=== PATIENT | female | born 1935 | race Hispanic/Latino ===

== ENCOUNTER 2016-07-12 10:38 | Inpatient (IN) | payer MEDICARE ==
[2016-07-12 10:43] VITALS: BMI 32.2
[2016-07-12] MEDS ORDERED: Albuterol-Ipratrop 3 mg / 0.5 (3 ml) UD IH STA (11:04)
[2016-07-12 11:15] LABS: ADD MANUAL DIFF? NO
--- NOTE | 2016-07-12 11:23 | ED PDOC ---
Arrival/HPI - General Chief Complaint: Chest Pain Time Seen by Provider: 07/12/16 11:03 Historian: Patient - History of Present Illness Narrative History of Present Illness (Text): 07/12/16 11:27 80 year old female presents to the emergency department with 1 week duration productive cough with yellow phlegm. She states she was put on Augmentin with no relief. Currently patient is complaining of chest discomfort upon cough. No other complaints at this time. PMD: Dr. Ming Hicks Time/Duration: 1 week Symptom Onset: Gradual Symptom Course: Unchanged Modifying Factors (Text): Augmentin with no relief Associated Symptoms (Text): None Past Medical History - Provider Review Nursing Documentation Reviewed: Yes - Infectious Disease Hx of Infectious Diseases: None - Tetanus Immunization Tetanus Immunization: Unknown - Cardiac Hx Cardiac Disorders: Yes Hx Hypertension: Yes - Pulmonary Hx Respiratory Disorders: Yes Hx Chronic Obstructive Pulmonary Disease (COPD): Yes - Neurological Hx Neurological Disorder: No - HEENT Hx Cataracts: Yes - Renal Hx Renal Disorder: No - Endocrine/Metabolic Hx Endocrine Disorders: No - Hematological/Oncological Hx Blood Disorders: No Hx Lymphoma: Yes (R chest port) Hx Shingles: Yes Other/Comment: last chemo was ONE YEAR AGO - Integumentary Hx Dermatological Disorder: No - Musculoskeletal/Rheumatological Hx Falls: Yes - Gastrointestinal Hx Gastrointestinal Disorders: No - Genitourinary/Gynecological Hx Genitourinary Disorders: No - Psychiatric Hx Psychophysiologic Disorder: No Hx Substance Use: No - Surgical History Hx Appendectomy: Yes Hx Cardiac Catheterization: Yes Hx Cholecystectomy: Yes Hx Coronary Stent: Yes Hx Hysterectomy: Yes Other/Comment: cardiac stent x3 - Anesthesia Hx Anesthesia: Yes Hx Anesthesia Reactions: No Hx Malignant Hyperthermia: No - Suicidal Assessment Feels Threatened In Home Enviroment: No Family/Social History - Physician Review Nursing Documentation Reviewed: Yes Family/Social History: Unknown Family HX Smoking Status: Never Smoked Hx Alcohol Use: No Hx Substance Use: No Substance used: demerol PO Q4H Hx Substance Use Treatment: No Allergies/Home Meds Allergies/Adverse Reactions: Allergies Sulfa (Sulfonamide Antibiotics) Allergy (Intermediate, Verified 07/12/16 10:42) RASH Home Medications: Home Meds Medication Instructions Recorded Confirmed Clopidogrel [Plavix] 75 mg PO QAM 11/27/11 07/12/16 Verapamil [Calan Tab] 120 mg PO QAM 11/27/11 07/12/16 Meperidine HCl [Demerol] 50 mg PO PRN PRN 09/16/14 07/12/16 Celecoxib [celeBREX] 200 mg PO QAM 05/23/15 07/12/16 Furosemide 20 mg PO QAM 05/23/15 07/12/16 Lidocaine 5% [Lidoderm] 1 patch TP DAILY 05/23/15 07/12/16 Omeprazole [Prilosec] 40 mg PO QAM 05/23/15 07/12/16 Pantoprazole [Protonix EC Tab] 40 mg PO QAM 05/23/15 07/12/16 Potassium Chloride [K-Dur 20 mEq 20 meq PO DAILY 05/23/15 07/12/16 ER Tab] predniSONE [predniSONE Tab] 40 mg PO DAILY 05/23/15 07/12/16 Amoxicillin/Clavulanate [Augmentin 1 tab PO DAILY 07/12/16 07/12/16 500 MG-125 MG Tab] Review of Systems - Physician Review All systems were reviewed & negative as marked: Yes Physical Exam - Physical Exam Narrative Physical Exam (Text): - Review of Systems Constitutional: Normal. absent: Fatigue, Weight Change, Fevers Eyes: Normal ENT: Normal Respiratory: Cough, Sputum absent: SOB Cardiovascular: Normal absent: Chest pain, Palpitations, Syncope Gastrointestinal: Normal absent: Abdominal pain, Diarrhea, Nausea, Vomiting Genitourinary: Normal. absent: Dysuria, Frequency, Hematuria Musculoskeletal: Normal. absent: Arthralgias, Back Pain, Neck Pain Skin: Normal Neurological: Normal absent: Focal Weakness Endocrine: Normal Hemo/Lymphatic: Normal Psychiatric: Normal - Physical exam Patient appears age appropriate, speaking full sentences without difficulty - Systems Exam Head: Present: Atraumatic, Normocephalic Pupils: Present: PERRL Extraocular Muscles: Present: EOMI Conjunctiva: Present: Normal Mouth: Present: Moist Mucous Membranes Neck: Present: Normal Range of Motion. No: MIDLINE TENDERNESS, Paraspinal Tenderness Respiratory/Chest: Present: Clear to Auscultation, Good Air Exchange. No: Respiratory Distress, Accessory Muscle Use, Tachypneic Cardiovascular: Present: Regular Rate and Rhythm, Normal S1, S2, Peripheral Pulses Present. No: Murmurs Abdomen: Present: Normal Bowel Sounds, No: Tenderness, Peritoneal Signs, Rebound, Guarding, Distention Back: Present: Normal Inspection. No: Midline Tenderness, Paraspinal Tenderness Upper Extremity: Present: Normal Inspection. No: Cyanosis, Edema Lower Extremity: Present: Normal Inspection. No: Edema Neurological: Present: GCS=15, Speech Normal, cranial nerves II through XII fully intact with no cerebellar abnormality, neuro-sensory fully intact. No focal neurological deficits. Skin: Present: Warm, Dry, Normal Color. No: Rashes Lymphatic: Present: OX3, NI, NC Psychiatric: Present: Alert, Oriented x 3, Normal Insight, Normal Concentration Vital Signs Reviewed: Yes Vital Signs Temp Pulse Resp BP Pulse Ox 07/12/16 10:45 98.3 F 61 20 135/67 96 Temperature: Afebrile Blood Pressure: Normal Pulse: Regular Respiratory Rate: Normal Appearance: Positive for: Well-Appearing, Non-Toxic, Comfortable Pain Distress: None Mental Status: Positive for: Alert and Oriented X 3 Medical Decision Making ED Course and Treatment: Impression: 80 year old female presents to the emergency department with 1 week duration productive cough with yellow phlegm. On physical exam, patient has no acute findings. Differential Diagnosis include but are not limited to: PNA vs bronchitis Plan: -- EKG, Chest X-ray -- Aspirin, Duoneb -- Labs -- Reassess and disposition Prior Visits: Notes and results from previous visits were reviewed. Patient last seen in the ED on Progress Notes: EKG shows sinus bradycardia at [address]-segment elevations, normal intervals. with no prior for comparison. Interpreted by me. Chest x-ray read by me shows no cardiomegaly, right lobar infiltrates, no effusions Case discussed with Dr. Ming Hicks. Agrees with med/surg admission to his service pt in no resp distress, aware of and agrees with plan - Lab Interpretations Lab Results: 07/12/16 11:13 07/12/16 11:13 Lab Results 07/12/16 11:13: WBC 7.4 D, RBC 3.56, Hgb 11.6 L, Hct 34.6 L, MCV 97.2, MCH 32.6 , MCHC 33.5, RDW 13.8, Plt Count 128, MPV 10.5, Gran % 56.1, Lymph % (Auto) 29.4 , Curry % (Auto) 9.0 H, Eos % (Auto) 5.1 H, Baso % (Auto) 0.4, Gran # 4.15, Lymph # 2.2, Curry # 0.7 H, Eos # 0.4, Baso # 0.03, PT 11.7, INR 1.08, APTT 96.9 H*, Sodium 140, Potassium 4.7, Chloride 103, Carbon Dioxide 27, Anion Gap 15, BUN 25 H, Creatinine 1.0, Est GFR ( Amer) > 60, Est GFR (Non-Af Amer) 53 , Random Glucose 111 H, Calcium 9.4, Total Bilirubin 0.6, AST 19, ALT 13, Alkaline Phosphatase 60, Lactate Dehydrogenase 494, Total Creatine Kinase < 20 L , Troponin I < 0.01 D, Total Protein 6.3, Albumin 4.0, Globulin 2.3, Albumin/ Globulin Ratio 1.7 - RAD Interpretation Radiology Orders: 07/12/16 11:03 CHEST PORTABLE [RAD] Stat - Medication Orders Current Medication Orders: Azithromycin (Zithromax 500mg In Ns) 250 mls @ 167 mls/hr IVPB STAT STA PRN Reason: Protocol Stop: 07/12/16 13:04 Discontinued Medications Albuterol/Ipratropium (Duoneb 3 Mg/0.5 Mg (3 Ml) Ud) 3 ml IH STAT STA Stop: 07/12/16 11:05 Last Admin: 07/12/16 11:11 Dose: 3 ML Aspirin (Aspirin Chewable) 324 mg PO STAT STA Stop: 07/12/16 11:05 Last Admin: 07/12/16 11:11 Dose: 324 MG Ceftriaxone Sodium (Rocephin 1 Gram Ivpb) 100 mls @ 200 mls/hr IV STAT STA PRN Reason: Protocol Stop: 07/12/16 12:04 Last Admin: 07/12/16 11:41 Dose: 200 MLS/HR eMAR Start Stop Document 07/12/16 11:41 SE (Rec: 07/12/16 11:42 SE [id number]) Intravenous Solution Start Date 07/12/16 Start Time 11:42 Ketorolac Tromethamine (Toradol) 15 mg IVP STAT STA Stop: 07/12/16 11:41 Last Admin: 07/12/16 11:46 Dose: 15 MG IVP Administration Document 07/12/16 11:46 SE (Rec: 07/12/16 11:46 SE [id number]) Charges for Administration # of IVP Administrations 1 - Scribe Statement The provider has reviewed the documentation as recorded by the Emerson Hernandez Provider Alexibe Attestation: All medical record entries made by the Alexibcheng were at my direction and personally dictated by me. I have reviewed the chart and agree that the record accurately reflects my personal performance of the history, physical exam, medical decision making, and the department course for this patient. I have also personally directed, reviewed, and agree with the discharge instructions and disposition. Disposition/Present on Arrival - Present on Arrival Any Indicators Present on Arrival: No History of DVT/PE: No History of Uncontrolled Diabetes: No Urinary Catheter: No History of Decub. Ulcer: No History Surgical Site Infection Following: None - Disposition Have Diagnosis and Disposition been Completed?: Yes Diagnosis: Pneumonia Disposition: HOSPITALIZED Disposition Time: 12:00 Patient Plan: Admission Patient Problems: Current Active Problems Problem Status Diagnosed Chest pain Acute Intractable back pain Acute Condition: FAIR
[2016-07-12 11:26] LABS: BASO # 0.03 K/mm3 (0.0-2.0); BASO % 0.4 % (0.0-3.0); EOS # 0.4 (0.0-0.7); EOS % 5.1 % (1.5-5.0); GRAN # 4.15 (1.4-6.5); GRAN % 56.1 % (50.0-68.0); HEMATOCRIT 34.6 % (36.0-48.0); LYMPH # 2.2 (1.2-3.4); LYMPH % 29.4 % (22.0-35.0); MEAN CELL VOLUME 97.2 fL (80.0-105.0); MEAN CORPUSCULAR HEMOGLOBIN 32.6 pg (25.0-35.0); MEAN CORPUSCULAR HGB CONC 33.5 g/dl (31.0-37.0); MEAN PLATELET VOLUME 10.5 fl (7.0-11.0); MONO # 0.7 (0.1-0.6); PLATELET COUNT 128 10^3/uL (120.0-450.0); RED CELL DISTRIBUTION WIDTH 13.8 % (11.5-14.5); WHITE BLOOD COUNT 7.4 10^3/ul (4.5-11.0)
[2016-07-12 11:33] LABS: ALB/GLOB RATIO 1.7 (1.1-1.8); ALKALINE PHOSPHATASE 60 U/L (38-133); ALT/SGPT 13 U/L (7-56); AST/SGOT 19 U/L (15-39); BILIRUBIN,TOTAL 0.6 mg/dL (0.2-1.3); BLOOD UREA NITROGEN 25 mg/dL (7-21); CALCIUM 9.4 mg/dL (8.4-10.5); CARBON DIOXIDE 27 mmol/L (21-33); CHLORIDE 103 mmol/L (98-107); GFR AFRICAN-AMERICAN > 60; GLUCOSE,RANDOM 111 mg/dL (70-110); POTASSIUM 4.7 mmol/L (3.6-5.0); SODIUM 140 mmol/L (132-148); TOTAL PROTEIN 6.3 g/dL (5.8-8.3)
[2016-07-12] MEDS ORDERED: Azithromycin 500MG/NS 250ml 250 ML IVPB STA (11:35)
[2016-07-12] MEDS ORDERED: cefTRIAXone 1 gm 100 ML IV STA (11:35)
[2016-07-12 11:45] LABS: TROPONIN I < 0.01 ng/mL
[2016-07-12 11:48] LABS: INR 1.08 (0.93-1.08)
[2016-07-12 12:09] LABS: PARTIAL THROMBOPLASTIN TIME 96.9 Seconds (23.7-30.8)
[2016-07-12] MEDS ORDERED: Albuterol-Ipratrop 3 mg / 0.5 (3 ml) UD IH PRN (12:13)
--- NOTE | 2016-07-12 12:22 | RAD ---
HISTORY: cough COMPARISON: 10/09/2015 FINDINGS: LUNGS: New opacity at lateral right lung base suspicious for pneumonia. Followup advised. No other abnormal opacity elsewhere. PLEURA: No significant pleural effusion identified, no pneumothorax apparent. CARDIOVASCULAR: Evaluation limited due to oblique positioning. Right central venous infusion port. No cardiomegaly. OSSEOUS STRUCTURES: Right glenohumeral osteoarthritis chronic rotator cuff insufficiency with superior subluxation of humeral head. VISUALIZED UPPER ABDOMEN: Normal. OTHER FINDINGS: None. IMPRESSION: New opacity lateral right lung base suspicious for developing pneumonia. Followup advised.
[2016-07-12] MEDS: Morphine 2 mg/ml ISec IVP PRN ×2 (16:24→21:17)
[2016-07-12] MEDS ORDERED: Pneumococcal 23-Valent Vaccine IM ONE (16:25)
[2016-07-12] MEDS ORDERED: Influenza Vaccine 45 MCG/0.5 ml IM ONE (16:25)
[2016-07-12] MEDS ORDERED: Potassium Chloride 20 mEq ER Tab PO ONE (16:49)
--- NOTE | 2016-07-12 17:02 | HP ---
HISTORY OF PRESENT ILLNESS: The patient is an 80-[facility] of productive cough with yellow phlegm for the past 1 week. She denies any fev er or chills. She was started as an outpatient on oral Augmentin 875 mg twice daily without any impr ovement. PAST MEDICAL HISTORY: Includes coronary artery disease. The patient had a cardiac catheterization p erformed 05/2015, which showed a 90% LAD lesion and the [facility] The patient also has a history of hypertension, hypertensive cardiovascular disease and CHF; a history of lymphoproliferative disorder, CLL and history of hemolytic anemia in t he past treated by Dr. Yamil Brown. She also has a history of degenerative joint disease with chronic pain and opiate dependence. PAST SURGICAL HISTORY: Includes status post appendectomy and cholecystectomy in the remote past. ALLERGIES: SULFA. CURRENT MEDICATIONS: Include metoprolol 25 mg twice daily, Calan SR 120 mg daily, Protonix 40 mg snidhu ly, Plavix 75 mg daily, Ecotrin 81 mg daily, Celebrex 200 mg daily, Lasix 20 mg daily, prednisone 40 mg daily and K-Dur 20 mEq daily. SOCIAL HISTORY: The patient has no history of alcohol or tobacco abuse. She is independent with ADL s and IADLs and lives alone. REVIEW OF SYSTEMS: Essentially as above. There is no chest pain, no shortness of breath, no fever, no chills, no nausea, no vomiting, no diarrhea, no melena, no bright red blood per rectum. PHYSICAL EXAMINATION: GENERAL: The patient is a well-developed female in no acute distress. VITAL SIGNS: Blood pressure 137/48, temperature 98.7, pulse 73, respiratory rate 20. HEENT: Head is normocephalic, atraumatic. Pupils equal, reactive to light. Extraocular movements i ntact. NECK: Supple, with no carotid bruit, no adenopathy. LUNGS: Clear. There is a Port-A-Cath present in the right chest wall, which is intact. HEART: Regular rate and rhythm with a grade II/ systolic murmur. ABDOMEN: Soft, nontender, bowel sounds are normoactive. EXTREMITIES: Without cyanosis, clubbing, or edema. NEUROLOGIC: The patient is awake and oriented x 3 without focal sensory or motor deficits. SKIN: Warm and dry. LABORATORY DATA: WBC 7.4, hemoglobin 11.6, hematocrit 34.6. Sodium 140, potassium 4.7, chloride 103 , CO2 of 27, BUN 25, creatinine 1.0. Glucose 111. Troponin is less than 0.01. Chest x-ray shows an opacity of the right lung base suspicious for pneumonia. IMPRESSION: 1. Right lower lobe infiltrate, possible pneumonia. 2. Hypertension, hypertensive cardiovascular disease, history of congestive heart failure. 3. Coronary artery disease. 4. Lymphoproliferative disorder/chronic lymphocytic leukemia/history of hemolytic anemia. 5. Degenerative joint disease with chronic pain and opiate dependence. PLAN: The patient is admitted to the medical surgical floor. We will start empiric IV antibiotics w ith Rocephin 1 gram q.24 hours and Zithromax 500 mg IV q.24 hours. Continue present medications. We will obtain hematology consult with Dr. Brown. Ming Hicks JD, MD cc: [id number] TT: 07/12/2016 17:01:27 sn
--- NOTE | 2016-07-12 18:26 | CARD ---
APPROVED REPORT EKG Measurement Heart [id number] <Conclusion> Sinus bradycardia Cannot rule out Anterior infarct, age undetermined Abnormal ECG
[2016-07-13] MEDS: Morphine 2 mg/ml ISec IVP PRN ×5 (02:45→19:22)
[2016-07-13] MEDS: Pantoprazole 40 mg EC Tab PO SCH (05:33)
[2016-07-13] MEDS: Azithromycin 500MG/NS 250ml 250 ML IVPB SCH (09:10)
[2016-07-13] MEDS: cefTRIAXone 1 gm 100 ML IVPB SCH (09:11)
[2016-07-13] MEDS: Potassium Chloride 20 mEq ER Tab PO SCH (09:17)
[2016-07-13] MEDS: Verapamil 120 mg ER Tab PO SCH (09:25)
--- NOTE | 2016-07-13 10:04 | CON ---
DATE: 07/13/2016 This is an 80-year-old woman, well known to me for chronic lymphocytic leukemia. She has had this si tuation for several years. She received Rituxan chemotherapy, 2 rounds, one about 3 years ago, anoth er almost a year ago and she has done quite well. She was seen in the office about a month ago and w as feeling well for her status and essentially is off all treatments at this point. She is now admit carlos alberto to the hospital for pneumonia and cough of several days with a fever and chills and productive ph legm. At present, the white count is 7.4, hemoglobin 11.6 and the differential shows 56% granulocyte s and 30% lymphocytes. This is consistent with what she is having in the office. She is basically i n a remission at this point. Chest x-ray shows a patchy infiltrate. She is elderly and she does not move well and it is hard for her to breathe well. So at this point, no hematological aspects. She is coming in for pneumonia. We will treat it with the antibiotics and breathing aids. Hopefully, sh e will continue to improve. Yamil Brown MD cc: [phone] TT: 07/13/2016 10:03:37 Confirmation # [id number] Dictation # [id number] en
--- NOTE | 2016-07-13 14:20 | PN ---
DATE: 07/13/2016 SUBJECTIVE: The patient is sitting out of bed, in no acute distress. She denies any chest pain, akiko rtness of breath. She has a slight nonproductive cough. OBJECTIVE: VITAL SIGNS: Blood pressure 163/78, temperature 95.1, pulse 56, respiratory rate 20. LUNGS: Show a few coarse crepitations at the right base. HEART: Regular rate and rhythm. ABDOMEN: Soft, nontender, bowel sounds are normoactive. EXTREMITIES: Without cyanosis, clubbing, or edema. NEUROLOGIC: The patient is awake and oriented x 3 without focal, sensory or motor deficits. SKIN: Warm and dry. IMPRESSION: 1. Right lower lobe pneumonia. 2. Hypertension, hypertensive cardiovascular disease, history of congestive heart failure. 3. Coronary artery disease 4. Chronic lymphocytic leukemia. 5. Degenerative joint disease with chronic pain and opiate dependence. PLAN: Continue empiric IV antibiotics with Rocephin and Zithromax. Oncology consult by Dr. Brown is appreciated. Continue DuoNeb and prednisone p.o. Social work for discharge planning. Ming Hicks JD, MD cc: [phone] TT: 07/13/2016 14:19:11 Confirmation # [id number] Dictation # [id number] en
[2016-07-13] MEDS: Lidocaine 5% Patch TD SCH (14:34)
[2016-07-14] MEDS: Morphine 2 mg/ml ISec IVP PRN ×4 (03:26→20:35)
[2016-07-14] MEDS: Pantoprazole 40 mg EC Tab PO SCH (06:27)
[2016-07-14] MEDS: Potassium Chloride 20 mEq ER Tab PO SCH (08:15)
[2016-07-14] MEDS: Azithromycin 500MG/NS 250ml 250 ML IVPB SCH (11:29)
[2016-07-14] MEDS: cefTRIAXone 1 gm 100 ML IVPB SCH (11:30)
[2016-07-14] MEDS: Lidocaine 5% Patch TD SCH (11:30)
[2016-07-14] MEDS ORDERED: Promethazine/Cod 6.25mg-10mg/5ml Syr UD PO PRN (11:42)
--- NOTE | 2016-07-14 12:44 | PN ---
DATE: 07/14/2016 SUBJECTIVE: The patient is lying in bed in no acute distress. She complains of some mild nausea and nonproductive cough. There is no chest pain. OBJECTIVE: VITAL SIGNS: Blood pressure 150/98, temperature 98.7, pulse 85, respiratory rate 18. LUNGS: Show a few coarse crepitations at the right base. HEART: Regular rate and rhythm. ABDOMEN: Soft, nontender. Bowel sounds are normoactive. EXTREMITIES: Without cyanosis, clubbing, or edema. NEUROLOGIC: The patient is awake and oriented x 3 without focal sensory or motor deficits. SKIN: Warm and dry. IMPRESSION: 1. Right lower lobe pneumonia. 2. Hypertension, hypertensive cardiovascular disease and history of congestive heart failure. 3. Coronary artery disease. 4. Chronic lymphocytic leukemia. 5. Degenerative joint disease with chronic pain and opiate dependence. PLAN: Continue empiric IV antibiotics with Rocephin and Zithromax, nebulizer treatments, low flow ox ygen and prednisone p.o. We will give ondansetron 4 mg q. 8 hours p.r.n. nausea as well as Phenergan with codeine 5 mL q. 4 hours p.r.n. cough. Social work for discharge planning. Ming Hicks JD, MD cc: 353 TT: 07/14/2016 12:44:13 Confirmation # [id number] Dictation # [id number] tn
[2016-07-14] MEDS: Verapamil 120 mg ER Tab PO SCH (12:53)
[2016-07-15] MEDS: Morphine 2 mg/ml ISec IVP PRN ×3 (00:12→10:35)
[2016-07-15] MEDS: Pantoprazole 40 mg EC Tab PO SCH (06:23)
[2016-07-15] MEDS: Azithromycin 500MG/NS 250ml 250 ML IVPB SCH (09:51)
[2016-07-15] MEDS: Lidocaine 5% Patch TD SCH (09:51)
[2016-07-15] MEDS: cefTRIAXone 1 gm 100 ML IVPB SCH (09:51)
[2016-07-15] MEDS: Potassium Chloride 20 mEq ER Tab PO SCH (09:52)
[2016-07-15] MEDS: Verapamil 120 mg ER Tab PO SCH (09:53)
[2016-07-15] MEDS: Morphine 4 mg/ml ISec IVP PRN ×2 (14:28→20:36)
--- NOTE | 2016-07-15 14:43 | PN ---
DATE: 07/15/2016 SUBJECTIVE: The patient is lying in bed in no acute distress. She complains of some back pain, whic h is increased from previous. There is a slight cough, no nausea, no vomiting, no chest pain. OBJECTIVE: VITAL SIGNS: Blood pressure 180/90, pulse 78, temperature 98.4, respiratory rate 18. LUNGS: Show a few coarse crepitations at the right base. HEART: Regular rate and rhythm. ABDOMEN: Soft, nontender, bowel sounds are normoactive. EXTREMITIES: Without cyanosis, clubbing, or edema. NEUROLOGIC: The patient is awake and oriented x 3 without focal sensory or motor deficits. SKIN: Warm and dry. IMPRESSION: 1. Right lower lobe pneumonia. 2. Hypertension, hypertensive cardiovascular disease and history of congestive heart failure. 3. Coronary artery disease. 4. Chronic lymphocytic leukemia. 5. Degenerative joint disease with chronic pain and opiate dependence. PLAN: Continue empiric IV antibiotics with Rocephin and Zithromax, nebulizer treatments, low flow ox ygen and prednisone p.o. We will increase morphine sulfate to 4 mg IV q. 4 hours p.r.n., check labs in a.m. Social work for discharge planning. Ming Hicks JD, MD cc: 353 TT: 07/15/2016 14:42:56 Confirmation # [id number] Dictation # [id number] an
[2016-07-16] MEDS: Morphine 4 mg/ml ISec IVP PRN ×4 (03:35→20:55)
[2016-07-16] MEDS: Pantoprazole 40 mg EC Tab PO SCH (05:52)
[2016-07-16 07:20] LABS: ADD MANUAL DIFF? NO
[2016-07-16 07:23] LABS: BASO # 0.01 K/mm3 (0.0-2.0); BASO % 0.2 % (0.0-3.0); EOS % 0.5 % (1.5-5.0); GRAN # 3.29 (1.4-6.5); GRAN % 53.1 % (50.0-68.0); HEMATOCRIT 33.2 % (36.0-48.0); LYMPH # 2.4 (1.2-3.4); LYMPH % 38.5 % (22.0-35.0); MEAN CELL VOLUME 95.1 fL (80.0-105.0); MEAN CORPUSCULAR HEMOGLOBIN 32.1 pg (25.0-35.0); MEAN CORPUSCULAR HGB CONC 33.7 g/dl (31.0-37.0); MEAN PLATELET VOLUME 10.5 fl (7.0-11.0); MONO # 0.5 (0.1-0.6); MONO % 7.7 % (1.0-6.0); PLATELET COUNT 145 10^3/uL (120.0-450.0); RED CELL DISTRIBUTION WIDTH 13.5 % (11.5-14.5); WHITE BLOOD COUNT 6.2 10^3/ul (4.5-11.0)
[2016-07-16 08:08] LABS: ALB/GLOB RATIO 1.5 (1.1-1.8); ALKALINE PHOSPHATASE 51 U/L (38-133); ALT/SGPT 12 U/L (7-56); AST/SGOT 14 U/L (15-39); BILIRUBIN,TOTAL 0.5 mg/dL (0.2-1.3); BLOOD UREA NITROGEN 35 mg/dL (7-21); CALCIUM 8.8 mg/dL (8.4-10.5); CARBON DIOXIDE 26 mmol/L (21-33); CHLORIDE 107 mmol/L (98-107); GFR AFRICAN-AMERICAN > 60; GLUCOSE,RANDOM 92 mg/dL (70-110); POTASSIUM 4.2 mmol/L (3.6-5.0); SODIUM 143 mmol/L (132-148); TOTAL PROTEIN 5.7 g/dL (5.8-8.3)
--- NOTE | 2016-07-16 08:15 | CON ---
DATE: 07/16/2016 This is a patient with chronic lymphocytic leukemia, status post her chemotherapy about 2 years ago. She has been doing well. She came in for her pneumonia. The blood counts now are doing pretty well . Her white count is around 6. No increased lymphocytes. PHYSICAL EXAMINATION: HEENT: Anicteric. NODES: None palpable in the axillary, cervical, supraclavicular or inguinal regions. LUNGS: Clear at present. No vertebral tenderness. The patient is able to lie flat and says she is feeling somewhat better. HEART: S1, S2. ABDOMEN: Shows no liver, no spleen, no tenderness. EXTREMITIES: No edema. CENTRAL NERVOUS SYSTEM: No focal finding. She seems to be getting better. She has an appointment with me in the office in about a month to flu sh the port and to see her, and I will be seeing her at that time, but for now, hematologically, she is doing well. Yamil Brown MD cc: [phone] TT: 07/16/2016 08:14:27 Confirmation # [id number] Dictation # [id number] en
[2016-07-16] MEDS: Potassium Chloride 20 mEq ER Tab PO SCH (10:07)
[2016-07-16] MEDS: cefTRIAXone 1 gm 100 ML IVPB SCH (10:09)
[2016-07-16] MEDS: Lidocaine 5% Patch TD SCH (10:09)
[2016-07-16] MEDS: Verapamil 120 mg ER Tab PO SCH (10:11)
--- NOTE | 2016-07-16 11:00 | PN ---
DATE: 07/16/2016 SUBJECTIVE: The patient is lying in bed in no acute distress. She complains of some back pain. The re is slight cough. No nausea, no vomiting, no chest pain. OBJECTIVE: VITAL SIGNS: Blood pressure 180/83, temperature 98.1, pulse 74, respiratory rate 20. LUNGS: Show scattered crepitations bilaterally, greatest at the right base. HEART: Regular rate and rhythm. ABDOMEN: Soft, nontender. Bowel sounds are normoactive. EXTREMITIES: Without cyanosis, clubbing, or edema. NEUROLOGIC: The patient is awake and oriented x 3 without focal sensory or motor deficits. SKIN: Warm and dry. LABORATORY DATA: WBC is 6.2, hemoglobin 11.2, hematocrit 33.2. Sodium 143, potassium 4.2, chloride 107, CO2 of 26. BUN 35, creatinine 1.0. Glucose 92. BNP is elevated at 539. IMPRESSION: 1. Right lower lobe pneumonia. 2. Hypertension, hypertensive cardiovascular disease, and congestive heart failure. 3. Coronary artery disease. 4. Chronic lymphocytic leukemia. 5. Degenerative joint disease with chronic pain and opiate dependence. PLAN: Continue empiric IV antibiotics with Rocephin and Zithromax, nebulizer treatments, and oral pr ednisone. We will give a dose of IV Lasix 40 mg. We will obtain cardiology consult from Dr. Berto mondragon pulmonary consult from Dr. Camejo. We will check chest x-ray. Continue physical therapy and socia l work for discharge planning. Ming Hicks JD, MD cc: [phone] TT: 07/16/2016 11:00:30 Confirmation # [id number] Dictation # [id number] karol
[2016-07-16] MEDS: Azithromycin 500MG/NS 250ml 250 ML IVPB SCH (12:19)
--- NOTE | 2016-07-16 13:13 | CON ---
DATE: 07/16/2016 HISTORY OF PRESENT ILLNESS: The patient is an 80-year-old woman who presents with pneumonia. The patient does complain of intermittent chest discomfort. PAST MEDICAL HISTORY: Notable for multivessel PTCA in the past. Her last procedure approximately a year ago revealed a critically 90% stenosis in the LAD, which because of her marked circumferential c alcification, could not be opened with a balloon despite multiple attempts. The patient was recommended Rotablator, which according to the [facility] rules, we would need to transfer her to a different facility to do. The patient refused. Since then, she has continued t o refuse any further procedures. Her past medical history is also notable for hypertension and hypercholesterolemia. 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 She does not smoke. REVIEW OF SYSTEMS: A 14-point was reviewed in detail. No cardiac symptomatology noted. PHYSICAL EXAMINATION: VITAL SIGNS: Blood pressure is 195/70, the heart rate is in the 70s. NECK: Negative JVD. LUNGS: Bilateral rhonchi. HEART: Reveals S1, S2. EXTREMITIES: Without edema. EKG shows no acute changes. LABORATORIES: Hemoglobin is 11.2, white count is 6.2. Chemistries: First troponin is 0.01. BUN an d creatinine are unremarkable. ProBNP is 539. IMPRESSION: 1. Pneumonia. 2. History of recurrent angina. 3. 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 4. Hypertension. 5. Hypercholesterolemia. 6. Anemia. Given these findings, I have discussed with the patient about the possibility of considering Rotablat or of the left anterior descending. The patient will think about it after her lung issues are resolv ed. We will add Imdur to her medical regimen and losartan was added today. Rambo Thomson MD cc: [id number] TT: 07/16/2016 13:12:26 Confirmation # [id number] Dictation # [id number] en
--- NOTE | 2016-07-16 20:35 | CON ---
DATE: 07/16/2016 REFERRING PHYSICIAN: Dr. Hicks. REASON FOR CONSULT: Cough, shortness of breath and exacerbation of lung disease. HISTORY OF PRESENT ILLNESS: This is an 80-year-old female with multiple medical problems including c hronic obstructive lung disease, cardiomyopathy with significant coronary artery disease the patient refused bypass surgery, hypertension, history of cerebrovascular accident, history of chronic lymphoc ytic leukemia, came in to Emergency Room with cough and shortness of breath and wheezing, bronchodila tor was started. Outpatient she failed Augmentin treatment. There is no hemoptysis, no hematemesis, no hematuria, no diarrhea reported. PAST MEDICAL HISTORY: Chronic lung disease, cardiomyopathy, coronary artery disease, CHF, CVA, hyper tension, chronic lymphocytic leukemia. ALLERGIES: SULFA. SOCIAL HISTORY: Denies any active smoking or alcohol use. FAMILY HISTORY: No significant cardiopulmonary disease reported. MEDICATIONS: She is on Calan SR 120 mg daily, Cozaar 50 mg daily, Ecotrin 81 mg daily, Imdur 60 mg d aily, potassium 20 mEq daily, Lasix 20 mg daily, lidocaine patch daily, metoprolol tartrate 25 mg twi ce a day, morphine 4 mg q. 4 hours p.r.n., nystatin affected area, promethazine with codeine q. 4 annamaria rs, Plavix 75 mg daily, prednisone 40 mg daily, Protonix 40 mg daily, Rocephin 1 gram daily, Tylenol p.r.n., Zithromax 500 mg daily, Zofran on a p.r.n. basis. REVIEW OF SYSTEMS: No headache, no rhinitis. Has a cough, shortness of breath, sputum production. No nausea, no vomiting, no diarrhea. No dysuria, no significant leg swelling. PHYSICAL EXAMINATION: GENERAL: Sitting side of the bed with cough and shortness of breath. VITAL SIGNS: Temp is 98, heart rate 60, respiratory rate is 20, blood pressure 163/75, pulse ox 93% on room air. HEENT: Moist mucous membranes. Crowded airway. Mallampati score is 4. NECK: Supple. No JVD. LUNGS: Has bilateral scattered rhonchi and few wheezing. HEART: S1 and S2. ABDOMEN: Soft, nontender. No organomegaly. EXTREMITIES: There is not much edema. NEUROLOGIC: Awake, alert, follows simple commands. LABORATORY DATA: Shows hemoglobin 11.2, hematocrit 33.2, WBC 6.2, platelet count is 145. PTT is 97. Sodium 143, potassium 4.2, chloride 107, bicarbonate 26, BUN 35, creatinine 1.0, glucose is 92, inna cium 8.8, total bilirubin 0.5, AST 14, ALT 12, alkaline phosphatase is 51, proBNP 539, total protein 5.7, albumin is 3.4. MICROBIOLOGY: Blood culture has been negative. Chest x-ray which was done on admission shows a righ t lung base infiltrate. Chest x-ray which is done today also shows some haziness on both sides, may have effusion. IMPRESSION AND PLAN: Chronic lymphocytic leukemia, chronic lung disease, pleural effusion, right low er lobe pneumonia, hypertension, history of stroke, coronary artery disease, also has degenerative gill int disease. Agree with Dr. Hicks with the present management. We will discontinue prednisone and p lace her on Solu-Medrol 40 mg q. 12 hours. Continue inhaled bronchodilator. Gastric prophylaxis. D eep venous thrombosis prophylaxis. We will get a CAT scan of the chest to evaluate lung parenchyma. We will also do dysphagia evaluation. Cardiac consult has been called. We will get a proBNP and pr ocalcitonin for the morning. Thank you and we will follow with you. Saul Camejo MD cc: [id number] TT: 07/16/2016 20:34:24 Confirmation # [id number] Dictation # [id number] jn
[2016-07-16] MEDS: Nystatin 100,000 Units/gm Topical Pow(15 gm) TOP SCH (22:06)
[2016-07-16] MEDS: MethylPREDNISolone 40 mg Vial IVP SCH (22:45)
[2016-07-17] MEDS: Morphine 4 mg/ml ISec IVP PRN ×4 (05:54→20:34)
[2016-07-17] MEDS: Pantoprazole 40 mg EC Tab PO SCH (05:55)
--- NOTE | 2016-07-17 09:04 | RAD ---
HISTORY: RLL Pneumonia COMPARISON: 07/12/2016 TECHNIQUE: Chest PA and lateral FINDINGS: LUNGS: The lungs are clear. There is resolution of the previously seen right lower lobe infiltrate PLEURA: No significant pleural effusion identified. No pneumothorax apparent. CARDIOVASCULAR: Normal. OSSEOUS STRUCTURES: No significant abnormalities. VISUALIZED UPPER ABDOMEN: Normal. OTHER FINDINGS: None. IMPRESSION: Resolved right lower lobe infiltrate
[2016-07-17] MEDS: cefTRIAXone 1 gm 100 ML IVPB SCH (10:13)
[2016-07-17] MEDS: MethylPREDNISolone 40 mg Vial IVP SCH ×2 (10:13→21:36)
[2016-07-17] MEDS: Lidocaine 5% Patch TD SCH (10:14)
[2016-07-17] MEDS: Nystatin 100,000 Units/gm Topical Pow(15 gm) TOP SCH ×2 (10:14→21:37)
[2016-07-17] MEDS: Verapamil 120 mg ER Tab PO SCH (10:14)
[2016-07-17] MEDS: Potassium Chloride 20 mEq ER Tab PO SCH (10:15)
--- NOTE | 2016-07-17 13:13 | CT ---
PROCEDURE: CT Chest without contrast HISTORY: infiltrate COMPARISON: 04/29/2015 TECHNIQUE: Contiguous axial images were obtained through the chest without intravenous contrast enhancement. Sagittal and coronal reconstructions were performed. Radiation dose (DLP): 464 mGy-cm. This CT exam was performed using one or more of the following dose reduction techniques: Automated exposure control, adjustment of the mA and/or kV according to patient size, and/or use of iterative reconstruction technique. FINDINGS: LUNGS: The infiltrate seen previously have resolved. There is minimal linear scarring and pleural thickening at the right lung base. There is also some pleural parenchymal scarring in the left upper lobe anteriorly. MEDIASTINUM: Unremarkable thoracic aorta. No aneurysm. Normal sized heart. Main pulmonary artery unremarkable. No vascular congestion. Large axillary lymph nodes are seen bilaterally. Mildly enlarged mediastinal lymph nodes are seen. PLEURA: No pleural fluid. No pneumothorax. BONES: No fracture. No destructive lesion. UPPER ABDOMEN: Grossly unremarkable. OTHER FINDINGS: None. IMPRESSION: Resolution of previously seen pulmonary infiltrates. Bilateral axillary adenopathy and mild mediastinal adenopathy
[2016-07-17] MEDS: Azithromycin 500MG/NS 250ml 250 ML IVPB SCH (13:26)
--- NOTE | 2016-07-17 14:00 | PN ---
DATE: 07/17/2016 SUBJECTIVE: The patient's breathing is much improved. PHYSICAL EXAMINATION: VITAL SIGNS: Blood pressure is 140/80. The heart rate is in the 80s. NECK: Negative JVD. LUNGS: Without rales. HEART: Reveals S1, S2. EXTREMITIES: Without edema. LABORATORY DATA: The hemoglobin is 11.2. Chemistries: BUN and creatinine are unremarkable. CT scan reveals resolution of infiltrates. IMPRESSION: 1. Pneumonia. 2. Stable angina. 3. Calcified and critical lesion of the left anterior descending. 4. Hypertension. 5. Hypercholesterolemia. 6. Anemia. PLAN: Given these findings, the patient refuses transfer to [facility] for possible rotablader of the LAD. The patient instead opts for medical therapy. We will continue her Imdur 60 daily. Rambo Thomson MD cc: [id number] TT: 07/17/2016 13:59:36 Confirmation # [id number] Dictation # [id number]
--- NOTE | 2016-07-17 14:39 | PN ---
DATE: 07/17/2016 SUBJECTIVE: The patient is out of bed in a chair, in no acute distress. She denies any chest pain o r shortness of breath. OBJECTIVE: VITAL SIGNS: Blood pressure 140/80, temperature 97.7, pulse 89, respiratory rate 18. LUNGS: Show a few scattered crepitations bilaterally. HEART: Regular rate and rhythm. ABDOMEN: Soft, nontender, bowel sounds are normoactive. EXTREMITIES: Without cyanosis, clubbing, or edema. NEUROLOGIC: The patient is awake and oriented without focal sensory or motor deficits. SKIN: Warm and dry. LABORATORY DATA: CT scan of the chest shows resolution of the right lower lobe infiltrate with mild axillary and mediastinal adenopathy. IMPRESSION: 1. Right lower lobe pneumonia, improved. 2. Hypertension, hypertensive cardiovascular disease and congestive heart failure. 3. Coronary artery disease. 4. Chronic lymphocytic leukemia. 5. Degenerative joint disease with chronic pain and opiate dependence. PLAN: Continue empiric IV antibiotics with Rocephin and Zithromax. The patient has been seen in [facility] by pulmonary (Dr. Camejo) and started on IV Solu-Medrol. Continue cardiology followup with Dr. Thomson. Physical therapy and social work for discharge planning. Ming Hicks JD, MD cc: [id number] TT: 07/17/2016 14:37:45 Confirmation # [id number] Dictation # [id number]
--- NOTE | 2016-07-17 21:31 | PN ---
DATE: 07/17/2016 REFERRING PHYSICIAN: Dr. Hicks. SUBJECTIVELY: The patient is sitting at the side of the bed. Feels much better. Decreased cough, d ecreased shortness of breath. No nausea, no vomiting, no diarrhea, leg pain, or leg swelling. OBJECTIVELY: No acute distress. Temp is 98, heart rate 69, respiratory rate is 20, blood pressure 120/80, pulse ox 95% on 2L nasal ca nnula. HENT: Moist mucous membranes. Crowded airway. Mallampati score is 4. NECK: Supple. No JVD. LUNGS: Has a few scattered rhonchi, but improved airflow. HEART: S1, S2. ABDOMEN: Soft, nontender. No organomegaly. EXTREMITIES: No edema. NEUROLOGICALLY: Awake, alert. Follows simple commands. MEDICATIONS: She is on Calan SR 100 mg daily, Cozaar 50 mg daily, Ecotrin 81 mg daily, Imdur 60 mg d aily, potassium at 20 mEq daily, Lasix 20 mg daily, lidocaine patch affected areas daily, metoprolol tartrate 25 mg twice a day, morphine 4 mg q. 4 hours p.r.n., nystatin powder affected area twice a da y, Phenergan with codeine 5 mL q. 4 hours p.r.n., Plavix 75 mg daily, Protonix 40 mg daily, Rocephin 1 g daily, Solu-Medrol 40 mg q. 12 hours, Tylenol p.r.n. basis, Zithromax 500 mg daily, Zofran p.r.n. basis. LABORATORY DATA: Reviewed. Noted proBNP 61. Procalcitonin 0.05. Microbiology: Blood cultures hav e been negative. Had CAT scan of the chest done today which shows resolution of previously seen pulmonary infiltrate, bilateral axillary lymphadenopathy, and mild mediastinal adenopathy noted. IMPRESSION AND PLAN: Chronic lymphocytic leukemia, chronic lung disease, pleural effusion which reso lved, right lower lobe pneumonia, hypertension, history of stroke, coronary artery disease, degenerat melinda joint disease. Pulmonary point of view, she is better. Will continue another day of IV and inhaled bronchodilator. Keep head elevated 45 degrees. Gastric prophylaxis, DVT prophylaxis, fall precaution. Thank you and will follow with you. Saul Camejo MD cc: [id number] TT: 07/17/2016 21:31:18 Confirmation # [id number] Dictation # [id number] jn
[2016-07-18] MEDS: Morphine 4 mg/ml ISec IVP PRN ×2 (05:50→10:26)
[2016-07-18] MEDS: Pantoprazole 40 mg EC Tab PO SCH (05:50)
[2016-07-18 08:14] VITALS: RESP 20; TEMP 98.3; O2SAT 94
--- NOTE | 2016-07-18 08:37 | PN ---
DATE: 07/18/2016 The patient is resting comfortably, no shortness of breath. PHYSICAL EXAMINATION: VITAL SIGNS: The blood pressure this morning was 180. Her normal blood pressure yesterday was 140. The day before was 114 systolic. NECK: Negative JVD. LUNGS: Rhonchi. HEART: Revealed S1, S2. EXTREMITIES: Without edema. LABORATORIES: Not done today. IMPRESSION: 1. Stable angina, on Isordil. 2. Critically calcified left anterior descending, in which the patient has refused transfer for [facility] blator therapy. 3. Pneumonia. 4. Hypertension. 5. Hypercholesterolemia. Given these findings, the patient is being evaluated for the TCU to continue IV antibiotics. We will continue her Imdur now. We will follow her blood pressure during the course of the day. Rambo Thomson MD cc: [id number] TT: 07/18/2016 08:37:05 Confirmation # [id number] Dictation # [id number] en
[2016-07-18] MEDS: MethylPREDNISolone 40 mg Vial IVP SCH (09:37)
[2016-07-18] MEDS: Potassium Chloride 20 mEq ER Tab PO SCH (09:38)
[2016-07-18] MEDS: Verapamil 120 mg ER Tab PO SCH (09:38)
[2016-07-18] MEDS: Lidocaine 5% Patch TD SCH (09:43)
[2016-07-18] MEDS: cefTRIAXone 1 gm 100 ML IVPB SCH (09:43)
[2016-07-18 09:44] VITALS: BP 164/80; PULSE 72
[2016-07-18] MEDS: Nystatin 100,000 Units/gm Topical Pow(15 gm) TOP SCH (09:48)
[2016-07-18] MEDS: Azithromycin 500MG/NS 250ml 250 ML IVPB SCH (11:15)
[2016-07-18] MEDS ORDERED: MethylPREDNISolone 40 mg Vial IVP SCH (13:40)
--- NOTE | 2016-07-18 13:59 | PN ---
DATE: 07/18/2016 REFERRING PHYSICIAN: Dr. Hicks SUBJECTIVE: She is lying in the bed, head at 45 degrees, feels much better, decreased cough, decreas ed shortness of breath. No chest pain, no nausea, no vomiting, no diarrhea, no leg pain or leg swell ing. OBJECTIVE: GENERAL: No acute distress. VITAL SIGNS: Temperature is 98, heart rate is 75, respiratory rate is 20, blood pressure 165/80, pul se ox 94% on room air. HEENT: Moist mucous membrane. Crowded airway. NECK: Supple, no JVD. LUNGS: Have a few scattered rhonchi. Overall, fair airflow. HEART: S1, S2. ABDOMEN: Soft, nontender. No organomegaly. EXTREMITIES: No edema. NEUROLOGIC: Awake, alert, follows simple command. MEDICATIONS: She is on Calan SR 120 mg daily, Cozaar 50 mg daily, Ecotrin 81 mg daily, Imdur 60 mg d aily, potassium 20 mEq daily, Lasix 20 mg daily, lidocaine patch at affected area daily, metoprolol t artrate 25 mg twice a day, morphine 4 mg q. 4 hours p.r.n. and nystatin affected area twice a day, pr omethazine, Phenergan DM 5 mL q. 4 hours p.r.n., Plavix 75 mg daily, Protonix 40 mg daily, Rocephin 1 g daily, Solu-Medrol 40 mg q. 12 hours, Tylenol p.r.n. basis, 500 mg daily, Zofran p.r.n. basi s. LABORATORY DATA: Shows no new lab is available since yesterday. MICROBIOLOGY: Blood culture has been negative. IMPRESSION AND PLAN: Chronic lymphocytic leukemia, chronic lung disease, resolved pleural effusion a nd pneumonia, hypertension, history of stroke, coronary artery disease, degenerative joint disease, a ctivities of daily living dysfunction. Pulmonary point of view, she is doing okay. We will decrease Solu-Medrol. Continue inhaled bronchodilator. Gastric prophylaxis, deep venous thrombosis prophyla xis. Fall precaution. Thank you and we will follow with you. Saul Camejo MD cc: [id number] TT: 07/18/2016 13:58:23 Confirmation # [id number] Dictation # [id number] en
--- NOTE | 2016-07-18 14:07 | DS ---
HOSPITAL COURSE: The patient is an 80-year-old female admitted through the Emergency Department with right lower lobe pneumonia. She was admitted to the medical surgical floor and started on IV Roceph in and Zithromax with improvement of her symptoms. She was seen in pulmonary consultation by Dr. Odette avalos, as well as oncology consultation by Dr. Brown and is now medically stable for discharge to home. OBJECTIVE: VITAL SIGNS: Blood pressure 164/80, pulse 72, temperature 98.3, respiratory rate 20. LUNGS: Clear. HEART: Regular rate and rhythm. ABDOMEN: Soft, nontender, bowel sounds are normoactive. EXTREMITIES: Without cyanosis, clubbing, or edema. NEUROLOGIC: The patient is awake and oriented x 3 without focal sensory or motor deficits. SKIN: Warm and dry. IMPRESSION: 1. Right lower lobe pneumonia. 2. Hypertension, hypertensive cardiovascular disease, mild congestive heart failure. 3. Coronary artery disease. 4. Chronic lymphocytic leukemia. 5. Degenerative joint disease with chronic pain and opiate dependence. PLAN: The patient will be discharged to home today on the following medications: Metoprolol 25 mg t wice daily, Calan SR 120 mg daily, Protonix 40 mg daily, Plavix 75 mg daily, Ecotrin 81 mg daily, Lianne ebrex 200 mg daily, Lasix 20 mg daily, prednisone 40 mg daily and K-Dur 20 mEq daily. The patient wi ll be maintained on a heart healthy diet. Activities ad tk. She will be seen as an outpatient with in the next 1-2 weeks for followup. Ming Hicks JD, MD cc: [id number] TT: 07/18/2016 14:06:22 [email or web address]
== END 2016-07-18 15:00 | disposition home health service (06) | DRG 194 ==
LOC: ED 10:38 → ERH 12:17 → 5RNO 13:30
PROVIDERS: ADMIT Internal Medicine; ATTEND Internal Medicine
DX: J18.9 Pneumonia, unspecified organism (principal); C91.10 Chronic lymphocytic leukemia of B-cell type not having achieved remission; F11.20 Opioid dependence, uncomplicated; I11.0 Hypertensive heart disease with heart failure; I50.9 Heart failure, unspecified; I25.118 Atherosclerotic heart disease of native coronary artery with other forms of angina pectoris; M19.90 Unspecified osteoarthritis, unspecified site; G89.29 Other chronic pain; E78.00 Pure hypercholesterolemia, unspecified; D64.9 Anemia, unspecified; Z95.5 Presence of coronary angioplasty implant and graft; Z88.2 Allergy status to sulfonamides; Z86.73 Personal history of transient ischemic attack (TIA), and cerebral infarction without residual deficits

== ENCOUNTER 2016-07-20 11:17 | Inpatient (IN) | payer MEDICARE ==
[2016-07-20 11:37] VITALS: BMI 31.0
--- NOTE | 2016-07-20 12:01 | ED PDOC ---
Arrival/HPI - General Chief Complaint: GI Problem Time Seen by Provider: 07/20/16 11:46 Historian: Patient - History of Present Illness Narrative History of Present Illness (Text): 07/20/16 11:50 A 80 year old female, whose past medical history includes Pneumonia (recently discharged from the hospital), hypertension, chf, myocardial infarction , and Lymphoma, presents to the the complaining of worsening cough/sob for the past 2 days. Patient reports she was discharged from the hospital 2 day ago with pna and her symptoms have progressively worsened since. She notes an episode of non bloody watery diarrhea today but denies any fever, chest pain, or other complaints at this time. PMD: Dr. Hicks 07/20/16 15:19 Time/Duration: Other (2 days) Symptom Onset: Gradual Symptom Course: Worsening Quality: Other Activities at Onset: Rest Context: Home Past Medical History - Provider Review Nursing Documentation Reviewed: Yes - Infectious Disease Hx of Infectious Diseases: None - Tetanus Immunization Tetanus Immunization: Unknown - Reproductive Menopause: Yes - Cardiac Hx Cardiac Disorders: Yes (mi, angioplasty) Hx Congestive Heart Failure: Yes Hx Hypertension: Yes - Pulmonary Hx Chronic Obstructive Pulmonary Disease (COPD): Yes - Neurological Hx Neurological Disorder: No - HEENT Hx Cataracts: Yes - Renal Hx Renal Disorder: No - Endocrine/Metabolic Hx Endocrine Disorders: No - Hematological/Oncological Hx Blood Disorders: No Hx Anemia: Yes (blood transfusion) Hx Cancer: Yes (lymphoma, 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) Hx Chemotherapy: Yes Hx Hepatitis A: Yes (many yrs ago) Hx Shingles: Yes Other/Comment: last chemo was ONE YEAR AGO - Integumentary Hx Dermatological Disorder: No - Musculoskeletal/Rheumatological Hx Arthritis: Yes (entire back) - Gastrointestinal Hx Diverticulitis: Yes - Genitourinary/Gynecological Hx Genitourinary Disorders: No - Psychiatric Hx Psychophysiologic Disorder: No Hx Substance Use: No - Surgical History Hx Appendectomy: Yes Hx Cardiac Catheterization: Yes Hx Cholecystectomy: Yes Hx Coronary Stent: Yes Hx Hysterectomy: Yes Other/Comment: cardiac stent x3, spinal fusion lumbar, colon resection for diverticulitis, hernia sx - Anesthesia Hx Anesthesia: Yes Hx Anesthesia Reactions: No Hx Malignant Hyperthermia: No - Suicidal Assessment Feels Threatened In Home Enviroment: No Family/Social History - Physician Review Nursing Documentation Reviewed: Yes Family/Social History: Unknown Family HX Smoking Status: Never Smoked Hx Alcohol Use: No Hx Substance Use: No Substance used: demerol PO Q4H Hx Substance Use Treatment: No Allergies/Home Meds Allergies/Adverse Reactions: Allergies Sulfa (Sulfonamide Antibiotics) Allergy (Intermediate, Verified 07/12/16 10:42) RASH Home Medications: Home Meds Medication Instructions Recorded Confirmed Clopidogrel [Plavix] 75 mg PO QAM 11/27/11 07/12/16 Verapamil [Calan Tab] 120 mg PO QAM 11/27/11 07/12/16 Meperidine HCl [Demerol] 50 mg PO PRN PRN 09/16/14 07/12/16 Celecoxib [celeBREX] 200 mg PO QAM 05/23/15 07/12/16 Furosemide 20 mg PO QAM 05/23/15 07/12/16 Lidocaine 5% [Lidoderm] 1 patch TP DAILY 05/23/15 07/12/16 Omeprazole [Prilosec] 40 mg PO QAM 05/23/15 07/12/16 Pantoprazole [Protonix EC Tab] 40 mg PO QAM 05/23/15 07/12/16 Potassium Chloride [K-Dur 20 mEq 20 meq PO DAILY 05/23/15 07/12/16 ER Tab] predniSONE [predniSONE Tab] 40 mg PO DAILY 05/23/15 07/12/16 Amoxicillin/Clavulanate [Augmentin 1 tab PO DAILY 07/12/16 07/12/16 500 MG-125 MG Tab] Review of Systems - Physician Review All systems were reviewed & negative as marked: Yes - Review of Systems Constitutional: absent: Fevers Respiratory: SOB, Cough Cardiovascular: absent: Chest Pain Physical Exam Vital Signs Reviewed: Yes Vital Signs Temp Pulse Resp BP Pulse Ox 07/20/16 15:16 87 18 120/72 95 07/20/16 14:17 106 H 18 136/58 L 95 07/20/16 13:05 96 H 18 164/85 H 96 07/20/16 11:33 98.4 F 103 H 18 177/104 H 95 Temperature: Afebrile Blood Pressure: Hypertensive Pulse: Tachycardic Respiratory Rate: Normal Appearance: Positive for: Well-Appearing, Non-Toxic, Comfortable Pain Distress: None Mental Status: Positive for: Alert and Oriented X 3 - Systems Exam Head: Present: Atraumatic, Normocephalic Pupils: Present: PERRL Extroacular Muscles: Present: EOMI Conjunctiva: Present: Normal Mouth: Present: Moist Mucous Membranes Neck: Present: Normal Range of Motion Respiratory/Chest: Present: Rales ((+)bl bases). No: Respiratory Distress, Accessory Muscle Use, Wheezes, Rhonchi Cardiovascular: Present: Normal S1, S2, Tachycardic. No: Murmurs Abdomen: Present: Normal Bowel Sounds. No: Tenderness, Distention, Peritoneal Signs Back: Present: Normal Inspection Upper Extremity: Present: Normal Inspection. No: Cyanosis, Edema Lower Extremity: Present: Normal Inspection. No: Edema Neurological: Present: GCS=15, CN II-XII Intact, Speech Normal Skin: Present: Warm, Dry, Normal Color. No: Rashes Psychiatric: Present: Alert, Oriented x 3, Normal Insight, Normal Concentration Medical Decision Making ED Course and Treatment: 07/20/16 11:50 Impression: A 80 year old female with cough and shortness of breath. Differential Diagnosis include but are not limited to: bronchitis vs. pneumonia vs. copd exacerbation vs. influenza Plan: -- EKG -- Chest X-ray -- Labs -- Urinalysis -- Influenza A/B -- Zofran -- Reassess and disposition Prior Visits: Notes and results from previous visits were reviewed. The patient last presented to the emergency department on 07/12/2016 for evaluation of a productive cough. Progress Notes: EKG: Ordered, reviewed, and independently interpreted the EKG. Rate : 103 BPM Rhythm : Sinus tachycardia Interpretation : No ST/T changes. 07/20/16 12:20 Chest X-ray: Creator : Willian Gonzalez MD COMPARISON: 07/16/2016 FINDINGS: LUNGS: No active pulmonary disease. PLEURA: No significant pleural effusion identified, no pneumothorax apparent. CARDIOVASCULAR: Normal. OSSEOUS STRUCTURES: No significant abnormalities. VISUALIZED UPPER ABDOMEN: Normal. OTHER FINDINGS: None. IMPRESSION: No active disease. 07/20/16 15:09 noted bnp, lasix ordered. mildly leukocytosis. urine treated. abd soft no ttp. pt in bed, taking po, in nad. watching tv ct neg for pe. dr hicks accepts. pt with failure of antibiotics outpt needs inpt management. - Lab Interpretations Lab Results: 07/20/16 12:30 07/20/16 12:30 Lab Results 07/20/16 14:12: Urine Color Yellow, Urine Appearance Sl cloudy, Urine pH 5.5, Ur Specific [place] >= 1.030, Urine Protein 100 H, Urine Glucose (UA) Negative, Urine Ketones Negative, Urine Blood Trace-intact H, Urine Nitrate Negative, Urine Bilirubin Negative, Urine Urobilinogen 0.2, Ur Leukocyte Esterase Moderate H, Urine RBC 0 - 2, Urine WBC 15 - 20, Ur Epithelial Cells 4 - 5, Urine Bacteria Trace 07/20/16 12:45: Influenza Typ A,B (EIA) Negative for flu a/b 07/20/16 12:30: WBC 11.9 H D, RBC 4.22, Hgb 13.9, Hct 39.6, MCV 93.8, MCH 32.9, MCHC 35.1, RDW 13.5, Plt Count 176, MPV 10.7, Gran % 70.6 H, Lymph % (Auto) 23.4 , Scott % (Auto) 4.9, Eos % (Auto) 0.9 L, Baso % (Auto) 0.2, Gran # 8.42 H, Lymph # 2.8, Scott # 0.6, Eos # 0.1, Baso # 0.02, APTT 17.5 L, pO2 58 H, VBG pH 7.35, VBG pCO2 50.0, VBG HCO3 27.6, VBG Total CO2 29.1 H, VBG O2 Sat (Calc) 92.4 H, VBG Base Excess 1.2, VBG Potassium 4.2, Glucose 128 H, Lactate 1.3, FiO2 21.0, Sodium 142.0, Potassium 4.3, Chloride 109.0 H, Carbon Dioxide 27, Anion Gap 17, BUN 42 H, Creatinine 1.0, Est GFR ( Amer) > 60, Est GFR ( Non-Af Amer) 53, Random Glucose 125 H, Calcium 9.5, Magnesium 2.0, Total Bilirubin 0.7, AST 25, ALT 40, Alkaline Phosphatase 68, Lactate Dehydrogenase 406, Total Creatine Kinase < 20 L, Troponin I 0.03 D, NT-Pro-B Natriuret Pep 834 H, Total Protein 6.6, Albumin 4.1, Globulin 2.5, Albumin/Globulin Ratio 1.6 , Venous Blood Potassium 4.2 I have reviewed the lab results: Yes - RAD Interpretation Radiology Orders: 07/20/16 11:54 CHEST PORTABLE [RAD] Stat 07/20/16 13:07 ANGIO CHEST PE PROTOCOL [CT] Stat - Medication Orders Current Medication Orders: Ceftriaxone Sodium (Rocephin 1 Gram Ivpb) 100 mls @ 200 mls/hr IVPB STAT STA PRN Reason: Protocol Stop: 07/20/16 15:36 Discontinued Medications Furosemide (Lasix) 40 mg IVP STAT STA Stop: 07/20/16 15:09 Iodixanol (Visipaque 320 Mg/Ml 100 Ml) Confirm Administered Dose 100 ml IV .STK- MED ONE Stop: 07/20/16 13:57 Ketorolac Tromethamine (Toradol) 30 mg IVP STAT STA Stop: 07/20/16 14:49 Last Admin: 07/20/16 15:01 Dose: 30 MG IVP Administration Document 07/20/16 15:01 SF (Rec: 07/20/16 15:01 [email or web address] Charges for Administration # of IVP Administrations 1 Ondansetron HCl (Zofran Inj) 4 mg IVP STAT STA Stop: 07/20/16 11:56 Last Admin: 07/20/16 12:43 Dose: 4 MG IVP Administration Document 07/20/16 12:43 SF (Rec: 07/20/16 12:43 [id number] Charges for Administration # of IVP Administrations 1 - Scribe Statement The provider has reviewed the documentation as recorded by the Alexibcheng Morris Provider Scribe Attestation: All medical record entries made by the Scribe were at my direction and personally dictated by me. I have reviewed the chart and agree that the record accurately reflects my personal performance of the history, physical exam, medical decision making, and the department course for this patient. I have also personally directed, reviewed, and agree with the discharge instructions and disposition. Disposition/Present on Arrival - Present on Arrival Any Indicators Present on Arrival: No History of DVT/PE: No History of Uncontrolled Diabetes: No Urinary Catheter: No History of Decub. Ulcer: No History Surgical Site Infection Following: None - Disposition Have Diagnosis and Disposition been Completed?: Yes Diagnosis: CHF (congestive heart failure), UTI (urinary tract infection) Disposition: HOSPITALIZED Disposition Time: 15:13 Patient Problems: Current Active Problems Problem Status Diagnosed CHF (congestive heart failure) Acute Chest pain Acute Intractable back pain Acute UTI (urinary tract infection) Acute Condition: STABLE Discharge Instructions (ExitCare): Heart Failure (ED) Referrals: Ming Hicks JD, MD [Primary Care Provider] - Follow up with primary
--- NOTE | 2016-07-20 12:20 | RAD ---
HISTORY: sob COMPARISON: 07/16/2016 FINDINGS: LUNGS: No active pulmonary disease. PLEURA: No significant pleural effusion identified, no pneumothorax apparent. CARDIOVASCULAR: Normal. OSSEOUS STRUCTURES: No significant abnormalities. VISUALIZED UPPER ABDOMEN: Normal. OTHER FINDINGS: None. IMPRESSION: No active disease.
[2016-07-20 12:49] LABS: ADD MANUAL DIFF? NO
[2016-07-20 12:55] LABS: BASO # 0.02 K/mm3 (0.0-2.0); BASO % 0.2 % (0.0-3.0); EOS # 0.1 (0.0-0.7); EOS % 0.9 % (1.5-5.0); GRAN # 8.42 (1.4-6.5); GRAN % 70.6 % (50.0-68.0); HEMATOCRIT 39.6 % (36.0-48.0); LYMPH # 2.8 (1.2-3.4); LYMPH % 23.4 % (22.0-35.0); MEAN CELL VOLUME 93.8 fL (80.0-105.0); MEAN CORPUSCULAR HEMOGLOBIN 32.9 pg (25.0-35.0); MEAN CORPUSCULAR HGB CONC 35.1 g/dl (31.0-37.0); MEAN PLATELET VOLUME 10.7 fl (7.0-11.0); MONO # 0.6 (0.1-0.6); MONO % 4.9 % (1.0-6.0); PLATELET COUNT 176 10^3/uL (120.0-450.0); RED CELL DISTRIBUTION WIDTH 13.5 % (11.5-14.5); VENOUS BLOOD GAS BASE EXCESS 1.2 mmol/L (0.0-2.0); VENOUS BLOOD PH 7.35 (7.32-7.43); WHITE BLOOD COUNT 11.9 10^3/ul (4.5-11.0)
[2016-07-20 13:02] LABS: BLOOD UREA NITROGEN 42 mg/dL (7-21); CARBON DIOXIDE 27 mmol/L (21-33); CHLORIDE 103 mmol/L (98-107); GFR AFRICAN-AMERICAN > 60; GLUCOSE,RANDOM 125 mg/dL (70-110); POTASSIUM 4.3 mmol/L (3.6-5.0); SODIUM 143 mmol/L (132-148)
[2016-07-20 13:03] LABS: ALB/GLOB RATIO 1.6 (1.1-1.8); ALKALINE PHOSPHATASE 68 U/L (38-133); ALT/SGPT 40 U/L (7-56); AST/SGOT 25 U/L (15-39); BILIRUBIN,TOTAL 0.7 mg/dL (0.2-1.3); CALCIUM 9.5 mg/dL (8.4-10.5); TOTAL PROTEIN 6.6 g/dL (5.8-8.3)
[2016-07-20 13:14] LABS: TROPONIN I 0.03 ng/mL
[2016-07-20] MEDS ORDERED: Iodixanol 320 MG/ML 100 ML BOTTLE IV ONE (13:56)
[2016-07-20 14:23] LABS: PH,URINE 5.5 (4.7-8.0); URINE APPEARANCE SL CLOUDY (CLEAR); URINE BILIRUBIN NEGATIVE (NEGATIVE); URINE BLOOD TRACE-INTACT (NEGATIVE); URINE COLOR YELLOW (YELLOW); URINE GLUCOSE (UA) NEGATIVE (NEGATIVE); URINE KETONE NEGATIVE (NEGATIVE); URINE LEUKOCYTE ESTERASE MODERATE Leu/uL (NEGATIVE); URINE PROTEIN 100 mg/dL (<30 mg/dL); URINE UROBILINOGEN 0.2 E.U./dL (<1 E.U./dL)
[2016-07-20 14:25] LABS: URINE BACTERIA TRACE (NEG); URINE RBC 0 - 2 /hpf (0-2); URINE WBC 15 - 20 /hpf (0-6)
--- NOTE | 2016-07-20 14:58 | CT ---
PROCEDURE: CT Chest with contrast (Pulmonary Angiogram) HISTORY: sob r/o pe COMPARISON: None available. TECHNIQUE: Axial computed tomography images were obtained of the chest in the pulmonary arterial phase of enhancement. Coronal and sagittal reformatted images were created and reviewed. Intravenous contrast dose: 100 cc of Visipaque Radiation dose: Total exam DLP = 710 mGy-cm. This CT exam was performed using one or more of the following dose reduction techniques: Automated exposure control, adjustment of the mA and/or kV according to patient size, and/or use of iterative reconstruction technique. FINDINGS: PULMONARY ARTERIES: Unremarkable. No pulmonary embolism. AORTA: No acute findings. No thoracic aortic aneurysm. LUNGS: Unremarkable. No nodule, mass or pulmonary consolidation. PLEURAL SPACES: Unremarkable. No effusion or pneuomothorax. HEART: Unremarkable. No cardiomegaly. No significant pericardial effusion. There is dense coronary artery calcification LYMPH NODES: No lymphadenopathy. BONES, CHEST WALL: Unremarkable. No fracture or destructive lesion OTHER FINDINGS: Unremarkable. IMPRESSION: No evidence of pulmonary embolus
[2016-07-20] MEDS ORDERED: cefTRIAXone 1 gm 100 ML IVPB STA (15:07)
--- NOTE | 2016-07-20 16:42 | CARD ---
APPROVED REPORT EKG Measurement Heart [id number] <Conclusion> Sinus tachycardia Otherwise normal ECG
--- NOTE | 2016-07-20 19:04 | US ---
HISTORY: abd pain/CLL r/o splenomegally COMPARISON: None. TECHNIQUE: Sonographic evaluation of the abdomen. FINDINGS: LIVER: Measures 15.9 cm. Normal echogenicity of the liver parenchyma. No mass. No intrahepatic bile duct dilatation. GALLBLADDER: Status post cholecystectomy COMMON BILE DUCT: Measures 8. This is mildly dilated and is likely due to the prior cholecystectomy and age related ectasia. Mm. No stones. No dilatation. PANCREAS: Suboptimal visualization. RIGHT KIDNEY: Measures 10.1cm. Normal echogenicity. No calculus or hydronephrosis. Mid renal cortical cyst, 1.0 x 1.2 x 1.2 cm. Lower pole cortical cyst, 2.8 x 3.0 x 3.5 cm. No solid mass. LEFT KIDNEY: Unable to evaluate. SPLEEN: Unable to evaluate. AORTA: Obscured by bowel gas. IVC: Unremarkable. OTHER FINDINGS: None. IMPRESSION: Limited examination. Examination could not be completed as patient requested that examination be terminated. Left kidney and spleen were not evaluated. Status post cholecystectomy. Mild dilatation of the common bile duct likely due to prior cholecystectomy and age related ectasia. Several simple right renal cortical cysts are noted. No additional abnormality.
[2016-07-20] MEDS: Morphine 4 mg/ml ISec IVP PRN ×2 (20:16→23:58)
--- NOTE | 2016-07-20 21:38 | HP ---
HISTORY OF PRESENT ILLNESS: The patient is an 80-year-old female [facility] with abdominal pain over the past 1-2 days. She denies nausea, no vomiting. She denies any dysuria. Urinalysis shows 15-20 WBCs with trace blood and bacteria and moderate leukocyte esterase. The patient was empirically given 1 gram of Rocephin IV in the Emergency Department. The patient was recently admitted for a lower respiratory tract infection and received antibiotics, was seen in consultation by pulmonary, Dr. Camejo, and discharged to home 1-2 days ago. PAST MEDICAL HISTORY: Includes coronary artery disease. The patient had a cardiac catheterization p erformed in 05/2015, which showed 90% LAD lesion and the patient had refused recommendation for bypass surgery. The patient also has a history of hypertension, hypertensive cardiovascular disease and co ngestive heart failure. She has a history of lymphoproliferative disorder, CLL and hemolytic anemia in the past treated by Dr. Brown. She also has a history of degenerative joint disease with chronic pain and opiate dependence. PAST SURGICAL HISTORY: Includes status post appendectomy and cholecystectomy. ALLERGIES: THE PATIENT REPORTS AN ALLERGY TO SULFA. CURRENT MEDICATIONS: Include metoprolol 25 mg twice daily, Calan SR 120 mg daily, Protonix 40 mg sindhu ly, Plavix 75 mg daily, Ecotrin 81 mg daily, Celebrex 200 mg daily, Lasix 20 mg daily, prednisone 40 mg daily and K-Dur 20 mEq daily. SOCIAL HISTORY: The patient has no history of alcohol or tobacco use. She is independent with ADLs and IADLs and lives alone. REVIEW OF SYSTEMS: The patient denies any chest pain, shortness of breath. There is no cough, no fe [place], no chills, no nausea, no vomiting, no hemoptysis, no diarrhea, no jaundice, no melena, no bright red blood per rectum. PHYSICAL EXAMINATION: GENERAL: The patient is a well-developed female in no acute distress. VITAL SIGNS: Blood pressure 157/93, pulse 88, respiratory rate 18, temperature 98.4. HEENT: Head is normocephalic, atraumatic. Pupils equal, round, reactive to light. Extraocular move ments intact. NECK: Supple, with no thyromegaly, no carotid bruit. LUNGS: Clear. There is a Port-A-Cath in the right chest wall. HEART: Regular rate and rhythm with a grade II/ systolic murmur. ABDOMEN: Soft. There is some left upper quadrant tenderness to palpation with possible splenomegaly . EXTREMITIES: Without cyanosis, clubbing, or edema. NEUROLOGIC: The patient is awake and oriented x 3 without focal sensory or motor deficits. SKIN: Warm and dry. LABORATORY DATA: WBC is 11.9, hemoglobin 13.9, hematocrit 39.6. Sodium 143, potassium 4.3, chloride 103, CO2 of 27, BUN 42, creatinine 1.0. Glucose 125. BNP is elevated at 834. Troponin is 0.03. C T scan of the chest was negative for any infiltrates or pulmonary embolism. IMPRESSION: 1. Abdominal pain, rule out splenomegaly secondary to chronic lymphocytic leukemia versus urinary tr act infection. 2. Chronic obstructive pulmonary disease, status post pneumonia of the right lower lobe, which has a pparently resolved on CT chest. 3. Hypertension, hypertensive cardiovascular disease and congestive heart failure. 4. Coronary artery disease. 5. 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 6. Degenerative joint disease with chronic pain and opiate dependence. PLAN: The patient will be admitted to medical surgical floor. We will obtain an abdominal ultrasoun d to check for splenomegaly. Will start patient empirically on Rocephin 1 gram IV q. 24 hours. We w ill obtain a cardiology consultation from Dr. Thomson as well as a hematology consultation from Dr. Madhavi de la cruz. Continue present medications. Ming Hicks JD, MD cc: [id number] TT: 07/20/2016 21:38:22 karol
[2016-07-20] MEDS ORDERED: Pneumococcal 23-Valent Vaccine IM ONE (21:53)
[2016-07-21] MEDS: Morphine 4 mg/ml ISec IVP PRN ×5 (05:30→23:26)
[2016-07-21] MEDS: Pantoprazole 40 mg EC Tab PO SCH (05:31)
[2016-07-21] MEDS: Verapamil 120 mg ER Tab PO SCH (10:08)
[2016-07-21] MEDS: Potassium Chloride 20 mEq ER Tab PO SCH (10:08)
[2016-07-21] MEDS: cefTRIAXone 1 gm 100 ML IVPB SCH (10:13)
--- NOTE | 2016-07-21 14:00 | PN ---
DATE: 07/21/2016 SUBJECTIVE: The patient is lying in bed in no acute distress. The abdominal pain has diminished terry ewhat. There is no nausea, no vomiting, no diarrhea, no chest pain, no shortness of breath. OBJECTIVE: VITAL SIGNS: Blood pressure 131/60, temperature 98.3, pulse 76, respiratory rate 20. LUNGS: Clear. HEART: Regular rate and rhythm. ABDOMEN: Soft; mild tenderness, left upper quadrant. No guarding, no rebound. Bowel sounds are nor moactive. EXTREMITIES: Without cyanosis, clubbing, or edema. NEUROLOGIC: The patient is awake and oriented x 3 without focal sensory or motor deficits. SKIN: Warm and dry. PLAN: Continue empiric IV Rocephin for possible UTI. Abdominal ultrasound was unable to be complete d secondary to pain and abdominal tenderness during the ultrasound examination Continue cardiology fo llowup with Dr. Thomson and hematology followup with Dr. Brown. IMPRESSION: 1. Abdominal pain, rule out splenomegaly secondary to chronic lymphocytic leukemia versus urinary tr act infection. 2. Chronic obstructive pulmonary disease, status post right lower lobe pneumonia. 3. Hypertension, hypertensive cardiovascular disease and congestive heart failure. 4. Coronary artery disease. 5. Degenerative joint disease with chronic pain and opiate dependence. Ming Hicks JD, MD cc: [id number] TT: 07/21/2016 14:00:16 Confirmation # [id number] Dictation # [id number]
[2016-07-22] MEDS: Pantoprazole 40 mg EC Tab PO SCH (06:20)
[2016-07-22] MEDS: Morphine 4 mg/ml ISec IVP PRN ×4 (06:24→22:06)
[2016-07-22] MEDS: Potassium Chloride 20 mEq ER Tab PO SCH (08:27)
[2016-07-22] MEDS: Verapamil 120 mg ER Tab PO SCH (10:27)
[2016-07-22] MEDS: cefTRIAXone 1 gm 100 ML IVPB SCH (10:28)
[2016-07-22] MEDS: Lidocaine 5% Patch TD SCH (14:14)
--- NOTE | 2016-07-22 15:11 | PN ---
DATE: 07/22/2016 SUBJECTIVE: The patient is out of bed in chair, in no acute distress. She denies abdominal pain. T here is no nausea, no vomiting, no diarrhea, no chest pain or shortness of breath. OBJECTIVE: VITAL SIGNS: Blood pressure 158/83, temperature 97.5, pulse 75, respiratory rate 19. LUNGS: Clear. HEART: Regular rate and rhythm. ABDOMEN: Soft, nontender, bowel sounds are normoactive. EXTREMITIES: Without cyanosis, clubbing, or edema. NEUROLOGIC: The patient is awake and oriented x 3 without focal sensory or motor deficits. SKIN: Warm and dry. IMPRESSION: 1. Urinary tract infection. 2. Chronic obstructive pulmonary disease, status post right lower lobe pneumonia. 3. Hypertension, hypertensive cardiovascular disease and congestive heart failure. 4. Coronary artery disease. 5. Degenerative joint disease with chronic pain and opiate dependence. PLAN: Continue IV Rocephin. Continue hematology followup with Dr. Brown. Physical therapy and soci al work for discharge planning. Ming Hicks JD, MD cc: [phone] TT: 07/22/2016 15:00:56 Confirmation # [id number] Dictation # [id number] mn
[2016-07-23] MEDS: Morphine 4 mg/ml ISec IVP PRN ×5 (02:19→21:16)
[2016-07-23] MEDS: Pantoprazole 40 mg EC Tab PO SCH (07:29)
[2016-07-23] MEDS: Potassium Chloride 20 mEq ER Tab PO SCH (07:29)
--- NOTE | 2016-07-23 09:15 | CON ---
DATE: 07/23/2016 This is an 80-year-old woman with a history of chronic lymphocytic leukemia and now is admitted for 2 kinds of pain, an abdominal pain and a back pain. I know the patient for many years. She has chron ic lymphocytic leukemia with a hemolytic anemia component. She was treated with Rituxan. Her last t reatment was about 2 years ago. She has been in remission since then. As of now, her white count was about 11,000 with a normal differential, lymphocytes are about 30%. She had scans done just recentl y when she was in the hospital which does not show any lymphadenopathy or spleen. She was admitted t o the hospital about 2 weeks ago for a pulmonary infection and was discharged, and now is readmitted. She tells me she has 2 different kinds of pain. One was the abdominal pain. She says she has a he rnia and she says that periodically she will get this abdominal pain, but she also has periodic back pains. She is lying in bed now. She says most of her pain is coming from the back and this is what is making her uncomfortable. PHYSICAL EXAMINATION: SKIN: No petechiae, no bruises. HEENT: Anicteric. NODES: None palpable in the axillary, cervical, supraclavicular, or inguinal regions. LUNGS: Clear at present. No vertebral tenderness. HEART: S1, S2. ABDOMEN: Shows no liver, no spleen, no tenderness, no rebound, no ascites. EXTREMITIES: No edema. CENTRAL NERVOUS SYSTEM: No focal finding. At this point, I think it is a mixture of some mild kind of abdominal pain and her known arthritis an d periodic back pain that causes her some pain. This is not due to the hemolytic anemia or to the ch ronic lymphocytic leukemia, and so we will observe at this point and not do any further testing for t hat disease. Yamil Brown MD cc: [phone] TT: 07/23/2016 09:14:47 Confirmation # [id number] Dictation # [id number] mn
--- NOTE | 2016-07-23 09:44 | CON ---
DATE: 07/23/2016 HISTORY OF PRESENT ILLNESS: The patient is an 80-year-old woman with a history of chronic lymphocyti c leukemia who presents with abdominal pain and back pain. In addition, the patient complains of cou gh only at night when she is lying down. She does sleep on 2 pillows. PAST MEDICAL HISTORY: Notable for a heavily calcified LAD lesion which required rotablator therapy, but the patient has refused to transfer to any hospital to do rotablator. In addition, she suffers from hypertension. She denies chest pain, denies shortness of breath. SOCIAL HISTORY: Does not smoke. REVIEW OF SYSTEMS: A 14-point was reviewed in detail. No angina, no dyspnea, negative edema in the lower extremities. PHYSICAL EXAMINATION: VITAL SIGNS: Blood pressure is 118/70, the heart rate is in the 60s. NECK: Negative JVD. LUNGS: Without rales. HEART: Revealed S1, S2. EXTREMITIES: Without edema. The proBNP was 834. Hemoglobin is 13.9. IMPRESSION: 1. Stable angina. 2. History of critical lesion in the left anterior descending, which is heavily calcified. 3. Nighttime cough. 4. History of chronic lymphocytic leukemia. 5. Hypertension. Given these findings, there is no evidence for acute coronary syndrome. We will continue her Imdur. I have added low dose Lasix to see whether this will help her evening cough, which may represent mil d congestive heart failure at night. Rambo Thomson MD cc: [id number] TT: 07/23/2016 09:43:17 Confirmation # [id number] Dictation # [id number]
[2016-07-23] MEDS: Verapamil 120 mg ER Tab PO SCH (09:45)
[2016-07-23] MEDS: Lidocaine 5% Patch TD SCH (09:48)
[2016-07-23] MEDS: cefTRIAXone 1 gm 100 ML IVPB SCH (09:49)
[2016-07-23 12:18] LABS: ADD MANUAL DIFF? NO
[2016-07-23 12:22] LABS: BASO # 0.02 K/mm3 (0.0-2.0); BASO % 0.2 % (0.0-3.0); EOS # 0.1 (0.0-0.7); GRAN # 8.92 (1.4-6.5); GRAN % 72.8 % (50.0-68.0); HEMATOCRIT 37.7 % (36.0-48.0); LYMPH # 2.5 (1.2-3.4); LYMPH % 20.5 % (22.0-35.0); MEAN CELL VOLUME 92.9 fL (80.0-105.0); MEAN CORPUSCULAR HGB CONC 34.5 g/dl (31.0-37.0); MEAN PLATELET VOLUME 10.5 fl (7.0-11.0); MONO # 0.7 (0.1-0.6); MONO % 5.5 % (1.0-6.0); PLATELET COUNT 175 10^3/uL (120.0-450.0); RED CELL DISTRIBUTION WIDTH 13.4 % (11.5-14.5); WHITE BLOOD COUNT 12.2 10^3/ul (4.5-11.0)
[2016-07-23 12:30] LABS: ALB/GLOB RATIO 1.7 (1.1-1.8); ALKALINE PHOSPHATASE 53 U/L (38-133); ALT/SGPT 31 U/L (7-56); AST/SGOT 23 U/L (15-39); BILIRUBIN,TOTAL 0.5 mg/dL (0.2-1.3); BLOOD UREA NITROGEN 31 mg/dL (7-21); CALCIUM 9.3 mg/dL (8.4-10.5); CARBON DIOXIDE 25 mmol/L (21-33); CHLORIDE 105 mmol/L (98-107); GFR AFRICAN-AMERICAN > 60; GLUCOSE,RANDOM 126 mg/dL (70-110); POTASSIUM 4.8 mmol/L (3.6-5.0); SODIUM 138 mmol/L (132-148); TOTAL PROTEIN 6.2 g/dL (5.8-8.3)
--- NOTE | 2016-07-23 15:17 | PN ---
DATE: 07/23/2016 SUBJECTIVE: The patient is lying in bed. She complains of some shortness of breath, cough which is nonproductive. No hemoptysis, no fever, no chills. OBJECTIVE: VITAL SIGNS: Blood pressure 150/70, temperature 98.2, pulse 65, respiratory rate 20. LUNGS: Show scattered crepitations bilaterally with occasional end expiratory wheeze. HEART: Regular rate and rhythm. ABDOMEN: Soft, nontender, bowel sounds are normoactive. EXTREMITIES: Without cyanosis, clubbing, or edema. NEUROLOGIC: The patient is awake and oriented x 3 without focal sensory or motor deficits. SKIN: Warm and dry. LABORATORY DATA: WBC is 12.2, hemoglobin 13.0, hematocrit 37.7. Sodium 138, potassium 4.8, chloride 105, CO2 25, BUN 31, creatinine 0.9, glucose 126. IMPRESSION: 1. Urinary tract infection on Rocephin. 2. Chronic obstructive pulmonary disease, possible exacerbation with bronchitis, status post right l ower lobe pneumonia. 3. Hypertension, hypertensive cardiovascular disease with mild congestive heart failure. 4. Coronary artery disease. 5. Degenerative joint disease with chronic pain and opiate dependence. PLAN: We will continue IV Rocephin and add IV Zithromax empirically for her upper respiratory infect ion. We will obtain pulmonary consultation with Dr. Camejo and start DuoNeb via nebulizer q. 6 hours . Cardiology consultation by Dr. Thomson is appreciated as well as oncology consultation by Dr. Brown. Physical therapy and social work for discharge planning. Ming Hicks JD, MD cc: 353 TT: 07/23/2016 15:16:31 Confirmation # [id number] Dictation # [id number] [email or web address]
[2016-07-23] MEDS: Azithromycin 500MG/NS 250ml 250 ML IVPB SCH (16:08)
[2016-07-23] MEDS: Albuterol-Ipratrop 3 mg / 0.5 (3 ml) UD IH SCH (20:07)
[2016-07-24] MEDS: Albuterol-Ipratrop 3 mg / 0.5 (3 ml) UD IH SCH ×3 (02:09→13:18)
[2016-07-24] MEDS: Morphine 4 mg/ml ISec IVP PRN ×4 (02:51→17:18)
[2016-07-24] MEDS: Pantoprazole 40 mg EC Tab PO SCH (06:25)
[2016-07-24 06:36] VITALS: O2SAT 95
[2016-07-24] MEDS: Potassium Chloride 20 mEq ER Tab PO SCH (08:02)
--- NOTE | 2016-07-24 09:05 | PN ---
DATE: 07/24/2016 The patient's nighttime cough is slightly better with p.o. Lasix. PHYSICAL EXAMINATION: VITAL SIGNS: Blood pressure 161/77, heart rate is in the 70s. NECK: Negative JVD. LUNGS: Bilateral rhonchi. HEART: Revealed S1, S2. EXTREMITIES: Without edema. LABORATORIES: The potassium yesterday was 4.8. IMPRESSION: 1. Pneumonia. 2. Congestive heart failure. 3. Diabetes mellitus. 4. Coronary artery disease. 5. Stable angina. PLAN: Given these findings, will give the patient a trial of IV Lasix x 1 today. Will obtain BMP as well as a potassium level tomorrow morning. Rambo Thomson MD cc: [id number] TT: 07/24/2016 09:04:14 Confirmation # [id number] Dictation # [id number] nc
[2016-07-24] MEDS: Verapamil 120 mg ER Tab PO SCH (09:34)
[2016-07-24] MEDS: Azithromycin 500MG/NS 250ml 250 ML IVPB SCH (09:34)
[2016-07-24] MEDS: cefTRIAXone 1 gm 100 ML IVPB SCH (09:35)
[2016-07-24] MEDS: Lidocaine 5% Patch TD SCH (09:36)
--- NOTE | 2016-07-24 16:36 | DS ---
HOSPITAL COURSE: The patient is an 80-year-old female admitted through the Emergency Department on 0 07/20/2016 with abdominal pain. The patient was started on IV Rocephin for a urinary tract infection. CT scan of the abdomen was negative. The patient's hospital course was complicated by an exacerbat ion of COPD and mild CHF. She was seen in consultation by Dr. Thomson for cardiology and Dr. Camejo for pulmonary, and was started on Zithromax 500 mg IV q. 24 hours, in addition to the Rocephin, which wa s given for the urinary tract infection. The patient is now medically stable for transfer to the transitional care unit for further treatment and physical therapy. PHYSICAL EXAMINATION: VITAL SIGNS: Blood pressure 149/77, temperature 98, pulse 66, respiratory rate 19. LUNGS: Clear. HEART: Regular rate and rhythm. ABDOMEN: Soft, nontender, bowel sounds are normoactive. EXTREMITIES: Without cyanosis, clubbing, or edema. NEUROLOGIC: The patient is awake and oriented x 3 without focal sensory or motor deficits. SKIN: Warm and dry. IMPRESSION: 1. Urinary tract infection. 2. Chronic obstructive pulmonary disease exacerbation with bronchitis. 3. Hypertension, hypertensive cardiovascular disease, and mild congestive heart failure. 4. Coronary artery disease. 5. Degenerative joint disease with chronic pain and opiate dependence. PLAN: The patient will be discharged to the transitional care unit on the following medications: Ca ariela SR 120 mg daily, DuoNebs, Ecotrin 81 mg daily, Imdur 60 mg daily, potassium chloride 20 mEq daily , Lasix 20 mg daily, Lidoderm patch, metoprolol tartrate 25 mg twice daily, morphine sulfate 4 mg IV q. 4 hours p.r.n. pain, Plavix 75 mg daily, Protonix 40 mg daily, prednisone 30 mg daily, and Zithro max 500 mg IV q. 24, as well as Rocephin 500 mg q. 24 hours. The patient will be maintained on a hea rt healthy diet. Activity is as per the rehab unit. Ming Hicks JD, MD cc: [id number] TT: 07/24/2016 16:35:54 dn
[2016-07-24 17:19] VITALS: BP 162/84
[2016-07-24 17:41] VITALS: RESP 20; TEMP 98.8
--- NOTE | 2016-07-24 19:29 | CON ---
DATE: 07/24/2016 REFERRING PHYSICIAN: Dr. Hicks. REASON FOR CONSULT: Cough and shortness of breath. HISTORY OF PRESENT ILLNESS: This is an 80-year-old female with known history of coronary artery dise ase, refused surgical treatment, has hypertension, heart failure, has a lymphoproliferative disorder and also chronic lymphocytic leukemia, chronic lung disease, came in with abdominal pain from the las t 1-2 days, does have some cough and shortness of breath. No dysuria. No leg pain or leg swelling. ALLERGIES: SULFA. SOCIAL HISTORY: Denied any smoking or alcohol use. FAMILY HISTORY: No significant cardiopulmonary disease reported. MEDICATIONS: She is on Calan SR 120 mg daily, DuoNeb q. 6 hours, Ecotrin 81 mg daily, Imdur 60 mg da anel, potassium 20 mEq daily, Lasix 20 mg daily, lidocaine patch daily, metoprolol tartrate 25 mg twic e a day, morphine 4 mg q. 4 hours p.r.n., Plavix 75 mg daily, prednisone 30 mg daily, Protonix 40 mg daily, Rocephin 1 g IV daily, Zithromax 500 mg daily. REVIEW OF SYSTEMS: No headache, no rhinitis, mild cough and shortness of breath. Mild abdominal dusty n, but no vomiting at present time. No dysuria. No leg pain or leg swelling. PHYSICAL EXAMINATION: GENERAL: Lying in the bed in no acute distress. VITAL SIGNS: Temp is 98, heart rate is 83, respiratory rate is 20, blood pressure 162/84, pulse ox 9 5% on nasal cannula. HEENT: Moist mucous membrane. Crowded airway. NECK: Supple. No JVD. LUNGS: Has a few crackles. HEART: S1, S2. ABDOMEN: Soft, nontender. No organomegaly. EXTREMITIES: There is no edema. NEUROLOGIC: Awake, alert, follows simple commands. LABORATORY DATA: Shows hemoglobin 13.0; hematocrit 37.7; WBC 12,000; platelet is 175. Sodium 138, p otassium 4.8, chloride 105, bicarbonate 25, BUN 31, creatinine 0.9, glucose is 126, calcium 9.3, magn esium 2.0. AST is 23, ALT 31, alkaline phosphatase is 56. ProBNP is 511. CT scan of the abdomen do ne on admission, which was 07/20, shows it was a poor examination, could not complete because the pat ient complained, mild dilatation of the common bile duct, likely due to prior cholecystectomy. Also had a CT of the chest done, which shows no evidence of pulmonary embolism, otherwise unremarkable. IMPRESSION AND PLAN: Chronic lymphocytic leukemia, chronic lung disease, status post pneumonia, hype rtension, history of stroke, coronary artery disease and degenerative joint disease. Pulmonary point of view, she is doing well. May continue supplemental oxygen, bronchodilator. Suggested the patien t to go to subacute to continue care. She lives alone. She is adamant that she does not want to go to subacute rehabilitation. Otherwise, continue gastric and deep venous thrombosis prophylaxis. Akin p head elevated at 45 degrees. Treat heart failure. Thank you and will follow with you. Saul Camejo MD cc: [id number] TT: 07/24/2016 19:29:27 Confirmation # [id number] Dictation # [id number] mn
[2016-07-24 20:03] VITALS: PULSE 98
== END 2016-07-24 19:04 | DRG 690 ==
LOC: ED 11:17 → ERH 15:14 → 2RSO 19:11
PROVIDERS: ADMIT Internal Medicine; ATTEND Internal Medicine
PROC: 3E0F7GC Introduction of Other Therapeutic Substance into Respiratory Tract, Via Natural or Artificial Opening (ICD-10-PCS; principal; 2016-07-23)
DX: N39.0 Urinary tract infection, site not specified (principal); C91.10 Chronic lymphocytic leukemia of B-cell type not having achieved remission; D58.9 Hereditary hemolytic anemia, unspecified; I11.0 Hypertensive heart disease with heart failure; I50.9 Heart failure, unspecified; F11.20 Opioid dependence, uncomplicated; J44.1 Chronic obstructive pulmonary disease with (acute) exacerbation; I25.119 Atherosclerotic heart disease of native coronary artery with unspecified angina pectoris; M19.90 Unspecified osteoarthritis, unspecified site; G89.29 Other chronic pain; M54.9 Dorsalgia, unspecified; E11.9 Type 2 diabetes mellitus without complications; I25.2 Old myocardial infarction; Z86.73 Personal history of transient ischemic attack (TIA), and cerebral infarction without residual deficits; Z87.01 Personal history of pneumonia (recurrent); Z90.49 Acquired absence of other specified parts of digestive tract; Z88.2 Allergy status to sulfonamides

== ENCOUNTER 2016-07-24 19:26 | Inpatient (IN) | payer OTHER, MEDICARE ==
[2016-07-24 20:13] VITALS: BMI 30.4
[2016-07-24] MEDS: Morphine 4 mg/ml ISec IVP PRN (21:19)
[2016-07-25] MEDS: Morphine 4 mg/ml ISec IVP PRN ×4 (02:33→17:44)
[2016-07-25] MEDS: Albuterol-Ipratrop 3 mg / 0.5 (3 ml) UD IH SCH ×4 (02:35→19:53)
[2016-07-25] MEDS: cefTRIAXone 1 gm 100 ML IVPB SCH (05:43)
[2016-07-25] MEDS: Azithromycin 500MG/NS 250ml 250 ML IVPB SCH (05:43)
[2016-07-25] MEDS: Pantoprazole 40 mg EC Tab PO SCH (06:22)
[2016-07-25] MEDS: Potassium Chloride 20 mEq ER Tab PO SCH (07:51)
[2016-07-25] MEDS: Verapamil 120 mg ER Tab PO SCH (09:36)
[2016-07-25] MEDS: Lidocaine 5% Patch TD SCH (09:37)
--- NOTE | 2016-07-25 13:37 | CON ---
DATE: 07/25/2016 REFERRING PHYSICIAN: Dr. Hicks. REASON FOR CONSULT: Cough, shortness of breath. HISTORY OF PRESENT ILLNESS: This is an 80-year-old female with known history of coronary artery dise ase, refused treatment, has heart failure, history of lymphoproliferative disease and chronic lymphoc ytic leukemia, chronic lung disease, has shortness of breath on minimal exertion, who lives alone, or iginally admitted with abdominal pain and heart failure, presently admitted to [facility] for continued car e and therapy. She does have some cough and shortness of breath. No hemoptysis, no hematemesis, no hematuria, no diarrhea reported. PAST MEDICAL HISTORY: Coronary artery disease, cardiomyopathy, hypertension, heart failure, chronic lymphocytic leukemia, chronic lung disease. ALLERGIES: SULFA. SOCIAL HISTORY: Denied any smoking or alcohol use. 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 FAMILY HISTORY: No significant cardiopulmonary disease reported. MEDICATIONS: She is on Calan SR 120 mg daily, DuoNeb q. 6 hours, Ecotrin 81 mg daily, Imdur 60 mg da anel, potassium 20 mEq daily, Lasix 20 mg daily, Lidoderm patch at affected area, metoprolol tartrate 25 mg twice a day, morphine 4 mg q. 4 hours p.r.n., Plavix 75 mg daily, prednisone 30 mg daily, [place] nix 40 mg daily, Rocephin 1 g daily, Zithromax 500 mg daily. LABORATORY DATA: Reviewed. No new lab is available since yesterday. Microbiology: Urine culture i s contaminated with multiple organisms. IMPRESSION AND PLAN: Chronic lymphocytic leukemia, chronic lung disease, status post pneumonia, hype rtension, history of stroke, coronary artery disease, congestive heart failure, activities of daily l iving dysfunction. She lives alone and unsteady on the feet, admitted to [facility] for continued care. I agree with the present management. Continue p.o. and inhaled bronchodilator, diuretics, gastric pro phylaxis, sequential compression device to lower extremity. Fall precaution. Continue therapy. Igor nk you and we will follow with you. Saul Camejo MD cc: [id number] TT: 07/25/2016 13:37:12 Confirmation # [id number] Dictation # [id number] tn
--- NOTE | 2016-07-25 15:51 | HP ---
HISTORY OF PRESENT ILLNESS: The patient is an 80-year-old female admitted to the transitional care u nit on 07/24/2016 from [facility] where she was treated as an inpatient for a urinary trac t infection on IV Rocephin. Her hospital course was complicated by an exacerbation of COPD and mild CHF. She was seen in consultation by Dr. Thomson for cardiology and Dr. Camejo for pulmonary and starte d on Zithromax 500 IV q. 24 hours in addition to Rocephin 1 gram IV q. 24 hours. At the present time , the patient denies any chest pain, shortness of breath. PAST MEDICAL HISTORY: Includes coronary artery disease. The patient had a cardiac catheterization p erformed in 05/2015 which showed a 90% LAD lesion and the patient had refused the recommendation for b ypass surgery. The patient has a history of hypertension, hypertensive cardiovascular disease and CH F. She has lymphoproliferative disorder, CLL and a history of hemolytic anemia in the past treated b y Dr. Brown. She also has a history of degenerative joint disease with chronic pain and opiate depen dence. PAST SURGICAL HISTORY: Includes appendectomy and cholecystectomy. ALLERGIES: THE PATIENT REPORTS AN ALLERGY TO SULFA. CURRENT MEDICATIONS: Include verapamil SR 120 mg p.o. daily, DuoNebs inhaled q. 6 hours, Ecotrin 81 mg daily, Imdur 60 mg daily, potassium chloride 20 mEq daily, Lasix 20 mg q. a.m., Lidoderm patch 1 d aily, metoprolol 25 mg b.i.d., morphine 4 mg IV q. 4 hours p.r.n., Plavix 75 mg daily, Protonix 40 mg daily, Rocephin 1 gram IV q. 24 hours and Zithromax 500 mg IV q. 24 hours as well as prednisone 30 m g daily. SOCIAL HISTORY: The patient has no history of tobacco or alcohol abuse. She is independent with ADL s and needs assistance with IADLs. She lives alone. REVIEW OF SYSTEMS: As above. There is no hemoptysis, no diarrhea, no jaundice, no melena, no bright red blood per rectum. No fever or chills. PHYSICAL EXAMINATION: GENERAL: The patient is a well-developed female in no acute distress. VITAL SIGNS: Blood pressure 140/73, temperature 98.3, pulse is 78, respiratory rate 20. HEENT: Head is normocephalic, atraumatic. Pupils equal, round, reactive to light. Extraocular move ments intact. NECK: Supple with no thyromegaly, no carotid bruit. There is a Port-A-Cath in the right chest wall. LUNGS: Clear. HEART: Regular rate and rhythm with a grade II/ systolic murmur. ABDOMEN: Soft, nontender. Bowel sounds are normoactive. EXTREMITIES: Without cyanosis, clubbing, or edema. NEUROLOGIC: The patient is awake and oriented x 3 without focal sensory or motor deficits. SKIN: Warm and dry. IMPRESSION: 1. Urinary tract infection. 2. Chronic obstructive pulmonary disease with bronchitis. 3. Hypertension, hypertensive cardiovascular disease and congestive heart failure 4. Coronary artery disease. 5. Degenerative joint disease with chronic pain and opiate dependence. PLAN: Continue IV antibiotics for an additional 2-3 days. Physical therapy and social work for disc harge planning. Continue cardiology followup with Dr. Thomson and pulmonary followup with Dr. Camejo. Ming Hicks JD, MD cc: 353 TT: 07/25/2016 15:50:26 ar
[2016-07-26] MEDS: Morphine 4 mg/ml ISec IVP PRN ×5 (00:25→22:04)
[2016-07-26] MEDS: Albuterol-Ipratrop 3 mg / 0.5 (3 ml) UD IH SCH ×4 (02:44→20:12)
[2016-07-26] MEDS: cefTRIAXone 1 gm 100 ML IVPB SCH (05:20)
[2016-07-26] MEDS: Azithromycin 500MG/NS 250ml 250 ML IVPB SCH (06:01)
[2016-07-26] MEDS: Pantoprazole 40 mg EC Tab PO SCH (06:02)
[2016-07-26] MEDS: Potassium Chloride 20 mEq ER Tab PO SCH (07:56)
[2016-07-26] MEDS: Verapamil 120 mg ER Tab PO SCH (09:31)
[2016-07-26] MEDS: Lidocaine 5% Patch TD SCH (09:32)
--- NOTE | 2016-07-26 12:52 | PN ---
DATE: 07/26/2016 SUBJECTIVE: The patient is in the TCU without shortness of breath, without chest pain. PHYSICAL EXAMINATION: VITAL SIGNS: Blood pressure is 122/69, heart rate is in the 70s. NECK: Negative JVD. LUNGS: Without rales. HEART: Reveals S1, S2. EXTREMITIES: Without change. LABORATORIES: Hemoglobin of 13. Chemistries, troponins are negative. Glucose 126. IMPRESSION: 1. Sepsis. 2. Stable angina. 3. History of calcified critical lesion in the left anterior descending. 4. Diabetes mellitus. PLAN: Given these findings, the patient's breathing is improved. She is to continue on IV antibiotics, participating with physical therapy. Rambo Thomson MD cc: [id number] TT: 07/26/2016 12:51:48 Confirmation # [id number] Dictation # [id number] lisa
--- NOTE | 2016-07-26 13:55 | PN ---
DATE: 07/26/2016 SUBJECTIVE: in bed, in no acute distress. OBJECTIVE: VITAL SIGNS: Blood pressure 122/69, pulse 69, temperature 97.6, respiratory rate 18. LUNGS: Clear. HEART: Regular rate and rhythm. ABDOMEN: Soft, nontender, bowel sounds are normoactive. EXTREMITIES: Without cyanosis, clubbing, or edema. NEUROLOGIC: The patient is awake and oriented x 3 without focal, sensory or motor deficits. SKIN: Warm and dry. IMPRESSION: 1. Urinary tract infection. 2. Chronic obstructive pulmonary disease with bronchitis. 3. Hypertension, hypertensive cardiovascular disease and congestive heart failure. 4. Coronary artery disease. 5. Degenerative joint disease with chronic pain and opiate dependence. PLAN: Continue IV antibiotics for an additional 1-2 days. Continue cardiology followup with Dr. Zachery mccabe and pulmonary followup with Dr. Camejo. Physical therapy and social work for discharge planning. Ming Hicks JD, MD cc: 353 TT: 07/26/2016 13:54:55 Confirmation # [id number] Dictation # [id number] en
--- NOTE | 2016-07-26 22:26 | PN ---
DATE: 07/26/2016 REFERRING PHYSICIAN: Dr. Hicks. SUBJECTIVELY: She is ambulating with the help of a therapist. Night was unremarkable. Has a mild c ough and shortness of breath. No nausea, no vomiting, diarrhea, leg pain, or leg swelling. OBJECTIVELY: No acute distress. Temp is 98, heart is 82, respiratory rate is 20, blood pressure 117/60, pulse ox 96% on room air. HENT: Moist mucous membrane. No ulcer or thrush noted. NECK: Supple. No JVD. LUNGS: Have a few scattered rhonchi and crackles. HEART: S1, S2. ABDOMEN: Soft, nontender. No organomegaly. EXTREMITIES: There is not much edema. NEUROLOGICALLY: Awake, alert. Follows simple command. MEDICATIONS: She is on Calan SR 120 mg daily, DuoNeb q. 6 hours, Ecotrin 81 mg daily, Imdur 60 mg da anel, potassium 20 mEq daily, Lasix 20 mg daily, Lidoderm patch affected areas daily, metoprolol tartr ate 25 mg twice a day, morphine 4 mg IV q. 4 hours p.r.n., Plavix 75 mg daily, prednisone 30 mg daily , Protonix 40 mg daily, Rocephin 1 g daily. LABORATORY DATA: Reviewed, and no new lab is available. IMPRESSION AND PLAN: Chronic lymphocytic leukemia, chronic lung disease, status post pneumonia, hype rtension, history of stroke, coronary artery disease, congestive heart failure, activities of daily l iving dysfunction. Pulmonary point of view, doing well. Continue bronchodilator. Keep head 45 degrees. Diuretics. St arted on prednisone. Gastric prophylaxis. SCD to lower extremity. Fall precaution. Continue thera py. Thank you and will follow with you. Saul Camejo MD cc: 336 TT: 07/26/2016 22:24:55 Confirmation # [id number] Dictation # [id number] karol
[2016-07-27] MEDS: Albuterol-Ipratrop 3 mg / 0.5 (3 ml) UD IH SCH ×5 (01:09→19:20)
[2016-07-27] MEDS: cefTRIAXone 1 gm 100 ML IVPB SCH (05:14)
[2016-07-27] MEDS: Morphine 4 mg/ml ISec IVP PRN ×5 (05:21→22:35)
[2016-07-27] MEDS: Pantoprazole 40 mg EC Tab PO SCH (06:27)
[2016-07-27] MEDS: Azithromycin 500MG/NS 250ml 250 ML IVPB SCH (06:27)
[2016-07-27] MEDS: Potassium Chloride 20 mEq ER Tab PO SCH (07:53)
[2016-07-27] MEDS: Verapamil 120 mg ER Tab PO SCH (09:30)
[2016-07-27] MEDS: Lidocaine 5% Patch TD SCH (09:31)
--- NOTE | 2016-07-27 14:16 | PN ---
DATE: 07/27/2016 SUBJECTIVE: The patient is lying in bed in no acute distress. OBJECTIVE: VITAL SIGNS: Blood pressure 136/79, temperature 97.8, pulse 72, respiratory rate 18. LUNGS: Clear. HEART: Regular rate and rhythm. ABDOMEN: Soft, nontender, bowel sounds are normoactive. EXTREMITIES: Without cyanosis, clubbing, or edema. NEUROLOGIC: The patient is awake and oriented x 3 without focal sensory or motor deficits. SKIN: Warm and dry. IMPRESSION: 1. Urinary tract infection. 2. Chronic obstructive pulmonary disease with bronchitis. 3. Hypertension, hypertensive cardiovascular disease and congestive heart failure. 4. Coronary artery disease. 5. Chronic lymphocytic leukemia. 6. Degenerative joint disease with chronic pain and opiate dependence. PLAN: We will discontinue IV antibiotics and start Zithromax 500 mg p.o. daily. Continue cardiology followup with Dr. Thomson and pulmonary followup with Dr. Camejo. Physical therapy and social work for discharge planning. Ming Hicks JD, MD cc: 353 TT: 07/27/2016 14:16:02 Confirmation # [id number] Dictation # [id number] karol
--- NOTE | 2016-07-27 14:57 | PN ---
DATE: 07/27/2016 REFERRING PHYSICIAN: Dr. Dooley. SUBJECTIVE: She is lying in the bed, head at 45 degree, doing well in therapy. Feels better, decrea sed cough, decreased shortness of breath. No nausea, vomiting, diarrhea. No leg pain or leg swellin g. OBJECTIVE: GENERAL: No acute distress. VITAL SIGNS: Temp is 98, heart rate is 72, respiratory rate is 20, blood pressure 136/79, pulse ox 9 4% on room air. HEENT: Moist mucous membrane. Small oral cavity. NECK: Supple. No JVD. LUNGS: Have a few crackles at the bases, scattered rhonchi. HEART: S1 and S2. ABDOMEN: Soft, nontender. No organomegaly. EXTREMITIES: There is no edema. NEUROLOGIC: Awake, alert, follows simple commands. MEDICATIONS: She is on Calan SR 120 mg daily, DuoNeb q. 6 hours, Ecotrin 81 mg daily, Imdur 60 mg da anel, potassium 20 mEq daily, Lasix 20 mg daily, Lidoderm patch affected area, metoprolol tartrate 25 mg twice a day, morphine 4 mg q. 4 hours p.r.n., Plavix 75 mg daily, prednisone 20 mg daily, Protonix 40 mg daily, Zithromax 250 mg daily. LABORATORY DATA: Reviewed. No new lab is available since yesterday. IMPRESSION AND PLAN: Chronic lymphocytic leukemia, chronic lung disease, status post pneumonia, hype rtension, history of stroke, coronary artery disease, congestive heart failure, activities of daily l iving dysfunction. I spoke to the patient in detail. ____ and shortness of breath. We will continu e bronchodilator, keep head at 45 degree, on p.o. steroids. Gastric prophylaxis. Sequential edgardo jesus device to lower extremity. Fall precaution. Continue therapy. Thank you and we will follow wi th you. Saul Camejo MD cc: 336 TT: 07/27/2016 14:56:29 Confirmation # [id number] Dictation # [id number] tn
[2016-07-28] MEDS: Albuterol-Ipratrop 3 mg / 0.5 (3 ml) UD IH SCH ×4 (01:47→21:40)
[2016-07-28] MEDS: Pantoprazole 40 mg EC Tab PO SCH (05:52)
[2016-07-28] MEDS: Morphine 4 mg/ml ISec IVP PRN ×3 (05:58→18:50)
[2016-07-28] MEDS: Potassium Chloride 20 mEq ER Tab PO SCH (08:26)
[2016-07-28] MEDS: Verapamil 120 mg ER Tab PO SCH (11:28)
[2016-07-28] MEDS: Lidocaine 5% Patch TD SCH (11:29)
--- NOTE | 2016-07-28 13:11 | PN ---
DATE: 07/28/2016 SUBJECTIVE: The patient is complaining of cough productive of scant amounts of sputum. There is no hemoptysis. She complains of mild shortness of breath and dyspnea on exertion. OBJECTIVE: VITAL SIGNS: Blood pressure 160/92, temperature 98, pulse 72, respiratory rate 20. LUNGS: Show a few scattered crepitations and bibasilar crackles. HEART: Regular rate and rhythm. ABDOMEN: Soft, nontender. Bowel sounds are normoactive. EXTREMITIES: Without cyanosis, clubbing, or edema. NEUROLOGIC: The patient is awake and oriented x 3 without focal sensory or motor deficits. SKIN: Warm and dry. IMPRESSION: 1. Urinary tract infection, clinically improved. 2. Chronic obstructive pulmonary disease with bronchitis. 3. Hypertension, hypertensive cardiovascular disease and congestive heart failure. 4. Coronary artery disease. 5. Chronic lymphocytic leukemia. 6. Degenerative joint disease with chronic pain and opiate dependence. PLAN: We will obtain chest x-ray and check labs and BNP. Start losartan 25 mg daily for elevated bl ood pressure. Continue pulmonary followup with Dr. Camejo, cardiology followup with Dr. Thomson. Physi inna therapy and social work for discharge planning. Ming Hicks JD, MD cc: 353 TT: 07/28/2016 13:11:03 Confirmation # [id number] Dictation # [id number] tn
[2016-07-28 13:16] LABS: ADD MANUAL DIFF? NO
[2016-07-28 13:27] LABS: BASO # 0.01 K/mm3 (0.0-2.0); BASO % 0.1 % (0.0-3.0); EOS % 0.3 % (1.5-5.0); GRAN # 9.89 (1.4-6.5); GRAN % 84.5 % (50.0-68.0); HEMATOCRIT 36.9 % (36.0-48.0); LYMPH # 1.4 (1.2-3.4); LYMPH % 12.3 % (22.0-35.0); MEAN CELL VOLUME 94.6 fL (80.0-105.0); MEAN CORPUSCULAR HEMOGLOBIN 32.3 pg (25.0-35.0); MEAN CORPUSCULAR HGB CONC 34.1 g/dl (31.0-37.0); MEAN PLATELET VOLUME 10.6 fl (7.0-11.0); MONO # 0.3 (0.1-0.6); MONO % 2.8 % (1.0-6.0); PLATELET COUNT 145 10^3/uL (120.0-450.0); RED CELL DISTRIBUTION WIDTH 13.6 % (11.5-14.5); WHITE BLOOD COUNT 11.7 10^3/ul (4.5-11.0)
[2016-07-28 13:29] LABS: ALB/GLOB RATIO 1.6 (1.1-1.8); ALKALINE PHOSPHATASE 50 U/L (38-133); ALT/SGPT 31 U/L (7-56); AST/SGOT 21 U/L (15-39); BILIRUBIN,TOTAL 0.5 mg/dL (0.2-1.3); BLOOD UREA NITROGEN 30 mg/dL (7-21); CALCIUM 9.2 mg/dL (8.4-10.5); CARBON DIOXIDE 27 mmol/L (21-33); CHLORIDE 104 mmol/L (98-107); GFR AFRICAN-AMERICAN > 60; GLUCOSE,RANDOM 158 mg/dL (70-110); POTASSIUM 4.9 mmol/L (3.6-5.0); SODIUM 139 mmol/L (132-148); TOTAL PROTEIN 5.9 g/dL (5.8-8.3)
[2016-07-28 13:41] LABS: TROPONIN I 0.01 ng/mL
--- NOTE | 2016-07-28 15:24 | RAD ---
HISTORY: cough COMPARISON: Comparison made with prior chest radiographs and CTA chest both dated in the dated 07/20/2016 TECHNIQUE: Chest PA and lateral FINDINGS: LUNGS: No change right IJ central venous line with tip in the SVC. No focal consolidation seen. Small nodular density right medial lung base could represent overlying costal cartilage artifact. PLEURA: No significant pleural effusion identified. No pneumothorax apparent. CARDIOVASCULAR: Normal. OSSEOUS STRUCTURES: Moderate degenerative changes both shoulder girdles right greater than left. . Mild multilevel degenerative spondylosis of the thoracic spine. VISUALIZED UPPER ABDOMEN: Normal. OTHER FINDINGS: None. IMPRESSION: No acute infiltrates.
--- NOTE | 2016-07-28 18:22 | PN ---
DATE: 07/28/2016 REFERRING PHYSICIAN: Dr. Hicks. SUBJECTIVE: She is sitting up in a bed, having lunch. She has increased cough, was sent down for est x-ray, no nausea, no vomiting, no diarrhea, no significant leg swelling. OBJECTIVE: GENERAL: No acute distress. VITAL SIGNS: Temperature is 98, heart rate is 75, respiratory rate is 20, blood pressure 123/71, pul se ox 98% on nasal cannula. HEENT: Moist mucous membrane. Crowded airway. NECK: Supple. No JVD. LUNGS: Has scattered rhonchi. HEART: S1, S2. ABDOMEN: Soft, nontender. No organomegaly. EXTREMITIES: No edema. NEUROLOGIC: Awake, alert, follows simple commands. MEDICATIONS: She is on Calan SR 120 mg daily, Cozaar 25 mg daily, DuoNeb q. 6 hours, Ecotrin 81 mg d aily, Imdur 60 mg daily, potassium 20 mEq daily, Lasix 20 mg daily, Lidoderm patch to affected area, metoprolol tartrate 25 mg twice a day, morphine 4 mg q. 4 hours p.r.n., promethazine with codeine q. 4 hours p.r.n., Plavix 75 mg daily, prednisone 20 mg daily, Protonix 40 mg daily, Zithromax 250 mg da anel. LABORATORY DATA: Shows hemoglobin 12.6, hematocrit 36.9, WBC 11.7, platelets 145. Sodium 139, potas sium 4.9, chloride 104, bicarbonate 27, BUN 30, creatinine 0.9, glucose 158, and calcium 9.2. Total bilirubin 0.5, AST 21, ALT 31, alkaline phosphatase is 50, albumin is 3.7, proBNP 725. Chest x-ray d one today shows no focal consolidation, multinodular density in the right medial lung base, otherwise unremarkable. IMPRESSION AND PLAN: Chronic lymphocytic leukemia, chronic lung disease, status post pneumonia, hype rtension, history of stroke, coronary artery disease, congestive heart failure, dysfunction. C ough may be a combination of some oropharyngeal dysphagia with aspiration and also with combination o f heart failure and COPD. I agree with Dr. Hicks. Continue antibiotics. Continue p.o. and inhaled bronchodilator, aspiration precautions, gastric prophylaxis, SCD to lower extremity. Thank you and w ill follow with you. Saul Camejo MD cc: 336 TT: 07/28/2016 18:22:18 Confirmation # [id number] Dictation # [id number] mn
[2016-07-29] MEDS: Albuterol-Ipratrop 3 mg / 0.5 (3 ml) UD IH SCH ×4 (01:58→20:29)
[2016-07-29] MEDS: Morphine 4 mg/ml ISec IVP PRN ×5 (04:33→21:58)
[2016-07-29] MEDS: Pantoprazole 40 mg EC Tab PO SCH (05:34)
[2016-07-29] MEDS: Potassium Chloride 20 mEq ER Tab PO SCH (07:48)
[2016-07-29] MEDS: Promethazine/Cod 6.25mg-10mg/5ml Syr UD PO PRN ×2 (07:55→18:10)
[2016-07-29] MEDS: Verapamil 120 mg ER Tab PO SCH (10:41)
[2016-07-29] MEDS: Lidocaine 5% Patch TD SCH (10:42)
--- NOTE | 2016-07-29 15:40 | PN ---
DATE: 07/29/2016 SUBJECTIVE: The patient is lying in bed in no acute distress. She denies any shortness of breath. Cough is decreased. OBJECTIVE: VITAL SIGNS: Blood pressure 142/80, pulse 82, temperature 98.3, respiratory rate 20. LUNGS: Clear. HEART: Regular rate and rhythm. ABDOMEN: Soft, nontender, bowel sounds are normoactive. EXTREMITIES: Without cyanosis, clubbing, or edema. NEUROLOGIC: The patient is awake and oriented x 3 without focal sensory or motor deficits. SKIN: Warm and dry. IMPRESSION: 1. Urinary tract infection, clinically improved. 2. Chronic obstructive pulmonary disease with bronchitis. 3. Hypertension, hypertensive cardiovascular disease and mild congestive heart failure. 4. Coronary artery disease. 5. Chronic lymphocytic leukemia. 6. Degenerative joint disease with chronic pain and opiate dependence. PLAN: Continue pulmonary followup with Dr. Camejo. Cardiology followup with Dr. Thomson. We will incr ease Lasix to 40 mg daily secondary to elevated BNP. Chest x-ray showed no active disease. Physical therapy and social work for discharge planning. Ming Hicks JD, MD cc: [id number] TT: 07/29/2016 15:39:44 Confirmation # [id number] Dictation # [id number] [email or web address]
--- NOTE | 2016-07-29 16:50 | PN ---
DATE: 07/29/2016 REFERRING PHYSICIAN: Dr. Hicks SUBJECTIVE: She is lying in the bed, head at 45 degrees, feels better than yesterday, decreased coug h, decreased shortness of breath. No nausea, vomiting, diarrhea. No leg pain or leg swelling. OBJECTIVE: GENERAL: No acute distress. VITAL SIGNS: Temperature is 98, heart rate is 71, respiratory rate is 20, blood pressure 118/62, pul se ox 92% on room air. HEENT: Small oral cavity. Crowded airway. NECK: Supple, no JVD. LUNGS: Have a few scattered rhonchi. HEART: S1, S2. ABDOMEN: Soft, nontender. No organomegaly. EXTREMITIES: There is no edema. NEUROLOGIC: Awake, alert, follows simple command. MEDICATIONS: She is on Calan SR 120 mg daily, Cozaar 25 mg daily, DuoNeb q. 6 hours, Ecotrin 81 mg d aily, Imdur 60 mg daily, potassium 20 mEq daily, Lasix 40 mg daily, Lidoderm patch daily, metoprolol tartrate twice a day, morphine 4 mg q. 4 hours p.r.n., promethazine with codeine 5 mL q. 4 annamaria rs p.r.n., Plavix 75 mg daily, prednisone 20 mg daily, Protonix 40 mg daily, Zithromax 250 mg daily . LABORATORY DATA: Reviewed. No new lab is available since yesterday. IMPRESSION AND PLAN: Chronic lymphocytic leukemia, chronic lung disease, history of pneumonia, histo ry of stroke, coronary artery disease, congestive heart failure, activities of daily living dysfuncti on. She feels better compared to yesterday. We will continue p.o. and inhaled bronchodilator. Aspi ration precaution. Gastric prophylaxis. Sequential compression device to lower extremity. Continue therapy. Thank you and will follow with you. Saul Camejo MD cc: [id number] TT: 07/29/2016 16:50:04 Confirmation # [id number] Dictation # [id number] ln
[2016-07-30] MEDS: Albuterol-Ipratrop 3 mg / 0.5 (3 ml) UD IH SCH ×3 (03:00→13:37)
[2016-07-30] MEDS: Morphine 4 mg/ml ISec IVP PRN ×3 (03:33→11:42)
[2016-07-30] MEDS: Pantoprazole 40 mg EC Tab PO SCH (05:54)
[2016-07-30 06:07] VITALS: RESP 20
[2016-07-30] MEDS: Potassium Chloride 20 mEq ER Tab PO SCH (07:31)
[2016-07-30 10:05] VITALS: BP 143/96; PULSE 79; TEMP 97.9; O2SAT 91
[2016-07-30] MEDS: Verapamil 120 mg ER Tab PO SCH (10:17)
[2016-07-30] MEDS: Lidocaine 5% Patch TD SCH (10:18)
--- NOTE | 2016-07-30 11:10 | PN ---
DATE: 07/30/2016 The patient is sitting in a chair without shortness of breath, without chest pain. PHYSICAL EXAMINATION: VITAL SIGNS: Blood pressure 143/96, the heart rate is in the 70s. NECK: Negative JVD. LUNGS: Decreased breath sounds without rales. HEART: Reveals S1, S2. EXTREMITIES: Without edema. LABORATORIES: Not done today. IMPRESSION: 1. Stable angina. 2. Coronary artery disease. 3. Pneumonia. 4. Resolution of congestive heart failure. 5. Diabetes mellitus. PLAN: Given these findings, the patient has done well in the TCU. The patient will be discharged to day. Rambo Thomson MD cc: [id number] TT: 07/30/2016 11:09:07 Confirmation # [id number] Dictation # [id number] an
--- NOTE | 2016-07-30 16:46 | DS ---
HOSPITAL COURSE: The patient is an 80-year-old female admitted to the transitional care unit on 07/14 status post hospitalization for exacerbation of COPD, CHF and for urinary tract infection. Th e patient received approximately 1 week of IV Rocephin and Zithromax. She was seen in consultation b rodo Camejo for pulmonary and Dr. Thomson for cardiology and is now medically stable for discharge. PHYSICAL EXAMINATION: VITAL SIGNS: Blood pressure 143/96, pulse 79, temperature 97.9, respiratory rate 20. LUNGS: Clear. HEART: Regular rate and rhythm. ABDOMEN: Soft, nontender, bowel sounds are normoactive. EXTREMITIES: Without cyanosis, clubbing, or edema. NEUROLOGIC: The patient is awake and oriented x 3 without focal sensory or motor deficits. SKIN: Warm and dry. IMPRESSION: 1. Urinary tract infection. 2. Chronic obstructive pulmonary disease with bronchitis. 3. Hypertension, hypertensive cardiovascular disease and congestive heart failure. 4. Coronary artery disease. 5. Degenerative joint disease with chronic pain and opiate dependence. PLAN: The patient will be discharged to home today on the following medications: Calan SR 120 mg sindhu ly, DuoNeb inhaled q. 6 hours, Ecotrin 81 mg daily, Imdur 60 mg daily, Lasix 40 mg daily, potassium chloride 20 mEq daily, Lidoderm patch daily and metoprolol 25 mg twice daily, Demerol 50 mg q. 4 hour s, Plavix 75 mg daily, Protonix 40 mg daily, prednisone 30 mg daily. The patient will be maintained on a heart healthy diet. Activities ad libitum. She will be followed up in my office in the next 1- 2 weeks. Ming Hicks JD, MD cc: [id number] TT: 07/30/2016 16:45:31 ln
--- NOTE | 2016-07-30 19:05 | PN ---
DATE: 07/30/2016 REFERRING PHYSICIAN: Dr. Hicks. SUBJECTIVE: She is out of bed to chair, feels better, decreased cough, decreased shortness of breath . No nausea, no vomiting, no diarrhea. No leg pain or leg swelling. OBJECTIVE: GENERAL: In no acute distress. VITAL SIGNS: Temperature is 98, heart rate is 79, respiratory rate is 20, blood pressure 143/96, pul se ox 91% on room air. HEENT: Moist mucous membrane. No ulcer or thrush noted. NECK: Supple. No JVD. LUNGS: Has a few scattered rhonchi. HEART: S1 and S2. ABDOMEN: Soft and nontender. No organomegaly. EXTREMITIES: There is no edema. NEUROLOGIC: Awake, alert, follows simple commands. MEDICATIONS: Reviewed. No new changes in medication reported since yesterday. LABORATORY DATA: Reviewed. No new lab is available since yesterday. IMPRESSION AND PLAN: Chronic lymphocytic leukemia, chronic lung disease, history of pneumonia, strok e, coronary artery disease, congestive heart failure, activities of daily living dysfunction. Pulmon bandar point of view, she is doing well, being discharged home. Advised her about her oropharyngeal dys phagia and aspiration. Guided her to sit up for eating. Continue bronchodilator. Gastric prophylax is. Sleep apnea precaution. Keep head elevated at 45 degrees. Avoid nocturnal sedative. Suggested to get a PFT as an outpatient and an attended sleep study as an outpatient. Saul Camejo MD cc: [id number] TT: 07/30/2016 19:04:57 Confirmation # [id number] Dictation # [id number] [email or web address]
== END 2016-07-30 14:55 | disposition home health service (06) | DRG 871 ==
LOC: TRCU 19:26
PROVIDERS: ADMIT Internal Medicine; ATTEND Internal Medicine
PROC: F07Z9FZ Gait Training/Functional Ambulation Treatment using Assistive, Adaptive, Supportive or Protective Equipment (ICD-10-PCS; principal; 2016-07-25)
PROC: F07M6ZZ Therapeutic Exercise Treatment of Musculoskeletal System - Whole Body (ICD-10-PCS; 2016-07-25)
PROC: F08Z1ZZ Dressing Techniques Treatment (ICD-10-PCS; 2016-07-25)
PROC: F08Z2ZZ Grooming/Personal Hygiene Treatment (ICD-10-PCS; 2016-07-25)
PROC: F08Z0ZZ Bathing/Showering Techniques Treatment (ICD-10-PCS; 2016-07-25)
DX: A41.9 Sepsis, unspecified organism (principal); J18.9 Pneumonia, unspecified organism; I11.0 Hypertensive heart disease with heart failure; J44.0 Chronic obstructive pulmonary disease with (acute) lower respiratory infection; I42.9 Cardiomyopathy, unspecified; C91.10 Chronic lymphocytic leukemia of B-cell type not having achieved remission; I50.9 Heart failure, unspecified; R13.12 Dysphagia, oropharyngeal phase; F11.20 Opioid dependence, uncomplicated; J44.1 Chronic obstructive pulmonary disease with (acute) exacerbation; N39.0 Urinary tract infection, site not specified; E11.9 Type 2 diabetes mellitus without complications; I25.118 Atherosclerotic heart disease of native coronary artery with other forms of angina pectoris; G89.29 Other chronic pain; M19.90 Unspecified osteoarthritis, unspecified site; Z86.73 Personal history of transient ischemic attack (TIA), and cerebral infarction without residual deficits; Z87.01 Personal history of pneumonia (recurrent); Z90.49 Acquired absence of other specified parts of digestive tract; Z88.2 Allergy status to sulfonamides

== ENCOUNTER 2016-09-05 10:30 | Observation (INO) | payer MEDICARE ==
--- NOTE | 2016-09-05 12:06 | ED PDOC ---
Arrival/HPI - General Chief Complaint: Trauma Time Seen by Provider: 09/05/16 11:08 Historian: Patient - History of Present Illness Narrative History of Present Illness (Text): 09/05/16 12:02 80 year old female whose past medical history includes arthritis, COPD, stents, lymphoma in remission, presents to the emergency department with left lower back pain and left leg pain after falling prior to arrival. Patient states she fell backwards and hit her head. She states she could not get up after the fall on her own but EMS arrived about 30 minutes later and was able to sit her up. No LOC. Denies chest pain, shortness of breath, dizziness, or other symptoms before the fall. PMD: Dr. Ming Hicks Time/Duration: 1/2 hour Symptom Onset: Sudden Symptom Course: Unchanged Modifying Factors (Text): None Context: Home Past Medical History - Provider Review Nursing Documentation Reviewed: Yes - Infectious Disease Hx of Infectious Diseases: None - Tetanus Immunization Tetanus Immunization: Unknown - Cardiac Hx Cardiac Disorders: Yes Hx Congestive Heart Failure: Yes Other/Comment: port a cath to R chest - Pulmonary Hx Chronic Obstructive Pulmonary Disease (COPD): Yes - Neurological Hx Neurological Disorder: Yes Other/Comment: SHINGLES H/O - HEENT Hx HEENT Disorder: Yes Hx Cataracts: Yes - Renal Hx Renal Disorder: No - Endocrine/Metabolic Hx Endocrine Disorders: No - Hematological/Oncological Hx Blood Disorders: Yes Hx Anemia: Yes (blood transfusion) Hx Cancer: Yes (lymphoma, 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) Hx Chemotherapy: Yes Hx Hepatitis A: Yes (many yrs ago) Hx Shingles: Yes Other/Comment: last chemo was ONE YEAR AGO - Integumentary Hx Dermatological Disorder: Yes (MASD UNDER THE BREAST FOLDS,THIGH SKIN FOLDS, IASD IN BETWEEN GROIN AREA) - Musculoskeletal/Rheumatological Hx Arthritis: Yes (OA) - Gastrointestinal Hx Gastrointestinal Disorders: Yes Hx Diverticulitis: Yes - Genitourinary/Gynecological Hx Genitourinary Disorders: Yes Hx Incontinence: Yes Hx Urinary Tract Infection: Yes - Psychiatric Hx Psychophysiologic Disorder: No Hx Substance Use: No - Surgical History Hx Appendectomy: Yes Hx Cholecystectomy: Yes Hx Hysterectomy: Yes Other/Comment: cardiac stent x3, spinal fusion lumbar, colon resection for diverticulitis, hernia sx - Anesthesia Hx Anesthesia: Yes Hx Anesthesia Reactions: No Hx Malignant Hyperthermia: No - Suicidal Assessment Feels Threatened In Home Enviroment: No Family/Social History - Physician Review Nursing Documentation Reviewed: Yes Family/Social History: Unknown Family HX Smoking Status: Never Smoked Hx Alcohol Use: No Hx Substance Use: No Substance used: demerol PO Q4H Hx Substance Use Treatment: No Allergies/Home Meds Allergies/Adverse Reactions: Allergies Sulfa (Sulfonamide Antibiotics) Allergy (Intermediate, Verified 09/05/16 10:37) RASH Home Medications: Home Meds Medication Instructions Recorded Confirmed Clopidogrel [Plavix] 75 mg PO QAM 11/27/11 07/24/16 Verapamil [Calan Tab] 120 mg PO QAM 11/27/11 07/24/16 Meperidine HCl [Demerol] 50 mg PO PRN PRN 09/16/14 07/24/16 Celecoxib [celeBREX] 200 mg PO QAM 05/23/15 07/24/16 Furosemide 20 mg PO QAM 05/23/15 07/24/16 Lidocaine 5% [Lidoderm] 1 patch TP DAILY 05/23/15 07/24/16 Omeprazole [Prilosec] 40 mg PO QAM 05/23/15 07/24/16 Pantoprazole [Protonix EC Tab] 40 mg PO QAM 05/23/15 07/24/16 Potassium Chloride [K-Dur 20 mEq 20 meq PO DAILY 05/23/15 07/24/16 ER Tab] predniSONE [predniSONE Tab] 40 mg PO DAILY 05/23/15 07/24/16 Review of Systems - Physician Review All systems were reviewed & negative as marked: Yes - Review of Systems Respiratory: absent: SOB Cardiovascular: absent: Chest Pain Gastrointestinal: absent: Abdominal Pain, Vomiting Musculoskeletal: Back Pain, Other (Left leg pain) Neurological: absent: Headache, Dizziness Physical Exam Vital Signs Reviewed: Yes Vital Signs Temp Pulse Resp BP Pulse Ox 09/05/16 14:24 67 18 128/65 98 09/05/16 13:27 65 18 130/68 98 09/05/16 13:10 71 18 160/80 H 97 09/05/16 12:33 67 18 132/65 98 09/05/16 11:23 68 18 134/69 98 09/05/16 10:41 97.7 F 65 18 136/71 98 Temperature: Afebrile Blood Pressure: Normal Pulse: Regular Respiratory Rate: Normal Appearance: Positive for: Well-Appearing, Non-Toxic, Comfortable Pain Distress: None Mental Status: Positive for: Alert and Oriented X 3 - Systems Exam Head: Present: Atraumatic, Normocephalic Pupils: Present: PERRL Extroacular Muscles: Present: EOMI Conjunctiva: Present: Normal Mouth: Present: Moist Mucous Membranes Neck: Present: Normal Range of Motion Respiratory/Chest: Present: Clear to Auscultation, Good Air Exchange. No: Respiratory Distress, Accessory Muscle Use Cardiovascular: Present: Regular Rate and Rhythm, Normal S1, S2. No: Murmurs Abdomen: Present: Normal Bowel Sounds. No: Tenderness, Distention, Peritoneal Signs Upper Extremity: Present: Normal Inspection. No: Cyanosis, Edema Lower Extremity: No: Edema Neurological: Present: GCS=15, CN II-XII Intact, Speech Normal Skin: Present: Warm, Dry, Normal Color. No: Rashes Psychiatric: Present: Alert, Oriented x 3, Normal Insight, Normal Concentration Medical Decision Making ED Course and Treatment: Impression: 80 year old female whose past medical history includes arthritis, COPD, stents, lymphoma in remission, presents to the emergency department with left lower back pain and left leg pain after falling prior to arrival. Differential Diagnosis include but are not limited to: Fracture vs sprain Plan: -- XR hip, l-spine -- Flexeril, Motrin -- Reassess and disposition Prior Visits: Notes and results from previous visits were reviewed. Patient last seen in ED on 07/20/16 for shortness of breath and admitted for CHF, UTI. Progress Notes: X-ray L-spine Nurse Plastics: Willian Gonzalez MD IMPRESSION: Disc degeneration at L1-2 and L2-3. Pedicle screws and rods from L3 through S1. Laminectomy at these levels. X-ray Hip/Pelvis Nurse Plastics: Willian Gonzalez MD IMPRESSION: There is a nondisplaced transverse fracture line through the left femoral neck. 09/05/16 12:[address] Ming Hicks who is aware of case, accepts patient to his service. - Lab Interpretations Lab Results: 09/05/16 12:32 09/05/16 12:32 Lab Results 09/05/16 12:32: Sodium 137, Potassium 4.4, Chloride 104, Carbon Dioxide 27, Anion Gap 10, BUN 21, Creatinine 0.8, Est GFR ( Amer) > 60, Est GFR (Non- Af Amer) > 60, Random Glucose 82, Calcium 9.1, Total Bilirubin 0.6, AST 17, ALT 27, Alkaline Phosphatase 65, Total Protein 5.7 L, Albumin 3.7, Globulin 2.0, Albumin/Globulin Ratio 1.9 H 09/05/16 12:32: PT 11.4, INR 1.06, APTT 21.0 L 09/05/16 12:32: WBC 5.6 D, RBC 3.46 L, Hgb 11.0 L, Hct 32.5 L, MCV 93.9, MCH 31.8, MCHC 33.8, RDW 13.8, Plt Count 114 L, MPV 10.0, Gran % 56.3, Lymph % (Auto ) 30.3, [place] % (Auto) 7.9 H, Eos % (Auto) 5.0, Baso % (Auto) 0.5, Gran # 3.14, Lymph # 1.7, [place]ima # 0.4, Eos # 0.3, Baso # 0.03 - RAD Interpretation Radiology Orders: 09/05/16 11:08 HIP MIN 3V W/ PELVIS CAMERON [RAD] Stat LS SPINE WITH OBL > 18 YRS OLD [RAD] Stat 09/05/16 12:56 CHEST PORTABLE [RAD] Stat Net Making Supervisor: Radiologist - EKG Interpretation EKG Interpretation (Text): EKG shows sinus bradycardia at 54 bpm, otherwise normal, interpreted by me. Interpreted by ED Physician: Yes Type: 12 lead EKG - Medication Orders Current Medication Orders: Discontinued Medications Cyclobenzaprine HCl (Flexeril) 10 mg PO STAT STA Stop: 09/05/16 11:10 Last Admin: 09/05/16 12:01 Dose: 10 mg Ibuprofen (Motrin Tab) 600 mg PO STAT STA Stop: 09/05/16 11:10 Last Admin: 09/05/16 12:01 Dose: 600 mg Morphine Sulfate (Morphine) 2 mg IVP STAT STA Stop: 09/05/16 12:57 Last Admin: 09/05/16 13:14 Dose: 2 mg Comments: no 2mg in pyxis, pulled a 4mg and wasted with NAHDE Magallon RN Morphine Sulfate (Morphine) Confirm Administered Dose 4 mg .ROUTE .STK-MED ONE Stop: 09/05/16 13:14 Last Admin: 09/05/16 13:30 Dose: Ondansetron HCl (Zofran Inj) 4 mg IVP STAT STA Stop: 09/05/16 12:58 Last Admin: 09/05/16 13:14 Dose: 4 mg - Alexibe Statement The provider has reviewed the documentation as recorded by the Emerson Hernandez Provider Scribe Attestation: All medical record entries made by the Emerson were at my direction and personally dictated by me. I have reviewed the chart and agree that the record accurately reflects my personal performance of the history, physical exam, medical decision making, and the department course for this patient. I have also personally directed, reviewed, and agree with the discharge instructions and disposition. Disposition/Present on Arrival - Present on Arrival Any Indicators Present on Arrival: No History of DVT/PE: No History of Uncontrolled Diabetes: No Urinary Catheter: No History of Decub. Ulcer: No History Surgical Site Infection Following: None - Disposition Have Diagnosis and Disposition been Completed?: Yes Diagnosis: Hip fracture, left Disposition: HOSPITALIZED Disposition Time: 12:50 Condition: STABLE
--- NOTE | 2016-09-05 12:37 | RAD ---
PROCEDURE: Radiographs of the Lumbar Spine. HISTORY: r/o fx COMPARISON: No prior. FINDINGS: BONES: Normal alignment. No listhesis. No fracture. DISC SPACES: Disc degeneration at L1-2 and L2-3. Pedicle screws and rods from L3 through S1. Laminectomy at these levels. OTHER FINDINGS: None. IMPRESSION: Disc degeneration at L1-2 and L2-3. Pedicle screws and rods from L3 through S1. Laminectomy at these levels.
--- NOTE | 2016-09-05 12:42 | RAD ---
PROCEDURE: Radiographs of the pelvis and bilateral hips HISTORY: r/o fx COMPARISON: None. FINDINGS: BONES: Pelvis: Unremarkable. Right hip:Unremarkable. Left hip:There is a nondisplaced transverse fracture line through the femoral neck JOINTS: Right hip: Unremarkable. Left hip: Unremarkable. Sacroiliac Joints: Unremarkable. Pubic symphysis: Unremarkable. SOFT TISSUES: Normal. OTHER FINDINGS: None. IMPRESSION: There is a nondisplaced transverse fracture line through the left femoral neck
[2016-09-05] MEDS ORDERED: Morphine 2 mg/ml ISec IVP STA (12:56)
[2016-09-05] MEDS ORDERED: Morphine 4 mg/ml ISec ONE (13:13)
[2016-09-05 13:15] LABS: ADD MANUAL DIFF? NO
[2016-09-05 13:31] LABS: ALB/GLOB RATIO 1.9 (1.1-1.8); ALKALINE PHOSPHATASE 65 U/L (38-133); ALT/SGPT 27 U/L (7-56); AST/SGOT 17 U/L (15-39); BASO # 0.03 K/mm3 (0.0-2.0); BASO % 0.5 % (0.0-3.0); BILIRUBIN,TOTAL 0.6 mg/dL (0.2-1.3); BLOOD UREA NITROGEN 21 mg/dL (7-21); CALCIUM 9.1 mg/dL (8.4-10.5); CARBON DIOXIDE 27 mmol/L (21-33); CHLORIDE 104 mmol/L (98-107); EOS # 0.3 (0.0-0.7); GFR AFRICAN-AMERICAN > 60; GLUCOSE,RANDOM 82 mg/dL (70-110); GRAN # 3.14 (1.4-6.5); GRAN % 56.3 % (50.0-68.0); HEMATOCRIT 32.5 % (36.0-48.0); LYMPH # 1.7 (1.2-3.4); LYMPH % 30.3 % (22.0-35.0); MEAN CELL VOLUME 93.9 fL (80.0-105.0); MEAN CORPUSCULAR HEMOGLOBIN 31.8 pg (25.0-35.0); MEAN CORPUSCULAR HGB CONC 33.8 g/dl (31.0-37.0); MONO # 0.4 (0.1-0.6); MONO % 7.9 % (1.0-6.0); PLATELET COUNT 114 10^3/uL (120.0-450.0); POTASSIUM 4.4 mmol/L (3.6-5.0); RED CELL DISTRIBUTION WIDTH 13.8 % (11.5-14.5); SODIUM 137 mmol/L (132-148); TOTAL PROTEIN 5.7 g/dL (5.8-8.3); WHITE BLOOD COUNT 5.6 10^3/ul (4.5-11.0)
[2016-09-05 13:37] LABS: INR 1.06 (0.93-1.08)
--- NOTE | 2016-09-05 14:57 | CT ---
PROCEDURE: CT of the left hip without contrast HISTORY: hip fx COMPARISON: Earlier plain film same day TECHNIQUE: CT of the left hip was performed in the axial plane with sagittal and coronal reconstructions. FINDINGS: The suspected fracture on plain film is not verified on CT. There is no evidence of fracture. There are some osteophytes around the femoral neck which could of produce the appearance of a linear fracture. In particular there is a posterior osteophyte arising from the acetabulum which shows some separation. This is seen on image 25 series 2 IMPRESSION: No evidence of hip fracture
--- NOTE | 2016-09-05 14:59 | RAD ---
HISTORY: Low back pain COMPARISON: 07/28/2016 FINDINGS: LUNGS: No active pulmonary disease. PLEURA: No significant pleural effusion identified, no pneumothorax apparent. CARDIOVASCULAR: Normal. OSSEOUS STRUCTURES: No significant abnormalities. VISUALIZED UPPER ABDOMEN: Normal. OTHER FINDINGS: Right-sided Port-A-Cath IMPRESSION: No active disease.
[2016-09-05 15:58] VITALS: RESP 20
[2016-09-05] MEDS: Morphine 2 mg/ml ISec IVP PRN ×2 (17:46→22:26)
--- NOTE | 2016-09-05 18:34 | CARD ---
APPROVED REPORT EKG Measurement Heart [id number] <Conclusion> Sinus bradycardia Cannot rule out Anterior infarct, age undetermined Abnormal ECG
[2016-09-05] MEDS: Potassium Chloride 20 mEq ER Tab PO SCH (18:35)
--- NOTE | 2016-09-05 20:30 | HP ---
HISTORY OF PRESENT ILLNESS: The patient is an 80-year-old female [facility] for pain of the lower back and left hip, status post fall. The patient had an x-ray which was initially read as a left femoral neck fracture. Subsequent CT scan of the left hip showed no fractu re. The patient is admitted for further evaluation and management and pain control. PAST MEDICAL HISTORY: Includes coronary artery disease, hypertension, hypertensive cardiovascular di sease, CHF. She has history of chronic lymphocytic leukemia and anemia treated by Dr. Brown. She al so has a history of degenerative joint disease with chronic pain and opiate dependence. PAST SURGICAL HISTORY: Includes appendectomy and cholecystectomy. ALLERGIES: THE PATIENT REPORTS AN ALLERGY TO SULFA. CURRENT MEDICATIONS: Include verapamil SR 120 mg daily, Ecotrin 81 mg daily, Imdur 60 mg daily, pota ssium chloride 20 mEq daily, Lasix 20 mg q.a.m., Lidoderm patch 1 daily, metoprolol 25 mg twice daily , Plavix 75 mg daily, Protonix 40 mg daily, and prednisone 20 mg daily. SOCIAL HISTORY: The patient has no history of tobacco or alcohol use. She is independent with ADLs and IADLs. She lives alone. REVIEW OF SYSTEMS: Essentially as above. There is no chest pain, no shortness of breath, no swellin g of the legs. There was no apparent seizure or loss of consciousness prior to the patient's fall. PHYSICAL EXAMINATION: GENERAL: The patient is a well-developed female in no acute distress. VITAL SIGNS: Blood pressure 146/72, temperature 97.8, pulse 75, respiratory rate 24. HEENT: Head is normocephalic, atraumatic. Pupils equal, round and reactive to light. Extraocular m ovements intact. NECK: Supple, with no thyromegaly, no carotid bruit. There is a Port-A-Cath present in the right ch est wall. LUNGS: Clear. HEART: Regular rate and rhythm with a grade II/ systolic murmur. ABDOMEN: Soft, nontender, bowel sounds are normoactive. EXTREMITIES: Without cyanosis, clubbing, or edema. NEUROLOGIC: The patient is able to weight bear on the left hip and she is able to ambulate short dis tances with minimal assistance. Gait is slightly antalgic. NEUROLOGIC: The patient is awake and oriented x 3 without focal sensory or motor deficits. SKIN: Warm and dry. LABORATORY DATA: WBC is 5.6, hemoglobin 11.0, hematocrit 32.5. Sodium 137, potassium 4.4, chloride 104, CO2 of 27, BUN 21, creatinine 0.8, glucose 82. Chest x-ray shows no active disease. IMPRESSION: 1. Contusion, left hip, status post fall. 2. Coronary artery disease. 3. Chronic obstructive pulmonary disease. 4. Hypertension, hypertensive cardiovascular disease and congestive heart failure. 5. Degenerative joint disease with chronic pain and opiate dependence. PLAN: The patient is admitted to the medical surgical floor. We will give morphine sulfate 2 mg IV q.4 hours p.r.n. pain. Social work for discharge planning. Ming Hicks JD, MD cc: [id number] TT: 09/05/2016 20:29:21
[2016-09-05 22:08] VITALS: BMI 31.2
[2016-09-05] MEDS ORDERED: Pneumococcal 23-Valent Vaccine IM ONE (22:08)
[2016-09-06] MEDS: Morphine 2 mg/ml ISec IVP PRN ×3 (03:31→11:50)
[2016-09-06] MEDS ORDERED: Pantoprazole 40 mg EC Tab PO SCH (06:30)
[2016-09-06 07:24] VITALS: BP 162/60; PULSE 84; TEMP 99.4; O2SAT 94
[2016-09-06] MEDS ORDERED: Lidocaine 5% Patch TD SCH (10:00)
[2016-09-06] MEDS ORDERED: Verapamil 120 mg ER Tab PO SCH (10:00)
[2016-09-06] MEDS: Potassium Chloride 20 mEq ER Tab PO SCH (11:07)
--- NOTE | 2016-09-06 12:43 | DS ---
HOSPITAL COURSE: The patient is an 80-year-old female admitted through the Emergency Department on one day status post fall with complaint of pain of the left hip. CT scan showed no fracture . The patient is able to ambulate independently and weightbear on the left hip without difficulty an d she is medically stable for discharge. OBJECTIVE: VITAL SIGNS: Blood pressure 162/60, temperature 99.4, respiratory rate 20, pulse 58. LUNGS: Clear. HEART: Regular rate and rhythm. ABDOMEN: Soft, nontender. Bowel sounds are normoactive. EXTREMITIES: Without cyanosis, clubbing, or edema. NEUROLOGIC: The patient is awake and oriented x 3 without focal sensory or motor deficits. Gait is slightly antalgic. SKIN: Warm and dry. IMPRESSION: 1. Contusion, left hip, status post fall. 2. Coronary artery disease. 3. Chronic obstructive pulmonary disease. 4. Hypertension, hypertensive cardiovascular disease and congestive heart failure. 5. Degenerative joint disease with chronic pain and opiate dependence. PLAN: The patient will be discharged to home today in stable condition on the following medications: Calan SR 120 daily, Ecotrin 81 mg daily, Imdur 60 mg daily, potassium chloride 20 mEq daily, Lasix 20 mg q. a.m., Lidoderm patch daily, metoprolol 25 mg twice daily, Plavix 75 mg daily, Protonix 40 mg daily, and prednisone 30 mg daily. The patient will be maintained on a heart-healthy diet, activiti es ad libitum. She will be followed in the office within the next 1-2 weeks. Ming Hicks JD, MD cc: 353 TT: 09/06/2016 12:42:44 wa
== END 2016-09-06 15:00 | disposition home or self-care (01) ==
LOC: ED 10:30 → INTOOBSV 14:13 → ERH 14:13 → 5RNO 15:32
PROVIDERS: ADMIT Internal Medicine; ATTEND Internal Medicine
DX: S70.02XA Contusion of left hip, initial encounter (principal); I11.0 Hypertensive heart disease with heart failure; I50.9 Heart failure, unspecified; I25.10 Atherosclerotic heart disease of native coronary artery without angina pectoris; G89.29 Other chronic pain; F11.20 Opioid dependence, uncomplicated; M51.36 Other intervertebral disc degeneration, lumbar region; M19.90 Unspecified osteoarthritis, unspecified site; J44.9 Chronic obstructive pulmonary disease, unspecified; D64.9 Anemia, unspecified; Z85.6 Personal history of leukemia; Z85.72 Personal history of non-Hodgkin lymphomas; Z88.2 Allergy status to sulfonamides; W19.XXXA Unspecified fall, initial encounter; Y93.89 Activity, other specified; Y92.9 Unspecified place or not applicable; Y99.9 Unspecified external cause status; Z90.49 Acquired absence of other specified parts of digestive tract
CPT/HCPCS: 71010; 72110; 73522; 73700; 80053; 85025; 85610; 85730; 93005; 96374; 96375; 99285; G0378; J2270; J2405

== ENCOUNTER 2016-10-24 10:49 | Emergency (ER) | payer MEDICARE ==
[2016-10-24 10:52] VITALS: BMI 30.8
[2016-10-24 11:07] VITALS: PULSE 85
--- NOTE | 2016-10-24 11:35 | ED PDOC ---
Arrival/HPI - General Historian: Patient <EDE HOYT - Last Filed: 10/24/16 15:04> <Satish Chaudhari DO - Last Filed: 10/24/16 18:35> - General Chief Complaint: Hip Pain Time Seen by Provider: 10/24/16 11:03 - History of Present Illness Narrative History of Present Illness (Text): 10/24/16 11:35 Mrs. Merida is an 81 yo female with pmh significant for COPD, CHF, PNA, lymphoma, fracture of left hip, degenerative joint disease with chronic pain and opiate dependence who presents with left sided rib, hip, and bilateral leg pain. She reports having chronic pain issues but over the past 24 hours has had progressive increase in her pain levels primarily associated with her left side. She reports pain as constant, sharp, 10/10 pain located on her left upper chest with radiation down into her hip and into both legs. Hospital records indicate the patient was recently discharged on 09/06/2016 for fall on left side. (EDE HOYT) Past Medical History - Provider Review Nursing Documentation Reviewed: Yes - Infectious Disease Hx of Infectious Diseases: None - Tetanus Immunization Tetanus Immunization: Unknown - Cardiac Hx Cardiac Disorders: Yes (mi) Hx Angina: Yes Hx Congestive Heart Failure: Yes Hx Hypertension: Yes Other/Comment: angioplasty, variscosities ble - Pulmonary Hx Respiratory Disorders: Yes Hx Chronic Obstructive Pulmonary Disease (COPD): Yes Hx Pneumonia: Yes - Neurological Hx Neurological Disorder: Yes Other/Comment: SHINGLES H/O - HEENT Hx HEENT Disorder: Yes Hx Cataracts: Yes - Renal Hx Renal Disorder: No - Endocrine/Metabolic Hx Endocrine Disorders: No - Hematological/Oncological Hx Blood Disorders: Yes Hx Anemia: Yes (blood transfusion) Hx Cancer: Yes (lymphoma, 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) Hx Chemotherapy: Yes Hx Hepatitis A: Yes (many yrs ago) Hx Shingles: Yes Other/Comment: last chemo was ONE YEAR AGO - Integumentary Hx Dermatological Disorder: Yes Other/Comment: red rash under abd fold, b/l groin and under both breasts, bruise to left upper thigh - Musculoskeletal/Rheumatological Hx Musculoskeletal Disorders: Yes Hx Arthritis: Yes Hx Back Pain: Yes Hx Falls: Yes (2 weeks ago) - Gastrointestinal Hx Gastrointestinal Disorders: Yes Hx Diverticulitis: Yes - Genitourinary/Gynecological Hx Genitourinary Disorders: Yes Hx Incontinence: Yes Hx Urinary Tract Infection: Yes - Psychiatric Hx Psychophysiologic Disorder: No Hx Substance Use: No - Surgical History Hx Appendectomy: Yes Hx Cardiac Catheterization: Yes Hx Cholecystectomy: Yes Hx Coronary Stent: Yes (x3) Hx Hysterectomy: Yes Other/Comment: cardiac stent x3, spinal fusion lumbar, colon resection for diverticulitis, hernia sx, spinal fusion scrrews/rods L3 S1, and cervical spine sx, rcwq pac - Anesthesia Hx Anesthesia: Yes Hx Anesthesia Reactions: No Hx Malignant Hyperthermia: No - Suicidal Assessment Feels Threatened In Home Enviroment: No <EDE HOYT - Last Filed: 10/24/16 15:04> Family/Social History Family/Social History: Unknown Family HX Smoking Status: Never Smoked Hx Alcohol Use: No Hx Substance Use: No Substance used: demerol PO Q4H Hx Substance Use Treatment: No <EDE HOYT - Last Filed: 10/24/16 15:04> Allergies/Home Meds <EDE HOYT - Last Filed: 10/24/16 15:04> <Satish Chaudhari DO - Last Filed: 10/24/16 18:35> Allergies/Adverse Reactions: Allergies Sulfa (Sulfonamide Antibiotics) Allergy (Intermediate, Verified 10/24/16 10:53) RASH Home Medications: Home Meds Medication Instructions Recorded Confirmed Clopidogrel [Plavix] 75 mg PO QAM 11/27/11 10/24/16 Verapamil [Calan Tab] 120 mg PO QAM 11/27/11 10/24/16 Meperidine HCl [Demerol] 50 mg PO PRN PRN 09/16/14 10/24/16 Celecoxib [celeBREX] 200 mg PO QAM 05/23/15 10/24/16 Furosemide 20 mg PO QAM 05/23/15 10/24/16 Lidocaine 5% [Lidoderm] 1 patch TP DAILY 05/23/15 10/24/16 Omeprazole [Prilosec] 40 mg PO QAM 05/23/15 10/24/16 Pantoprazole [Protonix EC Tab] 40 mg PO QAM 05/23/15 10/24/16 Potassium Chloride [K-Dur 20 mEq 20 meq PO DAILY 05/23/15 10/24/16 ER Tab] Metoprolol Succinate [Toprol XL] 50 mg PO DAILY 10/24/16 10/24/16 Review of Systems - Review of Systems Constitutional: absent: Fatigue, Weight Change Respiratory: SOB. absent: Cough Cardiovascular: Chest Pain. absent: Palpitations, HUANG, Syncope Gastrointestinal: absent: Abdominal Pain, Constipation, Diarrhea Genitourinary Female: absent: Dysuria, Frequency Musculoskeletal: Arthralgias, Back Pain Skin: absent: Rash, Pruritis Neurological: absent: Headache, Focal Weakness Endocrine: absent: Diaphoresis Psychiatric: absent: Anxiety <EDE HOYT - Last Filed: 10/24/16 15:04> Physical Exam Vital Signs Reviewed: Yes Temperature: Afebrile Blood Pressure: Hypertensive Pulse: Regular Respiratory Rate: Normal Appearance: Positive for: Well-Appearing Pain Distress: Moderate Mental Status: Positive for: Alert and Oriented X 3 - Systems Exam Head: Present: Atraumatic, Other (bulge/lipoma on right scalp) Pupils: Present: PERRL Extroacular Muscles: Present: EOMI Conjunctiva: Present: Normal Mouth: Present: Moist Mucous Membranes Neck: Present: Normal Range of Motion. No: MIDLINE TENDERNESS Respiratory/Chest: Present: Wheezes (expiratory wheeze), Decreased Breath Sounds. No: Respiratory Distress, Accessory Muscle Use Cardiovascular: Present: Regular Rate and Rhythm, Murmurs (grade 2/6 systolic murmur) Abdomen: Present: Normal Bowel Sounds. No: Tenderness, Distention, Peritoneal Signs Back: Present: Paraspinal Tenderness (left sided thoracic and lumbar). No: Pain with Leg Raise Upper Extremity: Present: Normal Inspection, NORMAL PULSES. No: Cyanosis, Edema Lower Extremity: Present: NORMAL PULSES, Capillary Refill < 2 s Neurological: Present: GCS=15, CN II-XII Intact, Speech Normal, Motor Func Grossly Intact, Normal Sensory Function Skin: Present: Warm, Dry Psychiatric: Present: Alert, Oriented x 3 <EDE HOYT - Last Filed: 10/24/16 15:04> Medical Decision Making <EDE HOYT - Last Filed: 10/24/16 15:04> <Satish Chaudhari DO - Last Filed: 10/24/16 18:35> ED Course and Treatment: 10/24/16 12:11 Impression: Mrs. Merida is a 81 year old female complaining of left sided rib, thoracic , lumbar and pelvic pain that has progressed from baseline over the past 24 hours. Differential Diagnosis included but are not limited to: - Left rib fracture - Chronic pain associated with degenerative joint disease Plan: - Xray of thoracic and lumbar spine - Xray of left rib cage - Xray of left hip and pelvis -- Reassess and disposition Progress Notes: - Radiology evidence shows no evidence of acute fracture. -- Conversation with the patient in regards to chronic pain and current management occurred. She is encouraged to follow up with her prescribing physician for pain control at this time. 10/24/16 15:01 (EDE HOYT) Patient Seen With Resident: In agreement with resident note. Patient was seen and evaluated with resident, came up with plan and treatment An 81 year old female with left sided rib, hip, bilateral leg and back pain. Additional HPI as noted by resident. On physical exam, patient has a bulge/ lipoma on right scalp, expiratory wheezing, decreased breath sounds, grade 2/6 systolic murmur, and left sided thoracic and lumbar tenderness. Ordered Radiology of thoracic spine, lumbar spine, left rib and left hip with pelvis. (Satish Chaudhari DO) - RAD Interpretation Radiology Orders: 10/24/16 11:32 HIP MIN 2V W/ PELVIS RT [RAD] Stat LS SPINE WITH OBL > 18 YRS OLD [RAD] Stat RIBS LEFT [RAD] Stat 10/24/16 11:59 DORSAL (THORACIC) SPINE [RAD] Stat - Medication Orders Current Medication Orders: Discontinued Medications Ibuprofen (Motrin Tab) 600 mg PO STAT STA Stop: 10/24/16 12:55 Last Admin: 10/24/16 13:08 Dose: 600 mg Oxycodone HCl (Oxycodone Immediate Release Tab) 5 mg PO STAT STA Stop: 10/24/16 12:55 Last Admin: 10/24/16 13:08 Dose: 5 mg - PA / CIRCULATION REPRESENTATIVE / Resident Statement NOLAN has reviewed & agrees with the documentation as recorded. NOLAN has examined the patient and agrees with the treatment plan. <EDE HOYT - Last Filed: 10/24/16 15:04> - Scribe Statement The provider has reviewed the documentation as recorded by the Scribe <Satish Chaudhari DO - Last Filed: 10/24/16 18:35> - Scribe Statement Ace Zaragozadi Provider Scribe Attestation: All medical record entries made by the Scribe were at my direction and personally dictated by me. I have reviewed the chart and agree that the record accurately reflects my personal performance of the history, physical exam, medical decision making, and the department course for this patient. I have also personally directed, reviewed, and agree with the discharge instructions and disposition. (Satish Chaudhari DO) Disposition/Present on Arrival - Present on Arrival Any Indicators Present on Arrival: No History of DVT/PE: No History of Uncontrolled Diabetes: No Urinary Catheter: No History of Decub. Ulcer: No History Surgical Site Infection Following: None - Disposition Have Diagnosis and Disposition been Completed?: No Disposition Time: 14:30 <EDE HOYT - Last Filed: 10/24/16 15:04> <Satish Chaudhari DO - Last Filed: 10/24/16 18:35> - Disposition Diagnosis: Chronic pain, Degenerative joint disease Disposition: HOME/ ROUTINE Condition: GOOD Additional Instructions: Mrs. Merida, thank you for letting us take care of you today. Your provider was Dr. Hoyt. You were treated for [Diagnosis Here]. The emergency medical care you received today was directed at your acute symptoms. If you were prescribed any medication, please fill it and take as directed. It may take several days for your symptoms to resolve. Return to the Emergency Department if your symptoms worsen, do not improve, or if you have any other problems. Please contact your doctor or call one of the physicians/clinics you have been referred to that are listed on the Patient Visit Information form that is included in your discharge packet. Bring any paperwork you were given at discharge with you along with any medications you are taking to your follow up visit. Our treatment cannot replace ongoing medical care by a primary care provider (PCP) outside of the emergency department. Thank you for allowing the [facility] team to be part of your care today. Follow up with your primary care physician. Referrals: Ming Hicks JD, MD [Primary Care Provider] - Follow up with primary
[2016-10-24] MEDS ORDERED: oxyCODONE 5 mg Immediate Release Tab PO STA (12:54)
[2016-10-24 14:05] VITALS: BP 177/94; TEMP 98.3
--- NOTE | 2016-10-24 14:28 | RAD ---
PROCEDURE: Left ribs HISTORY: left sided pain - recent h/o PNA COMPARISON: TECHNIQUE: Three views FINDINGS: There is no evidence of displaced fracture or pneumothorax IMPRESSION: Negative study
--- NOTE | 2016-10-24 14:30 | RAD ---
PROCEDURE: HISTORY: left sided pain COMPARISON: 09/05/2016 bilateral hips and pelvis and the CT hip exam 09/05/2016 TECHNIQUE: AP view of the pelvis and applicable frog leg views obtained. FINDINGS: The previous suggestion of a nondisplaced transverse fracture through the proximal left femoral neck is re- suggested on this exam. A prior CT hip exam on 09/05/2016 did not reveal any fracture however this appearance is unchanged. The inferior lumbar pedicle screws rods appear similar. No gross hardware failure apparent laminectomy defects at L4 and L5 re- suggested. Extensive metallic densities consistent prior surgical changes in the left lower abdomen and upper pelvis Osseous hypertrophic changes border the right para symphyseal pubis -unchanged. The right sacroiliac mild sclerotic changes are similar. Bilateral hip joint osteoarthrosis. Bilateral vascular calcifications -each groin IMPRESSION: The prominent density projecting over the proximal left femoral neck which was previously concerning for nondisplaced fracture here was not confirmed as a fracture on a subsequent CT. This radiographic appearance similar. No interval pathology suggested
--- NOTE | 2016-10-24 14:34 | RAD ---
HISTORY: PAIN COMPARISON: No prior. FINDINGS: BONES: Alignment maintained. No fracture. Inferior lumbar spondylosis prominent anterior osteophytes at least on the frontal view closely approximating atherosclerotic descending abdominal aortic calcification. Above the pedicle screws the inferior thoraco lumbar degenerative wedging with intervertebral vacuum disc phenomena is noted. More superiorly anterior longitudinal ligamentous ossification -- DISH is suggested DISC SPACES: Diffuse degenerative disc space narrowing especially at the thoraco lumbar levels SOFT TISSUES: Normal. OTHER FINDINGS: Lumbar post-laminectomy changes, pedicle screws and intrapedicular fixation rods IMPRESSION: . No interval compression fracture at the thoracic spine level suspect. Thoraco lumbar spondylosis and degenerative wedging. Degenerative disc space changes. Post surgical laminectomy, lumbar hardware.DISH
--- NOTE | 2016-10-24 14:38 | RAD ---
PROCEDURE: Radiographs of the Lumbar Spine. HISTORY: left sided pain COMPARISON: 09/05/2016 FINDINGS: BONES: Normal alignment. No listhesis. No interval fracture. Degenerative wedging and blending anterior spur prominent spondylosis in close proximity with descending abdominal aortic atherosclerotic vascular calcification. Right parasymphyseal osseous hypertrophy DISC SPACES: Diffuse thoraco lumbar degenerative disc space narrowing. L2-3 and L1-2 most notable OTHER FINDINGS: Lumbar hardware -grossly intact the left proximal femoral lucency concerning for a prior nondisplaced left femoral fracture was not borne out on subsequent CT hip examination. . Bilateral hip osteoarthrosis IMPRESSION: Thoraco lumbar spondylosis. Degenerative disc disease. L4-L5 laminectomy with lumbar hardware -grossly intact. Bilateral hip osteoarthrosis. Left femoral neck lucency -as detailed above
[2016-10-24 16:33] VITALS: RESP 16; O2SAT 99
== END 2016-10-24 16:32 | disposition home or self-care (01) ==
LOC: ED 10:49
DX: G89.29 Other chronic pain (principal); M19.90 Unspecified osteoarthritis, unspecified site; J44.9 Chronic obstructive pulmonary disease, unspecified; I50.9 Heart failure, unspecified; Z85.72 Personal history of non-Hodgkin lymphomas; F11.20 Opioid dependence, uncomplicated

== ENCOUNTER 2017-01-23 15:14 | Inpatient (IN) | payer MEDICARE ==
[2017-01-23 15:35] VITALS: BMI 30.2
--- NOTE | 2017-01-23 16:02 | ED PDOC ---
Arrival/HPI - General Chief Complaint: Back Pain Time Seen by Provider: 01/23/17 15:42 Historian: Patient - History of Present Illness Narrative History of Present Illness (Text): 01/23/17 15:54 A 81 year old female, whose past medical history includes CAD with 3 cardiac stents, hypertension, CHF and CLL, presents to the emergency department complaining of back and bilateral leg pain after mechanical fall 6 days ago. Patient reports she tripped while pushing a shopping cart and fell backwards injuring her head. Patient was seen at [facility] [place] immediately after fall and had a head CT done which showed normal results. Patient presents complaining of back pain and bilateral leg pain, right worse than left. Patient denies any other injuries, loss of consciousness, headache, dizziness, neck pain, fever, chills, nausea, vomiting, abdominal pain, chest pain, shortness of breath, cough or any other complaints. Patient reports she is on Demerol 50 g every 4 hours. PMD: Dr. Ming Hicks Time/Duration: Other (6 days ago) Symptom Course: Unchanged Quality: Other Context: Other Past Medical History - Provider Review Nursing Documentation Reviewed: Yes - Infectious Disease Hx of Infectious Diseases: None - Tetanus Immunization Tetanus Immunization: Unknown - Cardiac Hx Cardiac Disorders: Yes (mi) Hx Angina: Yes Hx Congestive Heart Failure: Yes Hx Hypertension: Yes Other/Comment: angioplasty, variscosities ble - Pulmonary Hx Respiratory Disorders: Yes Hx Chronic Obstructive Pulmonary Disease (COPD): Yes Hx Pneumonia: Yes - Neurological Hx Neurological Disorder: Yes Other/Comment: SHINGLES H/O - HEENT Hx HEENT Disorder: Yes Hx Cataracts: Yes - Renal Hx Renal Disorder: No - Endocrine/Metabolic Hx Endocrine Disorders: No - Hematological/Oncological Hx Blood Disorders: Yes Hx Anemia: Yes (blood transfusion) Hx Cancer: Yes (lymphoma, 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) Hx Chemotherapy: Yes Hx Hepatitis A: Yes (many yrs ago) Hx Shingles: Yes Other/Comment: last chemo was ONE YEAR AGO - Integumentary Hx Dermatological Disorder: Yes Other/Comment: red rash under abd fold, b/l groin and under both breasts, bruise to left upper thigh - Musculoskeletal/Rheumatological Hx Musculoskeletal Disorders: Yes Hx Arthritis: Yes Hx Back Pain: Yes Hx Falls: Yes - Gastrointestinal Hx Gastrointestinal Disorders: Yes Hx Diverticulitis: Yes - Genitourinary/Gynecological Hx Genitourinary Disorders: Yes Hx Incontinence: Yes Hx Urinary Tract Infection: Yes - Psychiatric Hx Psychophysiologic Disorder: No Hx Substance Use: No - Surgical History Hx Appendectomy: Yes Hx Cardiac Catheterization: Yes Hx Cholecystectomy: Yes Hx Coronary Stent: Yes (x3) Hx Hysterectomy: Yes Other/Comment: cardiac stent x3, spinal fusion lumbar, colon resection for diverticulitis, hernia sx, spinal fusion scrrews/rods L3 S1, and cervical spine sx, rcwq pac - Anesthesia Hx Anesthesia: Yes Hx Anesthesia Reactions: No Hx Malignant Hyperthermia: No - Suicidal Assessment Feels Threatened In Home Enviroment: No Family/Social History - Physician Review Nursing Documentation Reviewed: Yes Family/Social History: No Known Family HX Smoking Status: Never Smoked Hx Alcohol Use: No Hx Substance Use: No Substance used: demerol PO Q4H Hx Substance Use Treatment: No Allergies/Home Meds Allergies/Adverse Reactions: Allergies Sulfa (Sulfonamide Antibiotics) Allergy (Intermediate, Verified 10/24/16 10:53) RASH Home Medications: Home Meds Medication Instructions Recorded Confirmed Clopidogrel [Plavix] 75 mg PO QAM 11/27/11 01/23/17 Verapamil [Calan Tab] 120 mg PO QAM 11/27/11 01/23/17 Meperidine HCl [Demerol] 50 mg PO PRN PRN 09/16/14 01/23/17 Celecoxib [celeBREX] 200 mg PO QAM 05/23/15 01/23/17 Furosemide 20 mg PO QAM 05/23/15 01/23/17 Lidocaine 5% [Lidoderm] 1 patch TP DAILY 05/23/15 01/23/17 Omeprazole [Prilosec] 40 mg PO QAM 05/23/15 01/23/17 Pantoprazole [Protonix EC Tab] 40 mg PO QAM 05/23/15 01/23/17 Potassium Chloride [K-Dur 20 mEq 20 meq PO DAILY 05/23/15 01/23/17 ER Tab] Metoprolol Succinate [Toprol XL] 50 mg PO DAILY 10/24/16 01/23/17 Review of Systems - Physician Review All systems were reviewed & negative as marked: Yes - Review of Systems Constitutional: absent: Fevers, Night Sweats Respiratory: absent: SOB Cardiovascular: absent: Chest Pain Gastrointestinal: absent: Abdominal Pain, Nausea, Vomiting Musculoskeletal: Back Pain, Other (bilateral lower extremity pain, right more than left). absent: Neck Pain Neurological: absent: Headache, Dizziness Physical Exam Vital Signs Reviewed: Yes Vital Signs Temp Pulse Resp BP Pulse Ox 01/23/17 18:53 81 18 159/72 H 100 01/23/17 15:34 98.6 F 77 19 150/71 98 Temperature: Afebrile Blood Pressure: Normal Pulse: Regular Respiratory Rate: Normal Appearance: Positive for: Well-Appearing, Non-Toxic, Comfortable Pain Distress: None Mental Status: Positive for: Alert and Oriented X 3 - Systems Exam Head: Present: Atraumatic, Other (sebaceous cyst). No: Tenderness, Contusion, Swelling, Ecchymosis, Abrasion, Laceration Pupils: Present: PERRL Extroacular Muscles: Present: EOMI Conjunctiva: Present: Normal Mouth: Present: Moist Mucous Membranes Pharnyx: No: ERYTHEMA, EXUDATE, TONSILS ENLARGED Neck: Present: Normal Range of Motion Respiratory/Chest: Present: Clear to Auscultation, Good Air Exchange. No: Respiratory Distress, Accessory Muscle Use Cardiovascular: Present: Regular Rate and Rhythm, Normal S1, S2. No: Murmurs Abdomen: Present: Normal Bowel Sounds. No: Tenderness, Distention, Peritoneal Signs Back: Present: Normal Inspection Upper Extremity: Present: Normal Inspection, Normal ROM, NORMAL PULSES. No: Cyanosis, Edema Lower Extremity: Present: Normal Inspection, NORMAL PULSES, Normal ROM, Other ( Ecchymosis to right tarango and left ankle). No: Edema, CALF TENDERNESS Neurological: Present: GCS=15, CN II-XII Intact, Speech Normal Skin: Present: Warm, Dry, Normal Color. No: Rashes Psychiatric: Present: Alert, Oriented x 3, Normal Insight, Normal Concentration Medical Decision Making ED Course and Treatment: 01/23/17 15:54 Impression: A 81 year old female with back pain and bilateral leg pain after fall 6 days ago. Plan: -- Lumbar spine CT -- Pelvis xray -- Right tibia fibula xray -- Left ankle xray -- EKG -- Labs -- Urinalysis -- Morphine -- Reassess and disposition Progress Notes: EKG shows NSR at 80 BPM with normal intervals, normal axis, no ST/T changes. Interpreted by me. Report Date : 01/23/2017 18:14:13 PROCEDURE: CT Lumbar Spine without contrast Dictator : Satish Bay MD IMPRESSION: Prior bilateral L4 and L5 laminectomies with potential bilateral L3 partial laminectomies. Prior posterior spinal fusion L3-S1 again identified bilaterally. No interval change in lumbar alignment is identified with mild grade 1 spondylolisthesis identified at L2-3 and L5-S1. No severe spinal stenosis is encountered however mild L1-2 stenosis is now identified in the interval and a moderate L2-3 central canal stenosis is increased compared to mild previously. Multilevel degenerative neural foraminal stenoses are minimally increased. No gross disc herniation identified throughout the exam. Artifacts from fixation hardware limit the interpretation. Still right renal cyst identified as well as likely splenomegaly. 01/23/17 19:52 Patient with noted history - saying she is having trouble ambulating at this time due to pain. She is already on demerol at home; given morphine here in the ED with minimal relief and still reports being unable to ambulate. Imaging with no acute findings. Labs with drop in Hgb to 9 - given unable to ambulate, patient will need further observation on med/surg - discussed with Dr. Hicks. - Lab Interpretations Lab Results: 01/23/17 16:54 01/23/17 16:54 Lab Results 01/23/17 16:54: PT 12.5 H, INR 1.16 H, APTT 108.4 H* 01/23/17 16:54: Sodium 138, Potassium 4.3, Chloride 104, Carbon Dioxide 24, Anion Gap 14, BUN 25 H, Creatinine 1.0, Est GFR ( Amer) > 60, Est GFR ( Non-Af Amer) 53, Random Glucose 81, Calcium 8.8, Magnesium 1.7, Total Bilirubin 0.9, AST 23, ALT 22, Alkaline Phosphatase 81, Lactate Dehydrogenase 726 H, Total Creatine Kinase 137, Troponin I 0.01, Total Protein 5.4 L, Albumin 3.6, Globulin 1.8, Albumin/Globulin Ratio 2.0 H 01/23/17 16:54: WBC 5.1, RBC 2.81 L, Hgb 9.0 L, Hct 27.0 L, MCV 96.1, MCH 32.0, MCHC 33.3, RDW 14.0, Plt Count 95 L, MPV 10.7, Gran % 62.2, Lymph % (Auto) 28.5 , [place] % (Auto) 8.3 H, Eos % (Auto) 0.6 L, Baso % (Auto) 0.4, Gran # 3.17, Lymph # 1.5, [place] # 0.4, Eos # 0.0, Baso # 0.02 I have reviewed the lab results: Yes - RAD Interpretation Radiology Orders: 01/23/17 15:55 LUMBAR SPINE W/O CONTRAST [CT] Stat PELVIS ONE VIEW [RAD] Stat 01/23/17 16:01 TIBIA FIBULA RT FALL PROTOCOL [RAD] Stat 01/23/17 16:02 ANKLE LEFT 3 VIEWS ROUTINE [RAD] Stat 01/23/17 19:50 DUPLEX LOWER EXTRM VEIN BILAT [US] Stat - Medication Orders Current Medication Orders: Discontinued Medications Morphine Sulfate (Morphine) 4 mg IVP STAT STA Stop: 01/23/17 16:04 Last Admin: 01/23/17 16:58 Dose: 4 mg MAR Pain Assessment Document 01/23/17 16:58 OCS (Rec: 01/23/17 16:59 OCS [facility]) Pain Reassessment Is this a pain reassessment? Yes Sleep Is patient sleeping during reassessment? No Presence of Pain Presence of Pain Yes Pain Scale Used Pain Scale Used Numeric Location Pain Location Body Site Back Description Description Constant Intensity of Pain at present 7 IVP Administration Document 01/23/17 16:58 OCS (Rec: 01/23/17 16:59 OCS [facility]) Charges for Administration # of IVP Administrations 1 - Scribe Statement The provider has reviewed the documentation as recorded by the Alexibcheng Larkin Provider Scribe Attestation: All medical record entries made by the Scribe were at my direction and personally dictated by me. I have reviewed the chart and agree that the record accurately reflects my personal performance of the history, physical exam, medical decision making, and the department course for this patient. I have also personally directed, reviewed, and agree with the discharge instructions and disposition. Disposition/Present on Arrival - Present on Arrival Any Indicators Present on Arrival: No History of DVT/PE: No History of Uncontrolled Diabetes: No Urinary Catheter: No History of Decub. Ulcer: No History Surgical Site Infection Following: None - Disposition Have Diagnosis and Disposition been Completed?: Yes Diagnosis: Anemia, Intractable pain Disposition: HOSPITALIZED Disposition Time: 19:20 Patient Plan: Observation Condition: FAIR Referrals: Ming Hicks JD, MD [Primary Care Provider] - Follow up with primary Forms: [employer] ([place])
[2017-01-23] MEDS ORDERED: Morphine 4 mg/ml ISec IVP STA ×2 (16:03→20:27)
[2017-01-23 17:11] LABS: BASO # 0.02 K/mm3 (0.0-2.0); BASO % 0.4 % (0.0-3.0); EOS % 0.6 % (1.5-5.0); GRAN # 3.17 (1.4-6.5); GRAN % 62.2 % (50.0-68.0); LYMPH # 1.5 (1.2-3.4); LYMPH % 28.5 % (22.0-35.0); MEAN CELL VOLUME 96.1 fl (80.0-105.0); MEAN CORPUSCULAR HGB CONC 33.3 g/dl (31.0-37.0); MEAN PLATELET VOLUME 10.7 fl (7.0-11.0); MONO # 0.4 (0.1-0.6); MONO % 8.3 % (1.0-6.0); WHITE BLOOD COUNT 5.1 10^3/ul (4.5-11.0)
[2017-01-23 17:14] LABS: ALKALINE PHOSPHATASE 81 U/L (38-126); ALT/SGPT 22 U/L (7-56); AST/SGOT 23 U/L (14-36); BILIRUBIN,TOTAL 0.9 mg/dL (0.2-1.3); BLOOD UREA NITROGEN 25 mg/dL (7-21); CALCIUM 8.8 mg/dL (8.4-10.5); CARBON DIOXIDE 24 mmol/L (21-33); CHLORIDE 104 mmol/L (98-107); GFR AFRICAN-AMERICAN > 60; GLUCOSE,RANDOM 81 mg/dL (70-110); MAGNESIUM 1.7 mg/dL (1.7-2.2); POTASSIUM 4.3 mmol/L (3.6-5.0); SODIUM 138 mmol/L (132-148); TOTAL PROTEIN 5.4 g/dL (5.8-8.3)
[2017-01-23 17:26] LABS: TROPONIN I 0.01 ng/mL
[2017-01-23 18:02] LABS: INR 1.16 (0.93-1.08)
[2017-01-23 18:07] LABS: PARTIAL THROMBOPLASTIN TIME 108.4 Seconds (23.7-30.8)
--- NOTE | 2017-01-23 18:15 | CT ---
PROCEDURE: CT Lumbar Spine without contrast HISTORY: fall; severe back pain COMPARISON: Lumbar spine CT without contrast 03/09/2014 and lumbar spine radiograph 10/24/2016. TECHNIQUE: Axial computed tomography images were obtained of the lumbar spine without the use of intravenous contrast. Coronal and sagittal reformatted images were created and reviewed. Radiation dose: Total exam DLP = 657.95 mGy-cm. This CT exam was performed using one or more of the following dose reduction techniques: Automated exposure control, adjustment of the mA and/or kV according to patient size, and/or use of iterative reconstruction technique. FINDINGS: VERTEBRAE: Patient is again seen to be status post multilevel laminectomies at least L4 and L5 and potentially the with partial laminectomies at the L3 vertebral body. Post spinal fusion from L3-S1 is appreciated via Vergara rods and interconnected transpedicular screws. A limited grade 1 spondylolisthesis is stable at T3 with L2 slightly posterior to L3. A mid grade 1 spondylolisthesis at L5-S1 is also stable with L5 slightly anterior to S1. No suspicious lytic or blastic change. Gross degenerative disease appreciate diffusely including at the inferior thoracic spine manifest by height loss and in some cases vacuum disc changes. Vacuum disc changes are quite prominent at L1-2 and at the visualized inferior thoracic spine. No suspicious destructive bony lesion throughout. Prevertebral paraspinal soft tissues reflect stable aortic atherosclerosis in the abdomen and right renal cystic changes. Splenomegaly is suspected as well. DISCS/SPINAL CANAL/NEURAL FORAMINA: L1-2: A mild disc osteophyte complex is appreciated posteriorly combined with facet arthropathy to cause mild central canal stenosis in the interval. Mild left greater than right neural foraminal stenosis is again appreciated. No definite disc herniation grossly evident. L2-3: A moderate central canal stenosis is now identified caused by disc osteophyte complex and facet arthropathy. Severe left and moderate right neural foraminal stenosis identified on a degenerative basis. No gross disc herniation. L3-4: Mild osteophyte ridging appears stable with bilateral laminectomies decompressing this level once again. No significant central stenosis although facet joints appear grossly hypertrophy once again. Mild bilateral neural foraminal stenosis is again identified. L4-5: Bilateral L5 laminectomies are appreciated. No significant central canal or neural foraminal stenosis bilaterally. L5-S1: No significant central canal or neural foraminal stenosis appreciated. No definite disc herniation identified. Artifacts from metallic fixation however limit the interpretation. PARASPINAL SOFT TISSUES: As above in vertebrae section. OTHER FINDINGS: None. IMPRESSION: Prior bilateral L4 and L5 laminectomies with potential bilateral L3 partial laminectomies. Prior posterior spinal fusion L3-S1 again identified bilaterally. No interval change in lumbar alignment is identified with mild grade 1 spondylolisthesis identified at L2-3 and L5-S1. No severe spinal stenosis is encountered however mild L1-2 stenosis is now identified in the interval and a moderate L2-3 central canal stenosis is increased compared to mild previously. Multilevel degenerative neural foraminal stenoses are minimally increased. No gross disc herniation identified throughout the exam. Artifacts from fixation hardware limit the interpretation. Still right renal cyst identified as well as likely splenomegaly.
--- NOTE | 2017-01-23 19:05 | CARD ---
APPROVED REPORT EKG Measurement Heart [id number] <Conclusion> Normal sinus rhythm Normal ECG
[2017-01-24] MEDS: Morphine 4 mg/ml ISec IVP PRN ×4 (02:17→18:05)
--- NOTE | 2017-01-24 07:49 | RAD ---
PROCEDURE: Left Ankle Radiographs. HISTORY: L ankle pain, ecchymosis, fall COMPARISON: None FINDINGS: BONES: Normal. No fracture. JOINTS: Normal. No osteoarthritis. Ankle mortise maintained. Talar dome intact SOFT TISSUES: Normal. OTHER FINDINGS: None. IMPRESSION: Normal left ankle radiographs.
--- NOTE | 2017-01-24 07:49 | RAD ---
PROCEDURE: Radiographs of the pelvis. HISTORY: fall; b/L leg pain COMPARISON: None. FINDINGS: BONES: Pelvic Bones: No acute fracture. Status post lower lumbar fixation. Hips and sacroiliac joints are preserved. Hips: Grossly unremarkable. JOINTS: Sacroiliac Joints: Unremarkable. Pubic Symphysis: Unremarkable. OTHER FINDINGS: None. IMPRESSION: No acute fracture.
--- NOTE | 2017-01-24 07:50 | RAD ---
PROCEDURE: Radiographs of the right tibia and fibula. HISTORY: R tib fib pain and ecchymosis COMPARISON: None available. TECHNIQUE: Frontal and lateral views obtained. FINDINGS: BONES: No fracture or destructive lesion. JOINT SPACES: Unremarkable. OTHER FINDINGS: None. IMPRESSION: Unremarkable radiographs of the right tibia and fibula.
[2017-01-24] MEDS: Nystatin 100,000 Units/gm Topical Pow(15 gm) TOP SCH ×2 (09:51→20:12)
[2017-01-24] MEDS: Potassium Chloride 10 mEq ER Tab PO SCH (10:00)
[2017-01-24] MEDS: Verapamil 120 mg ER Tab PO SCH (10:00)
[2017-01-24] MEDS: Metoprolol Succinate 50 mg XL Tab PO SCH (10:01)
[2017-01-24] MEDS: Calcitonin 200 Int Units/Inh Nasal Spray (3.7 ml) NS SCH (10:25)
--- NOTE | 2017-01-24 15:24 | CT ---
PROCEDURE: CT Thoracic Spine without contrast HISTORY: Back pain r/o compression fx COMPARISON: None. TECHNIQUE: Axial computed tomography images were obtained of the thoracic spine without intravenous contrast. Coronal and sagittal reformatted images were created and reviewed. Radiation dose: Total exam DLP = 653 mGy-cm. This CT exam was performed using one or more of the following dose reduction techniques: Automated exposure control, adjustment of the mA and/or kV according to patient size, and/or use of iterative reconstruction technique. FINDINGS: VERTEBRAE: There are no vertebral compression fractures.. DISCS/SPINAL CANAL/NEURAL FORAMINA: There is disc degeneration in the mid thoracic spine. There is a calcified disc protrusion on the right at T9-10. This is seen on axial image 84 series 4. There is severe disc degeneration with a vacuum disc at L1-2.. PARASPINAL SOFT TISSUES: There is ossification of the anterior longitudinal ligament. OTHER FINDINGS: Unremarkable. IMPRESSION: No vertebral compression fracture. Disc degeneration in the mid thoracic spine
--- NOTE | 2017-01-24 23:05 | HP ---
DATE: 01/24/2017 HISTORY OF PRESENT ILLNESS: The patient is an 81-year-old female admitted through the emergency department on 01/23/2017 with intractable lower back pain and inability to walk. The patient has a history of degenerative joint disease and chronic low back pain with history of surgery of lower back in the past. She is chronically opiate-dependent secondary to the pain. CT scan of the lumbar spine showed prior bilateral L4-L5 laminectomies, prior posterior spinal fusion at L3-S1 with no interval change in lumbar alignment. There is no severe spinal stenosis with mild L1-L2 stenosis now identified and moderate L2-L3. X-rays of the ankle, tibia and fibula, and pelvis were negative for acute fractures. The patient is admitted because she is unable to ambulate. PAST MEDICAL HISTORY: Includes coronary artery disease, hypertension, hypertensive cardiovascular disease with CHF. She has a history of chronic lymphocytic leukemia and anemia treated by Dr. Brown. PAST SURGICAL HISTORY: Includes appendectomy and cholecystectomy. ALLERGIES: THE PATIENT REPORTS AN ALLERGY TO SULFA. CURRENT MEDICATIONS: Include verapamil SR 120 mg daily, Ecotrin 81 mg daily, Imdur 30 mg daily, potassium chloride 10 mEq daily, Lasix 20 mg daily, metoprolol 50 mg daily, Plavix 75 mg daily, Protonix 40 mg daily and Celebrex 200 mg daily. SOCIAL HISTORY: The patient has no history of tobacco or alcohol use. She was previously independent with ADLs and IADLs, and lives alone. PHYSICAL EXAMINATION: GENERAL: The patient is a well-developed female, in no acute distress. VITAL SIGNS: Blood pressure 120/70, temperature 98.5, pulse 85, respiratory rate 20. HEENT: Head is normocephalic and atraumatic. Pupils are equal, round and reactive to light. Extraocular movements are intact. NECK: Supple with no thyromegaly, no carotid bruit. There is a Port-A-Cath present in the right chest wall. LUNGS: Clear. HEART: Regular rate and rhythm with a grade 2/6 systolic murmur. ABDOMEN: Soft. Bowel sounds are normoactive. EXTREMITIES: Without cyanosis, clubbing or edema. NEUROLOGIC: The patient is awake and oriented without focal sensory or motor deficits. She is unable to stand secondary to pain and she is unable to ambulate. There is decreased range of motion of lumbosacral spine. SKIN: Warm and dry. LABORATORY DATA: WBC is 5.1, hemoglobin 9.0, hematocrit 27.0. Sodium 138, potassium 4.3, chloride 104, CO2 24, BUN 25, creatinine 1.0. LDH is slightly elevated at 726. IMPRESSION: 1. Degenerative joint disease and intractable low back pain with inability to ambulate. 2. Coronary artery disease. 3. Hypertension and hypertensive cardiovascular disease/congestive heart failure. 4. Chronic lymphocytic leukemia. PLAN: Patient is admitted to the medical surgical floor. She is receiving IV morphine sulfate 4 mg q. 4 hours p.r.n. We will obtain a CT scan of the thoracic spine to rule out acute compression fractures, we will start Miacalcin nasal spray 1 spray daily. Orthopedic consultation, Physical Therapy, and Social Work for discharge planning. ABRIL Kenney MD
[2017-01-25] MEDS: Pantoprazole 40 mg EC Tab PO SCH (05:31)
[2017-01-25] MEDS: Morphine 4 mg/ml ISec IVP PRN ×3 (05:31→22:29)
[2017-01-25] MEDS: Potassium Chloride 10 mEq ER Tab PO SCH ×2 (08:20→09:53)
[2017-01-25] MEDS: Metoprolol Succinate 50 mg XL Tab PO SCH ×2 (08:21→09:53)
[2017-01-25] MEDS: Calcitonin 200 Int Units/Inh Nasal Spray (3.7 ml) NS SCH (09:50)
[2017-01-25] MEDS: Verapamil 120 mg ER Tab PO SCH (09:51)
[2017-01-25] MEDS: Nystatin 100,000 Units/gm Topical Pow(15 gm) TOP SCH (09:52)
--- NOTE | 2017-01-25 11:07 | CP.PCM.PN ---
Subjective - Date & Time of Evaluation Date of Evaluation: 01/25/17 Time of Evaluation: 10:20 - Subjective Subjective: c/o back pain, unable to transfer/ambulate, no chest pain, no SOB Objective - Vital Signs/Intake and Output Vital Signs (last 24 hours): Temp Pulse Resp BP Pulse Ox 99 F 82 18 149/72 96 01/25/17 07:00 01/25/17 09:53 01/25/17 07:00 01/25/17 09:53 01/25/17 07:00 Intake and Output: 01/25/17 01/25/17 06:59 18:59 Intake Total 1200 Balance 1200 - Medications Medications: Current Medications Betamethasone/Clotrimazole (Lotrisone) 0 gm TOP BID [facility] Calcitonin [place] (Miacalcin) 200 iu NS DAILY [facility] Last Admin: 01/25/17 09:50 Dose: 1 spr Docusate Sodium (Colace) 100 mg PO BID [facility] Last Admin: 01/25/17 09:50 Dose: 100 mg Furosemide (Lasix) 20 mg PO DAILY [facility] Last Admin: 01/25/17 09:51 Dose: 20 mg Isosorbide Mononitrate (Imdur Er) 30 mg PO DAILY [facility] Last Admin: 01/25/17 09:50 Dose: 30 mg Metoprolol Succinate (Toprol Xl) 50 mg PO BRK [facility] Last Admin: 01/25/17 09:53 Dose: 50 mg Morphine Sulfate (Morphine) 4 mg IVP Q3 [facility] Pantoprazole Sodium (Protonix Ec Tab) 40 mg PO 0600 [facility] Last Admin: 01/25/17 05:31 Dose: 40 mg Polyethylene Glycol (Miralax) 17 gm PO DAILY [facility] Potassium Chloride (Klor-Con 10) 10 meq PO BRK [facility] Last Admin: 01/25/17 09:53 Dose: 10 meq Verapamil HCl (Calan Sr Tab) 120 mg PO DAILY [facility] Last Admin: 01/25/17 09:51 Dose: 120 mg - Labs Labs: PT 12.5 Seconds (9.9-11.8) H 01/23/17 16:54 INR 1.16 (0.93-1.08) H 01/23/17 16:54 APTT 108.4 Seconds (23.7-30.8) H* 01/23/17 16:54 - Respiratory Exam Respiratory Exam: Clear to Ausculation Bilateral, NORMAL BREATHING PATTERN - Cardiovascular Exam Cardiovascular Exam: REGULAR RHYTHM - GI/Abdominal Exam GI & Abdominal Exam: Soft, Normal Bowel Sounds - Back Exam Back Exam: paraspinal tenderness - Neurological Exam Neurological Exam: Alert, Awake - Skin Skin Exam: Dry, Warm Assessment and Plan (1) Intractable pain Status: Acute (2) COPD exacerbation Status: Chronic (3) Degenerative joint disease (DJD) of lumbar spine Status: Acute - Assessment and Plan (Free Text) Plan: increase morphine to 4mg IV q3h, pain management consult, physical therapy, SW for discharge planning
[2017-01-25] MEDS: POLYETHYLENE GLYCOL 3350 17 GM/Dose PACKET PO SCH (12:28)
[2017-01-25] MEDS: Morphine 4 mg/ml ISec IVP SCH ×2 (12:29→17:06)
[2017-01-25] MEDS: Clotrimazole/Betamethasone Cream(15 gm) TOP SCH ×2 (14:17→17:06)
[2017-01-26] MEDS: Metoprolol Succinate 50 mg XL Tab PO SCH (08:19)
[2017-01-26] MEDS: Potassium Chloride 10 mEq ER Tab PO SCH (08:20)
[2017-01-26] MEDS: Morphine 4 mg/ml ISec IVP PRN ×4 (08:21→20:05)
--- NOTE | 2017-01-26 09:48 | CP.PCM.PN ---
Subjective - Date & Time of Evaluation Date of Evaluation: 01/26/17 Time of Evaluation: 08:50 - Subjective Subjective: back pain slightly improved this am, denies chest pain, no SOB Objective - Vital Signs/Intake and Output Vital Signs (last 24 hours): Temp Pulse Resp BP Pulse Ox 98.7 F 76 18 130/71 98 01/26/17 08:00 01/26/17 08:19 01/26/17 08:00 01/26/17 08:19 01/26/17 08:00 Intake and Output: 01/26/17 01/26/17 06:59 18:59 Intake Total 720 Balance 720 - Medications Medications: Current Medications Betamethasone/Clotrimazole (Lotrisone) 0 gm TOP BID [facility] Last Admin: 01/25/17 17:06 Dose: 1 appl Calcitonin [place] (Miacalcin) 200 iu NS DAILY [facility] Last Admin: 01/25/17 09:50 Dose: 1 spr Docusate Sodium (Colace) 100 mg PO BID [facility] Last Admin: 01/25/17 17:06 Dose: 100 mg Furosemide (Lasix) 20 mg PO DAILY [facility] Last Admin: 01/25/17 09:51 Dose: 20 mg Isosorbide Mononitrate (Imdur Er) 30 mg PO DAILY [facility] Last Admin: 01/25/17 09:50 Dose: 30 mg Metoprolol Succinate (Toprol Xl) 50 mg PO BRK [facility] Last Admin: 01/26/17 08:19 Dose: 50 mg Morphine Sulfate (Morphine) 4 mg IVP Q3 PRN PRN Reason: Pain, severe (8-10) Last Admin: 01/26/17 08:21 Dose: 4 mg Mupirocin (Bactroban Ointment) 1 gm TOP BID [facility] Last Admin: 01/25/17 17:34 Dose: 1 appl Pantoprazole Sodium (Protonix Ec Tab) 40 mg PO 0600 [facility] Last Admin: 01/25/17 05:31 Dose: 40 mg Polyethylene Glycol (Miralax) 17 gm PO DAILY [facility] Last Admin: 01/25/17 12:28 Dose: 17 gm Potassium Chloride (Klor-Con 10) 10 meq PO BRK [facility] Last Admin: 01/26/17 08:20 Dose: 10 meq Verapamil HCl (Calan Sr Tab) 120 mg PO DAILY [facility] Last Admin: 01/25/17 09:51 Dose: 120 mg - Labs Labs: PT 12.5 Seconds (9.9-11.8) H 01/23/17 16:54 INR 1.16 (0.93-1.08) H 01/23/17 16:54 APTT 108.4 Seconds (23.7-30.8) H* 01/23/17 16:54 - Respiratory Exam Respiratory Exam: Clear to Ausculation Bilateral, NORMAL BREATHING PATTERN - Cardiovascular Exam Cardiovascular Exam: REGULAR RHYTHM - GI/Abdominal Exam GI & Abdominal Exam: Soft, Normal Bowel Sounds - Neurological Exam Neurological Exam: Abnormal Gait, Alert, Awake - Skin Skin Exam: Warm Assessment and Plan (1) Intractable pain Status: Acute (2) COPD exacerbation Status: Chronic (3) Degenerative joint disease (DJD) of lumbar spine Status: Acute - Assessment and Plan (Free Text) Plan: continue parenteral analgesics, physical therapy, consider TRCU eval, social work for discharge planning
[2017-01-26] MEDS: POLYETHYLENE GLYCOL 3350 17 GM/Dose PACKET PO SCH (10:57)
[2017-01-26] MEDS: Calcitonin 200 Int Units/Inh Nasal Spray (3.7 ml) NS SCH (10:57)
[2017-01-26] MEDS: Verapamil 120 mg ER Tab PO SCH (10:58)
[2017-01-26] MEDS: Clotrimazole/Betamethasone Cream(15 gm) TOP SCH ×2 (11:03→17:30)
[2017-01-27] MEDS: Morphine 4 mg/ml ISec IVP PRN ×2 (04:51→08:15)
[2017-01-27] MEDS: Pantoprazole 40 mg EC Tab PO SCH (06:09)
[2017-01-27] MEDS: Potassium Chloride 10 mEq ER Tab PO SCH (08:16)
[2017-01-27] MEDS: Metoprolol Succinate 50 mg XL Tab PO SCH (08:16)
[2017-01-27 09:57] VITALS: RESP 19; TEMP 97.9; O2SAT 97
[2017-01-27] MEDS: POLYETHYLENE GLYCOL 3350 17 GM/Dose PACKET PO SCH ×2 (10:55→11:04)
[2017-01-27] MEDS: Calcitonin 200 Int Units/Inh Nasal Spray (3.7 ml) NS SCH (10:55)
[2017-01-27] MEDS: Verapamil 120 mg ER Tab PO SCH (10:58)
[2017-01-27 11:03] VITALS: BP 123/62; PULSE 60
[2017-01-27] MEDS: Clotrimazole/Betamethasone Cream(15 gm) TOP SCH (11:03)
--- NOTE | 2017-01-29 05:51 | DS ---
HOSPITAL COURSE: The patient is an 81-year-old female who admitted through the emergency department on 01/24/2017 with intractable back pain and inability to walk. The patient has a history of degenerative joint disease and chronic low back pain with history of surgery of lower back in the past. The patient is chronically opiate-dependent secondary to the pain. CT scan of the lumbar and thoracic spine showed no acute compression fractures. The patient was admitted for pain management, which included IV morphine 4 mg q.3 hours. The patient was started on physical therapy and transferred to the transitional care unit on 01/28/2016 in stable condition for further subacute rehabilitation. PHYSICAL EXAMINATION: VITAL SIGNS . IMPRESSION: 1. Degenerative joint disease and intractable low back pain with inability to ambulate. 2. Coronary artery disease. 3. Hypertension. 4. Chronic lymphocytic leukemia. PLAN: The patient was discharged to transitional care unit on the following medications; Calan SR 120 mg daily, Ecotrin 81 mg daily, Imdur 30 mg daily, potassium chloride 10 mEq daily, Lasix 20 mg daily, metoprolol 50 mg daily, Plavix 75 mg daily, Protonix 40 mg daily and morphine sulfate 4 mg q.3 hours IV. The patient will be maintained on a heart healthy diet. Activity as per physical therapy in transitional care unit. ABRIL Kenney MD
== END 2017-01-27 11:45 | DRG 552 ==
LOC: ED 15:14 → ERH 19:33 → 5RSO 01-24 00:21 → OBSVTOIN 01-24 17:37
PROVIDERS: ADMIT Internal Medicine; ATTEND Internal Medicine
DX: M43.17 Spondylolisthesis, lumbosacral region (principal); J44.1 Chronic obstructive pulmonary disease with (acute) exacerbation; I11.0 Hypertensive heart disease with heart failure; I50.9 Heart failure, unspecified; N28.1 Cyst of kidney, acquired; F11.20 Opioid dependence, uncomplicated; R16.1 Splenomegaly, not elsewhere classified; M48.061 Spinal stenosis, lumbar region without neurogenic claudication; M51.36 Other intervertebral disc degeneration, lumbar region; M19.90 Unspecified osteoarthritis, unspecified site; I25.10 Atherosclerotic heart disease of native coronary artery without angina pectoris; D64.9 Anemia, unspecified; Z91.81 History of falling; Z95.5 Presence of coronary angioplasty implant and graft; Z98.1 Arthrodesis status; Z90.710 Acquired absence of both cervix and uterus; Z90.49 Acquired absence of other specified parts of digestive tract; Z87.440 Personal history of urinary (tract) infections; Z87.01 Personal history of pneumonia (recurrent); Z85.72 Personal history of non-Hodgkin lymphomas; Z79.02 Long term (current) use of antithrombotics/antiplatelets; Z79.899 Other long term (current) drug therapy; H26.9 Unspecified cataract; Z87.19 Personal history of other diseases of the digestive system; Z86.19 Personal history of other infectious and parasitic diseases; Z92.21 Personal history of antineoplastic chemotherapy; Z88.2 Allergy status to sulfonamides; R40.2412 Glasgow coma scale score 13-15, at arrival to emergency department; G89.29 Other chronic pain; M54.5 Low back pain

== ENCOUNTER 2017-01-27 12:01 | Inpatient (IN) | payer OTHER, MEDICARE ==
[2017-01-27] MEDS: Morphine 4 mg/ml ISec IVP PRN ×3 (14:03→20:57)
[2017-01-27] MEDS: Clotrimazole/Betamethasone Cream(15 gm) TOP SCH (17:47)
[2017-01-28] MEDS: Morphine 4 mg/ml ISec IVP PRN ×6 (02:01→23:10)
[2017-01-28] MEDS: Pantoprazole 40 mg EC Tab PO SCH (05:42)
[2017-01-28] MEDS: Potassium Chloride 10 mEq ER Tab PO SCH (08:51)
[2017-01-28] MEDS: Metoprolol Succinate 50 mg XL Tab PO SCH (08:51)
[2017-01-28] MEDS: Calcitonin 200 Int Units/Inh Nasal Spray (3.7 ml) NS SCH (10:46)
[2017-01-28] MEDS: POLYETHYLENE GLYCOL 3350 17 GM/Dose PACKET PO SCH (10:47)
[2017-01-28] MEDS: Verapamil 120 mg ER Tab PO SCH (10:48)
[2017-01-28] MEDS: Clotrimazole/Betamethasone Cream(15 gm) TOP SCH (17:48)
--- NOTE | 2017-01-28 19:41 | HP ---
HISTORY OF PRESENT ILLNESS: The patient is an 81-year-old female admitted to the transitional care unit on 01/27/2017 for subacute rehab status post hospitalization for intractable low back pain with inability to walk. The patient had CT scans of the thoracic and lumbosacral spine which showed no acute compression fracture. The patient is being maintained on morphine sulfate 4 mg IV q. 3 hours p.r.n. and has been started on physical therapy. PAST MEDICAL HISTORY: Includes coronary artery disease, hypertension and hypertensive cardiovascular disease with CHF. She has a history of chronic lymphocytic leukemia and anemia treated by Dr. Brown. PAST SURGICAL HISTORY: Includes appendectomy and cholecystectomy. ALLERGIES: THE PATIENT REPORTS AN ALLERGY TO SULFA. CURRENT MEDICATIONS: Include Calan SR 120 mg daily, Ecotrin 81 mg daily, Imdur 30 mg daily, potassium chloride 10 mEq daily, Lasix 20 mg daily, metoprolol 50 mg daily, Plavix 75 mg daily and Protonix 40 mg daily. SOCIAL HISTORY: The patient has no history of tobacco or alcohol use. She was previously independent with ADLs and IDLs and lives alone. PHYSICAL EXAMINATION: GENERAL: The patient is a well-developed female in mild distress secondary to back pain. VITAL SIGNS: Blood pressure 115/73, temperature 97.5, pulse 78 and respiratory rate 18. HEENT: Head is normocephalic and atraumatic. Pupils equal, round and reactive to light. Extraocular movements are intact. NECK: Supple. No thyromegaly. No carotid bruits. There is a Port-A-Cath present in the right chest wall. LUNGS: Clear. HEART: Regular rate and rhythm with a grade II/ systolic murmur. EXTREMITIES: Without cyanosis, clubbing or edema. NEUROLOGIC: The patient is awake and oriented without focal sensory or motor deficits. She is unable to stand or transfer secondary to back pain. There is decreased range of motion of the lumbosacral spine, but no focal sensory or motor deficits. SKIN: Warm and dry. IMPRESSION: 1. Degenerative joint disease and intractable low back pain with inability to ambulate. 2. Coronary artery disease. 3. Hypertension, hypertensive cardiovascular disease and congestive heart failure. 4. Chronic lymphocytic leukemia. PLAN: The patient is transferred to the transitional care unit for further rehabilitation. We will continue IV morphine sulfate 4 mg q. 3 to 4 hours p.r.n. We will obtain an orthopedic consultation with Dr. Willian De La Cruz as well as the pain management consultation with Dr. Pringle, physical therapy and social work for discharge planning. ABRIL Kenney MD
[2017-01-29] MEDS: Pantoprazole 40 mg EC Tab PO SCH (06:06)
[2017-01-29] MEDS: Morphine 4 mg/ml ISec IVP PRN ×3 (06:07→17:33)
[2017-01-29] MEDS: Potassium Chloride 10 mEq ER Tab PO SCH (08:26)
[2017-01-29] MEDS: Metoprolol Succinate 50 mg XL Tab PO SCH (08:27)
--- NOTE | 2017-01-29 09:43 | CON ---
HISTORY OF PRESENT ILLNESS: The patient is a 81-year-old female with significant back pain. She had a spinal stenosis surgery for decompression with instrumentation over 10 years ago and she complains of pain. She has ability to do straight leg raising exercises, does not appear to be involving lower extremities, just pain in the back and weakness and inability to walk well. She has to walk with a walker. X-ray shows a decompression of the lumbar spine with instrumentation. Probably, should be reevaluated by a spine surgeon. I am going to order CBC, sedimentation rate and C-reactive protein to evaluate for a possibility of an infection and we will continue physical therapy to improve her strength and hopefully, decrease her pain and help her mobility by ambulating with a walker. She said the surgery was done [facility]. We will continue with aggressive physical therapy as she does not want to consider any more surgery of her back. 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 To evaluate for infection with CBC, sedimentation rate and C-reactive protein. Willian De La Cruz DO
[2017-01-29] MEDS: Calcitonin 200 Int Units/Inh Nasal Spray (3.7 ml) NS SCH (10:06)
[2017-01-29] MEDS: POLYETHYLENE GLYCOL 3350 17 GM/Dose PACKET PO SCH (10:07)
[2017-01-29] MEDS: Verapamil 120 mg ER Tab PO SCH (10:08)
--- NOTE | 2017-01-29 13:13 | CP.PCM.PN ---
Subjective - Date & Time of Evaluation Date of Evaluation: 01/29/17 Time of Evaluation: 10:00 - Subjective Subjective: c/o back pain, unable to ambulate, no chest pain, no SOB Objective - Vital Signs/Intake and Output Vital Signs (last 24 hours): Temp Pulse Resp BP Pulse Ox 98.1 F 82 16 118/76 98 01/28/17 16:00 01/28/17 16:00 01/28/17 16:00 01/29/17 10:07 01/28/17 16:00 - Medications Medications: Current Medications Betamethasone/Clotrimazole (Lotrisone) 1 gm TOP BID [facility] PRN Reason: Protocol Last Admin: 01/28/17 17:48 Dose: Not Given Calcitonin [place] (Miacalcin) 200 iu NS DAILY [facility] Last Admin: 01/29/17 10:06 Dose: 1 applic Docusate Sodium (Colace) 100 mg PO BID [facility] PRN Reason: Protocol Last Admin: 01/29/17 10:06 Dose: 100 mg Furosemide (Lasix) 20 mg PO DAILY [facility] PRN Reason: Protocol Last Admin: 01/29/17 10:07 Dose: 20 mg Isosorbide Mononitrate (Imdur Er) 30 mg PO 0600 [facility] PRN Reason: Protocol Last Admin: 01/29/17 06:07 Dose: 30 mg Metoprolol Succinate (Toprol Xl) 50 mg PO BRK [facility] PRN Reason: Protocol Last Admin: 01/29/17 08:27 Dose: 50 mg Morphine Sulfate (Morphine) 4 mg IVP Q3H PRN; Protocol PRN Reason: Pain, severe (8-10) Last Admin: 01/29/17 12:06 Dose: 4 mg Mupirocin (Bactroban Ointment) 1 gm TOP BID [facility] PRN Reason: Protocol Last Admin: 01/29/17 10:05 Dose: 1 appl Pantoprazole Sodium (Protonix Ec Tab) 40 mg PO 0600 [facility] PRN Reason: Protocol Last Admin: 01/29/17 06:06 Dose: 40 mg Polyethylene Glycol (Miralax) 17 gm PO DAILY [facility] PRN Reason: Protocol Last Admin: 01/29/17 10:07 Dose: 17 gm Potassium Chloride (Klor-Con 10) 10 meq PO 0800 [facility] PRN Reason: Protocol Last Admin: 10/17/17 08:26 Dose: 10 meq Verapamil HCl (Calan Sr Tab) 120 mg PO DAILY [facility] PRN Reason: Protocol Last Admin: 01/29/17 10:08 Dose: 120 mg - Respiratory Exam Respiratory Exam: Clear to Ausculation Bilateral, NORMAL BREATHING PATTERN - Cardiovascular Exam Cardiovascular Exam: REGULAR RHYTHM - GI/Abdominal Exam GI & Abdominal Exam: Soft, Normal Bowel Sounds - Neurological Exam Neurological Exam: Abnormal Gait, Alert, Awake - Skin Skin Exam: Dry, Warm Assessment and Plan (1) Intractable back pain Status: Acute (2) Degenerative joint disease (DJD) of lumbar spine Status: Acute - Assessment and Plan (Free Text) Plan: continue analgesics, orthopedic consultation Dr. De La Cruz appreciated, continue physical therapy, social work for discharge planning
[2017-01-30] MEDS: Morphine 4 mg/ml ISec IVP PRN ×7 (01:14→21:55)
[2017-01-30] MEDS: Pantoprazole 40 mg EC Tab PO SCH (05:36)
[2017-01-30] MEDS: POLYETHYLENE GLYCOL 3350 17 GM/Dose PACKET PO SCH (09:10)
[2017-01-30] MEDS: Metoprolol Succinate 50 mg XL Tab PO SCH (09:10)
[2017-01-30] MEDS: Calcitonin 200 Int Units/Inh Nasal Spray (3.7 ml) NS SCH (09:11)
[2017-01-30] MEDS: Potassium Chloride 10 mEq ER Tab PO SCH (09:11)
[2017-01-30] MEDS: Verapamil 120 mg ER Tab PO SCH (09:12)
--- NOTE | 2017-01-30 09:42 | CP.PCM.PN ---
Subjective - Date & Time of Evaluation Date of Evaluation: 01/30/17 Time of Evaluation: 09:30 - Subjective Subjective: c/o back pain, difficulty transferring and remains unable to ambulate, no chest pain , no SOB Objective - Vital Signs/Intake and Output Vital Signs (last 24 hours): Temp Pulse Resp BP Pulse Ox 98.1 F 80 20 154/78 H 99 01/30/17 06:00 01/30/17 09:12 01/30/17 06:00 01/30/17 09:12 01/30/17 06:00 - Medications Medications: Current Medications Betamethasone/Clotrimazole (Lotrisone) 1 gm TOP BID [facility] PRN Reason: Protocol Last Admin: 01/28/17 17:48 Dose: Not Given Calcitonin [place] (Miacalcin) 200 iu NS DAILY [facility] Last Admin: 01/30/17 09:11 Dose: 1 applic Docusate Sodium (Colace) 100 mg PO BID [facility] PRN Reason: Protocol Last Admin: 01/30/17 09:11 Dose: 100 mg Furosemide (Lasix) 20 mg PO DAILY [facility] PRN Reason: Protocol Last Admin: 01/29/17 10:07 Dose: 20 mg Isosorbide Mononitrate (Imdur Er) 30 mg PO 0600 [facility] PRN Reason: Protocol Last Admin: 01/30/17 05:36 Dose: 30 mg Metoprolol Succinate (Toprol Xl) 50 mg PO BRK [facility] PRN Reason: Protocol Last Admin: 01/30/17 09:10 Dose: 50 mg Morphine Sulfate (Morphine) 4 mg IVP Q3H PRN; Protocol PRN Reason: Pain, severe (8-10) Last Admin: 01/30/17 09:09 Dose: 4 mg Mupirocin (Bactroban Ointment) 1 gm TOP BID [facility] PRN Reason: Protocol Last Admin: 01/30/17 09:12 Dose: 1 appl Pantoprazole Sodium (Protonix Ec Tab) 40 mg PO 0600 [facility] PRN Reason: Protocol Last Admin: 01/30/17 05:36 Dose: 40 mg Polyethylene Glycol (Miralax) 17 gm PO DAILY [facility] PRN Reason: Protocol Last Admin: 01/30/17 09:10 Dose: 17 gm Potassium Chloride (Klor-Con 10) 10 meq PO 0800 [facility] PRN Reason: Protocol Last Admin: 01/30/17 09:11 Dose: 10 meq Verapamil HCl (Calan Sr Tab) 120 mg PO DAILY [facility] PRN Reason: Protocol Last Admin: 01/30/17 09:12 Dose: 120 mg - Respiratory Exam Respiratory Exam: Clear to Ausculation Bilateral, NORMAL BREATHING PATTERN - Cardiovascular Exam Cardiovascular Exam: REGULAR RHYTHM - GI/Abdominal Exam GI & Abdominal Exam: Soft, Normal Bowel Sounds - Extremities Exam Extremities Exam: Normal Inspection - Neurological Exam Neurological Exam: Abnormal Gait, Alert, Awake - Skin Skin Exam: Dry, Warm Assessment and Plan (1) Intractable back pain Status: Acute (2) Degenerative joint disease (DJD) of lumbar spine Status: Acute - Assessment and Plan (Free Text) Plan: continue physical therapy, social work for discharge planning, may need referral to [facility]
[2017-01-30] MEDS: Nystatin 100,000 Units/gm Topical Pow(15 gm) TOP SCH ×3 (12:14→17:37)
[2017-01-31] MEDS: Morphine 4 mg/ml ISec IVP PRN ×2 (06:38→08:51)
[2017-01-31] MEDS: Pantoprazole 40 mg EC Tab PO SCH (06:38)
[2017-01-31] MEDS: Potassium Chloride 10 mEq ER Tab PO SCH (08:53)
[2017-01-31] MEDS: Metoprolol Succinate 50 mg XL Tab PO SCH (08:54)
[2017-01-31] MEDS: Verapamil 120 mg ER Tab PO SCH (09:01)
[2017-01-31] MEDS: Calcitonin 200 Int Units/Inh Nasal Spray (3.7 ml) NS SCH (09:35)
[2017-01-31] MEDS: POLYETHYLENE GLYCOL 3350 17 GM/Dose PACKET PO SCH (09:35)
[2017-01-31] MEDS: Lidocaine 5% Patch TD SCH (09:35)
[2017-01-31] MEDS: Nystatin 100,000 Units/gm Topical Pow(15 gm) TOP SCH ×3 (09:35→17:49)
--- NOTE | 2017-01-31 10:08 | CP.PCM.PN ---
Subjective - Date & Time of Evaluation Date of Evaluation: 01/31/17 Time of Evaluation: 09:45 - Subjective Subjective: back pain somewhat improved today, NAD Objective - Vital Signs/Intake and Output Vital Signs (last 24 hours): Temp Pulse Resp BP Pulse Ox 97.4 F L 66 15 130/70 98 01/30/17 17:48 01/31/17 09:01 01/30/17 17:48 01/31/17 09:02 01/30/17 17:48 - Medications Medications: Current Medications Calcitonin [place] (Miacalcin) 200 iu NS DAILY [facility] Last Admin: 01/30/17 09:11 Dose: 1 applic Docusate Sodium (Colace) 100 mg PO BID [facility] PRN Reason: Protocol Last Admin: 01/31/17 09:01 Dose: 100 mg Furosemide (Lasix) 20 mg PO DAILY [facility] PRN Reason: Protocol Last Admin: 01/31/17 09:02 Dose: 20 mg Isosorbide Mononitrate (Imdur Er) 30 mg PO 0600 [facility] PRN Reason: Protocol Last Admin: 01/31/17 06:38 Dose: 30 mg Lidocaine (Lidoderm) 1 ea TD DAILY [facility] Metoprolol Succinate (Toprol Xl) 50 mg PO BRK [facility] PRN Reason: Protocol Last Admin: 01/31/17 08:54 Dose: 50 mg Morphine Sulfate (Morphine) 4 mg IVP Q3H PRN; Protocol PRN Reason: Pain, severe (8-10) Last Admin: 01/31/17 08:51 Dose: 4 mg Mupirocin (Bactroban Ointment) 1 gm TOP BID [facility] PRN Reason: Protocol Last Admin: 01/31/17 09:04 Dose: 1 appl Nystatin (Nystop Topical Powder) 1 gm TOP TID [facility] PRN Reason: Protocol Last Admin: 01/30/17 17:37 Dose: 1 applic Pantoprazole Sodium (Protonix Ec Tab) 40 mg PO 0600 [facility] PRN Reason: Protocol Last Admin: 01/31/17 06:38 Dose: 40 mg Polyethylene Glycol (Miralax) 17 gm PO DAILY [facility] PRN Reason: Protocol Last Admin: 01/30/17 09:10 Dose: 17 gm Potassium Chloride (Klor-Con 10) 10 meq PO 0800 [facility] PRN Reason: Protocol Last Admin: 01/31/17 08:53 Dose: 10 meq Verapamil HCl (Calan Sr Tab) 120 mg PO DAILY [facility] PRN Reason: Protocol Last Admin: 01/31/17 09:01 Dose: 120 mg - Respiratory Exam Respiratory Exam: Clear to Ausculation Bilateral, NORMAL BREATHING PATTERN - Cardiovascular Exam Cardiovascular Exam: REGULAR RHYTHM - GI/Abdominal Exam GI & Abdominal Exam: Soft, Normal Bowel Sounds - Neurological Exam Neurological Exam: Abnormal Gait, Alert, Awake - Skin Skin Exam: Dry, Warm Assessment and Plan (1) Intractable back pain Status: Acute (2) Degenerative joint disease (DJD) of lumbar spine Status: Acute - Assessment and Plan (Free Text) Plan: add Lidoderm patch to lower back, continue physical therapy, social work for discharge planning
[2017-02-01] MEDS ORDERED: Morphine 2 mg/ml ISec IVP STA ×2 (00:49→05:08)
[2017-02-01] MEDS: Pantoprazole 40 mg EC Tab PO SCH (05:25)
[2017-02-01] MEDS: Morphine 4 mg/ml ISec IVP PRN ×4 (08:36→20:28)
[2017-02-01] MEDS: Potassium Chloride 10 mEq ER Tab PO SCH (08:38)
[2017-02-01] MEDS: Metoprolol Succinate 50 mg XL Tab PO SCH (08:38)
[2017-02-01] MEDS: Verapamil 120 mg ER Tab PO SCH (09:27)
[2017-02-01] MEDS: POLYETHYLENE GLYCOL 3350 17 GM/Dose PACKET PO SCH (09:28)
[2017-02-01] MEDS: Calcitonin 200 Int Units/Inh Nasal Spray (3.7 ml) NS SCH (09:28)
[2017-02-01] MEDS: Lidocaine 5% Patch TD SCH (09:28)
[2017-02-01] MEDS: Nystatin 100,000 Units/gm Topical Pow(15 gm) TOP SCH ×3 (09:29→17:41)
--- NOTE | 2017-02-01 13:10 | CP.PCM.PN ---
Subjective - Date & Time of Evaluation Date of Evaluation: 02/01/17 Time of Evaluation: 06:45 - Subjective Subjective: resting comfortably, NAD Objective - Vital Signs/Intake and Output Vital Signs (last 24 hours): Temp Pulse Resp BP Pulse Ox 97.5 F L 74 18 145/83 97 01/31/17 16:23 01/31/17 16:23 01/31/17 16:23 02/01/17 09:28 01/31/17 16:23 - Medications Medications: Current Medications Calcitonin [place] (Miacalcin) 200 iu NS DAILY [facility] Last Admin: 02/01/17 09:28 Dose: 1 applic Docusate Sodium (Colace) 100 mg PO BID [facility] PRN Reason: Protocol Last Admin: 02/01/17 09:27 Dose: 100 mg Furosemide (Lasix) 20 mg PO DAILY [facility] PRN Reason: Protocol Last Admin: 02/01/17 09:28 Dose: 20 mg Isosorbide Mononitrate (Imdur Er) 30 mg PO 0600 [facility] PRN Reason: Protocol Last Admin: 02/01/17 05:25 Dose: 30 mg Lidocaine (Lidoderm) 1 ea TD DAILY [facility] Last Admin: 02/01/17 09:28 Dose: 1 ea Metoprolol Succinate (Toprol Xl) 50 mg PO BRK [facility] PRN Reason: Protocol Last Admin: 02/01/17 08:38 Dose: 50 mg Morphine Sulfate (Morphine) 4 mg IVP Q3H PRN; Protocol PRN Reason: Pain, severe (8-10) Last Admin: 02/01/17 12:09 Dose: 4 mg Mupirocin (Bactroban Ointment) 1 gm TOP BID [facility] PRN Reason: Protocol Last Admin: 02/01/17 09:30 Dose: 1 appl Nystatin (Nystop Topical Powder) 1 gm TOP TID [facility] PRN Reason: Protocol Last Admin: 02/01/17 09:29 Dose: 1 applic Pantoprazole Sodium (Protonix Ec Tab) 40 mg PO 0600 [facility] PRN Reason: Protocol Last Admin: 02/01/17 05:25 Dose: 40 mg Polyethylene Glycol (Miralax) 17 gm PO DAILY [facility] PRN Reason: Protocol Last Admin: 02/01/17 09:28 Dose: 17 gm Potassium Chloride (Klor-Con 10) 10 meq PO 0800 [facility] PRN Reason: Protocol Last Admin: 02/01/17 08:38 Dose: 10 meq Verapamil HCl (Calan Sr Tab) 120 mg PO DAILY [facility] PRN Reason: Protocol Last Admin: 02/01/17 09:27 Dose: 120 mg - Respiratory Exam Respiratory Exam: Clear to Ausculation Bilateral - Cardiovascular Exam Cardiovascular Exam: REGULAR RHYTHM - GI/Abdominal Exam GI & Abdominal Exam: Soft, Normal Bowel Sounds - Extremities Exam Extremities Exam: Normal Inspection - Neurological Exam Neurological Exam: Alert, Awake - Skin Skin Exam: Dry, Warm Assessment and Plan (1) Intractable back pain Status: Acute (2) Degenerative joint disease (DJD) of lumbar spine Status: Acute - Assessment and Plan (Free Text) Plan: continue physical therapy, IV morphine PRN, social work for discharge planning
[2017-02-02] MEDS: Morphine 4 mg/ml ISec IVP PRN ×5 (05:44→20:24)
[2017-02-02] MEDS: Pantoprazole 40 mg EC Tab PO SCH (05:45)
[2017-02-02] MEDS: Metoprolol Succinate 50 mg XL Tab PO SCH (08:38)
[2017-02-02] MEDS: Verapamil 120 mg ER Tab PO SCH (09:05)
[2017-02-02] MEDS: Potassium Chloride 10 mEq ER Tab PO SCH (09:06)
[2017-02-02] MEDS: Calcitonin 200 Int Units/Inh Nasal Spray (3.7 ml) NS SCH (09:07)
[2017-02-02] MEDS: Lidocaine 5% Patch TD SCH (09:07)
[2017-02-02] MEDS: POLYETHYLENE GLYCOL 3350 17 GM/Dose PACKET PO SCH (09:07)
[2017-02-02] MEDS: Nystatin 100,000 Units/gm Topical Pow(15 gm) TOP SCH ×3 (09:07→17:20)
--- NOTE | 2017-02-02 10:15 | CP.PCM.PN ---
Subjective - Date & Time of Evaluation Date of Evaluation: 02/02/17 Time of Evaluation: 09:30 - Subjective Subjective: back pain improving, becoming more ambulatory, denies chest pain , no SOB Objective - Vital Signs/Intake and Output Vital Signs (last 24 hours): Temp Pulse Resp BP Pulse Ox 97.5 F L 70 18 120/70 97 01/31/17 16:23 02/02/17 09:05 01/31/17 16:23 02/02/17 09:06 01/31/17 16:23 - Medications Medications: Current Medications Calcitonin [place] (Miacalcin) 200 iu NS DAILY [facility] Last Admin: 02/02/17 09:07 Dose: 1 applic Docusate Sodium (Colace) 100 mg PO BID [facility] PRN Reason: Protocol Last Admin: 02/02/17 09:06 Dose: 100 mg Furosemide (Lasix) 20 mg PO DAILY [facility] PRN Reason: Protocol Last Admin: 02/02/17 09:06 Dose: 20 mg Isosorbide Mononitrate (Imdur Er) 30 mg PO 0600 [facility] PRN Reason: Protocol Last Admin: 02/02/17 05:46 Dose: 30 mg Lidocaine (Lidoderm) 1 ea TD DAILY [facility] Last Admin: 02/02/17 09:07 Dose: 1 ea Metoprolol Succinate (Toprol Xl) 50 mg PO BRK [facility] PRN Reason: Protocol Last Admin: 02/02/17 08:38 Dose: 50 mg Morphine Sulfate (Morphine) 4 mg IVP Q3H PRN; Protocol PRN Reason: Pain, severe (8-10) Last Admin: 02/02/17 08:29 Dose: 4 mg Mupirocin (Bactroban Ointment) 1 gm TOP BID [facility] PRN Reason: Protocol Last Admin: 02/02/17 09:05 Dose: 1 appl Nystatin (Nystop Topical Powder) 1 gm TOP TID [facility] PRN Reason: Protocol Last Admin: 02/02/17 09:07 Dose: 1 applic Pantoprazole Sodium (Protonix Ec Tab) 40 mg PO 0600 [facility] PRN Reason: Protocol Last Admin: 02/02/17 05:45 Dose: 40 mg Polyethylene Glycol (Miralax) 17 gm PO DAILY [facility] PRN Reason: Protocol Last Admin: 02/02/17 09:07 Dose: Not Given Potassium Chloride (Klor-Con 10) 10 meq PO 0800 [facility] PRN Reason: Protocol Last Admin: 02/02/17 09:06 Dose: 10 meq Verapamil HCl (Calan Sr Tab) 120 mg PO DAILY [facility] PRN Reason: Protocol Last Admin: 02/02/17 09:05 Dose: 120 mg - Respiratory Exam Respiratory Exam: Clear to Ausculation Bilateral, NORMAL BREATHING PATTERN - Cardiovascular Exam Cardiovascular Exam: REGULAR RHYTHM - GI/Abdominal Exam GI & Abdominal Exam: Soft, Normal Bowel Sounds - Extremities Exam Extremities Exam: Normal Inspection - Neurological Exam Neurological Exam: Alert, Awake - Skin Skin Exam: Dry, Warm Assessment and Plan (1) Intractable back pain Status: Acute (2) Degenerative joint disease (DJD) of lumbar spine Status: Acute - Assessment and Plan (Free Text) Plan: continue physical therapy, analgesics, social work for discharge planning
[2017-02-03] MEDS: Pantoprazole 40 mg EC Tab PO SCH (05:36)
[2017-02-03] MEDS: Morphine 4 mg/ml ISec IVP PRN ×5 (05:39→21:09)
--- NOTE | 2017-02-03 08:51 | CP.PCM.PN ---
Subjective - Date & Time of Evaluation Date of Evaluation: 02/03/17 Time of Evaluation: 08:35 - Subjective Subjective: c/o nausea, vomiting this am, no chest pain, denies SOB, no diaphoresis, denies abdominal pain Objective - Vital Signs/Intake and Output Vital Signs (last 24 hours): Temp Pulse Resp BP Pulse Ox 97.7 F 59 L 15 100/55 L 98 02/02/17 16:00 02/02/17 16:00 02/02/17 16:00 02/02/17 16:00 02/02/17 16:00 - Medications Medications: Current Medications Calcitonin [place] (Miacalcin) 200 iu NS DAILY [facility] BEDS AT [facility] Last Admin: 02/02/17 09:07 Dose: 1 applic Docusate Sodium (Colace) 100 mg PO BID [facility] PRN Reason: Protocol Last Admin: 02/02/17 17:19 Dose: 100 mg Furosemide (Lasix) 20 mg PO DAILY [facility] PRN Reason: Protocol Last Admin: 02/02/17 09:06 Dose: 20 mg Isosorbide Mononitrate (Imdur Er) 30 mg PO 0600 [facility] PRN Reason: Protocol Last Admin: 02/03/17 05:36 Dose: 30 mg Lidocaine (Lidoderm) 1 ea TD DAILY [facility] 234 BEDS [facility] Last Admin: 02/02/17 09:07 Dose: 1 ea Metoprolol Succinate (Toprol Xl) 50 mg PO BRK [facility] PRN Reason: Protocol Last Admin: 02/02/17 08:38 Dose: 50 mg Morphine Sulfate (Morphine) 4 mg IVP Q3H PRN; Protocol PRN Reason: Pain, severe (8-10) Last Admin: 02/03/17 05:39 Dose: 4 mg Mupirocin (Bactroban Ointment) 1 gm TOP BID [facility] PRN Reason: Protocol Last Admin: 02/02/17 17:19 Dose: 1 appl Nystatin (Nystop Topical Powder) 1 gm TOP TID [facility] PRN Reason: Protocol Last Admin: 02/02/17 17:20 Dose: 1 applic Ondansetron HCl (Zofran Inj) 4 mg IVP Q6H PRN PRN Reason: Nausea/Vomiting Pantoprazole Sodium (Protonix Ec Tab) 40 mg PO 0600 [facility] PRN Reason: Protocol Last Admin: 02/03/17 05:36 Dose: 40 mg Polyethylene Glycol (Miralax) 17 gm PO DAILY [facility] 234 [facility]S [facility] PRN Reason: Protocol Last Admin: 02/02/17 09:07 Dose: Not Given Potassium Chloride (Klor-Con 10) 10 meq PO 0800 [facility] PRN Reason: Protocol Last Admin: 02/02/17 09:06 Dose: 10 meq Verapamil HCl (Calan Sr Tab) 120 mg PO DAILY [facility] PRN Reason: Protocol Last Admin: 02/02/17 09:05 Dose: 120 mg - Respiratory Exam Respiratory Exam: Clear to Ausculation Bilateral, NORMAL BREATHING PATTERN - Cardiovascular Exam Cardiovascular Exam: REGULAR RHYTHM - GI/Abdominal Exam GI & Abdominal Exam: Soft, Normal Bowel Sounds - Extremities Exam Extremities Exam: Normal Inspection - Neurological Exam Neurological Exam: Alert, Awake - Skin Skin Exam: Dry, Warm Assessment and Plan (1) Intractable back pain Status: Acute (2) Degenerative joint disease (DJD) of lumbar spine Status: Acute (3) Nausea & vomiting Status: Acute - Assessment and Plan (Free Text) Plan: check labs/UA, ondansetron ordered PRN, observe, continue physical therapy, social work for discharge planning
[2017-02-03] MEDS: Metoprolol Succinate 50 mg XL Tab PO SCH (08:52)
[2017-02-03] MEDS: Potassium Chloride 10 mEq ER Tab PO SCH (08:55)
[2017-02-03 09:43] LABS: BASO # 0.02 K/mm3 (0.0-2.0); BASO % 0.3 % (0.0-3.0); EOS # 0.2 (0.0-0.7); GRAN # 4.32 (1.4-6.5); GRAN % 57.2 % (50.0-68.0); HEMATOCRIT 30.8 % (36.0-48.0); LYMPH # 2.5 (1.2-3.4); LYMPH % 32.7 % (22.0-35.0); MEAN CELL VOLUME 93.3 fl (80.0-105.0); MEAN CORPUSCULAR HEMOGLOBIN 31.5 pg (25.0-35.0); MEAN CORPUSCULAR HGB CONC 33.8 g/dl (31.0-37.0); MEAN PLATELET VOLUME 10.4 fl (7.0-11.0); MONO # 0.5 (0.1-0.6); MONO % 6.8 % (1.0-6.0); WHITE BLOOD COUNT 7.6 10^3/ul (4.5-11.0)
[2017-02-03 09:52] LABS: BILIRUBIN,TOTAL 0.7 mg/dL (0.2-1.3); CALCIUM 8.9 mg/dL (8.4-10.5); POTASSIUM 4.8 mmol/L (3.6-5.0); TOTAL PROTEIN 5.2 g/dL (5.8-8.3)
[2017-02-03] MEDS: Verapamil 120 mg ER Tab PO SCH (10:19)
[2017-02-03] MEDS: Lidocaine 5% Patch TD SCH (10:19)
[2017-02-03] MEDS: Calcitonin 200 Int Units/Inh Nasal Spray (3.7 ml) NS SCH (10:19)
[2017-02-03] MEDS: Nystatin 100,000 Units/gm Topical Pow(15 gm) TOP SCH ×3 (10:49→17:50)
[2017-02-03] MEDS: POLYETHYLENE GLYCOL 3350 17 GM/Dose PACKET PO SCH (13:24)
[2017-02-04] MEDS: Morphine 4 mg/ml ISec IVP PRN ×4 (01:39→12:40)
[2017-02-04] MEDS: Pantoprazole 40 mg EC Tab PO SCH (05:02)
--- NOTE | 2017-02-04 05:09 | CP.PCM.PN ---
Subjective - Date & Time of Evaluation Date of Evaluation: 02/04/17 Time of Evaluation: 05:09 - Subjective Subjective: nausea Objective - Vital Signs/Intake and Output Vital Signs (last 24 hours): Temp Pulse Resp BP Pulse Ox 97.8 F 72 18 90/69 L 98 02/03/17 16:23 02/03/17 16:23 02/03/17 16:23 02/03/17 16:23 02/03/17 16:23 Intake and Output: 02/03/17 02/04/17 18:59 06:59 Intake Total 420 Balance 420 - Medications Medications: Current Medications Calcitonin [place] (Miacalcin) 200 iu NS DAILY [facility] Last Admin: 02/03/17 10:19 Dose: 1 applic Docusate Sodium (Colace) 100 mg PO BID JANIYA PRN Reason: Protocol Last Admin: 02/03/17 17:48 Dose: 100 mg Furosemide (Lasix) 20 mg PO DAILY JANIYA PRN Reason: Protocol Last Admin: 02/03/17 13:22 Dose: 20 mg Isosorbide Mononitrate (Imdur Er) 30 mg PO 0600 JANIYA PRN Reason: Protocol Last Admin: 02/04/17 05:02 Dose: 30 mg Lidocaine (Lidoderm) 1 ea TD DAILY JANIYA Last Admin: 02/03/17 10:19 Dose: 1 ea Metoprolol Succinate (Toprol Xl) 50 mg PO BRK JANIYA PRN Reason: Protocol Last Admin: 02/03/17 08:52 Dose: 50 mg Morphine Sulfate (Morphine) 4 mg IVP Q3H PRN; Protocol PRN Reason: Pain, severe (8-10) Last Admin: 02/04/17 04:40 Dose: 4 mg Mupirocin (Bactroban Ointment) 1 gm TOP BID JANIYA PRN Reason: Protocol Last Admin: 02/03/17 17:47 Dose: 1 appl Nystatin (Nystop Topical Powder) 1 gm TOP TID JANIYA PRN Reason: Protocol Last Admin: 02/03/17 17:50 Dose: 1 applic Ondansetron HCl (Zofran Inj) 4 mg IVP Q6H PRN PRN Reason: Nausea/Vomiting Last Admin: 02/04/17 01:38 Dose: 4 mg Pantoprazole Sodium (Protonix Ec Tab) 40 mg PO 0600 JANIYA PRN Reason: Protocol Last Admin: 02/04/17 05:02 Dose: 40 mg Polyethylene Glycol (Miralax) 17 gm PO DAILY JANIYA PRN Reason: Protocol Last Admin: 02/03/17 13:24 Dose: Not Given Potassium Chloride (Klor-Con 10) 10 meq PO 0800 JANIYA PRN Reason: Protocol Last Admin: 02/03/17 08:55 Dose: 10 meq Verapamil HCl (Calan Sr Tab) 120 mg PO DAILY JANIYA PRN Reason: Protocol Last Admin: 02/03/17 10:19 Dose: 120 mg - Labs Labs: 02/03/17 09:40 02/03/17 09:40
--- NOTE | 2017-02-04 05:36 | CP.PCM.PN ---
Subjective - Date & Time of Evaluation Date of Evaluation: 02/04/17 Time of Evaluation: 05:16 - Subjective Subjective: S:Needs an order for Zofran. Patient has been nauseous. Received morphine for chest pain, back pain, legs pain. There has been order for Zofran which is not due for next 1 1/2 hours. No other complaints. O:Not in acute distress. Last Vital Signs 3 Temp 97.8 F 02/03/17 16:23 Pulse 72 02/03/17 16:23 Resp 18 02/03/17 16:23 BP 90/69 L 02/03/17 16:23 Pulse Ox 98 02/03/17 16:23 LUNGS:Normal breathing pattern. A:Nausea. P:Zofran 4 mg IV stat Objective - Vital Signs/Intake and Output Vital Signs (last 24 hours): Temp Pulse Resp BP Pulse Ox 97.8 F 72 18 90/69 L 98 02/03/17 16:23 02/03/17 16:23 02/03/17 16:23 02/03/17 16:23 02/03/17 16:23 Intake and Output: 02/03/17 02/04/17 18:59 06:59 Intake Total 420 Balance 420 - Medications Medications: Current Medications Calcitonin [place] (Miacalcin) 200 iu NS DAILY [facility] Last Admin: 02/03/17 10:19 Dose: 1 applic Docusate Sodium (Colace) 100 mg PO BID JANIYA PRN Reason: Protocol Last Admin: 02/03/17 17:48 Dose: 100 mg Furosemide (Lasix) 20 mg PO DAILY JANIYA PRN Reason: Protocol Last Admin: 02/03/17 13:22 Dose: 20 mg Isosorbide Mononitrate (Imdur Er) 30 mg PO 0600 JANIYA PRN Reason: Protocol Last Admin: 02/04/17 05:02 Dose: 30 mg Lidocaine (Lidoderm) 1 ea TD DAILY JANIYA Last Admin: 02/03/17 10:19 Dose: 1 ea Metoprolol Succinate (Toprol Xl) 50 mg PO BRK JANIYA PRN Reason: Protocol Last Admin: 02/03/17 08:52 Dose: 50 mg Morphine Sulfate (Morphine) 4 mg IVP Q3H PRN; Protocol PRN Reason: Pain, severe (8-10) Last Admin: 02/04/17 04:40 Dose: 4 mg Mupirocin (Bactroban Ointment) 1 gm TOP BID JANIYA PRN Reason: Protocol Last Admin: 02/03/17 17:47 Dose: 1 appl Nystatin (Nystop Topical Powder) 1 gm TOP TID JANIYA PRN Reason: Protocol Last Admin: 02/03/17 17:50 Dose: 1 applic Ondansetron HCl (Zofran Inj) 4 mg IVP Q6H PRN PRN Reason: Nausea/Vomiting Last Admin: 02/04/17 01:38 Dose: 4 mg Ondansetron HCl (Zofran Inj) 4 mg IVP STAT STA Stop: 02/04/17 05:10 Pantoprazole Sodium (Protonix Ec Tab) 40 mg PO 0600 JANIYA PRN Reason: Protocol Last Admin: 02/04/17 05:02 Dose: 40 mg Polyethylene Glycol (Miralax) 17 gm PO DAILY JANIYA PRN Reason: Protocol Last Admin: 02/03/17 13:24 Dose: Not Given Potassium Chloride (Klor-Con 10) 10 meq PO 0800 JANIYA PRN Reason: Protocol Last Admin: 02/03/17 08:55 Dose: 10 meq Verapamil HCl (Calan Sr Tab) 120 mg PO DAILY JANIYA PRN Reason: Protocol Last Admin: 02/03/17 10:19 Dose: 120 mg - Labs Labs: 02/03/17 09:40 02/03/17 09:40
[2017-02-04] MEDS: Metoprolol Succinate 50 mg XL Tab PO SCH (08:09)
[2017-02-04] MEDS: Potassium Chloride 10 mEq ER Tab PO SCH (08:10)
[2017-02-04] MEDS: Verapamil 120 mg ER Tab PO SCH (10:14)
[2017-02-04] MEDS: POLYETHYLENE GLYCOL 3350 17 GM/Dose PACKET PO SCH (10:15)
[2017-02-04] MEDS: Nystatin 100,000 Units/gm Topical Pow(15 gm) TOP SCH ×3 (10:15→17:53)
[2017-02-04] MEDS: Lidocaine 5% Patch TD SCH (10:15)
[2017-02-04] MEDS: Calcitonin 200 Int Units/Inh Nasal Spray (3.7 ml) NS SCH (10:15)
[2017-02-04] MEDS ORDERED: Morphine 15 mg Immediate Release Tab PO PRN (16:25)
--- NOTE | 2017-02-04 16:28 | CP.PCM.PN ---
Subjective - Date & Time of Evaluation Date of Evaluation: 02/04/17 Time of Evaluation: 14:15 - Subjective Subjective: c/o back pain, remains unable to ambulate without assist, nausea slightly improved Objective - Vital Signs/Intake and Output Vital Signs (last 24 hours): Temp Pulse Resp BP Pulse Ox 97.8 F 72 18 117/71 98 02/03/17 16:23 02/03/17 16:23 02/03/17 16:23 02/04/17 10:14 02/03/17 16:23 Intake and Output: 02/04/17 02/04/17 06:59 18:59 Intake Total 420 Balance 420 - Medications Medications: Current Medications Calcitonin [place] (Miacalcin) 200 iu NS DAILY [facility] Last Admin: 02/04/17 10:15 Dose: 1 applic Docusate Sodium (Colace) 100 mg PO BID JANIYA PRN Reason: Protocol Last Admin: 02/04/17 10:14 Dose: 100 mg Isosorbide Mononitrate (Imdur Er) 30 mg PO 0600 JANIYA PRN Reason: Protocol Last Admin: 02/04/17 05:02 Dose: 30 mg Lidocaine (Lidoderm) 1 ea TD DAILY [facility] Last Admin: 02/04/17 10:15 Dose: 1 ea Metoprolol Succinate (Toprol Xl) 50 mg PO BRK JANIYA PRN Reason: Protocol Last Admin: 02/04/17 08:09 Dose: 50 mg Morphine Sulfate (Morphine) 4 mg IVP Q3H PRN; Protocol PRN Reason: Pain, severe (8-10) Last Admin: 02/04/17 12:40 Dose: 4 mg Mupirocin (Bactroban Ointment) 1 gm TOP BID JANIYA PRN Reason: Protocol Last Admin: 02/04/17 10:13 Dose: 1 appl Nystatin (Nystop Topical Powder) 1 gm TOP TID JANIYA PRN Reason: Protocol Last Admin: 02/04/17 13:40 Dose: Not Given Ondansetron HCl (Zofran Inj) 4 mg IVP Q6H PRN PRN Reason: Nausea/Vomiting Last Admin: 02/04/17 01:38 Dose: 4 mg Pantoprazole Sodium (Protonix Ec Tab) 40 mg PO 0600 JANIYA PRN Reason: Protocol Last Admin: 02/04/17 05:02 Dose: 40 mg Polyethylene Glycol (Miralax) 17 gm PO DAILY [facility] PRN Reason: Protocol Last Admin: 02/04/17 10:15 Dose: Not Given Potassium Chloride (Klor-Con 10) 10 meq PO 0800 JANIYA PRN Reason: Protocol Last Admin: 02/04/17 08:10 Dose: 10 meq Verapamil HCl (Calan Sr Tab) 120 mg PO DAILY JANIYA PRN Reason: Protocol Last Admin: 02/04/17 10:14 Dose: 120 mg - Labs Labs: 02/03/17 09:40 02/03/17 09:40 - Respiratory Exam Respiratory Exam: Clear to Ausculation Bilateral, NORMAL BREATHING PATTERN - Cardiovascular Exam Cardiovascular Exam: REGULAR RHYTHM - GI/Abdominal Exam GI & Abdominal Exam: Soft, Normal Bowel Sounds - Neurological Exam Neurological Exam: Abnormal Gait, Alert, Awake - Skin Skin Exam: Dry, Warm Assessment and Plan (1) Intractable back pain Status: Acute (2) Degenerative joint disease (DJD) of lumbar spine Status: Acute (3) Nausea & vomiting Status: Acute - Assessment and Plan (Free Text) Plan: change to PO analgesics, continue physical therapy, eval for subacute rehab/pt unable to function independently at home
[2017-02-04 17:47] VITALS: BP 92/59; PULSE 60; RESP 14; TEMP 98; O2SAT 96
== END 2017-02-04 18:14 | DRG 556 ==
LOC: TRCU 12:01
PROVIDERS: ADMIT Internal Medicine; ATTEND Internal Medicine
PROC: F07Z9FZ Gait Training/Functional Ambulation Treatment using Assistive, Adaptive, Supportive or Protective Equipment (ICD-10-PCS; principal; 2017-01-28)
PROC: F07Z5ZZ Bed Mobility Treatment (ICD-10-PCS; 2017-01-30)
PROC: F07Z8ZZ Transfer Training Treatment (ICD-10-PCS; 2017-01-30)
DX: R26.2 Difficulty in walking, not elsewhere classified (principal); M51.36 Other intervertebral disc degeneration, lumbar region; M46.96 Unspecified inflammatory spondylopathy, lumbar region; C91.10 Chronic lymphocytic leukemia of B-cell type not having achieved remission; M96.1 Postlaminectomy syndrome, not elsewhere classified; I11.0 Hypertensive heart disease with heart failure; I50.9 Heart failure, unspecified; R11.2 Nausea with vomiting, unspecified; I25.10 Atherosclerotic heart disease of native coronary artery without angina pectoris; Z88.2 Allergy status to sulfonamides

== ENCOUNTER 2017-04-01 16:44 | Observation (INO) | payer MEDICARE ==
--- NOTE | 2017-04-01 17:04 | ED PDOC ---
Arrival/HPI - General Chief Complaint: Abnormal Labs Time Seen by Provider: 04/01/17 16:45 Historian: Patient, Prison - History of Present Illness Time/Duration: Prior to Arrival Associated Symptoms (Text): 04/01/17 17:01 Sent to the emergency Department from [facility] after having routine blood work drawn and was found to be anemic. She complains of generalized weakness and fatigue. History of anemia. She complains of generalized pain. No abdominal pain nausea vomiting diarrhea constipation or GI bleed. No chest pain palpitations or dyspnea. Past Medical History - Infectious Disease Hx of Infectious Diseases: None - Tetanus Immunization Tetanus Immunization: Unknown - Reproductive Menopause: Yes - Cardiac Hx Cardiac Disorders: Yes Hx Congestive Heart Failure: Yes Hx Hypertension: Yes - Pulmonary Hx Respiratory Disorders: Yes Hx Chronic Obstructive Pulmonary Disease (COPD): Yes Hx Pneumonia: Yes - Neurological Hx Neurological Disorder: Yes Other/Comment: SHINGLES H/O - HEENT Hx HEENT Disorder: Yes Hx Cataracts: Yes - Renal Hx Renal Disorder: No - Endocrine/Metabolic Hx Endocrine Disorders: No - Hematological/Oncological Hx Blood Disorders: Yes Hx Anemia: Yes (blood transfusion) - Integumentary Hx Dermatological Disorder: Yes Other/Comment: red rash under abd fold, b/l groin and under both breasts, bruise to left upper thigh - Musculoskeletal/Rheumatological Hx Musculoskeletal Disorders: Yes Hx Arthritis: Yes - Gastrointestinal Hx Gastrointestinal Disorders: Yes Hx Diverticulitis: Yes Hx Gall Bladder Disease: Yes (CHOLECYSTECTOMY) - Genitourinary/Gynecological Hx Genitourinary Disorders: Yes Hx Incontinence: Yes Hx Urinary Tract Infection: Yes - Psychiatric Hx Psychophysiologic Disorder: No Hx Substance Use: No - Surgical History Hx Appendectomy: Yes Hx Cholecystectomy: Yes Hx Coronary Stent: Yes (x3) - Anesthesia Hx Anesthesia: Yes Hx Anesthesia Reactions: No Hx Malignant Hyperthermia: No - Suicidal Assessment Feels Threatened In Home Enviroment: No Family/Social History - Physician Review Nursing Documentation Reviewed: Yes Family/Social History: Unknown Family HX Smoking Status: Never Smoked Hx Alcohol Use: No Hx Substance Use: No Substance used: demerol PO Q4H Hx Substance Use Treatment: No Allergies/Home Meds Allergies/Adverse Reactions: Allergies Sulfa (Sulfonamide Antibiotics) Allergy (Intermediate, Verified 02/19/17 19:49) RASH Home Medications: Home Meds Medication Instructions Recorded Confirmed Furosemide 20 mg PO QAM 05/23/15 02/19/17 Lidocaine 5% [Lidoderm] 1 patch TP DAILY 05/23/15 02/19/17 Review of Systems - Physician Review All systems were reviewed & negative as marked: Yes - Review of Systems Constitutional: Fatigue. absent: Fevers Respiratory: absent: SOB, Cough Cardiovascular: absent: Chest Pain, Palpitations, Syncope Gastrointestinal: absent: Abdominal Pain, Nausea, Vomiting, Hematochezia, Hematemesis Neurological: absent: Headache, Dizziness, Focal Weakness Physical Exam Vital Signs Temp Pulse Resp BP Pulse Ox 04/01/17 16:54 98.5 F 63 18 127/58 L 96 Temperature: Afebrile Blood Pressure: Normal Pulse: Regular Respiratory Rate: Normal Appearance: Positive for: Well-Appearing, Non-Toxic, Comfortable, Other (Pale) Pain Distress: None Mental Status: Positive for: Alert and Oriented X 3 - Systems Exam Head: Present: Atraumatic, Normocephalic Pupils: Present: PERRL Extroacular Muscles: Present: EOMI Conjunctiva: Present: Normal Mouth: Present: Moist Mucous Membranes Pharnyx: No: ERYTHEMA, EXUDATE, TONSILS ENLARGED Neck: Present: Normal Range of Motion Respiratory/Chest: Present: Clear to Auscultation, Good Air Exchange, Decreased Breath Sounds. No: Respiratory Distress, Accessory Muscle Use Cardiovascular: Present: Regular Rate and Rhythm, Normal S1, S2. No: Murmurs Abdomen: Present: Normal Bowel Sounds. No: Tenderness, Distention, Peritoneal Signs, Rebound, Guarding Rectal: Present: Normal Rectal Tone, Other (Guaiac negative brown stool). No: Occult Blood, Rectal Tenderness, Gross Blood, Melena, Hemorrhoids, Fissures, Nodule/Mass/Lesions Upper Extremity: Present: Normal Inspection. No: Cyanosis, Edema Lower Extremity: Present: Normal Inspection. No: Edema Neurological: Present: GCS=15, CN II-XII Intact, Speech Normal, Motor Func Grossly Intact Skin: Present: Warm, Dry, Normal Color, Pale. No: Rashes Psychiatric: Present: Alert, Oriented x 3, Normal Insight, Normal Concentration Medical Decision Making ED Course and Treatment: 04/01/17 17:06 EKG shows sinus bradycardia with a sinus arrhythmia and no acute ST or T-wave changes 04/01/17 18:10 Seen and examined in the emergency department by Dr. Pablo who will admit. - Lab Interpretations Lab Results: 04/01/17 17:30 04/01/17 17:30 Lab Results 04/01/17 17:30: Sodium 137, Potassium 3.5 L, Chloride 105, Carbon Dioxide 27, Anion Gap 9 L, BUN 12, Creatinine 0.8, Est GFR ( Amer) > 60, Est GFR (Non -Af Amer) > 60, Random Glucose 91, Calcium 8.3 L, Total Bilirubin 1.2, AST 28, ALT 26, Alkaline Phosphatase 57, Lactate Dehydrogenase 978 H, Total Creatine Kinase < 20 L, Troponin I 0.02 D, Total Protein 4.7 L, Albumin 2.9 L, Globulin 1.8, Albumin/Globulin Ratio 1.6 04/01/17 17:30: PT 13.2 H, INR 1.21 H, APTT 26.7 04/01/17 17:30: WBC 3.4 L D, RBC 2.43 L, Hgb 7.5 L D, Hct 22.7 L, MCV 93.4, MCH 30.9, MCHC 33.0, RDW 15.5 H, Plt Count 83 L, MPV 10.7, Gran % 40.2 L, Lymph % ( Auto) 51.6 H, [place] % (Auto) 3.8, Eos % (Auto) 3.8, Baso % (Auto) 0.6, Gran # 1.38 L, Lymph # 1.8, [place] # 0.1, Eos # 0.1, Baso # 0.02 - RAD Interpretation Radiology Orders: 04/01/17 16:55 CHEST PORTABLE [RAD] Stat Chest one view shows a right-sided line with no infiltrate effusion or cardiomegaly. Borderline widened mediastinum [employer] Test Engineer: ED Physician - Medication Orders Current Medication Orders: Apixaban (Eliquis) 5 mg PO BID JANIYA PRN Reason: Protocol Donepezil HCl (Aricept) 5 mg PO HS JANIYA Furosemide (Lasix) 20 mg PO QAM JANIYA Piperacillin Sod/Tazobactam Sod (Zosyn 2.25 Gm In 0.9% 100 Ml) 2.25 gm in 100 mls @ 100 mls/hr IVPB Q8H JANIYA Stop: 04/02/17 02:59 Sodium Chloride (Sodium Chloride 0.45%) 1,000 mls @ 40 mls/hr IV .Q24H JANIYA Isosorbide Mononitrate (Imdur Er) 30 mg PO DAILY JANIYA Metoprolol Succinate (Toprol Xl) 50 mg PO DAILY JANIYA Potassium Chloride (Klor-Con 10) 10 meq PO DAILY JANIYA Verapamil HCl (Calan Sr Tab) 120 mg PO QAM JANIYA Disposition/Present on Arrival - Present on Arrival Any Indicators Present on Arrival: No History of DVT/PE: No History of Uncontrolled Diabetes: No Urinary Catheter: No History of Decub. Ulcer: No History Surgical Site Infection Following: None - Disposition Have Diagnosis and Disposition been Completed?: Yes Diagnosis: Anemia, Pancytopenia Disposition: HOSPITALIZED Disposition Time: 18:11 Patient Plan: Observation Condition: FAIR Forms: [employer] (Romanian)
[2017-04-01 17:21] VITALS: BMI 25.0
--- NOTE | 2017-04-01 17:28 | RAD ---
HISTORY: weakness COMPARISON: Portable chest 09/05/2016. FINDINGS: MediPort catheter unchanged in position. LUNGS: No active pulmonary disease. PLEURA: No significant pleural effusion identified, no pneumothorax apparent. CARDIOVASCULAR: Normal. OSSEOUS STRUCTURES: No significant abnormalities. VISUALIZED UPPER ABDOMEN: Normal. OTHER FINDINGS: None. IMPRESSION: Stable chest radiograph with no acute cardiopulmonary disease appreciable at this time.
[2017-04-01 17:43] LABS: BASO # 0.02 K/mm3 (0.0-2.0); BASO % 0.6 % (0.0-3.0); EOS # 0.1 (0.0-0.7); EOS % 3.8 % (1.5-5.0); GRAN # 1.38 (1.4-6.5); GRAN % 40.2 % (50.0-68.0); LYMPH # 1.8 (1.2-3.4); LYMPH % 51.6 % (22.0-35.0); MEAN CELL VOLUME 93.4 fl (80.0-105.0); MEAN CORPUSCULAR HEMOGLOBIN 30.9 pg (25.0-35.0); MEAN PLATELET VOLUME 10.7 fl (7.0-11.0); MONO # 0.1 (0.1-0.6); MONO % 3.8 % (1.0-6.0); RED CELL DISTRIBUTION WIDTH 15.5 % (11.5-14.5); WHITE BLOOD COUNT 3.4 10^3/ul (4.5-11.0)
[2017-04-01 17:54] LABS: INR 1.21 (0.93-1.08); PARTIAL THROMBOPLASTIN TIME 26.7 Seconds (25.1-36.5)
[2017-04-01 18:00] LABS: HEMATOCRIT 22.7 % (36.0-48.0)
[2017-04-01] MEDS ORDERED: PIPERACILL IV SCH (18:00)
[2017-04-01] MEDS ORDERED: [UNRECOGNIZED DRUG - OTHER] IV SCH (18:00)
[2017-04-01] MEDS ORDERED: DEX IV SCH (18:00)
[2017-04-01] MEDS ORDERED: TAZO IV SCH (18:00)
[2017-04-01 18:06] LABS: TROPONIN I 0.02 ng/mL
[2017-04-01 18:09] LABS: ALB/GLOB RATIO 1.6 (1.1-1.8); ALKALINE PHOSPHATASE 57 U/L (38-126); ALT/SGPT 26 U/L (7-56); AST/SGOT 28 U/L (14-36); BILIRUBIN,TOTAL 1.2 mg/dL (0.2-1.3); BLOOD UREA NITROGEN 12 mg/dL (7-21); CALCIUM 8.3 mg/dL (8.4-10.5); CARBON DIOXIDE 27 mmol/L (21-33); CHLORIDE 105 mmol/L (98-107); GFR AFRICAN-AMERICAN > 60; GLUCOSE,RANDOM 91 mg/dL (70-110); POTASSIUM 3.5 mmol/L (3.6-5.0); SODIUM 137 mmol/L (132-148); TOTAL PROTEIN 4.7 g/dL (5.8-8.3)
[2017-04-01] MEDS ORDERED: Sodium Chloride 0.45% 1,000 ML IV SCH (18:15)
[2017-04-01] MEDS: Piperacillin/Tazobact 2.25gm 2.25 GM/100 ML BAG IVPB SCH (19:02)
[2017-04-01] MEDS: Clotrimazole/Betamethasone Cream(15 gm) TOP SCH (19:03)
[2017-04-01 23:00] VITALS: O2SAT 95
[2017-04-02] MEDS: Piperacillin/Tazobact 2.25gm 2.25 GM/100 ML BAG IVPB SCH (01:14)
--- NOTE | 2017-04-02 05:54 | HP ---
HISTORY OF PRESENT ILLNESS: I know Ruma Merida from seeing her at [facility] [place]. She was there for a right heel ulcer, which she was getting IV Zosyn for. On routine blood test, we found to have a 6.4 hemoglobin. She does have a history of anemia, but not that low which she is having today in the emergency room. She will need to get transfused. PAST MEDICAL HISTORY: She has a big medical history of anemia, coronary artery disease, CHF, COPD, osteoarthritis, dementia, hypertension, pneumonias, shingle history, cataracts. She has been multiple times blood transfused in the past. Red rash under folds, she needs to get some Lotrisone cream under the breast, history of arthritis, diverticulitis, cholecystectomy with incontinence of urinary tract. PAST SURGICAL HISTORY: She had appendectomy, cholecystectomy, coronary stents x3. FAMILY HISTORY: Unknown. SOCIAL HISTORY: No substance abuse. Never smoked alcohol. No drugs. ALLERGIES: ALLERGIC TO SULFA. MEDICATIONS: She takes Lasix, Lidoderm, and multiple other medications. I will renew them for her. REVIEW OF SYSTEMS: She is weak, in pain, comfortable. She has chronic pain. She is little fatigued. No acute vision or hearing loss. No sore throat. No neck pain. No chest pain or shortness of breath. No palpitations. No coughing, no congestion. No abdominal pain, nausea, vomiting, constipation, diarrhea. No headache, no dizziness, no focal weakness. As far as she is concerned, she has a healed ulcer on the right foot, otherwise her skin is okay. PHYSICAL EXAMINATION: VITAL SIGNS: She has a 98.5 temp, 63 pulse, 18 respiratory rate, 127/58 blood pressure, 96% O2 sat on room air. GENERAL: She is alert and oriented x3. Well appearing and comfortable. HEENT: Head is atraumatic, normocephalic. Extraocular muscles are intact. Pupils are equal and reactive to light. Throat is moist. NECK: Supple. HEART: Regular rate. Normal S1 and S2. LUNGS: Decreased breath sounds, but clear to auscultation. ABDOMEN: Soft. Nontender. Positive bowel sounds. No guarding. No rebound. No CVA tenderness. RECTAL: Normal tone. Guaiac is negative. EXTREMITIES: No edema. She can move all four extremities. NEUROLOGIC: GCS is 15. Cranial nerves II through XII grossly intact. Normal speech. SKIN: Warm and dry. No ulcers. No apparent rashes except for under the breast, we gave her some Lotrisone cream. PSYCHIATRIC: Alert and oriented x3 at this time. She has been confused in the past. DIAGNOSTIC DATA: EKG shows sinus bradycardia. Chest x-ray shows no infiltrates, borderline widened mediastinum. LABORATORY DATA: Are pending. Preliminary lab is back with an INR of 1.21. ASSESSMENT AND PLAN: She has a consult with GI and Podiatry. She will be on her medications. We will check her labs tomorrow. She will probably need to be transfused 2 units of packed red blood cells. I gave her some pain medications and stopped all the medications that are NSAIDs, that are p.o. I gave her some IV fluids and await the results of the hemoglobin and transfused 2 units of packed red blood cells tonight. She is anemic. GI consult and a foot doctor evaluation of the ulcer. Randell Pablo DO MTDD
[2017-04-02 08:24] LABS: HEMATOCRIT 29.8 % (36.0-48.0); MEAN CELL VOLUME 90.9 fl (80.0-105.0); MEAN CORPUSCULAR HEMOGLOBIN 31.1 pg (25.0-35.0); MEAN CORPUSCULAR HGB CONC 34.2 g/dl (31.0-37.0); MEAN PLATELET VOLUME 10.5 fl (7.0-11.0); PLATELET COUNT 73 10^3/uL (120.0-450.0); RED CELL DISTRIBUTION WIDTH 15.8 % (11.5-14.5); RETIC% 1.23 % (0.5-1.5); WHITE BLOOD COUNT 3.3 10^3/ul (4.5-11.0)
[2017-04-02 08:43] LABS: ALB/GLOB RATIO 1.6 (1.1-1.8); ALKALINE PHOSPHATASE 60 U/L (38-126); ALT/SGPT 30 U/L (7-56); AST/SGOT 27 U/L (14-36); BILIRUBIN,TOTAL 2.7 mg/dL (0.2-1.3); BLOOD UREA NITROGEN 15 mg/dL (7-21); CALCIUM 8.6 mg/dL (8.4-10.5); CARBON DIOXIDE 27 mmol/L (21-33); CHLORIDE 106 mmol/L (98-107); GFR AFRICAN-AMERICAN > 60; GLUCOSE,RANDOM 97 mg/dL (70-110); POTASSIUM 3.5 mmol/L (3.6-5.0); SODIUM 140 mmol/L (132-148); TOTAL PROTEIN 4.9 g/dL (5.8-8.3)
[2017-04-02 09:07] LABS: BASO # 0.02 K/mm3 (0.0-2.0); BASO % 0.6 % (0.0-3.0); EOS # 0.1 (0.0-0.7); EOS % 3.8 % (1.5-5.0); GRAN # 1.69 (1.4-6.5); GRAN % 52.9 % (50.0-68.0); LYMPH # 1.1 (1.2-3.4); LYMPH % 33.9 % (22.0-35.0); MONO # 0.3 (0.1-0.6); MONO % 8.8 % (1.0-6.0)
[2017-04-02] MEDS: Morphine 2 mg/ml ISec IVP PRN ×3 (09:20→17:27)
[2017-04-02] MEDS ORDERED: Piperacillin/Tazobact 2.25gm 2.25 GM/100 ML BAG IVPB SCH (09:45)
[2017-04-02] MEDS ORDERED: Verapamil 120 mg ER Tab PO SCH (10:00)
[2017-04-02] MEDS ORDERED: Metoprolol Succinate 50 mg XL Tab PO SCH (10:00)
[2017-04-02] MEDS ORDERED: Potassium Chloride 10 mEq ER Tab PO SCH (10:00)
--- NOTE | 2017-04-02 11:42 | CARD ---
APPROVED REPORT EKG Measurement Heart [id number] [id number] <Conclusion> Sinus bradycardia with sinus arrhythmia PRWP, probably lead placement NSSTW changes
[2017-04-02] MEDS: Clotrimazole/Betamethasone Cream(15 gm) TOP SCH ×2 (11:50→17:19)
--- NOTE | 2017-04-02 12:51 | CP.PCM.PN ---
Subjective - Date & Time of Evaluation Date of Evaluation: 04/02/17 Time of Evaluation: 07:45 - Subjective Subjective: PGY 4 Initial GI Consult Ruma Merida is a 81F is a w/ hx of lymphoma s/p chemo, COPD, CHD, HTN, CAD s /p 3 stents who presented to ER for loow hgb on blood work as an outpt. As per pt and hem/onc, pt was recently hospitalized at [facility] 2weeks ago for anemia. During that time, apparently she was given blood then discharged to [facility]. During routine blood work at [facility], pt was found to have a low hgb agaon. She denies any recent BRBPR, melena, hematachezia, or coffee-ground emesis. She denies any abd pain, nausea or vomiting. She was tolerating her diet without nausea or vomiting. Spoke with Dr. Brown, he believes that she is having a active hemolytic process. He recommend 2 units PRBC and eventual Rituxan as an outpt. She notes that she had a colonoscopy > 7 years ago, which revealed no significant findings. She also notes having an episode of diverticulitis 5 years ago. PMHx: lymphoma s/p chemo, COPD, CHD, HTN, CAD, diverticulitis, anemia PSHx: Social Hx: denies smoking, etoh use, and illicit drug use Family Hx: father: neck cancer?, denies any hx of colon cancer or eisenberg related cancers Endo hx: startes that her last colonoscopy was > 5 years ago and no sig findings Objective - Vital Signs/Intake and Output Vital Signs (last 24 hours): Temp Pulse Resp BP Pulse Ox 98.2 F 93 H 22 127/65 95 04/02/17 08:37 04/02/17 08:37 04/02/17 08:37 04/02/17 09:20 04/02/17 08:37 Intake and Output: 04/02/17 04/02/17 06:59 18:59 Intake Total 1625 Balance 1625 - Medications Medications: Current Medications Acetaminophen (Tylenol 325mg Tab) 650 mg PO Q4H PRN PRN Reason: Pain, moderate (4-7) Apixaban (Eliquis) 5 mg PO BID JANIYA PRN Reason: Protocol Last Admin: 04/02/17 09:19 Dose: 5 mg Betamethasone/Clotrimazole (Lotrisone) 0 gm TOP BID [facility] Last Admin: 04/02/17 11:50 Dose: 1 gm Donepezil HCl (Aricept) 5 mg PO HS [facility] Last Admin: 04/01/17 22:25 Dose: 5 mg Furosemide (Lasix) 20 mg PO QAM [facility] Last Admin: 04/02/17 09:20 Dose: 20 mg Sodium Chloride (Sodium Chloride 0.45%) 1,000 mls @ 40 mls/hr IV .Q24H [facility] Last Admin: 04/01/17 18:50 Dose: 40 mls/hr Piperacillin Sod/Tazobactam Sod (Zosyn 2.25 Gm In 0.9% 100 Ml) 2.25 gm in 100 mls @ 100 mls/hr IVPB Q8H [facility] PRN Reason: Protocol Stop: 04/02/17 18:44 Last Admin: 04/02/17 10:44 Dose: 100 mls/hr Isosorbide Mononitrate (Imdur Er) 30 mg PO DAILY [facility] Last Admin: 04/02/17 09:20 Dose: 30 mg Ketorolac Tromethamine (Toradol) 30 mg IVP Q6H PRN PRN Reason: Pain, moderate (4-7) Last Admin: 04/02/17 05:58 Dose: 30 mg Metoprolol Succinate (Toprol Xl) 50 mg PO DAILY [facility] Last Admin: 04/02/17 09:19 Dose: 50 mg Morphine Sulfate (Morphine) 1 mg IVP Q3H PRN PRN Reason: Pain, moderate (4-7) Last Admin: 04/02/17 09:20 Dose: 1 mg Potassium Chloride (Klor-Con 10) 10 meq PO DAILY [facility] Last Admin: 04/02/17 09:19 Dose: 10 meq Verapamil HCl (Calan Sr Tab) 120 mg PO QAM [facility] Last Admin: 04/02/17 09:20 Dose: 120 mg - Labs Labs: 04/02/17 08:15 04/02/17 08:15 PT 13.2 SECONDS (9.4-12.5) H 04/01/17 17:30 INR 1.21 (0.93-1.08) H 04/01/17 17:30 APTT 26.7 Seconds (25.1-36.5) 04/01/17 17:30
--- NOTE | 2017-04-02 12:56 | CP.PCM.CON ---
<Tevin Morris - Last Filed: 04/02/17 12:52> History of Present Illness - History of Present Illness History of Present Illness: PGY 4 Initial GI Consult Ruma Merida is a 81F is a w/ hx of lymphoma s/p chemo, COPD, CHD, HTN, CAD s /p 3 stents who presented to ER for loow hgb on blood work as an outpt. As per pt and hem/onc, pt was [place] [facility] for [place]. During that time, apparently she was given blood then discharged to [facility]. During routine blood work at [facility], pt was found to have a low hgb agaon. She denies any recent BRBPR, melena, hematachezia, or coffee-ground emesis. She denies any abd pain, nausea or vomiting. She was tolerating her diet without nausea or vomiting. Spoke with Dr. Brown, he believes that she is having a active hemolytic process. He recommend 2 units PRBC and eventual Rituxan as an outpt. She notes that she had a colonoscopy > 7 years ago, which revealed no significant findings. She also notes having an episode of diverticulitis 5 years ago. PMHx: CLL? s/p chemo, COPD, CHD, HTN, CAD, diverticulitis, anemia PSHx: Lumbar fusion, lap yandel Social Hx: denies smoking, etoh use, and illicit drug use Family Hx: father: neck cancer?, denies any hx of colon cancer or eisenberg related cancers Endo hx: startes that her last colonoscopy was > 5 years ago and no sig findings ROS: 12 point ROS was conducted, neg other than above Past Patient History - Infectious Disease Hx of Infectious Diseases: None - Tetanus Immunizations Tetanus Immunization: Unknown - Past Medical History & Family History Past Medical History?: Yes - Past Social History Smoking Status: Never Smoked - CARDIAC Hx Cardiac Disorders: Yes Hx Congestive Heart Failure: Yes Hx Hypertension: Yes - PULMONARY Hx Respiratory Disorders: Yes Hx Chronic Obstructive Pulmonary Disease (COPD): Yes Hx Pneumonia: Yes - NEUROLOGICAL Hx Neurological Disorder: Yes Other/Comment: SHINGLES H/O - HEENT Hx HEENT Problems: Yes Hx Cataracts: Yes - RENAL Hx Chronic Kidney Disease: No - ENDOCRINE/METABOLIC Hx Endocrine Disorders: No - HEMATOLOGICAL/ONCOLOGICAL Hx Blood Disorders: Yes Hx Anemia: Yes (blood transfusion) - INTEGUMENTARY Hx Dermatological Problems: Yes Other/Comment: red rash under abd fold, b/l groin and under both breasts, bruise to left upper thigh - MUSCULOSKELETAL/RHEUMATOLOGICAL Hx Falls: No - GASTROINTESTINAL Hx Gastrointestinal Disorders: Yes Hx Diverticulitis: Yes Hx Gall Bladder Disease: Yes (CHOLECYSTECTOMY) - GENITOURINARY/GYNECOLOGICAL Hx Genitourinary Disorders: Yes Hx Incontinence: Yes Hx Urinary Tract Infection: Yes - PSYCHIATRIC Hx Psychophysiologic Disorder: No - SURGICAL HISTORY Hx Appendectomy: Yes Hx Cholecystectomy: Yes Hx Coronary Stent: Yes (x3) - ANESTHESIA Hx Anesthesia: Yes Hx Anesthesia Reactions: No Hx Malignant Hyperthermia: No Meds Allergies/Adverse Reactions: Allergies Allergy/AdvReac Type Severity Reaction Status Date / Time Sulfa (Sulfonamide Allergy Intermediate RASH Verified 04/01/17 20:19 Antibiotics) - Medications Medications: Current Medications Acetaminophen (Tylenol 325mg Tab) 650 mg PO Q4H PRN PRN Reason: Pain, moderate (4-7) Apixaban (Eliquis) 5 mg PO BID [facility] PRN Reason: Protocol Last Admin: 04/02/17 09:19 Dose: 5 mg Betamethasone/Clotrimazole (Lotrisone) 0 gm TOP BID [facility] Last Admin: 04/02/17 11:50 Dose: 1 gm Donepezil HCl (Aricept) 5 mg PO HS [facility] Last Admin: 04/01/17 22:25 Dose: 5 mg Furosemide (Lasix) 20 mg PO QAM [facility] Last Admin: 04/02/17 09:20 Dose: 20 mg Sodium Chloride (Sodium Chloride 0.45%) 1,000 mls @ 40 mls/hr IV .Q24H [facility] Last Admin: 04/01/17 18:50 Dose: 40 mls/hr Piperacillin Sod/Tazobactam Sod (Zosyn 2.25 Gm In 0.9% 100 Ml) 2.25 gm in 100 mls @ 100 mls/hr IVPB Q8H [facility] PRN Reason: Protocol Stop: 04/02/17 18:44 Last Admin: 04/02/17 10:44 Dose: 100 mls/hr Isosorbide Mononitrate (Imdur Er) 30 mg PO DAILY [facility] Last Admin: 04/02/17 09:20 Dose: 30 mg Ketorolac Tromethamine (Toradol) 30 mg IVP Q6H PRN PRN Reason: Pain, moderate (4-7) Last Admin: 04/02/17 05:58 Dose: 30 mg Metoprolol Succinate (Toprol Xl) 50 mg PO DAILY [facility] Last Admin: 04/02/17 09:19 Dose: 50 mg Morphine Sulfate (Morphine) 1 mg IVP Q3H PRN PRN Reason: Pain, moderate (4-7) Last Admin: 04/02/17 09:20 Dose: 1 mg Potassium Chloride (Klor-Con 10) 10 meq PO DAILY [facility] Last Admin: 04/02/17 09:19 Dose: 10 meq Verapamil HCl (Calan Sr Tab) 120 mg PO QAM [facility] Last Admin: 04/02/17 09:20 Dose: 120 mg Physical Exam - Constitutional Appears: No Acute Distress - Head Exam Head Exam: ATRAUMATIC, NORMOCEPHALIC - Eye Exam Eye Exam: Normal appearance - ENT Exam ENT Exam: Mucous Membranes Moist - Neck Exam Neck exam: Positive for: Normal Inspection - Respiratory Exam Respiratory Exam: Clear to Auscultation Bilateral, NORMAL BREATHING PATTERN. absent: Rales, Rhonchi, Wheezes, Respiratory Distress - Cardiovascular Exam Cardiovascular Exam: REGULAR RHYTHM, +S1, +S2 - GI/Abdominal Exam GI & Abdominal Exam: Normal Bowel Sounds, Soft. absent: Firm, Guarding, Hernia , Hypoactive Bowel Sounds, Organomegaly - Rectal Exam Rectal Exam: NORMAL INSPECTION. absent: Black Stool, Bloody Stool, Fecal Impaction - Extremities Exam Extremities exam: Negative for: joint swelling, pedal edema - Neurological Exam Neurological exam: Alert, Oriented x3 - Psychiatric Exam Psychiatric exam: Normal Affect, Normal Mood - Skin Skin Exam: Dry, Intact, Normal Color, Warm Results - Vital Signs Recent Vital Signs: Last Vital Signs Temp 98.2 F 04/02/17 08:37 Pulse 93 H 04/02/17 08:37 Resp 22 04/02/17 08:37 BP 127/65 04/02/17 09:20 Pulse Ox 95 04/02/17 08:37 - Labs Result Diagrams: 04/02/17 08:15 04/02/17 08:15 Labs: Laboratory Results - last 24 hr 04/02/17 04/02/17 08:15 08:15 WBC 3.3 L RBC 3.28 L Hgb 10.2 L D Hct 29.8 L MCV 90.9 MCH 31.1 MCHC 34.2 RDW 15.8 H Plt Count 73 L MPV 10.5 Gran % 52.9 Lymph % (Auto) 33.9 [place] % (Auto) 8.8 H Eos % (Auto) 3.8 Baso % (Auto) 0.6 Gran # 1.69 Lymph # 1.1 L [place] # 0.3 Eos # 0.1 Baso # 0.02 Retic Count 1.23 Sodium 140 Potassium 3.5 L Chloride 106 Carbon Dioxide 27 Anion Gap 11 BUN 15 Creatinine 0.9 Est GFR ( Amer) > 60 Est GFR (Non-Af Amer) > 60 Random Glucose 97 Calcium 8.6 Total Bilirubin 2.7 H AST 27 ALT 30 Alkaline Phosphatase 60 Total Protein 4.9 L Albumin 3.0 Globulin 1.8 Albumin/Globulin Ratio 1.6 Assessment & Plan - Assessment and Plan (Free Text) Assessment: Ruma Merida is a 81F w/ hx of CLL, autoimmune anemia, HTN, HL, COPD who presented to the ED for low hgb. 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 No clinical sign of GI bleed Hemolytic anemia Hx of diverticulitis Diverticulosis Plan: Plan: -will defer any endoscopy for now, since no report of GI bleed -etiology likely hemolytic with sig documented drop from hgb of ~10 in February to nor 7.5 with elevated LDH -will fractionate bilirubin -defer treatment to hem/onc -if pt has any report of GI bleed, will proceed to EGD and colonoscopy -continue current diet -Pepcid PRN D/W Dr. Velazquez <Crow Velazquez - Last Filed: 04/02/17 13:08> Meds - Medications Medications: Current Medications Acetaminophen (Tylenol 325mg Tab) 650 mg PO Q4H PRN PRN Reason: Pain, moderate (4-7) Apixaban (Eliquis) 5 mg PO BID [facility] PRN Reason: Protocol Last Admin: 04/02/17 09:19 Dose: 5 mg Betamethasone/Clotrimazole (Lotrisone) 0 gm TOP BID [facility] Last Admin: 04/02/17 11:50 Dose: 1 gm Donepezil HCl (Aricept) 5 mg PO HS [facility] Last Admin: 04/01/17 22:25 Dose: 5 mg Furosemide (Lasix) 20 mg PO QAM [facility] Last Admin: 04/02/17 09:20 Dose: 20 mg Sodium Chloride (Sodium Chloride 0.45%) 1,000 mls @ 40 mls/hr IV .Q24H [facility] Last Admin: 04/01/17 18:50 Dose: 40 mls/hr Piperacillin Sod/Tazobactam Sod (Zosyn 2.25 Gm In 0.9% 100 Ml) 2.25 gm in 100 mls @ 100 mls/hr IVPB Q8H [facility] PRN Reason: Protocol Stop: 04/02/17 18:44 Last Admin: 04/02/17 10:44 Dose: 100 mls/hr Isosorbide Mononitrate (Imdur Er) 30 mg PO DAILY [facility] Last Admin: 04/02/17 09:20 Dose: 30 mg Ketorolac Tromethamine (Toradol) 30 mg IVP Q6H PRN PRN Reason: Pain, moderate (4-7) Last Admin: 04/02/17 05:58 Dose: 30 mg Metoprolol Succinate (Toprol Xl) 50 mg PO DAILY [facility] Last Admin: 04/02/17 09:19 Dose: 50 mg Morphine Sulfate (Morphine) 1 mg IVP Q3H PRN PRN Reason: Pain, moderate (4-7) Last Admin: 04/02/17 09:20 Dose: 1 mg Potassium Chloride (Klor-Con 10) 10 meq PO DAILY [facility] Last Admin: 04/02/17 09:19 Dose: 10 meq Verapamil HCl (Calan Sr Tab) 120 mg PO QAM [facility] Last Admin: 04/02/17 09:20 Dose: 120 mg Results - Vital Signs Recent Vital Signs: Last Vital Signs Temp 98.2 F 04/02/17 08:37 Pulse 93 H 04/02/17 08:37 Resp 22 04/02/17 08:37 BP 127/65 04/02/17 09:20 Pulse Ox 95 04/02/17 08:37 - Labs Result Diagrams: 04/02/17 08:15 04/02/17 08:15 Labs: Laboratory Results - last 24 hr 04/02/17 04/02/17 08:15 08:15 WBC 3.3 L RBC 3.28 L Hgb 10.2 L D Hct 29.8 L MCV 90.9 MCH 31.1 MCHC 34.2 RDW 15.8 H Plt Count 73 L MPV 10.5 Gran % 52.9 Lymph % (Auto) 33.9 [place] % (Auto) 8.8 H Eos % (Auto) 3.8 Baso % (Auto) 0.6 Gran # 1.69 Lymph # 1.1 L [place] # 0.3 Eos # 0.1 Baso # 0.02 Retic Count 1.23 Sodium 140 Potassium 3.5 L Chloride 106 Carbon Dioxide 27 Anion Gap 11 BUN 15 Creatinine 0.9 Est GFR ( Amer) > 60 Est GFR (Non-Af Amer) > 60 Random Glucose 97 Calcium 8.6 Total Bilirubin 2.7 H AST 27 ALT 30 Alkaline Phosphatase 60 Total Protein 4.9 L Albumin 3.0 Globulin 1.8 Albumin/Globulin Ratio 1.6 Attending/Attestation - Attestation I have personally seen and examined this patient.: Yes I have fully participated in the care of the patient.: Yes I have reviewed all pertinent clinical information: Yes Notes (Text): 04/02/17 13:06 81 year old female with h/o CLL, h/o hemolytic anemia, COPD, HTN, HL a/w anemia. 1. Hemolytic anemia Plan: -no signs of GI bleeding, no indication for endoscopy -defer management of hemolysis to Heme -per patient, plans for rituxan -supportive care -anemia improved with transfusion -will sign off
--- NOTE | 2017-04-02 14:17 | PN ---
DATE: SUBJECTIVE: I saw Ruma resting comfortably in her bed. She tells me she gets some different pain medication. I am going to put her on some morphine sulfate. She also states she was seen by Dr. Brown who is going to start her on some chemo. PHYSICAL EXAMINATION: VITAL SIGNS: Temperature 98.2, 93 pulse, 127/65 blood pressure, 22 respiratory rate, and 95% O2 sat on room air. HEENT: Head is atraumatic and normocephalic. GENERAL: Alert, eating hungry. HEART: Regular rate. LUNGS: Clear to auscultation. ABDOMEN: Soft. EXTREMITIES: No edema. MEDICATIONS: She is on Aricept, Calan, Eliquis, Imdur, potassium, Lasix, morphine now, IV fluids, Toprol, Toradol, and Tylenol. LABORATORY DATA: She has 140 sodium, potassium 3.5, given some potassium, BUN 15, creatinine 0.9, GFR is greater than 60, sugar 97, calcium is 8.6, total bilirubin is 2.7, AST is 27, ALT is 30, and alkaline phosphatase is 60. Troponin I was 0.02. Total protein is 4.9. INR is 1.21. White count is 3.3, hemoglobin is 10.2 2 units of packed red blood cells, it was 7.5, hematocrit is 29.8, and platelets are low at 73. There are consults for GI, Podiatry that is for the right foot heel ulcer, Hematology, and Oncology. I am going to continue the Zosyn, it apparently fell off. She came from [facility] for subacute rehab, I am hoping to get her back there. On the sudden changes I only see, no dictations from anybody, I am not sure what the other consults are doing. I will give them a call. She has got anemia, which improved with transfusions, CHF, COPD, and right foot heel ulcer. Randell Pablo DO MTDD
[2017-04-02 16:28] VITALS: BP 164/79; PULSE 97; RESP 20; TEMP 98.4
--- NOTE | 2017-04-03 08:10 | CON ---
DATE: 04/02/2017 HISTORY OF PRESENT ILLNESS: This is an 81-year-old female seen for right heel ulceration. The patient is seen at bedside. She is on neutropenic precautions. PAST MEDICAL HISTORY: The patient has history of lymphoma with chemotherapy. She has history of COPD, hypertension, cardiac disease, she has had 3 stents and she also has a history of diverticulitis and anemia. PAST SURGICAL HISTORY: Positive for lumbar fusion and laparoscopic cholecystectomy. SOCIAL HISTORY: Negative for smoking. Negative for EtOH. She is presently residing at [facility] where is receiving IV antibiotics. REVIEW OF SYSTEMS: Negative other than what is noted above. She was noted to have low hemoglobin while at [facility] and she denies any fever or chills, nausea or vomiting. PHYSICAL EXAMINATION: VITAL SIGNS: Reviewed. Her temperature is 98.4, her pulse is 97, blood pressure is 164/79, respirations about 20 and oxygen saturation was 95. MEDICATIONS: Noted on the JUN. She is presently on Zosyn, which she was receiving at the alf. ALLERGIES: THE PATIENT HAS AN ALLERGY TO SULFA MEDICATIONS. LABORATORY DATA: Reviewed. Her white blood cell count is 3.3, H and H is 10.2 and 29.8, the patient did come in with 7.5 hemoglobin and 22.7 hematocrit and the patient's platelets are 73. The patient's chemistry shows a sodium of 140, potassium is 3.5, BUN and creatinine 15 and 0.9 and random glucose is 97. The patient's microbiology none have been done. The patient's chart was reviewed, it appears that the patient has previously been in the hospital and her lower extremity was worked up in 02/2017, at that time, she had a duplex scan of her arteries and no blockages were noted at that time and venous Doppler was noted and there was compressible thrombus noted. The patient also had a bone scan at that time and a foot x-ray both were negative for osteomyelitis. I do not see any arterial Doppler studies, which will be ordered at this visit. The patient has nonpalpable pedal pulses. She has 3-second x10 capillary refill time to her lower extremity. She has dried eschars on the tips of both toes, very thin, apparently they look like erupted blisters that have gone on to heal. She has thin shiny skin bilaterally. Neurological sensation is intact, movement of her legs and lifting of her legs causes her pain and I am not sure exactly if the pain is coming from her foot, I suspect it is probably coming from the lumbar fusions. She has a necrotic ulceration on the lateral right heel measuring approximately 4.5 x 1 cm, it is a nonstageable ulcer at this time. There is no cellulitis and no purulent. There was minimal drainage and the tissue is soft necrotic tissue; however, it is not malodorous or boggy. ASSESSMENT: Non-stageable right heel ulcer, peripheral vascular disease. PLAN OF TREATMENT: We ordered CRP, ESR to see inflammatory markers. We also going to order arterial Doppler studies and if we can get a culture, a culture will be ordered from that foot. The patient is in foam heel boots, we did order a better offloading boot for her and she will be seen and followed. Pema Cordero DPM
== END 2017-04-02 18:25 ==
LOC: ED 16:44 → ERH 18:11 → UNDOADMOB 19:33 → ERH 19:47 → 3RNO 21:27 → UNDODISOB 04-02 18:25
PROVIDERS: ADMIT Family Medicine; ATTEND Family Medicine
DX: D61.818 Other pancytopenia (principal); D59.1 Other autoimmune hemolytic anemias; L97.419 Non-pressure chronic ulcer of right heel and midfoot with unspecified severity; J44.9 Chronic obstructive pulmonary disease, unspecified; I50.9 Heart failure, unspecified; I11.0 Hypertensive heart disease with heart failure; I25.10 Atherosclerotic heart disease of native coronary artery without angina pectoris; F03.90 Unspecified dementia, unspecified severity, without behavioral disturbance, psychotic disturbance, mood disturbance, and anxiety; I73.9 Peripheral vascular disease, unspecified; M19.90 Unspecified osteoarthritis, unspecified site; K57.90 Diverticulosis of intestine, part unspecified, without perforation or abscess without bleeding; H26.9 Unspecified cataract; Z88.2 Allergy status to sulfonamides; Z92.21 Personal history of antineoplastic chemotherapy; Z85.72 Personal history of non-Hodgkin lymphomas; Z95.5 Presence of coronary angioplasty implant and graft
CPT/HCPCS: 36415; 36430; 71010; 80053; 82550; 83615; 84484; 85025; 85044; 85610; 85730; 86850; 86900; 86920; 86921; 86922; 93005; 96365; 96375; 99283; G0378; J1885; J1940; J2270; J2543; J3480; J7030; P9016

== ENCOUNTER 2017-06-27 06:40 | Inpatient (IN) | payer MEDICARE ==
[2017-06-27] MEDS ORDERED: Albuterol-Ipratrop 3 mg / 0.5 (3 ml) UD IH STA (07:25)
--- NOTE | 2017-06-27 07:30 | ED PDOC ---
Arrival/HPI - General Chief Complaint: Chest Pain Time Seen by Provider: 06/27/17 07:17 Historian: Patient - History of Present Illness Narrative History of Present Illness (Text): 06/27/17 07:20 A 81 year old female, whose past medical history includes COPD, asthma, 3 cardiac stents, CHF, hypertension, and lymphoma, presents to the emergency department complaining of shortness of breath and chest pain starting at 05:00 this morning. Patient reports symptoms feel similar to when experiencing asthma and COPD. Notes also experiencing some nausea. Patient denies any vomiting, chills, dizziness, or any other complaints at this time. Also, patient was giveen full dose of Aspirin on route by EMS. PMD: Dr. Ming Hicks Time/Duration: Other (05:00 this morning) Symptom Onset: Sudden Symptom Course: Unchanged Past Medical History - Provider Review Nursing Documentation Reviewed: Yes - Infectious Disease Hx of Infectious Diseases: None - Tetanus Immunization Tetanus Immunization: Unknown - Cardiac Hx Cardiac Disorders: Yes Hx Angina: Yes Hx Congestive Heart Failure: Yes Hx Hypertension: Yes - Pulmonary Hx Respiratory Disorders: Yes Hx Chronic Obstructive Pulmonary Disease (COPD): Yes Hx Pneumonia: Yes - Neurological Hx Neurological Disorder: No - HEENT Hx HEENT Disorder: Yes Hx Cataracts: Yes - Renal Hx Renal Disorder: No - Endocrine/Metabolic Hx Endocrine Disorders: No - Hematological/Oncological Hx Blood Disorders: Yes Hx Anemia: Yes (blood transfusion) Hx Lymphoma: Yes - Integumentary Hx Dermatological Disorder: Yes - Musculoskeletal/Rheumatological Hx Arthritis: Yes Hx Falls: No - Gastrointestinal Hx Gastrointestinal Disorders: Yes Hx Diverticulitis: Yes Hx Gall Bladder Disease: Yes (CHOLECYSTECTOMY) - Genitourinary/Gynecological Hx Genitourinary Disorders: Yes Hx Incontinence: Yes Hx Urinary Tract Infection: Yes - Psychiatric Hx Psychophysiologic Disorder: No Hx Substance Use: No - Surgical History Hx Appendectomy: Yes Hx Cholecystectomy: Yes Hx Coronary Stent: Yes (x3) Hx Hysterectomy: Yes - Anesthesia Hx Anesthesia: Yes Hx Anesthesia Reactions: No Hx Malignant Hyperthermia: No - Suicidal Assessment Feels Threatened In Home Enviroment: No Family/Social History - Physician Review Nursing Documentation Reviewed: Yes Family/Social History: No Known Family HX Smoking Status: Never Smoked Hx Alcohol Use: No Hx Substance Use: No Substance used: demerol PO Q4H Hx Substance Use Treatment: No Allergies/Home Meds Allergies/Adverse Reactions: Allergies Sulfa (Sulfonamide Antibiotics) Allergy (Intermediate, Verified 06/27/17 06:51) RASH Home Medications: Home Meds Medication Instructions Recorded Confirmed Lidocaine 5% [Lidoderm] 1 patch TP DAILY 05/23/15 06/26/17 Albuterol HFA [Ventolin HFA 90 INH DAILY PRN 04/02/17 mcg/actuation (8 g)] Meperidine HCl [Demerol] 50 mg PO TID PRN 04/02/17 06/26/17 Aspirin 81 mg PO DAILY 06/26/17 06/26/17 Review of Systems - Physician Review All systems were reviewed & negative as marked: Yes - Review of Systems Constitutional: absent: Night Sweats Respiratory: SOB Cardiovascular: Chest Pain Gastrointestinal: Nausea. absent: Vomiting Neurological: absent: Dizziness Physical Exam - Physical Exam Narrative Physical Exam (Text): Constitutional: No acute distress. Head: Normocephalic. Atraumatic. Eyes: PERRL. ENT: Dry mucous membranes. Neck: Supple. Cardiovascular: Regular rate. Chest: No tenderness. Respiratory: Mild wheezing diffusely. GI: Soft. Nontender. Nondistended. Back: No CVA tenderness. Soft mass right upper back. Musculoskeletal: No tenderness or swelling of extremities. Intact dressing to right lower leg, clean and dry. Skin: No rash. Neurologic: Alert, no focal deficit. Vital Signs Temp Pulse Resp BP Pulse Ox 06/27/17 07:11 94 H 18 144/81 98 06/27/17 06:52 98.3 F 96 H 22 144/81 96 Medical Decision Making ED Course and Treatment: 06/27/17 07:24 Impression: 81 year old female with shortness of breath and chest pain. Physical exam shows dry mucous membranes; mild wheezing diffusely; soft mass right upper back; intact dressing on right lower leg, clean and dry. Plan: -- EKG -- Chest X-ray -- Labs -- Duoneb -- Toradol -- SOLU-Medrol -- Zofran -- Reassess and disposition Prior Visits: Notes and results from previous visits were reviewed. Patient was last seen in the emergency department on 04/01/2017 for generalized weakness and fatigue. Patient was admitted. Progress Notes: 06/27/2017 08:14 Chest X-ray IMPRESSION: No active disease. Dictator: Rambo De La Cruz MD EKG Sinus tachycardia 103 bpm, biphasic T waves anterior, flattened T waves laterally, no ST elevations - Lab Interpretations Lab Results: 06/27/17 07:30 06/27/17 07:30 Lab Results 06/27/17 07:30: Blood Type Pending, Antibody Screen Pending, BBK History Checked Patient has bt 06/27/17 07:30: Sodium 142, Potassium 3.4 L, Chloride 107, Carbon Dioxide 26, Anion Gap 12, BUN 17, Creatinine 0.6 L, Est GFR ( Amer) > 60, Est GFR ( Non-Af Amer) > 60, Random Glucose 113 H, Calcium 9.1, Total Bilirubin 1.0, AST 15, ALT 23, Alkaline Phosphatase 58, Total Creatine Kinase < 20 L, Troponin I 0.02, NT-Pro-B Natriuret Pep 8100 H, Total Protein 5.1 L, Albumin 3.3, Globulin 1.8, Albumin/Globulin Ratio 1.9 H 06/27/17 07:30: PT 13.2 H, INR 1.14 H, APTT 26.6 06/27/17 07:30: WBC 2.9 L*, RBC 2.59 L, Hgb 8.1 L D, Hct 24.8 L, MCV 95.8 D, MCH 31.3, MCHC 32.7, RDW 17.0 H, Plt Count 115 L, MPV 10.5, Gran % 30.2 L, Lymph % (Auto) 59.5 H, [place] % (Auto) 9.3 H, Eos % (Auto) 0.7 L, Baso % (Auto) 0.3, Gran # 0.87 L, Lymph # (Auto) 1.7, [place] # (Auto) 0.3, Eos # (Auto) 0.0, Baso # (Auto) 0.01 I have reviewed the lab results: Yes - RAD Interpretation Radiology Orders: 06/27/17 07:24 CHEST PORTABLE [RAD] Stat - Medication Orders Current Medication Orders: Discontinued Medications Albuterol/Ipratropium (Duoneb 3 Mg/0.5 Mg (3 Ml) Ud) 3 ml IH STAT STA Stop: 06/27/17 07:26 Last Admin: 06/27/17 07:52 Dose: 3 ml Ketorolac Tromethamine (Toradol) 10 mg IVP STAT STA Stop: 06/27/17 07:43 Last Admin: 06/27/17 07:51 Dose: 10 mg MAR Pain Assessment Document 06/27/17 07:51 SZA (Rec: 06/27/17 07:52 SZA [id number]) Pain Reassessment Is this a pain reassessment? No Sleep Is patient sleeping during reassessment? No Presence of Pain Presence of Pain Yes Pain Scale Used Pain Scale Used Numeric Description Description Intermittent Intensity of Pain at present 7 IVP Administration Document 06/27/17 07:51 SZA (Rec: 06/27/17 07:52 SZA [id number]) Charges for Administration # of IVP Administrations 1 Methylprednisolone (Solu-Medrol) 125 mg IVP STAT STA Stop: 06/27/17 07:26 Last Admin: 06/27/17 07:51 Dose: 125 mg IVP Administration Document 06/27/17 07:51 SZA (Rec: 06/27/17 07:51 SZA [id number]) Charges for Administration # of IVP Administrations 1 Ondansetron HCl (Zofran Inj) 4 mg IVP STAT STA Stop: 06/27/17 07:25 Last Admin: 06/27/17 07:52 Dose: 4 mg IVP Administration Document 06/27/17 07:52 SZA (Rec: 06/27/17 07:52 SZA [id number]) Charges for Administration # of IVP Administrations 1 - Scribe Statement The provider has reviewed the documentation as recorded by the Emerson Vega Provider Scribe Attestation: All medical record entries made by the Emerson were at my direction and personally dictated by me. I have reviewed the chart and agree that the record accurately reflects my personal performance of the history, physical exam, medical decision making, and the department course for this patient. I have also personally directed, reviewed, and agree with the discharge instructions and disposition. Disposition/Present on Arrival - Present on Arrival Any Indicators Present on Arrival: No History of DVT/PE: No History of Uncontrolled Diabetes: No Urinary Catheter: No History of Decub. Ulcer: No History Surgical Site Infection Following: None - Disposition Have Diagnosis and Disposition been Completed?: Yes Diagnosis: COPD exacerbation, Chest pain Disposition: HOSPITALIZED Disposition Time: 08:13 Patient Plan: Admission, Telemetry Condition: GUARDED
[2017-06-27 07:52] LABS: BASO # 0.01 K/mm3 (0.0-2.0); BASO % 0.3 % (0.0-3.0); EOS % 0.7 % (1.5-5.0); GRAN # 0.87 (1.4-6.5); GRAN % 30.2 % (50.0-68.0); HEMOGLOBIN 8.1 g/dL (12.0-16.0); LYMPH # 1.7 (1.2-3.4); LYMPH % 59.5 % (22.0-35.0); MEAN CELL VOLUME 95.8 fl (80.0-105.0); MEAN CORPUSCULAR HEMOGLOBIN 31.3 pg (25.0-35.0); MEAN CORPUSCULAR HGB CONC 32.7 g/dl (31.0-37.0); MEAN PLATELET VOLUME 10.5 fl (7.0-11.0); MONO # 0.3 (0.1-0.6); MONO % 9.3 % (1.0-6.0); RBC 2.59 10^6/uL (3.5-6.1)
[2017-06-27 07:55] LABS: WHITE BLOOD COUNT 2.9 10^3/ul (4.5-11.0)
[2017-06-27 08:00] LABS: ALB/GLOB RATIO 1.9 (1.1-1.8); ALBUMIN 3.3 g/dL (3.0-4.8); ALT/SGPT 23 U/L (7-56); AST/SGOT 15 U/L (14-36); BLOOD UREA NITROGEN 17 mg/dL (7-21); CALCIUM 9.1 mg/dL (8.4-10.5); GFR AFRICAN-AMERICAN > 60; GFR NON-AFRICAN AMERICAN > 60; INR 1.14 (0.93-1.08); PARTIAL THROMBOPLASTIN TIME 26.6 Seconds (25.1-36.5); PROTHROMBIN TIME 13.2 SECONDS (9.4-12.5)
[2017-06-27 08:11] LABS: B-TYPE NATRIURETIC PEPTIDE 8100 pg/mL (0-450); TROPONIN I 0.02 ng/mL
--- NOTE | 2017-06-27 08:16 | RAD ---
HISTORY: chest pain, dyspnea COMPARISON: 04/01/2017 FINDINGS: LUNGS: No active pulmonary disease. PLEURA: No significant pleural effusion identified, no pneumothorax apparent. CARDIOVASCULAR: Right central venous infusion port. Normal heart size. No congestive change. OSSEOUS STRUCTURES: No significant abnormalities. VISUALIZED UPPER ABDOMEN: Normal. OTHER FINDINGS: None. IMPRESSION: No active disease.
--- NOTE | 2017-06-27 11:37 | CARD ---
APPROVED REPORT EKG Measurement Heart [id number] <Conclusion> Sinus tachycardia Possible Left atrial enlargement Possible IMI, age unknown STTW changes c/w ischemia, new
[2017-06-27 13:00] VITALS: BMI 25.4
[2017-06-27] MEDS ORDERED: Pneumococcal 23-Valent Vaccine IM ONE (13:04)
[2017-06-27] MEDS ORDERED: Influenza Vaccine 60 mcg/0.5 mL SYR (4YR UP) IM ONE (13:04)
[2017-06-27] MEDS: Potassium Chloride 20 mEq ER Tab PO SCH (14:14)
[2017-06-27] MEDS: Morphine 2 mg/ml ISec IVP PRN ×3 (14:15→21:52)
[2017-06-28] MEDS: Morphine 2 mg/ml ISec IVP PRN ×6 (00:08→20:06)
--- NOTE | 2017-06-28 01:07 | CON ---
DATE: 06/27/2017 HISTORY OF PRESENT ILLNESS: The patient is an 81-year-old woman who presents with sudden shortness of breath this morning. Patient's past medical history is notable for hypertension, documented coronary artery disease with a critical lesion in the mid LAD, which had concentric calcification and inability to dilatation. Patient refuses Rotablator treatment and also refused coronary bypass surgery. The patient has just recently been discharged from a rehab facility for a neurologic deficit. Last night, the patient had a meatball sandwich, which is high in sodium. Patient suffers from hypercholesterolemia. SOCIAL HISTORY: She does not smoke. REVIEW OF SYSTEMS: Reviewed in detail. Her dyspnea is better. Negative edema. No angina and no paroxysmal dizziness. PHYSICAL EXAMINATION: Blood pressure 140/82, heart rates in the 80s. NECK: Negative JVD. LUNGS: Without rales. HEART: Reveal S1, S2. EXTREMITIES: Without edema. LABORATORY DATA: Hemoglobin is 8.1, white count is 2.9. Chemistries: ProBNP is 8100. Troponin is 0.02. EKG shows no acute changes. IMPRESSION: 1. Acute systolic congestive heart failure. 2. Documented coronary artery disease. 3. No evidence for acute coronary syndrome. 4. Borderline diabetes mellitus. 5. Weakness. 6. Anemia. Given these findings, I have discussed with the patient about the need to change her diet to low-salt diet. We will repeat an echocardiogram today. I agree with MARV Lackey. Rambo Thomson MD
[2017-06-28] MEDS: Pantoprazole 40 mg EC Tab PO SCH (05:06)
[2017-06-28] MEDS: Potassium Chloride 20 mEq ER Tab PO SCH (08:28)
--- NOTE | 2017-06-28 08:54 | HP ---
HISTORY OF PRESENT ILLNESS: Patient is an 81-year-old female admitted through the emergency department on 06/27/2017, with complaints of chest pain and shortness of breath. The patient was seen in the emergency room treated with a dose of IV Solu-Medrol as well as nebulizer treatments. Troponin was 0.02. BNP was elevated at greater than 4000. The patient was admitted to the telemetry unit for further observation and management. PAST MEDICAL HISTORY: Includes coronary artery disease status post stent placement x3, COPD, chronic lymphocytic leukemia, degenerative joint disease with chronic pain and opiate dependence. PAST SURGICAL HISTORY: Includes appendectomy, cholecystectomy and hysterectomy. CURRENT MEDICATIONS: Include Demerol 50 mg q. 6 hours, Ecotrin 81 mg daily, Imdur 30 mg daily, Lasix 20 mg daily, Plavix 75 mg daily and omeprazole 20 mg daily, lisinopril 5 mg daily. ALLERGIES: PATIENT REPORTS ALLERGIES TO SULFA. SOCIAL HISTORY: The patient has no history of tobacco or alcohol use. She lives alone. She is independent with ADLs and IADLs. REVIEW OF SYSTEMS: Essentially as above. The patient denies nausea and vomiting. There is no abdominal pain. No melena, no bright red blood per rectum. No jaundice or rash. PHYSICAL EXAMINATION: VITAL SIGNS: Blood pressure 141/80, temperature 97.6, pulse 78, respiratory 18. HEENT: Head is normocephalic, atraumatic. Pupils equal, round, reactive to light. Extraocular movements intact. NECK: Supple. No thyromegaly. No carotid bruit. No adenopathy. LUNGS: Show a few scattered crepitations at the bases. HEART: Regular rate and rhythm. Grade 2/6 systolic murmur. ABDOMEN: Soft, mildly obese, nontender. Bowel sounds are normoactive. EXTREMITIES: Without cyanosis, clubbing or edema. NEUROLOGIC: The patient is awake and oriented x3 without focal sensory or motor deficits. SKIN: Warm and dry. LABORATORY DATA: WBCs 2.9, hemoglobin 8.1, hematocrit 24.8, platelets 115. Sodium 142, potassium 3.4, chloride 107, CO2 26, BUN 17, creatinine 0.6, glucose 113. CPK is less than 20. Troponin 0.02. BNP 8100. Chest x-ray shows no active disease. IMPRESSION: 1. Congestive heart failure. 2. Coronary artery disease status post stent placement. 3. Chronic obstructive pulmonary disease. 4. Chronic lymphocytic leukemia with mild pancytopenia. 5. Degenerative joint disease with chronic pain and opiate dependence. PLAN: The patient will be admitted to the to telemetry and we will obtain Cardiology consultation Dr. Rambo Thomson. We will obtain Hematology consultation with Dr. Yamil Brown. Patient reports that she anticipates planned chemotherapy and possible transfusion. We will give IV Lasix, O2. Continue nitrates, Plavix and aspirin. We will obtain physical therapy evaluation and treatment. Social work for discharge planning. ABRIL Kenney MD
[2017-06-28] MEDS: Albuterol-Ipratrop 3 mg / 0.5 (3 ml) UD IH SCH ×4 (09:06→20:08)
[2017-06-28] MEDS ORDERED: Albuterol-Ipratrop 3 mg / 0.5 (3 ml) UD IH PRN (09:14)
[2017-06-28 09:46] LABS: HEMOGLOBIN 7.3 g/dL (12.0-16.0); MEAN CELL VOLUME 95.7 fl (80.0-105.0); MEAN CORPUSCULAR HEMOGLOBIN 31.6 pg (25.0-35.0); MEAN PLATELET VOLUME 9.3 fl (7.0-11.0); RBC 2.31 10^6/uL (3.5-6.1)
[2017-06-28 09:51] LABS: WHITE BLOOD COUNT 2.7 10^3/ul (4.5-11.0)
[2017-06-28 10:07] LABS: ALB/GLOB RATIO 1.8 (1.1-1.8); ALT/SGPT 22 U/L (7-56); AST/SGOT 13 U/L (14-36); BLOOD UREA NITROGEN 20 mg/dL (7-21); CALCIUM 8.9 mg/dL (8.4-10.5); GFR AFRICAN-AMERICAN > 60; GFR NON-AFRICAN AMERICAN > 60
--- NOTE | 2017-06-28 11:07 | CP.PCM.PN ---
Subjective - Date & Time of Evaluation Date of Evaluation: 06/28/17 Time of Evaluation: 10:30 - Subjective Subjective: c/o fatigue, denies chest pain, no SOB Objective - Vital Signs/Intake and Output Vital Signs (last 24 hours): Temp Pulse Resp BP Pulse Ox 97.8 F 72 18 124/60 100 06/28/17 10:00 06/28/17 10:10 06/28/17 10:00 06/28/17 10:14 06/28/17 10:00 Intake and Output: 06/28/17 06/28/17 06:59 18:59 Intake Total 0 Output Total 0 Balance 0 - Medications Medications: Current Medications Albuterol/Ipratropium (Duoneb 3 Mg/0.5 Mg (3 Ml) Ud) 3 ml IH Q6H [facility] Last Admin: 06/28/17 09:16 Dose: 3 ml Albuterol/Ipratropium (Duoneb 3 Mg/0.5 Mg (3 Ml) Ud) 3 ml IH Q2H PRN PRN Reason: Shortness of Breath Aspirin (Ecotrin) 81 mg PO DAILY [facility] Last Admin: 06/28/17 10:05 Dose: 81 mg Clopidogrel Bisulfate (Plavix) 75 mg PO DAILY [facility] Last Admin: 06/28/17 10:05 Dose: 75 mg Furosemide (Lasix) 40 mg IVP DAILY [facility] Last Admin: 06/28/17 10:14 Dose: 40 mg Isosorbide Mononitrate (Imdur Er) 30 mg PO DAILY [facility] Last Admin: 06/28/17 10:09 Dose: 30 mg Lisinopril (Zestril) 5 mg PO DAILY [facility] Last Admin: 06/28/17 10:10 Dose: 5 mg Morphine Sulfate (Morphine) 2 mg IVP Q3H PRN PRN Reason: Pain, moderate (4-7) Last Admin: 06/28/17 08:28 Dose: 2 mg Pantoprazole Sodium (Protonix Ec Tab) 40 mg PO 0600 [facility] Last Admin: 06/28/17 05:06 Dose: 40 mg Potassium Chloride (K-Dur 20 Meq Er Tab) 20 meq PO BRK [facility] Last Admin: 06/28/17 08:28 Dose: 20 meq - Labs Labs: 06/28/17 09:40 06/28/17 09:40 PT 13.2 SECONDS (9.4-12.5) H 06/27/17 07:30 INR 1.14 (0.93-1.08) H 06/27/17 07:30 APTT 26.6 Seconds (25.1-36.5) 06/27/17 07:30 - Respiratory Exam Respiratory Exam: Rales - Cardiovascular Exam Cardiovascular Exam: REGULAR RHYTHM, Murmur - GI/Abdominal Exam GI & Abdominal Exam: Soft, Normal Bowel Sounds - Extremities Exam Extremities Exam: Normal Inspection - Neurological Exam Neurological Exam: Alert, Awake - Skin Skin Exam: Dry, Warm Assessment and Plan (1) CHF (congestive heart failure) Status: Acute (2) Anemia Status: Chronic (3) Chronic lymphocytic leukemia Status: Chronic (4) COPD (chronic obstructive pulmonary disease) Status: Acute (5) Degenerative joint disease (DJD) of lumbar spine Status: Acute - Assessment and Plan (Free Text) Plan: cardiology consult appreciated, will transfuse 2u PRBC's, heme follow-up Dr. Brown, PT eval and Tx, continue Lasix IV, monitor lytes
--- NOTE | 2017-06-28 16:41 | CP.PCM.CON ---
History of Present Illness - History of Present Illness History of Present Illness: 81 yo woman with history of CLL, s/p treatment with chemotherapy 2 years ago, with well controlled CBC until recently, now with recurrence of severe anemia, requiring frequent transfusions, admitted with SOB, chest pain, currently getting blood transfusion, comfortable in bed, asymptomatic. The patient is scheduled to start chemotherapy as an outpatient on Saturday. Past Patient History - Infectious Disease Hx of Infectious Diseases: None - Tetanus Immunizations Tetanus Immunization: Unknown - Past Medical History & Family History Past Medical History?: Yes - Past Social History Smoking Status: Never Smoked - CARDIAC Hx Congestive Heart Failure: Yes Hx Hypertension: Yes - PULMONARY Hx Chronic Obstructive Pulmonary Disease (COPD): Yes - NEUROLOGICAL Hx Neurological Disorder: No - HEENT Hx Cataracts: (pt denies) - RENAL Hx Chronic Kidney Disease: No - ENDOCRINE/METABOLIC Hx Endocrine Disorders: No - HEMATOLOGICAL/ONCOLOGICAL Hx Blood Disorders: Yes (pancytopenia) Hx Anemia: Yes (blood transfusion) Hx Cancer: Yes (L parotid/lymphoma) Hx Chemotherapy: Yes Hx Hepatitis A: Yes ("yrs ago") Hx Hepatitis B: Yes (possibly from shellfish many yrs ago) Hx Shingles: Yes ("yrs ago" back) Other/Comment: 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 Pt dx with lymphoma 4 yrs ago had chemo 2 yrs ago and is supposed to start again on 07/01/17 - INTEGUMENTARY Hx Dermatological Problems: Yes Other/Comment: stage 1 round red wound 1cm to left buttocks, buttocks reddened , r heel dry brown wound 2.5cm x 0.3cm c/o sharp pain, soft mass r upper back - MUSCULOSKELETAL/RHEUMATOLOGICAL Hx Falls: No - GASTROINTESTINAL Hx Gastrointestinal Disorders: Yes Hx Diverticulitis: Yes Hx Gall Bladder Disease: Yes (CHOLECYSTECTOMY) Other/Comment: colon resection due to diverticulitis - GENITOURINARY/GYNECOLOGICAL Hx Genitourinary Disorders: Yes Hx Incontinence: Yes Hx Urinary Tract Infection: Yes - PSYCHIATRIC Hx Substance Use: No - SURGICAL HISTORY Hx Appendectomy: Yes Hx Cardiac Catheterization: Yes Hx Cholecystectomy: Yes Hx Coronary Stent: Yes (x3) Hx Hysterectomy: Yes Other/Comment: spinal fusion, picc line - ANESTHESIA Hx Anesthesia: Yes Hx Anesthesia Reactions: No Hx Malignant Hyperthermia: No Meds Allergies/Adverse Reactions: Allergies Allergy/AdvReac Type Severity Reaction Status Date / Time Sulfa (Sulfonamide Allergy Intermediate RASH Verified 06/27/17 06:51 Antibiotics) - Medications Medications: Current Medications Albuterol/Ipratropium (Duoneb 3 Mg/0.5 Mg (3 Ml) Ud) 3 ml IH Q6H [facility] Last Admin: 06/28/17 14:01 Dose: 3 ml Albuterol/Ipratropium (Duoneb 3 Mg/0.5 Mg (3 Ml) Ud) 3 ml IH Q2H PRN PRN Reason: Shortness of Breath Aspirin (Ecotrin) 81 mg PO DAILY [facility] Last Admin: 06/28/17 10:05 Dose: 81 mg Clopidogrel Bisulfate (Plavix) 75 mg PO DAILY [facility] Last Admin: 06/28/17 10:05 Dose: 75 mg Famotidine (Pepcid) 20 mg PO 1000,2200 [facility] Furosemide (Lasix) 40 mg IVP DAILY [facility] Last Admin: 06/28/17 10:14 Dose: 40 mg Isosorbide Mononitrate (Imdur Er) 30 mg PO DAILY [facility] Last Admin: 06/28/17 10:09 Dose: 30 mg Lisinopril (Zestril) 5 mg PO DAILY [facility] Last Admin: 06/28/17 10:10 Dose: 5 mg Morphine Sulfate (Morphine) 2 mg IVP Q3H PRN PRN Reason: Pain, moderate (4-7) Last Admin: 06/28/17 13:20 Dose: 2 mg Pantoprazole Sodium (Protonix Ec Tab) 40 mg PO 0600 [facility] Last Admin: 06/28/17 05:06 Dose: 40 mg Potassium Chloride (K-Dur 20 Meq Er Tab) 20 meq PO BRK [facility] Last Admin: 06/28/17 08:28 Dose: 20 meq Results - Vital Signs Recent Vital Signs: Last Vital Signs Temp 98.0 F 06/28/17 16:03 Pulse 82 06/28/17 16:03 Resp 19 06/28/17 16:03 BP 135/67 06/28/17 16:03 Pulse Ox 100 06/28/17 10:00 - Labs Result Diagrams: 06/28/17 09:40 06/28/17 09:40 Labs: Laboratory Results - last 24 hr 06/28/17 06/28/17 06/28/17 09:40 09:40 10:10 WBC 2.7 L* RBC 2.31 L Hgb 7.3 L Hct 22.1 L MCV 95.7 MCH 31.6 MCHC 33.0 RDW 17.0 H Plt Count 90 L MPV 9.3 Sodium 140 Potassium 3.8 Chloride 104 Carbon Dioxide 30 Anion Gap 9 L BUN 20 Creatinine 0.7 Est GFR ( Amer) > 60 Est GFR (Non-Af Amer) > 60 Random Glucose 120 H Calcium 8.9 Magnesium 1.5 L Total Bilirubin 0.9 AST 13 L ALT 22 Alkaline Phosphatase 48 NT-Pro-B Natriuret Pep 99464 H Total Protein 4.7 L Albumin 3.0 Globulin 1.7 Albumin/Globulin Ratio 1.8 Assessment & Plan (1) Chronic lymphocytic leukemia Assessment and Plan: 81 yo with CLL presenting with severe anemia, currently getting PRBC transfusion. If the patient is stable to be discharged home after the transfusion, she will start chemo on Saturday. Above discussed with patient, who is aware of the plan Status: Chronic
--- NOTE | 2017-06-28 17:42 | CARD ---
APPROVED REPORT EXAM: Two-dimensional and M-mode echocardiogram with Doppler and color Doppler. INDICATION Congestive Heart Failure 2D DIMENSIONS Left Atrium (2D)4.0 (1.6-4.0cm)IVSd1.5 (0.7-1.1cm) LVDd4.7 (3.9-5.9cm)PWd1.3 (0.7-1.1cm) LVDs3.1 (2.5-4.0cm)FS (%) 33.5 % LVEF (%)62.2 (>50%) M-Mode DIMENSIONS Aortic Root2.70 (2.2-3.7cm)Aortic Cusp Exc.1.10 (1.5-2.0cm) Aortic Valve AoV Peak Qqchxirz833.0cm/sAoV VTI51.2cmAO Peak GR.32mmHg LVOT Peak Xxnwlesa535.0cm/sLVOT VTI23.80cmAO Mean GR.16mmHg Mitral Valve MV E Cfjzeqrz26.6cm/sMV A Sjcpxmkw98.7cm/sE/A ratio0.7 TDI E/Lateral E'0.0E/Medial E'0.0 Tricuspid Valve TR Peak Nxxkvqox057ti/sRAP [id number] Peak Gr.32mmHg YHPF58avAs LEFT VENTRICLE The left ventricle is normal size. There is mild concentric left ventricular hypertrophy. The left ventricular ejection fraction is within the normal range. Septal Hypokinesis Transmitral Doppler flow pattern is Grade I-abnormal relaxation pattern. RIGHT VENTRICLE The right ventricle is normal size. There is normal right ventricular wall thickness. The right ventricular systolic function is normal. ATRIA The left atrium size is normal. The right atrium size is normal. AORTIC VALVE The aortic valve is moderately calcified. There is moderate valvular aortic stenosis. MITRAL VALVE The mitral valve is mildly thickened. There is no mitral valve regurgitation noted. TRICUSPID VALVE There is mild tricuspid regurgitation. There is mild pulmonary hypertension. GREAT VESSELS The aortic root is normal in size. PERICARDIAL EFFUSION There is no pericardial effusion. <Conclusion> The left ventricle is normal size. There is mild concentric left ventricular hypertrophy. The left ventricular ejection fraction is within the normal range. Septal Hypokinesis Transmitral Doppler flow pattern is Grade I-abnormal relaxation pattern. The aortic valve is moderately calcified. There is moderate valvular aortic stenosis. There is mild tricuspid regurgitation. There is mild pulmonary hypertension.
--- NOTE | 2017-06-28 21:55 | PN ---
DATE: COVERING FOR: Rambo Thomson MD. SUBJECTIVE: The patient denies any chest pain at this time. She appears comfortable, in no apparent distress. PHYSICAL EXAMINATION: VITAL SIGNS: Blood pressure 115/55, heart rate 85, temperature 98.2, respirations 18. HEENT: Pale conjunctivae. CHEST: Bibasilar rhonchi. HEART: S1 and S2 regular. EXTREMITIES: Trace leg edema. LABORATORY DATA: Today's SMA-7: Sodium 140, potassium 3.8, chloride 104, CO2 of 30, glucose 120, BUN 20, creatinine 0.7. ProBNP is 10,000. Today's hemoglobin and hematocrit 7.3 and 22.1, white count 2.7, platelet count 90,000. ASSESSMENT: 1. Coronary artery disease, status post coronary stenting 3 times in the past. 2. Chronic lymphocytic leukemia. 3. Congestive heart failure. 4. Anemia. 5. Leukopenia. RECOMMENDATIONS: most recent echocardiographic study in 04/2015, which revealed mild aortic stenosis, normal left ventricular systolic function and diastolic dysfunction with left atrial enlargement. Continue current albuterol inhaler, continue aspirin 81 mg once a day, Imdur 30 mg once a day, K-Dur 20 mEq twice a day, Lasix 40 mg intravenously once a day, Plavix 75 mg once a day, Zestril 5 mg once a day. Start Pepcid 20 mg orally twice a day. If blood transfusion is considered, Lasix 40 mg intravenously prior to each unit packed RBC transfusion is recommended. Bao Merino MD
[2017-06-29] MEDS: Albuterol-Ipratrop 3 mg / 0.5 (3 ml) UD IH SCH ×4 (01:51→19:37)
[2017-06-29] MEDS: Pantoprazole 40 mg EC Tab PO SCH (05:04)
[2017-06-29] MEDS: Morphine 2 mg/ml ISec IVP PRN ×6 (05:04→22:29)
[2017-06-29] MEDS: Potassium Chloride 20 mEq ER Tab PO SCH (07:00)
[2017-06-29 07:17] LABS: HEMOGLOBIN 9.8 g/dL (12.0-16.0); MEAN CORPUSCULAR HEMOGLOBIN 31.1 pg (25.0-35.0); MEAN CORPUSCULAR HGB CONC 33.4 g/dl (31.0-37.0); MEAN PLATELET VOLUME 10.2 fl (7.0-11.0); RBC 3.15 10^6/uL (3.5-6.1); RED CELL DISTRIBUTION WIDTH 16.6 % (11.5-14.5)
[2017-06-29 07:32] LABS: WHITE BLOOD COUNT 2.8 10^3/ul (4.5-11.0)
[2017-06-29 07:40] LABS: ALB/GLOB RATIO 1.7 (1.1-1.8); ALBUMIN 3.2 g/dL (3.0-4.8); ALT/SGPT 17 U/L (7-56); AST/SGOT 14 U/L (14-36); BLOOD UREA NITROGEN 21 mg/dL (7-21); CALCIUM 8.8 mg/dL (8.4-10.5); GFR AFRICAN-AMERICAN > 60; GFR NON-AFRICAN AMERICAN > 60
--- NOTE | 2017-06-29 11:56 | CP.PCM.PN ---
Subjective - Date & Time of Evaluation Date of Evaluation: 06/29/17 Time of Evaluation: 11:45 - Subjective Subjective: feels better today s/p transfx PRBCs, denies chest pain, no SOB Objective - Vital Signs/Intake and Output Vital Signs (last 24 hours): Temp Pulse Resp BP Pulse Ox 98.9 F 90 18 116/71 100 06/29/17 11:49 06/29/17 11:49 06/29/17 11:49 06/29/17 11:49 06/29/17 05:56 Intake and Output: 06/29/17 06/29/17 06:59 18:59 Intake Total 240 Output Total 1700 Balance -1460 - Medications Medications: Current Medications Albuterol/Ipratropium (Duoneb 3 Mg/0.5 Mg (3 Ml) Ud) 3 ml IH Q6H [facility] Last Admin: 06/29/17 01:51 Dose: Not Given Albuterol/Ipratropium (Duoneb 3 Mg/0.5 Mg (3 Ml) Ud) 3 ml IH Q2H PRN PRN Reason: Shortness of Breath Aspirin (Ecotrin) 81 mg PO DAILY [facility] Last Admin: 06/29/17 09:27 Dose: 81 mg Clopidogrel Bisulfate (Plavix) 75 mg PO DAILY [facility] Last Admin: 06/29/17 09:27 Dose: 75 mg Famotidine (Pepcid) 20 mg PO 1000,2200 [facility] Last Admin: 06/29/17 09:27 Dose: 20 mg Furosemide (Lasix) 40 mg IVP DAILY [facility] Last Admin: 06/29/17 09:27 Dose: 40 mg Isosorbide Mononitrate (Imdur Er) 30 mg PO DAILY [facility] Last Admin: 06/29/17 09:27 Dose: 30 mg Lisinopril (Zestril) 5 mg PO DAILY [facility] Last Admin: 06/29/17 09:27 Dose: 5 mg Morphine Sulfate (Morphine) 2 mg IVP Q3H PRN PRN Reason: Pain, moderate (4-7) Last Admin: 06/29/17 08:43 Dose: 2 mg Pantoprazole Sodium (Protonix Ec Tab) 40 mg PO 0600 [facility] Last Admin: 06/29/17 05:04 Dose: 40 mg Potassium Chloride (K-Dur 20 Meq Er Tab) 20 meq PO BRK [facility] Last Admin: 06/29/17 07:00 Dose: 20 meq - Labs Labs: 06/29/17 06:00 06/29/17 06:00 PT 13.2 SECONDS (9.4-12.5) H 06/27/17 07:30 INR 1.14 (0.93-1.08) H 06/27/17 07:30 APTT 26.6 Seconds (25.1-36.5) 06/27/17 07:30 - Respiratory Exam Respiratory Exam: Clear to Ausculation Bilateral - Cardiovascular Exam Cardiovascular Exam: REGULAR RHYTHM - GI/Abdominal Exam GI & Abdominal Exam: Soft, Normal Bowel Sounds - Extremities Exam Extremities Exam: Normal Inspection - Neurological Exam Neurological Exam: Alert, Awake - Skin Skin Exam: Dry, Warm Assessment and Plan (1) CHF (congestive heart failure) Status: Acute (2) Anemia Status: Chronic (3) Chronic lymphocytic leukemia Status: Chronic (4) COPD (chronic obstructive pulmonary disease) Status: Acute (5) Degenerative joint disease (DJD) of lumbar spine Status: Acute - Assessment and Plan (Free Text) Plan: monitor Hb/Hct, heme/onc consult appreciated, continue PT/SW for discharge planning
--- NOTE | 2017-06-29 16:01 | PN ---
DATE: SUBJECTIVE: The patient is with her family including her sister. She denies any chest pain or shortness of breath. PHYSICAL EXAMINATION: VITAL SIGNS: Blood pressure 116/71, heart rate 90, temperature 98.9 and respirations 18. HEENT: Pale conjunctivae. CHEST: Clear. HEART: S1, S2 regular. Grade III/ ejection systolic murmur over the left sternal border. ABDOMEN: Soft. EXTREMITIES: No edema. LABORATORY DATA: Hemoglobin and hematocrit 9.8 and 29.3, white count 2.8 and platelet count 87,000. Today's SMA-7 is within normal limits except for creatinine 0.6. Echocardiographic study performed yesterday revealed mild concentric LVH with normal ejection fraction, segmental hypokinesis and moderate valvular aortic stenosis and mild pulmonary hypertension. ASSESSMENT: 1. Chronic lymphocytic leukemia. 2. Leukopenia and thrombocytopenia. 3. Moderate valvular aortic stenosis. 4. History of coronary artery disease. 5. Chronic obstructive pulmonary disease. RECOMMENDATIONS: Continue albuterol inhaler, continue aspirin 81 mg once a day, K-Dur 20 mEq once a day, Lasix 40 mg intravenously once a day, Plavix 75 mg once a day, Zestril 5 mg once a day and Pepcid 20 mg twice a day. The plan is to start chemotherapy on Saturday and continue neutropenic precautions. Bao Merino MD
[2017-06-30] MEDS: Albuterol-Ipratrop 3 mg / 0.5 (3 ml) UD IH SCH ×4 (01:35→21:10)
[2017-06-30] MEDS: Pantoprazole 40 mg EC Tab PO SCH ×2 (06:01→06:10)
[2017-06-30] MEDS: Morphine 2 mg/ml ISec IVP PRN ×4 (06:04→21:30)
[2017-06-30] MEDS: Potassium Chloride 20 mEq ER Tab PO SCH (08:20)
--- NOTE | 2017-06-30 11:03 | CP.PCM.PN ---
Subjective - Date & Time of Evaluation Date of Evaluation: 06/30/17 Time of Evaluation: 10:30 - Subjective Subjective: NAD, denies chest pain, no SOB Objective - Vital Signs/Intake and Output Vital Signs (last 24 hours): Temp Pulse Resp BP Pulse Ox 97.8 F 92 H 20 112/67 99 06/30/17 06:00 06/30/17 06:00 06/30/17 06:00 06/30/17 06:00 06/30/17 06:00 Intake and Output: 06/30/17 06/30/17 06:59 18:59 Intake Total 0 Output Total 0 Balance 0 - Medications Medications: Current Medications Albuterol/Ipratropium (Duoneb 3 Mg/0.5 Mg (3 Ml) Ud) 3 ml IH Q6H [facility] Last Admin: 06/30/17 01:35 Dose: Not Given Albuterol/Ipratropium (Duoneb 3 Mg/0.5 Mg (3 Ml) Ud) 3 ml IH Q2H PRN PRN Reason: Shortness of Breath Aspirin (Ecotrin) 81 mg PO DAILY [facility] Last Admin: 06/29/17 09:27 Dose: 81 mg Clopidogrel Bisulfate (Plavix) 75 mg PO DAILY [facility] Last Admin: 06/29/17 09:27 Dose: 75 mg Famotidine (Pepcid) 20 mg PO 1000,2200 [facility] Last Admin: 06/29/17 22:26 Dose: 20 mg Furosemide (Lasix) 40 mg IVP DAILY [facility] Last Admin: 06/29/17 09:27 Dose: 40 mg Isosorbide Mononitrate (Imdur Er) 30 mg PO DAILY [facility] Last Admin: 06/29/17 09:27 Dose: 30 mg Lisinopril (Zestril) 5 mg PO DAILY [facility] Last Admin: 06/29/17 09:27 Dose: 5 mg Morphine Sulfate (Morphine) 2 mg IVP Q3H PRN PRN Reason: Pain, moderate (4-7) Last Admin: 06/30/17 06:04 Dose: 2 mg Ondansetron HCl (Zofran Inj) 4 mg IVP Q6H PRN PRN Reason: Nausea/Vomiting Last Admin: 06/29/17 22:45 Dose: 4 mg Pantoprazole Sodium (Protonix Ec Tab) 40 mg PO 0600 [facility] Last Admin: 06/30/17 06:10 Dose: Not Given Potassium Chloride (K-Dur 20 Meq Er Tab) 20 meq PO BRK [facility] Last Admin: 06/30/17 08:20 Dose: 20 meq - Labs Labs: 06/29/17 06:00 06/29/17 06:00 PT 13.2 SECONDS (9.4-12.5) H 06/27/17 07:30 INR 1.14 (0.93-1.08) H 06/27/17 07:30 APTT 26.6 Seconds (25.1-36.5) 06/27/17 07:30 - Respiratory Exam Respiratory Exam: Rales - Cardiovascular Exam Cardiovascular Exam: REGULAR RHYTHM, Murmur - GI/Abdominal Exam GI & Abdominal Exam: Soft, Normal Bowel Sounds - Extremities Exam Extremities Exam: Normal Inspection - Neurological Exam Neurological Exam: Alert, Awake - Skin Skin Exam: Dry, Warm Assessment and Plan (1) CHF (congestive heart failure) Status: Acute (2) Anemia Status: Chronic (3) Chronic lymphocytic leukemia Status: Chronic (4) COPD (chronic obstructive pulmonary disease) Status: Acute (5) Degenerative joint disease (DJD) of lumbar spine Status: Acute - Assessment and Plan (Free Text) Plan: continue IV Lasix/O2, PT, SW for discharge planning, cardio and heme/onc follow- up
--- NOTE | 2017-06-30 18:31 | PN ---
DATE: SUBJECTIVE: The patient denies any chest pain. She is mildly short of breath, but comfortable on nasal O2. PHYSICAL EXAMINATION: VITAL SIGNS: Blood pressure 117/74, heart rate 92, temperature 99.2, respirations 18. HEENT: Pale conjunctivae. CHEST: Bibasilar rhonchi. HEART: S1 and S2 regular. Grade 3/6 ejection systolic murmur over the left sternal border. ABDOMEN: Soft. EXTREMITIES: No pedal edema. ASSESSMENT: 1. Diastolic heart failure. 2. Chronic lymphocytic leukemia. 3. Neutropenia and thrombocytopenia. 4. Coronary artery disease, status post left anterior descending stenting in the past. 5. Moderate valvular aortic stenosis. 6. Chronic obstructive lung disease. RECOMMENDATIONS: Continue current aspirin, Imdur, K-Dur, IV Lasix, and Plavix. Continue Zestril 5 mg once a day. Obtain CBC and BMP in a.m. Bao Merino MD
[2017-07-01] MEDS: Albuterol-Ipratrop 3 mg / 0.5 (3 ml) UD IH SCH ×4 (03:07→20:44)
[2017-07-01] MEDS: Pantoprazole 40 mg EC Tab PO SCH (05:22)
[2017-07-01] MEDS: Morphine 2 mg/ml ISec IVP PRN ×2 (05:54→09:04)
[2017-07-01 06:28] LABS: HEMOGLOBIN 10.2 g/dL (12.0-16.0); MEAN CELL VOLUME 94.6 fl (80.0-105.0); MEAN CORPUSCULAR HEMOGLOBIN 30.7 pg (25.0-35.0); MEAN CORPUSCULAR HGB CONC 32.5 g/dl (31.0-37.0); MEAN PLATELET VOLUME 10.8 fl (7.0-11.0); RBC 3.32 10^6/uL (3.5-6.1); RED CELL DISTRIBUTION WIDTH 16.1 % (11.5-14.5); WHITE BLOOD COUNT 3.5 10^3/ul (4.5-11.0)
[2017-07-01 06:43] LABS: CALCIUM 8.9 mg/dL (8.4-10.5)
[2017-07-01] MEDS: Potassium Chloride 20 mEq ER Tab PO SCH (09:04)
[2017-07-01] MEDS: Lidocaine 5% Patch TD SCH (09:08)
--- NOTE | 2017-07-01 12:20 | CP.PCM.PN ---
Subjective - Date & Time of Evaluation Date of Evaluation: 07/01/17 Time of Evaluation: 09:00 - Subjective Subjective: c/o fatigue, weakness, denies chest pain, no SOB, unable to ambulate Objective - Vital Signs/Intake and Output Vital Signs (last 24 hours): Temp Pulse Resp BP Pulse Ox 97.2 F L 101 H 19 101/52 L 98 07/01/17 11:52 07/01/17 11:52 07/01/17 11:52 07/01/17 11:52 07/01/17 06:00 Intake and Output: 07/01/17 07/01/17 06:59 18:59 Intake Total 0 Output Total 0 Balance 0 - Medications Medications: Current Medications Albuterol/Ipratropium (Duoneb 3 Mg/0.5 Mg (3 Ml) Ud) 3 ml IH Q6H [facility] Last Admin: 07/01/17 07:58 Dose: Not Given Albuterol/Ipratropium (Duoneb 3 Mg/0.5 Mg (3 Ml) Ud) 3 ml IH Q2H PRN PRN Reason: Shortness of Breath Aspirin (Ecotrin) 81 mg PO DAILY [facility] Last Admin: 07/01/17 09:04 Dose: 81 mg Clopidogrel Bisulfate (Plavix) 75 mg PO DAILY [facility] Last Admin: 07/01/17 09:03 Dose: 75 mg Famotidine (Pepcid) 20 mg PO 1000,2200 [facility] Last Admin: 07/01/17 09:03 Dose: 20 mg Furosemide (Lasix) 40 mg IVP DAILY [facility] Last Admin: 07/01/17 09:03 Dose: 40 mg Isosorbide Mononitrate (Imdur Er) 30 mg PO DAILY [facility] Last Admin: 07/01/17 09:04 Dose: 30 mg Lidocaine (Lidoderm) 1 ea TD DAILY [facility] Last Admin: 07/01/17 09:08 Dose: 1 ea Lisinopril (Zestril) 5 mg PO DAILY [facility] Last Admin: 07/01/17 09:04 Dose: 5 mg Morphine Sulfate (Morphine) 2 mg IVP Q3H PRN PRN Reason: Pain, moderate (4-7) Last Admin: 07/01/17 09:04 Dose: 2 mg Ondansetron HCl (Zofran Inj) 4 mg IVP Q6H PRN PRN Reason: Nausea/Vomiting Last Admin: 06/29/17 22:45 Dose: 4 mg Pantoprazole Sodium (Protonix Ec Tab) 40 mg PO 0600 [facility] Last Admin: 07/01/17 05:22 Dose: Not Given Potassium Chloride (K-Dur 20 Meq Er Tab) 20 meq PO BRK [facility] Last Admin: 07/01/17 09:04 Dose: 20 meq Prednisone (Prednisone Tab) 40 mg PO DAILY [facility] Last Admin: 07/01/17 09:04 Dose: 40 mg - Labs Labs: 07/01/17 05:30 07/01/17 05:30 PT 13.2 SECONDS (9.4-12.5) H 06/27/17 07:30 INR 1.14 (0.93-1.08) H 06/27/17 07:30 APTT 26.6 Seconds (25.1-36.5) 06/27/17 07:30 - Respiratory Exam Respiratory Exam: Rales - Cardiovascular Exam Cardiovascular Exam: REGULAR RHYTHM, Murmur - GI/Abdominal Exam GI & Abdominal Exam: Soft, Normal Bowel Sounds - Extremities Exam Extremities Exam: Normal Inspection - Neurological Exam Neurological Exam: Alert, Awake - Skin Skin Exam: Dry, Warm Assessment and Plan (1) CHF (congestive heart failure) Status: Acute (2) Anemia Status: Chronic (3) Chronic lymphocytic leukemia Status: Chronic (4) COPD (chronic obstructive pulmonary disease) Status: Chronic (5) Degenerative joint disease (DJD) of lumbar spine Status: Acute - Assessment and Plan (Free Text) Plan: continue IV Lasix, cardio & heme-onc follow-up, physical therapy, social work for discharge planning
[2017-07-01 12:26] LABS: URINE BILIRUBIN NEGATIVE (NEGATIVE); URINE BLOOD NEGATIVE (NEGATIVE); URINE GLUCOSE (UA) NEGATIVE (NEGATIVE); URINE LEUKOCYTE ESTERASE SMALL Leu/uL (NEGATIVE); URINE PROTEIN 30 mg/dL (<30 mg/dL)
[2017-07-01 12:27] LABS: URINE APPEARANCE CLEAR (CLEAR); URINE COLOR YELLOW (YELLOW)
[2017-07-01 12:33] LABS: URINE RBC 0 - 2 /hpf (0-2)
[2017-07-01 12:34] LABS: URINE AMORPHOUS SEDIMENT FEW; URINE BACTERIA MOD (NEG)
--- NOTE | 2017-07-01 13:12 | PN ---
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 She presented several years ago. She received Rituxan in the past. I think at this point, I will try and see if I can get her the Imbruvica pill to take once a day. So, I will see if I can arrange for that. In the meantime, she is feeling somewhat better. She can be discharged home or to the rehab and get a weekly CBC she will need a weekly CBC on Saturday each week wherever she is; so, that we can monitor the blood counts and try to prevent the hospitalizations. Yamil Brown MD
--- NOTE | 2017-07-01 13:51 | PN ---
DATE: 07/01/2017 CARDIOLOGY CONSULTATION SUBJECTIVE: The patient is complaining of diffuse body aches. She has been prescribed IV morphine. PHYSICAL EXAMINATION: VITAL SIGNS: Blood pressure is 123/67, heart rates in the 90s. NECK: Negative JVD. LUNGS: Bilateral rhonchi. HEART: Reveals S1, S2. EXTREMITIES: Without edema. LABORATORY DATA: Hemoglobin is 10.2. Chemistries: Glucose is 112, potassium is 4.4. IMPRESSION: 1. Diffuse body aches. 2. Chronic lymphocytic leukemia. 3. Resolution of congestive heart failure. 4. History of coronary artery disease. 5. Ipnw-mo-xcpgcnya aortic valve stenosis. 6. Chronic obstructive pulmonary disease. PLAN: Given these findings, we will continue her IV Lasix as well as her morphine for pain management. Rambo Thomson MD
[2017-07-02] MEDS: Albuterol-Ipratrop 3 mg / 0.5 (3 ml) UD IH SCH ×4 (01:38→14:09)
[2017-07-02] MEDS: Morphine 2 mg/ml ISec IVP PRN ×3 (05:35→14:22)
[2017-07-02] MEDS: Pantoprazole 40 mg EC Tab PO SCH (05:36)
[2017-07-02 06:14] VITALS: O2SAT 99
[2017-07-02] MEDS: Potassium Chloride 20 mEq ER Tab PO SCH (08:09)
[2017-07-02] MEDS ORDERED: Promethazine/Cod 6.25mg-10mg/5ml Syr UD PO PRN (09:43)
[2017-07-02] MEDS: Lidocaine 5% Patch TD SCH (10:19)
[2017-07-02 12:55] VITALS: PULSE 88
[2017-07-02] MEDS ORDERED: Potassium Chloride 10 mEq ER Tab PO SCH (14:24)
[2017-07-02 17:42] VITALS: BP 121/79; RESP 18; TEMP 98.1
--- NOTE | 2017-07-02 20:46 | PN ---
DATE: 07/02/2017 SUBJECTIVE: The patient is still weak. However, she is beginning to work with physical therapy and is able to stand with some help. She denies diffuse aches as she was complaining yesterday. OBJECTIVE: VITAL SIGNS: Blood pressure is 114/66, heart rate is in the 80s. NECK: Negative JVD. LUNGS: Decreased breath sounds bilaterally. HEART: Reveals S1, S2. EXTREMITIES: Without edema. LABORATORY DATA: Hemoglobin is 10.2. Chemistries, BUN and creatinine is 38 and 1.2. ASSESSMENT: 1. Coronary artery disease. 2. Mild to moderate aortic valve stenosis. 3. Chronic lymphocytic leukemia. 4. No more congestive heart failure. 5. Chronic obstructive pulmonary disease. PLAN: Given these findings, the patient is becoming prerenal. We will lower her Lasix dose to 20 mg daily. Rambo Thomson MD
--- NOTE | 2017-07-02 22:52 | DS ---
HOSPITAL COURSE: The patient is an 81-year-old female admitted through the emergency department on 06/27/2017 with shortness of breath. The patient was seen in consultation by Cardiology Dr. Rambo Thomson, was started on IV Lasix and oxygen. She had an uneventful hospital course, and is now medically stable for transfer to the transitional care unit for further rehabilitation status post hospital admission. PHYSICAL EXAMINATION: VITAL SIGNS: Blood pressure 114/66, temperature 98.5, pulse 88, respiratory rate 17. LUNGS: Show a few bibasilar rales. HEART: Regular rate and rhythm. Grade 2/6 systolic murmur. ABDOMEN: Soft and nontender. Bowel sounds are normoactive. EXTREMITIES: Without cyanosis, clubbing or edema. NEUROLOGIC: The patient is awake and oriented x3, without focal sensory or motor deficits. There is generalized motor weakness of all 4 extremities and mild gait dysfunction. SKIN: Warm and dry. IMPRESSION: 1. Congestive heart failure. 2. Chronic lymphocytic leukemia. 3. Chronic obstructive pulmonary disease. 4. Coronary artery disease status post stent placement. 5. Degenerative joint disease with chronic pain and opiate dependence. PLAN: The patient will be transferred to the transitional care unit on the following medications, Calan SR 120 daily, Lasix 20 mg IV daily, prednisone 40 mg daily, Plavix 75 mg daily, Protonix 40 mg daily, lisinopril 5 mg daily, morphine sulfate 2 mg IV q. 3 hours p.r.n., Imdur 30 mg daily, Ecotrin 81 mg daily, potassium chloride 10 mEq daily, famotidine 20 mg twice daily. The patient will be maintained on a heart-healthy diet. Activities as per transitional care unit. ABRIL Kenney MD
== END 2017-07-02 19:51 | DRG 190 ==
LOC: ED 06:40 → ERH 08:18 → 3RSO 10:39 → 2RNO 22:34
PROVIDERS: ADMIT Internal Medicine; ATTEND Internal Medicine
DX: J44.1 Chronic obstructive pulmonary disease with (acute) exacerbation (principal); I50.41 Acute combined systolic (congestive) and diastolic (congestive) heart failure; D61.818 Other pancytopenia; C91.10 Chronic lymphocytic leukemia of B-cell type not having achieved remission; D58.9 Hereditary hemolytic anemia, unspecified; F11.20 Opioid dependence, uncomplicated; I11.0 Hypertensive heart disease with heart failure; E78.00 Pure hypercholesterolemia, unspecified; G89.29 Other chronic pain; I25.10 Atherosclerotic heart disease of native coronary artery without angina pectoris; I35.0 Nonrheumatic aortic (valve) stenosis; M19.90 Unspecified osteoarthritis, unspecified site; M51.36 Other intervertebral disc degeneration, lumbar region; R73.03 Prediabetes; Z79.82 Long term (current) use of aspirin; Z87.01 Personal history of pneumonia (recurrent); Z87.440 Personal history of urinary (tract) infections; Z90.49 Acquired absence of other specified parts of digestive tract; Z90.710 Acquired absence of both cervix and uterus; Z92.21 Personal history of antineoplastic chemotherapy; Z95.5 Presence of coronary angioplasty implant and graft; Z98.1 Arthrodesis status; H26.9 Unspecified cataract; Z88.2 Allergy status to sulfonamides

== ENCOUNTER 2017-07-02 19:51 | Inpatient (IN) | payer OTHER, MEDICARE ==
[2017-07-02] MEDS ORDERED: Albuterol-Ipratrop 3 mg / 0.5 (3 ml) UD IH PRN (21:05)
[2017-07-02] MEDS: Morphine 2 mg/ml ISec IVP PRN (21:40)
[2017-07-02 23:10] VITALS: BMI 23.2
[2017-07-03] MEDS: Albuterol-Ipratrop 3 mg / 0.5 (3 ml) UD IH SCH ×4 (01:29→19:10)
[2017-07-03] MEDS: Morphine 2 mg/ml ISec IVP PRN ×4 (03:07→20:59)
[2017-07-03] MEDS: Pantoprazole 40 mg EC Tab PO SCH (05:40)
[2017-07-03 06:56] LABS: BASO # 0.01 K/mm3 (0.0-2.0); BASO % 0.3 % (0.0-3.0); EOS % 0.9 % (1.5-5.0); GRAN # 0.24 (1.4-6.5); GRAN % 6.9 % (50.0-68.0); HEMOGLOBIN 10.5 g/dL (12.0-16.0); LYMPH # 2.7 (1.2-3.4); MEAN CELL VOLUME 92.4 fl (80.0-105.0); MEAN CORPUSCULAR HEMOGLOBIN 30.7 pg (25.0-35.0); MEAN CORPUSCULAR HGB CONC 33.2 g/dl (31.0-37.0); MEAN PLATELET VOLUME 11.2 fl (7.0-11.0); MONO # 0.5 (0.1-0.6); MONO % 14.9 % (1.0-6.0); PLATELET COUNT 87 10^3/uL (120.0-450.0); RBC 3.42 10^6/uL (3.5-6.1); RED CELL DISTRIBUTION WIDTH 15.3 % (11.5-14.5); WHITE BLOOD COUNT 3.5 10^3/ul (4.5-11.0)
[2017-07-03 07:15] LABS: ALB/GLOB RATIO 1.8 (1.1-1.8); ALBUMIN 3.5 g/dL (3.0-4.8); CALCIUM 9.3 mg/dL (8.4-10.5)
[2017-07-03 08:24] LABS: ATYPICAL LYMPHOCYTE 1 % (0.0-0.0); BAND 2 % (0-2); EOSINOPHIL 1 % (0.0-3.0); LYMPHOCYTE 77 % (22.0-35.0); MONOCYTE 11 % (1.0-6.0); NEUTROPHIL 8 % (50.0-70.0); NUCLEATED RED BLOOD CELL 1 %
[2017-07-03 08:25] LABS: PLATELET ESTIMATE LOW (NORMAL)
[2017-07-03] MEDS: Potassium Chloride 20 mEq ER Tab PO SCH (08:30)
[2017-07-03] MEDS: Lidocaine 5% Patch TD SCH (10:11)
--- NOTE | 2017-07-03 22:38 | HP ---
ADMISSION HISTORY AND PHYSICAL HISTORY OF PRESENT ILLNESS: The patient is an 81-year-old female, admitted to the Transitional Care Unit for subacute rehab on 07/02/2017 status post admission for congestive heart failure. PAST MEDICAL HISTORY: Includes coronary artery disease status post stent placement x3, COPD, chronic lymphocytic leukemia, degenerative joint disease with chronic pain and opiate dependence. PAST SURGICAL HISTORY: Includes appendectomy, cholecystectomy and hysterectomy. CURRENT MEDICATIONS: Include Imdur 30 mg daily, potassium chloride 20 mEq daily, Lasix 40 mg IV daily, morphine sulfate 2 mg IV q.3 hours, Pepcid 20 mg twice daily, promethazine with codeine 5 mL q.6 hours p.r.n., Plavix 75 mg daily, lisinopril 5 mg daily, Lidoderm patch 5% to lower back daily, Ecotrin 81 mg daily and DuoNebs inhaled q.2 hours p.r.n. ALLERGIES: THE PATIENT REPORTS ALLERGIES TO SULFA. SOCIAL HISTORY: The patient has no history of alcohol or tobacco use. She lives alone. She is independent with ADLs and IADLs. REVIEW OF SYSTEMS: The patient denies any chest pain or shortness of breath. There is no abdominal pain. No melena or bright red blood per rectum. No nausea. No vomiting. No jaundice. No rash. PHYSICAL EXAMINATION: GENERAL: The patient is a well-developed, mildly cachectic female, in no acute distress. VITAL SIGNS: Blood pressure 110/60, temperature 98.3, pulse 91, respiratory rate 18. HEENT: Head is normocephalic, atraumatic. Pupils equal, round and reactive to light. Extraocular movements intact. NECK: Supple. No thyromegaly. No carotid bruit. No adenopathy. LUNGS: Show a few bibasilar crackles. HEART: Regular rate and rhythm. Grade 2/6 systolic murmur. No JVD. ABDOMEN: Soft, nontender. Bowel sounds are normoactive. EXTREMITIES: Without cyanosis, clubbing or edema. NEUROLOGIC: The patient is awake and oriented x3 without focal sensory or motor deficits. SKIN: Warm and dry. LABORATORY DATA: WBC is 3.5, hemoglobin 10.5, hematocrit 31.6, platelets 87. Sodium 139, potassium 3.8, chloride 98, CO2 of 31, BUN 53, creatinine 1.1 and glucose 93. IMPRESSION: 1. Congestive heart failure. 2. Coronary artery disease status post stent placement. 3. Chronic obstructive pulmonary disease. 4. Chronic lymphocytic leukemia with mild pancytopenia. 5. Degenerative joint disease with chronic pain and opiate dependence. PLAN: The patient will be admitted to Transitional Care Unit for rehab. We will obtain Cardiology consultation from Dr. Rambo Thomson and Hematology consultation from Dr. Brown. Continue IV Lasix, oxygen and nitrates, Plavix and aspirin. Social work for discharge planning. ABRIL Kenney MD
[2017-07-04] MEDS: Albuterol-Ipratrop 3 mg / 0.5 (3 ml) UD IH SCH ×2 (01:22→07:22)
[2017-07-04] MEDS: Pantoprazole 40 mg EC Tab PO SCH (05:27)
[2017-07-04] MEDS: Morphine 2 mg/ml ISec IVP PRN ×4 (05:29→19:55)
[2017-07-04] MEDS: Potassium Chloride 20 mEq ER Tab PO SCH (08:45)
[2017-07-04] MEDS: Lidocaine 5% Patch TD SCH (10:19)
--- NOTE | 2017-07-04 11:45 | CP.PCM.PN ---
Subjective - Date & Time of Evaluation Date of Evaluation: 07/04/17 Time of Evaluation: 09:00 - Subjective Subjective: no chest pain, denies SOB Objective - Vital Signs/Intake and Output Vital Signs (last 24 hours): Temp Pulse Resp BP Pulse Ox 98.4 F 96 H 18 108/67 92 L 07/04/17 10:00 07/04/17 10:19 07/04/17 10:00 07/04/17 10:25 07/04/17 10:00 Intake and Output: 07/04/17 07/04/17 06:59 18:59 Intake Total 240 Balance 240 - Medications Medications: Current Medications Aspirin (Ecotrin) 81 mg PO 0800 [facility] PRN Reason: Protocol Last Admin: 07/04/17 08:45 Dose: 81 mg Clopidogrel Bisulfate (Plavix) 75 mg PO DAILY [facility] PRN Reason: Protocol Last Admin: 07/04/17 10:19 Dose: 75 mg Famotidine (Pepcid) 20 mg PO 1000,2200 [facility] PRN Reason: Protocol Last Admin: 07/04/17 10:19 Dose: 20 mg Furosemide (Lasix) 40 mg IVP DAILY [facility] PRN Reason: Protocol Last Admin: 07/04/17 10:25 Dose: 40 mg Isosorbide Mononitrate (Imdur Er) 30 mg PO DAILY [facility] PRN Reason: Protocol Last Admin: 07/04/17 10:18 Dose: 30 mg Lidocaine (Lidoderm) 1 ea TD DAILY [facility] PRN Reason: Protocol Last Admin: 07/04/17 10:19 Dose: Not Given Lisinopril (Zestril) 5 mg PO DAILY [facility] PRN Reason: Protocol Last Admin: 07/04/17 10:19 Dose: 5 mg Morphine Sulfate (Morphine) 2 mg IVP Q3H PRN; Protocol PRN Reason: Pain, moderate (4-7) Last Admin: 07/04/17 08:45 Dose: 2 mg Ondansetron HCl (Zofran Inj) 4 mg IVP Q6H PRN; Protocol PRN Reason: Nausea/Vomiting Pantoprazole Sodium (Protonix Ec Tab) 40 mg PO 0600 [facility] PRN Reason: Protocol Last Admin: 07/04/17 05:27 Dose: 40 mg Potassium Chloride (K-Dur 20 Meq Er Tab) 20 meq PO 0800 [facility] PRN Reason: Protocol Last Admin: 07/04/17 08:45 Dose: 20 meq Prednisone (Prednisone Tab) 40 mg PO 0800 [facility] PRN Reason: Protocol Last Admin: 07/04/17 08:45 Dose: 40 mg Promethazine HCl/Codeine (Phenergan/Codeine Oral Syrup) 5 ml PO Q6H PRN; Protocol PRN Reason: Cough and congestion - Labs Labs: 07/03/17 06:30 07/03/17 06:30 - Respiratory Exam Respiratory Exam: Clear to Ausculation Bilateral, NORMAL BREATHING PATTERN - Cardiovascular Exam Cardiovascular Exam: REGULAR RHYTHM - GI/Abdominal Exam GI & Abdominal Exam: Soft, Normal Bowel Sounds - Extremities Exam Extremities Exam: Normal Inspection - Neurological Exam Neurological Exam: Alert, Awake - Skin Skin Exam: Dry, Warm Assessment and Plan (1) CHF (congestive heart failure) Status: Acute (2) Degenerative joint disease (DJD) of lumbar spine Status: Chronic (3) Chronic lymphocytic leukemia Status: Chronic (4) COPD (chronic obstructive pulmonary disease) Status: Chronic - Assessment and Plan (Free Text) Plan: continue PT/social work for discharge planning
--- NOTE | 2017-07-04 13:42 | PN ---
DATE: 07/04/2017 CARDIOLOGY FOLLOWUP SUBJECTIVE: The patient is in the TCU. She has started working with Physical Therapy. She was out of bed and ambulated. PHYSICAL EXAMINATION: VITAL SIGNS: Stable. NECK: Negative JVD. LUNGS: Without rales. HEART: S1, S2. EXTREMITIES: Without edema. LABORATORY: Laboratories were not drawn. IMPRESSION: 1. Chronic obstructive pulmonary disease. 2. Stable angina. 3. Weakness. 4. Coronary artery disease. Given these findings, I have encouraged the patient continue ambulating. Rambo Thomson MD
[2017-07-05] MEDS: Pantoprazole 40 mg EC Tab PO SCH (05:30)
[2017-07-05] MEDS: Potassium Chloride 20 mEq ER Tab PO SCH (09:02)
[2017-07-05] MEDS: Lidocaine 5% Patch TD SCH (09:18)
[2017-07-05] MEDS: Morphine 2 mg/ml ISec IVP PRN ×3 (09:28→21:07)
--- NOTE | 2017-07-05 11:25 | CP.PCM.PN ---
Subjective - Date & Time of Evaluation Date of Evaluation: 07/05/17 Time of Evaluation: 10:30 - Subjective Subjective: NAD, denies chest pain, no SOB Objective - Vital Signs/Intake and Output Vital Signs (last 24 hours): Temp Pulse Resp BP Pulse Ox 97.3 F L 75 20 125/63 99 07/05/17 10:01 07/05/17 10:01 07/05/17 10:01 07/05/17 10:01 07/05/17 10:01 Intake and Output: 07/05/17 07/05/17 06:59 18:59 Intake Total 360 Balance 360 - Medications Medications: Current Medications Aspirin (Ecotrin) 81 mg PO 0800 [facility] PRN Reason: Protocol Last Admin: 07/05/17 09:15 Dose: 81 mg Clopidogrel Bisulfate (Plavix) 75 mg PO DAILY [facility] PRN Reason: Protocol Last Admin: 07/05/17 09:15 Dose: 75 mg Famotidine (Pepcid) 20 mg PO 2200 [facility] PRN Reason: Protocol Last Admin: 07/04/17 21:33 Dose: 20 mg Furosemide (Lasix) 40 mg IVP DAILY [facility] PRN Reason: Protocol Last Admin: 07/05/17 09:16 Dose: 40 mg Isosorbide Mononitrate (Imdur Er) 30 mg PO 0800 [facility] PRN Reason: Protocol Last Admin: 07/05/17 09:01 Dose: 30 mg Lidocaine (Lidoderm) 1 ea TD DAILY [facility] PRN Reason: Protocol Last Admin: 07/05/17 09:18 Dose: 1 ea Lisinopril (Zestril) 5 mg PO DAILY [facility] PRN Reason: Protocol Last Admin: 07/05/17 09:15 Dose: 5 mg Morphine Sulfate (Morphine) 2 mg IVP Q3H PRN; Protocol PRN Reason: Pain, moderate (4-7) Last Admin: 07/05/17 09:28 Dose: 2 mg Ondansetron HCl (Zofran Inj) 4 mg IVP Q6H PRN; Protocol PRN Reason: Nausea/Vomiting Pantoprazole Sodium (Protonix Ec Tab) 40 mg PO 0600 [facility] PRN Reason: Protocol Last Admin: 07/05/17 05:30 Dose: 40 mg Potassium Chloride (K-Dur 20 Meq Er Tab) 20 meq PO 0800 [facility] PRN Reason: Protocol Last Admin: 07/05/17 09:02 Dose: 20 meq Prednisone (Prednisone Tab) 40 mg PO 0800 [facility] PRN Reason: Protocol Last Admin: 07/05/17 09:02 Dose: 40 mg Promethazine HCl/Codeine (Phenergan/Codeine Oral Syrup) 5 ml PO Q6H PRN; Protocol PRN Reason: Cough and congestion - Labs Labs: 07/03/17 06:30 07/03/17 06:30 - Respiratory Exam Respiratory Exam: Rales - Cardiovascular Exam Cardiovascular Exam: REGULAR RHYTHM, Murmur - GI/Abdominal Exam GI & Abdominal Exam: Soft, Normal Bowel Sounds - Extremities Exam Extremities Exam: Normal Inspection - Neurological Exam Neurological Exam: Alert, Awake - Skin Skin Exam: Dry, Warm Assessment and Plan (1) CHF (congestive heart failure) Status: Acute (2) Degenerative joint disease (DJD) of lumbar spine Status: Chronic (3) Chronic lymphocytic leukemia Status: Chronic (4) COPD (chronic obstructive pulmonary disease) Status: Chronic - Assessment and Plan (Free Text) Plan: continue PT, cardiology and heme/onc follow-up, SW for discharge planning
--- NOTE | 2017-07-05 16:19 | PN ---
DATE: 07/05/2017 SUBJECTIVE: The patient is feeling well with morphine given. PHYSICAL EXAMINATION VITAL SIGNS: Blood pressure is 125/63, the heart rate is in the 70s. NECK: Negative JVD. LUNGS: Without rales. HEART: Reveals S1 and S2. EXTREMITIES: Without edema. IMPRESSION: 1. Her diffuse body aches is well-controlled. 2. Stable angina. 3. Coronary artery disease. 4. Diffuse weakness. 5. Chronic obstructive pulmonary disease. PLAN: Given these findings, I have encouraged her to continue working with physical therapy. We will begin ambulating in the [place]ropeza. Rambo Thomson MD
[2017-07-05] MEDS: Promethazine/Cod 6.25mg-10mg/5ml Syr UD PO PRN (21:34)
[2017-07-06] MEDS: Pantoprazole 40 mg EC Tab PO SCH (05:25)
[2017-07-06] MEDS: Morphine 2 mg/ml ISec IVP PRN ×2 (05:25→15:19)
[2017-07-06] MEDS: Promethazine/Cod 6.25mg-10mg/5ml Syr UD PO PRN ×2 (05:28→21:36)
[2017-07-06] MEDS: Lidocaine 5% Patch TD SCH (09:27)
[2017-07-06] MEDS: Potassium Chloride 20 mEq ER Tab PO SCH (09:27)
--- NOTE | 2017-07-06 13:03 | CP.PCM.PN ---
Subjective - Date & Time of Evaluation Date of Evaluation: 07/06/17 Time of Evaluation: 11:00 - Subjective Subjective: OOB in chair, NAD, no chest pain, no SOB Objective - Vital Signs/Intake and Output Vital Signs (last 24 hours): Temp Pulse Resp BP Pulse Ox 97.8 F 94 H 20 118/68 96 07/06/17 10:00 07/06/17 10:00 07/06/17 10:00 07/06/17 10:00 07/06/17 10:00 Intake and Output: 07/06/17 07/06/17 06:59 18:59 Intake Total 360 Balance 360 - Medications Medications: Current Medications Aspirin (Ecotrin) 81 mg PO 0800 [facility] PRN Reason: Protocol Last Admin: 07/06/17 09:26 Dose: 81 mg Clopidogrel Bisulfate (Plavix) 75 mg PO DAILY [facility] PRN Reason: Protocol Last Admin: 07/06/17 09:27 Dose: 75 mg Famotidine (Pepcid) 20 mg PO 2200 [facility] PRN Reason: Protocol Last Admin: 07/05/17 21:09 Dose: 20 mg Furosemide (Lasix) 40 mg IVP DAILY [facility] PRN Reason: Protocol Last Admin: 07/06/17 09:34 Dose: 40 mg Isosorbide Mononitrate (Imdur Er) 30 mg PO 0800 [facility] PRN Reason: Protocol Last Admin: 07/06/17 09:26 Dose: 30 mg Lidocaine (Lidoderm) 1 ea TD DAILY [facility] PRN Reason: Protocol Last Admin: 07/06/17 09:27 Dose: 1 ea Lisinopril (Zestril) 5 mg PO DAILY [facility] PRN Reason: Protocol Last Admin: 07/06/17 09:27 Dose: 5 mg Morphine Sulfate (Morphine) 2 mg IVP Q3H PRN; Protocol PRN Reason: Pain, moderate (4-7) Last Admin: 07/06/17 05:25 Dose: 2 mg Ondansetron HCl (Zofran Inj) 4 mg IVP Q6H PRN; Protocol PRN Reason: Nausea/Vomiting Pantoprazole Sodium (Protonix Ec Tab) 40 mg PO 0600 [facility] PRN Reason: Protocol Last Admin: 07/06/17 05:25 Dose: 40 mg Potassium Chloride (K-Dur 20 Meq Er Tab) 20 meq PO 0800 [facility] PRN Reason: Protocol Last Admin: 07/06/17 09:27 Dose: 20 meq Prednisone (Prednisone Tab) 40 mg PO 0800 [facility] PRN Reason: Protocol Last Admin: 07/06/17 09:27 Dose: 40 mg Promethazine HCl/Codeine (Phenergan/Codeine Oral Syrup) 5 ml PO Q6H PRN; Protocol PRN Reason: Cough and congestion Last Admin: 07/06/17 05:28 Dose: 5 ml - Labs Labs: 07/03/17 06:30 07/03/17 06:30 - Respiratory Exam Respiratory Exam: Rhonchi - Cardiovascular Exam Cardiovascular Exam: REGULAR RHYTHM, Murmur - GI/Abdominal Exam GI & Abdominal Exam: Soft, Normal Bowel Sounds - Extremities Exam Extremities Exam: Normal Inspection - Neurological Exam Neurological Exam: Alert, Awake - Skin Skin Exam: Dry, Warm Assessment and Plan (1) CHF (congestive heart failure) Status: Acute (2) Degenerative joint disease (DJD) of lumbar spine Status: Chronic (3) Chronic lymphocytic leukemia Status: Chronic (4) COPD (chronic obstructive pulmonary disease) Status: Chronic - Assessment and Plan (Free Text) Plan: continue rehab/SW for discharge planning
[2017-07-06] MEDS: Morphine 4 mg/ml ISec IVP PRN (21:33)
[2017-07-07] MEDS: Pantoprazole 40 mg EC Tab PO SCH (05:42)
[2017-07-07] MEDS: Promethazine/Cod 6.25mg-10mg/5ml Syr UD PO PRN (05:42)
[2017-07-07] MEDS: Potassium Chloride 20 mEq ER Tab PO SCH (07:59)
[2017-07-07] MEDS: Lidocaine 5% Patch TD SCH (09:32)
[2017-07-07] MEDS: Morphine 4 mg/ml ISec IVP PRN (13:59)
--- NOTE | 2017-07-07 16:24 | CP.PCM.PN ---
Subjective - Date & Time of Evaluation Date of Evaluation: 07/07/17 Time of Evaluation: 15:15 - Subjective Subjective: NAD, denies chest pain, no SOB Objective - Vital Signs/Intake and Output Vital Signs (last 24 hours): Temp Pulse Resp BP Pulse Ox 97.3 F L 97 H 18 107/63 98 07/07/17 10:00 07/07/17 10:00 07/07/17 10:00 07/07/17 10:00 07/07/17 10:00 - Medications Medications: Current Medications Aspirin (Ecotrin) 81 mg PO 0800 [facility] PRN Reason: Protocol Last Admin: 07/07/17 07:59 Dose: 81 mg Clopidogrel Bisulfate (Plavix) 75 mg PO DAILY [facility] PRN Reason: Protocol Last Admin: 07/07/17 09:32 Dose: 75 mg Famotidine (Pepcid) 20 mg PO 2200 [facility] PRN Reason: Protocol Last Admin: 07/06/17 21:32 Dose: 20 mg Furosemide (Lasix) 40 mg IVP DAILY [facility] PRN Reason: Protocol Last Admin: 07/07/17 09:31 Dose: 40 mg Isosorbide Mononitrate (Imdur Er) 30 mg PO 0800 [facility] PRN Reason: Protocol Last Admin: 07/07/17 07:59 Dose: 30 mg Lidocaine (Lidoderm) 1 ea TD DAILY [facility] PRN Reason: Protocol Last Admin: 07/07/17 09:32 Dose: 1 ea Lisinopril (Zestril) 5 mg PO DAILY [facility] PRN Reason: Protocol Last Admin: 07/07/17 09:32 Dose: 5 mg Morphine Sulfate (Morphine) 2 mg IVP Q3H PRN; Protocol PRN Reason: Pain, moderate (4-7) Stop: 07/08/17 21:18 Last Admin: 07/07/17 13:59 Dose: 2 mg Ondansetron HCl (Zofran Inj) 4 mg IVP Q6H PRN; Protocol PRN Reason: Nausea/Vomiting Pantoprazole Sodium (Protonix Ec Tab) 40 mg PO 0600 [facility] PRN Reason: Protocol Last Admin: 07/07/17 05:42 Dose: 40 mg Potassium Chloride (K-Dur 20 Meq Er Tab) 20 meq PO 0800 [facility] PRN Reason: Protocol Last Admin: 07/07/17 07:59 Dose: 20 meq Prednisone (Prednisone Tab) 40 mg PO 0800 [facility] PRN Reason: Protocol Last Admin: 07/07/17 07:59 Dose: 40 mg Promethazine HCl/Codeine (Phenergan/Codeine Oral Syrup) 5 ml PO Q6H PRN; Protocol PRN Reason: Cough and congestion Last Admin: 07/07/17 05:42 Dose: 5 ml - Labs Labs: 07/03/17 06:30 07/03/17 06:30 - Respiratory Exam Respiratory Exam: Clear to Ausculation Bilateral - Cardiovascular Exam Cardiovascular Exam: REGULAR RHYTHM - GI/Abdominal Exam GI & Abdominal Exam: Soft, Normal Bowel Sounds - Neurological Exam Neurological Exam: Alert, Awake - Skin Skin Exam: Dry, Warm Assessment and Plan (1) CHF (congestive heart failure) Status: Chronic (2) Degenerative joint disease (DJD) of lumbar spine Status: Chronic (3) Chronic lymphocytic leukemia Status: Chronic (4) COPD (chronic obstructive pulmonary disease) Status: Chronic - Assessment and Plan (Free Text) Plan: continue PT/SW for discharge planning
[2017-07-08] MEDS: Morphine 4 mg/ml ISec IVP PRN ×4 (03:44→20:58)
[2017-07-08] MEDS: Pantoprazole 40 mg EC Tab PO SCH (05:40)
[2017-07-08] MEDS: Potassium Chloride 20 mEq ER Tab PO SCH (08:15)
[2017-07-08] MEDS: Promethazine/Cod 6.25mg-10mg/5ml Syr UD PO PRN ×2 (08:22→18:05)
[2017-07-08] MEDS: Lidocaine 5% Patch TD SCH (10:05)
[2017-07-09] MEDS: Promethazine/Cod 6.25mg-10mg/5ml Syr UD PO PRN ×3 (01:31→20:03)
[2017-07-09] MEDS: Pantoprazole 40 mg EC Tab PO SCH (05:32)
[2017-07-09] MEDS: Morphine 4 mg/ml ISec IVP PRN ×3 (05:32→15:59)
[2017-07-09] MEDS: Potassium Chloride 20 mEq ER Tab PO SCH (07:56)
[2017-07-09] MEDS: Lidocaine 5% Patch TD SCH (10:01)
[2017-07-10] MEDS: Morphine 4 mg/ml ISec IVP PRN ×4 (05:44→22:33)
[2017-07-10] MEDS: Pantoprazole 40 mg EC Tab PO SCH (05:45)
[2017-07-10] MEDS: Potassium Chloride 20 mEq ER Tab PO SCH (08:35)
[2017-07-10] MEDS: Lidocaine 5% Patch TD SCH (09:40)
[2017-07-10 11:14] VITALS: PULSE 84; O2SAT 95
[2017-07-11 11:16] VITALS: BP 105/63; TEMP 97.5
[2017-07-11 11:21] VITALS: RESP 18
== END 2017-07-10 23:29 | disposition home or self-care (01) | DRG 292 ==
LOC: TRCU 19:51
PROVIDERS: ADMIT Internal Medicine; ATTEND Internal Medicine
PROC: F07Z9FZ Gait Training/Functional Ambulation Treatment using Assistive, Adaptive, Supportive or Protective Equipment (ICD-10-PCS; principal; 2017-07-03)
PROC: F07M6ZZ Therapeutic Exercise Treatment of Musculoskeletal System - Whole Body (ICD-10-PCS; 2017-07-03)
PROC: F08Z1ZZ Dressing Techniques Treatment (ICD-10-PCS; 2017-07-03)
PROC: F08Z2ZZ Grooming/Personal Hygiene Treatment (ICD-10-PCS; 2017-07-03)
PROC: F08Z0ZZ Bathing/Showering Techniques Treatment (ICD-10-PCS; 2017-07-03)
DX: I50.9 Heart failure, unspecified (principal); C91.10 Chronic lymphocytic leukemia of B-cell type not having achieved remission; F11.20 Opioid dependence, uncomplicated; D61.818 Other pancytopenia; I25.118 Atherosclerotic heart disease of native coronary artery with other forms of angina pectoris; J44.9 Chronic obstructive pulmonary disease, unspecified; M51.36 Other intervertebral disc degeneration, lumbar region; R53.1 Weakness

== ENCOUNTER 2017-08-06 02:39 | Inpatient (IN) | payer MEDICARE ==
[2017-08-06 02:40] VITALS: BMI 25.4
[2017-08-06] MEDS ORDERED: HYDROmorphone 0.5 mg/0.5 ml ISec SC STA (03:10)
[2017-08-06] MEDS ORDERED: Albuterol-Ipratrop 3 mg / 0.5 (3 ml) UD IH STA ×2 (03:10→05:55)
--- NOTE | 2017-08-06 03:16 | ED PDOC ---
Arrival/HPI - General Chief Complaint: Shortness Of Breath Time Seen by Provider: 08/06/17 02:56 Historian: Patient - History of Present Illness Narrative History of Present Illness (Text): 08/06/17 03:15 An 81 year old female, whose past medical history includes Coronary Artery Disease with cardiac stents, COPD, CLL, degenerative joint disease, chronic pain and Opioid dependence, was brought in by EMS to the emergency department complaining of shortness of breath and body aches. Patient also reports occassional minimally productive cough.Denies any chest pain. Denies any history of any fever or chills. Patient denies any other complaints at this time. PMD: Dr. Ming Hicks Symptom Onset: Sudden Symptom Course: Unchanged Activities at Onset: Rest Context: Home Past Medical History - Provider Review Nursing Documentation Reviewed: Yes - Infectious Disease Hx of Infectious Diseases: None - Tetanus Immunization Tetanus Immunization: Unknown - Cardiac Hx Cardiac Disorders: Yes Hx Congestive Heart Failure: Yes Hx Hypertension: Yes Other/Comment: [place] - Pulmonary Hx Asthma: Yes Hx Chronic Obstructive Pulmonary Disease (COPD): Yes - Neurological Hx Neurological Disorder: No - HEENT Hx Cataracts: Yes - Renal Hx Renal Disorder: No - Endocrine/Metabolic Hx Endocrine Disorders: No - Hematological/Oncological Hx Anemia: Yes Hx Lymphoma: Yes Other/Comment: Pancytopenia, lymphoma - Integumentary Hx Dermatological Disorder: Yes Other/Comment: stage 1 round red wound 1cm to left buttocks, buttocks reddened , r heel dry brown wound 2.5cm x 0.3cm c/o sharp pain, soft mass r upper back - Musculoskeletal/Rheumatological Hx Arthritis: Yes Hx Falls: Yes - Gastrointestinal Hx Gastrointestinal Disorders: Yes Other/Comment: Colon Resection - Genitourinary/Gynecological Hx Genitourinary Disorders: No Hx Reproductive Disorders: (hx hyst) - Psychiatric Hx Psychophysiologic Disorder: No Hx Substance Use: No - Surgical History Hx Cholecystectomy: Yes Hx Coronary Stent: Yes (x3) Other/Comment: port rt upper chest wall - Anesthesia Hx Anesthesia: Yes Hx Anesthesia Reactions: No Hx Malignant Hyperthermia: No - Suicidal Assessment Feels Threatened In Home Enviroment: No Family/Social History - Physician Review Nursing Documentation Reviewed: Yes Family/Social History: No Known Family HX Smoking Status: Never Smoked Hx Alcohol Use: No Hx Substance Use: No Substance used: demerol PO Q4H Hx Substance Use Treatment: No Allergies/Home Meds Allergies/Adverse Reactions: Allergies Sulfa (Sulfonamide Antibiotics) Allergy (Intermediate, Verified 08/06/17 02:54) RASH Home Medications: Home Meds Medication Instructions Recorded Confirmed Lidocaine 5% [Lidoderm] 1 patch TP DAILY 05/23/15 08/06/17 Albuterol HFA [Ventolin HFA 90 1 puff INH DAILY PRN 04/02/17 08/06/17 mcg/actuation (8 g)] Meperidine HCl [Demerol] 50 mg PO TID PRN 04/02/17 08/06/17 Review of Systems - Physician Review All systems were reviewed & negative as marked: Yes - Review of Systems Constitutional: Other (body aches). absent: Fevers (no chills) Respiratory: SOB, Cough Cardiovascular: absent: Chest Pain Physical Exam Vital Signs Reviewed: Yes Vital Signs Temp Pulse Resp BP Pulse Ox 08/06/17 05:08 98.4 F 95 H 22 143/80 98 08/06/17 04:03 103 H 22 142/68 98 08/06/17 02:55 98.7 F 110 H 20 90 L Temperature: Afebrile Pulse: Tachycardic Respiratory Rate: Normal Appearance: Positive for: Well-Appearing, Non-Toxic, Comfortable Pain Distress: None Mental Status: Positive for: Alert and Oriented X 3 - Systems Exam Head: Present: Atraumatic, Normocephalic Pupils: Present: PERRL Extroacular Muscles: Present: EOMI Conjunctiva: Present: Normal Mouth: Present: Moist Mucous Membranes Neck: Present: Normal Range of Motion Respiratory/Chest: Present: Decreased Breath Sounds (b/l). No: Accessory Muscle Use Cardiovascular: Present: Regular Rate and Rhythm, Normal S1, S2. No: Murmurs Abdomen: No: Tenderness, Distention, Peritoneal Signs Back: Present: Normal Inspection Upper Extremity: Present: Normal Inspection. No: Cyanosis, Edema Lower Extremity: Present: Normal Inspection. No: Edema Neurological: Present: GCS=15, CN II-XII Intact, Speech Normal Skin: Present: Warm, Dry, Normal Color. No: Rashes Psychiatric: Present: Alert, Oriented x 3, Normal Insight, Normal Concentration Medical Decision Making ED Course and Treatment: 08/06/17 03:13 Impression: An 81 year old female with shortness of breath, body aches,occassional cough. Plan: -- EKG -- Chest X-ray -- labs -- Solumedrol, Dilaudid, Duoneb -- Reassess and disposition Prior Visits: Notes and results from previous visits were reviewed. Patient was last seen in the emergency department on 06/27/17 for evaluation of shortness of breath and chest pain. Progress Notes: 08/06/17 04:41 Chest X-ray- chronic interstitial changes, as read by me. 08/06/17 05:23 EKG: Ordered, reviewed, and independently interpreted the EKG. Rate : 108 BPM Rhythm : sinus tachycardia Interpretation : pacs, Nonspecific S/T/T changes 08/06/17 06:03 Patient will be admitted to telemetry for COPD exacerbation.Case was d/w who accepts to his service. - Lab Interpretations Lab Results: 08/06/17 04:28 08/06/17 04:28 Lab Results 08/06/17 04:28: WBC 5.9 D, RBC 2.78 L, Hgb 8.8 L, Hct 26.3 L, MCV 94.6, MCH 31.7, MCHC 33.5, RDW 14.8 H, Plt Count 159, MPV 9.7 08/06/17 04:28: Sodium 140, Potassium 3.2 L, Chloride 101, Carbon Dioxide 28, Anion Gap 14, BUN 20, Creatinine 0.6 L, Est GFR ( Amer) > 60, Est GFR ( Non-Af Amer) > 60, Random Glucose 139 H, Calcium 8.6, Total Bilirubin 0.6, AST 12 L, ALT 26, Alkaline Phosphatase 61, Lactate Dehydrogenase 649, Total Creatine Kinase < 20 L, Troponin I 0.05 D, NT-Pro-B Natriuret Pep 3940 H, Total Protein 5.1 L, Albumin 3.1, Globulin 2.0, Albumin/Globulin Ratio 1.5 08/06/17 04:28: PT 13.7 H, INR 1.20 H, APTT 24.6 L I have reviewed the lab results: Yes - RAD Interpretation Radiology Orders: 08/06/17 03:08 CHEST PORTABLE [RAD] Stat - EKG Interpretation Interpreted by ED Physician: Yes Type: 12 lead EKG - Medication Orders Current Medication Orders: Discontinued Medications Albuterol/Ipratropium (Duoneb 3 Mg/0.5 Mg (3 Ml) Ud) 3 ml IH ONCE STA Stop: 08/06/17 03:11 Last Admin: 08/06/17 03:29 Dose: 3 ml Albuterol/Ipratropium (Duoneb 3 Mg/0.5 Mg (3 Ml) Ud) 3 ml IH ONCE STA Stop: 08/06/17 05:56 Hydromorphone HCl (Dilaudid) 0.5 mg SC STAT STA Stop: 08/06/17 03:11 Last Admin: 08/06/17 04:05 Dose: 0.5 mg MAR Pain Assessment Document 08/06/17 04:05 RG (Rec: 08/06/17 04:05 RG [id number]) Pain Reassessment Is this a pain reassessment? Yes Subcutaneous Administrations Document 08/06/17 04:05 RG (Rec: 08/06/17 04:05 RG [id number]) Charges for Administration # of Subcutaneous Administrations 1 Methylprednisolone (Solu-Medrol) 125 mg IVP ONCE ONE Stop: 08/06/17 03:11 Last Admin: 08/06/17 04:05 Dose: 125 mg IVP Administration Document 08/06/17 04:05 RG (Rec: 08/06/17 04:05 RG [id number]) Charges for Administration # of IVP Administrations 1 Potassium Chloride (Potassium Chloride Oral Soln) 40 meq PO STAT STA Stop: 08/06/17 05:53 - Scribe Statement The provider has reviewed the documentation as recorded by the Emerson Perla Provider Scribe Attestation: All medical record entries made by the Alexibcheng were at my direction and personally dictated by me. I have reviewed the chart and agree that the record accurately reflects my personal performance of the history, physical exam, medical decision making, and the department course for this patient. I have also personally directed, reviewed, and agree with the discharge instructions and disposition. Disposition/Present on Arrival - Present on Arrival Any Indicators Present on Arrival: No History of DVT/PE: No History of Uncontrolled Diabetes: No Urinary Catheter: No History of Decub. Ulcer: No History Surgical Site Infection Following: None - Disposition Have Diagnosis and Disposition been Completed?: Yes Diagnosis: COPD exacerbation Disposition: HOSPITALIZED Disposition Time: 05:56 Condition: STABLE Forms: [facility] (Macedonian)
[2017-08-06 05:06] LABS: ALB/GLOB RATIO 1.5 (1.1-1.8); ALBUMIN 3.1 g/dL (3.0-4.8); ALT/SGPT 26 U/L (7-56); AST/SGOT 12 U/L (14-36); BLOOD UREA NITROGEN 20 mg/dL (7-21); CALCIUM 8.6 mg/dL (8.4-10.5); GFR AFRICAN-AMERICAN > 60; GFR NON-AFRICAN AMERICAN > 60
[2017-08-06 05:12] LABS: INR 1.2 (0.93-1.08); PROTHROMBIN TIME 13.7 SECONDS (9.4-12.5)
[2017-08-06 05:13] LABS: HEMOGLOBIN 8.8 g/dL (12.0-16.0); MEAN CELL VOLUME 94.6 fl (80.0-105.0); MEAN CORPUSCULAR HEMOGLOBIN 31.7 pg (25.0-35.0); MEAN CORPUSCULAR HGB CONC 33.5 g/dl (31.0-37.0); MEAN PLATELET VOLUME 9.7 fl (7.0-11.0); PARTIAL THROMBOPLASTIN TIME 24.6 Seconds (25.1-36.5); RBC 2.78 10^6/uL (3.5-6.1); RED CELL DISTRIBUTION WIDTH 14.8 % (11.5-14.5); WHITE BLOOD COUNT 5.9 10^3/ul (4.5-11.0)
[2017-08-06 05:27] LABS: B-TYPE NATRIURETIC PEPTIDE 3940 pg/mL (0-450); TROPONIN I 0.05 ng/mL
[2017-08-06] MEDS ORDERED: Potassium Chloride 40 mEq/30 ml LIQ UD PO STA (05:52)
[2017-08-06] MEDS ORDERED: Albuterol-Ipratrop 3 mg / 0.5 (3 ml) UD IH PRN (06:02)
--- NOTE | 2017-08-06 07:48 | RAD ---
HISTORY: sob COMPARISON: 06/27/2017 FINDINGS: LUNGS: No active pulmonary disease. PLEURA: No significant pleural effusion identified, no pneumothorax apparent. CARDIOVASCULAR: Normal. OSSEOUS STRUCTURES: No significant abnormalities. VISUALIZED UPPER ABDOMEN: Normal. OTHER FINDINGS: Right-sided Port-A-Cath terminating in the right atrium IMPRESSION: No active disease.
[2017-08-06] MEDS ORDERED: Potassium Chloride 20 mEq/15 ml LIQ UD PO STA (10:29)
--- NOTE | 2017-08-06 10:51 | CARD ---
APPROVED REPORT EKG Measurement Heart [id number] <Conclusion> Sinus tachycardia with premature atrial complexes Otherwise normal ECG
[2017-08-06] MEDS: Verapamil 120 mg ER Tab PO SCH (11:05)
[2017-08-06] MEDS: Morphine 4 mg/ml ISec IVP PRN ×2 (11:12→16:06)
[2017-08-06] MEDS: Metoprolol Succinate 50 mg XL Tab PO SCH (11:12)
--- NOTE | 2017-08-06 18:55 | HP ---
HISTORY OF PRESENT ILLNESS: Patient is an 81-year-old female, admitted through the Emergency Department for increasing shortness of breath and chest pain radiating to the back, of one day's duration. PAST MEDICAL HISTORY: Includes coronary artery disease, status post stent placement x3, COPD, chronic lymphocytic leukemia, degenerative joint disease with chronic pain and opiate dependence. PAST SURGICAL HISTORY: Includes appendectomy, cholecystectomy, and hysterectomy. CURRENT MEDICATIONS: Include Imdur 30 mg daily, potassium chloride 20 mEq daily, Lasix 40 mg daily, Demerol 50 mg daily, Pepcid 20 mg twice daily, Plavix 75 mg daily, and Toprol-XL 50 mg daily. ALLERGIES: PATIENT REPORTS ALLERGIES TO SULFA. SOCIAL HISTORY: The patient has no history of tobacco or alcohol use. She lives alone. She is independent with ADLs and IADLs. REVIEW OF SYSTEMS: The patient denies any chest pain or shortness of breath at present. There is no abdominal pain. No nausea, no vomiting, no diarrhea. No jaundice, no rash. No melena, no bright red blood per rectum. PHYSICAL EXAMINATION: GENERAL: The patient is a well-developed, mildly cachectic female, in no acute distress. VITAL SIGNS: Blood pressure 133/79, pulse 67, temperature 98.7, respiratory rate 18. HEENT: Head is normocephalic, atraumatic. Pupils equal, round, reactive to light. Extraocular movements intact. NECK: Supple with no thyromegaly. No carotid bruit. No adenopathy. LUNGS: Show a few bibasilar crackles. HEART: Regular rate and rhythm. Grade 2/6 systolic murmur. No JVD. ABDOMEN: Soft and nontender. Bowel sounds are normoactive. EXTREMITIES: Without cyanosis, clubbing, or edema. NEUROLOGIC: Patient is awake and oriented x3 without focal sensory or motor deficits. SKIN: Warm and dry. LABORATORY DATA: WBC is 5.9, hemoglobin 8.8, hematocrit 26.3, platelets 159. Sodium 140, potassium 3.2, chloride 101, CO2 of 28, BUN 20, creatinine 0.6, glucose 139. BNP is elevated 3940. Troponin is 0.05. IMPRESSION: 1. Congestive heart failure. 2. Coronary artery disease status post stent placement x3. 3. Chronic obstructive pulmonary disease. 4. Chronic lymphocytic leukemia. 5. Degenerative joint disease with chronic pain and opiate dependence. PLAN: Patient will be admitted to the telemetry unit. She is currently receiving DuoNebs. We will obtain Cardiology consultation with Dr. Rambo Thomson. Heart-healthy diet. Physical therapy evaluation and treatment. ABRIL Kenney MD
[2017-08-07] MEDS: Morphine 4 mg/ml ISec IVP PRN ×4 (00:13→18:09)
--- NOTE | 2017-08-07 05:04 | CON ---
DATE: 08/06/2017 CARDIOLOGY CONSULTATION HISTORY OF PRESENT ILLNESS: The patient is an 81-year-old woman who presents with several days of chest pain. Her symptoms are associated with a cough. It is unclear whether the cough has exacerbated her chest pain. PAST MEDICAL HISTORY: The patient's past medical history is notable for lymphoma, in addition, she has had a critical LAD lesion, which is heavily calcified and was resistant to balloon angioplasty. She has refused Rotablator, which required transfer out of the hospital to do. She has been treated medically on verapamil, beta-blockers as well as Plavix. She denies shortness of breath. In addition, she suffers from hypertension. SOCIAL HISTORY: The patient does not smoke. 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 REVIEW OF SYSTEMS: Fourteen-point review of systems is reviewed in detail. Other than weakness, no additional symptoms are noted. PHYSICAL EXAMINATION: GENERAL: The patient is in bed, in no acute distress. VITAL SIGNS: Blood pressure 140/86, heart rate is in the 90s. NECK: Negative JVD. LUNGS: Without rales. HEART: Reveals S1, S2. EXTREMITIES: Without edema. DIAGNOSTIC DATA: EKG shows no acute changes. LABORATORY DATA: Troponin is 0.05. BUN and creatinine are unremarkable. Potassium is 3.2 with a hemoglobin of 8.8. IMPRESSION: 1. Recurrent chest pain. 2. Marked anemia. 3. Lymphoma. 4. History of documented coronary artery disease in which the patient has refused Rotablator to open up the artery. 5. Hypertension. 6. Weakness. PLAN: Given these findings, the patient may benefit from a packed red blood cell. We will obtain serial troponins. Rambo Thomson MD
[2017-08-07] MEDS: Metoprolol Succinate 50 mg XL Tab PO SCH (08:33)
[2017-08-07 09:44] LABS: BASO # 0.01 K/mm3 (0.0-2.0); BASO % 0.2 % (0.0-3.0); EOS % 0.4 % (1.5-5.0); GRAN # 2.37 (1.4-6.5); GRAN % 41.5 % (50.0-68.0); HEMOGLOBIN 8.6 g/dL (12.0-16.0); LYMPH # 2.9 (1.2-3.4); LYMPH % 51.6 % (22.0-35.0); MEAN CELL VOLUME 95.3 fl (80.0-105.0); MEAN CORPUSCULAR HEMOGLOBIN 31.3 pg (25.0-35.0); MEAN CORPUSCULAR HGB CONC 32.8 g/dl (31.0-37.0); MEAN PLATELET VOLUME 9.5 fl (7.0-11.0); MONO # 0.4 (0.1-0.6); MONO % 6.3 % (1.0-6.0); RBC 2.75 10^6/uL (3.5-6.1); WHITE BLOOD COUNT 5.7 10^3/ul (4.5-11.0)
[2017-08-07] MEDS: Verapamil 120 mg ER Tab PO SCH (09:48)
--- NOTE | 2017-08-07 09:48 | CP.PCM.PN ---
Subjective - Date & Time of Evaluation Date of Evaluation: 08/07/17 Time of Evaluation: 09:00 - Subjective Subjective: c/o chest discomfort, pain "all over", non-productive cough, denies SOB Objective - Vital Signs/Intake and Output Vital Signs (last 24 hours): Temp Pulse Resp BP Pulse Ox 98.4 F 100 H 20 175/91 H 95 08/07/17 05:18 08/07/17 08:33 08/07/17 05:18 08/07/17 08:33 08/07/17 05:18 Intake and Output: 08/07/17 08/07/17 06:59 18:59 Intake Total 400 Balance 400 - Medications Medications: Current Medications Albuterol/Ipratropium (Duoneb 3 Mg/0.5 Mg (3 Ml) Ud) 3 ml IH Q4H PRN PRN Reason: Shortness of Breath Azithromycin (Zithromax) 500 mg PO DAILY [facility] PRN Reason: Protocol Famotidine (Pepcid) 20 mg PO 1000,2200 [facility] Last Admin: 08/06/17 21:44 Dose: 20 mg Isosorbide Mononitrate (Imdur Er) 30 mg PO DAILY [facility] Last Admin: 08/06/17 13:20 Dose: 30 mg Metoprolol Succinate (Toprol Xl) 50 mg PO BRK [facility] Last Admin: 08/07/17 08:33 Dose: 50 mg Morphine Sulfate (Morphine) 2 mg IVP Q4H PRN PRN Reason: Pain, moderate (4-7) Last Admin: 08/07/17 05:44 Dose: 2 mg Prednisone (Prednisone Tab) 40 mg PO DAILY [facility] Verapamil HCl (Calan Sr Tab) 120 mg PO DAILY [facility] Last Admin: 08/06/17 11:05 Dose: 120 mg - Labs Labs: 08/06/17 11:00 PT 13.7 SECONDS (9.4-12.5) H 08/06/17 04:28 INR 1.20 (0.93-1.08) H 08/06/17 04:28 APTT 24.6 Seconds (25.1-36.5) L 08/06/17 04:28 - Respiratory Exam Respiratory Exam: Rales - Cardiovascular Exam Cardiovascular Exam: REGULAR RHYTHM, Murmur - GI/Abdominal Exam GI & Abdominal Exam: Soft, Normal Bowel Sounds - Extremities Exam Extremities Exam: Normal Inspection - Neurological Exam Neurological Exam: Alert, Awake - Skin Skin Exam: Dry, Warm Assessment and Plan (1) COPD exacerbation Status: Chronic (2) Chest pain Status: Acute (3) Intractable back pain Status: Chronic (4) CHF (congestive heart failure) Status: Chronic (5) Chronic lymphocytic leukemia Status: Chronic (6) Degenerative joint disease (DJD) of lumbar spine Status: Chronic - Assessment and Plan (Free Text) Plan: start empiric Zithromax 500qd, carido follow-up, PT eval pending, SW for DC planning
--- NOTE | 2017-08-07 10:11 | PN ---
DATE: 08/07/2017 CARDIOLOGY FOLLOWUP SUBJECTIVE: The patient is resting comfortably. Today, she is still feeling weak. PHYSICAL EXAMINATION VITAL SIGNS: The blood pressure is 155/76, the heart rate is in the 80s. NECK: Negative JVD. LUNGS: Decreased breath sounds. HEART: Reveals S1, S2. EXTREMITIES: Without edema. LABORATORY DATA: Troponin today is pending. IMPRESSION: 1. Weakness. 2. Chest pain. 3. Coronary artery disease. 4. History of lymphoma. 5. Hypertension. PLAN: Given these findings, we will obtain a troponin today. We will recheck the hemoglobin. Rambo Thomson MD
[2017-08-07] MEDS: Lidocaine 5% Patch TD SCH (11:56)
--- NOTE | 2017-08-07 14:04 | PQF CHF ---
This form is a permanent part of the medical record Dr. Hicks, Please specify type and severity of CHF. Clarification of your documentation is requested to better reflect the severity of illness and intensity of treatment of your patient. Indicators present [x] Diagnosis of CHF and/or history of CHF [x] BNP > 200 [] Imaging Finding of Pulmonary Edema /Pleural Effusions [] Fluid/Volume Overload [] Pitting edema [] Ejection Fraction < 40% (Indicative of Systolic Heart Failure) [] Ejection Fraction > 40% (Indicative of Diastolic Heart Failure) [x] Dyspnea / Orthopenea / Paroxysmal Nocturnal Dyspnea [] Other: Location in the medical record that reflects the above clinical findings: [] Treatment Provided: [] PHYSICIAN'S RESPONSE Based on your medical judgment of the clinical indicators outlined above, are you treating this patient for a known or suspected: [] Acute CHF [] Systolic [] Diastolic [] Combined [] Chronic CHF [] Systolic [] Diastolic [x] Combined [] Acute on Chronic CHF []Systolic [] Diastolic [] Combined [] CHF due hypertension [] Acute systolic []Chronic systolic [] Acute/ chronic systolic [] Other, please indicate: [] [] If Unable to Determine, please check the box, sign and date. Present On Admission (POA) Indicator: [x] Present at the time of admission [] Not present at the time of admission [] Clinically Undetermined In responding to this query, please exercise your independent professional judgment. The fact that a question is asked does not imply that any particular answer is desired or expected. Thank you for your clarification on this documentation. 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
[2017-08-08] MEDS: Morphine 4 mg/ml ISec IVP PRN ×3 (04:32→08:39)
[2017-08-08] MEDS: Metoprolol Succinate 50 mg XL Tab PO SCH (08:38)
[2017-08-08 10:01] LABS: ALB/GLOB RATIO 1.5 (1.1-1.8); ALT/SGPT 18 U/L (7-56); AST/SGOT 13 U/L (14-36); BLOOD UREA NITROGEN 20 mg/dL (7-21); CALCIUM 8.9 mg/dL (8.4-10.5); GFR AFRICAN-AMERICAN > 60; GFR NON-AFRICAN AMERICAN > 60
[2017-08-08] MEDS: Verapamil 120 mg ER Tab PO SCH (10:56)
[2017-08-08] MEDS: Lidocaine 5% Patch TD SCH (10:57)
--- NOTE | 2017-08-08 13:28 | CP.PCM.PN ---
Subjective - Date & Time of Evaluation Date of Evaluation: 08/08/17 Time of Evaluation: 09:00 - Subjective Subjective: denies chest pain, no SOB, no cough Objective - Vital Signs/Intake and Output Vital Signs (last 24 hours): Temp Pulse Resp BP Pulse Ox 98.2 F 95 H 18 134/75 95 08/08/17 12:00 08/08/17 12:00 08/08/17 12:00 08/08/17 12:00 08/08/17 06:00 Intake and Output: 08/08/17 08/08/17 06:59 18:59 Intake Total 240 Output Total 200 Balance 40 - Medications Medications: Current Medications Albuterol/Ipratropium (Duoneb 3 Mg/0.5 Mg (3 Ml) Ud) 3 ml IH Q4H PRN PRN Reason: Shortness of Breath Azithromycin (Zithromax) 500 mg PO DAILY [facility] PRN Reason: Protocol Last Admin: 08/08/17 10:56 Dose: 500 mg Famotidine (Pepcid) 20 mg PO 1000,2200 [facility] Last Admin: 08/08/17 10:56 Dose: 20 mg Isosorbide Mononitrate (Imdur Er) 30 mg PO DAILY [facility] Last Admin: 08/08/17 10:55 Dose: 30 mg Lidocaine (Lidoderm) 1 ea TD DAILY [facility] Last Admin: 08/08/17 10:57 Dose: 1 ea Metoprolol Succinate (Toprol Xl) 50 mg PO BRK [facility] Last Admin: 08/08/17 08:38 Dose: 50 mg Morphine Sulfate (Morphine) 2 mg IVP Q4H PRN PRN Reason: Pain, moderate (4-7) Last Admin: 08/08/17 08:39 Dose: 2 mg Potassium Chloride (K-Dur 20 Meq Er Tab) 20 meq PO BRK [facility] Prednisone (Prednisone Tab) 40 mg PO DAILY [facility] Last Admin: 08/08/17 10:56 Dose: 40 mg Verapamil HCl (Calan Sr Tab) 120 mg PO DAILY [facility] Last Admin: 08/08/17 10:56 Dose: 120 mg - Labs Labs: 08/08/17 09:30 PT 13.7 SECONDS (9.4-12.5) H 08/06/17 04:28 INR 1.20 (0.93-1.08) H 08/06/17 04:28 APTT 24.6 Seconds (25.1-36.5) L 08/06/17 04:28 - Respiratory Exam Respiratory Exam: Rales - Cardiovascular Exam Cardiovascular Exam: REGULAR RHYTHM - GI/Abdominal Exam GI & Abdominal Exam: Soft, Normal Bowel Sounds - Extremities Exam Extremities Exam: Normal Inspection - Neurological Exam Neurological Exam: Alert, Awake - Skin Skin Exam: Dry, Warm Assessment and Plan (1) COPD exacerbation Status: Chronic (2) Chest pain Status: Acute (3) Intractable back pain Status: Chronic (4) CHF (congestive heart failure) Status: Chronic (5) Chronic lymphocytic leukemia Status: Chronic (6) Degenerative joint disease (DJD) of lumbar spine Status: Chronic - Assessment and Plan (Free Text) Plan: PT eval and Tx, cardiology f/u, check labs in am, SW for DC planning
[2017-08-08] MEDS: Potassium Chloride 20 mEq ER Tab PO SCH (13:44)
[2017-08-08] MEDS: Morphine 2 mg/2 mL syringe IVP PRN ×3 (13:45→22:35)
[2017-08-09] MEDS: Morphine 2 mg/2 mL syringe IVP PRN ×3 (02:48→17:13)
[2017-08-09 06:27] LABS: EOS % 0.1 % (1.5-5.0); GRAN # 3.14 (1.4-6.5); GRAN % 37.5 % (50.0-68.0); HEMOGLOBIN 8.9 g/dL (12.0-16.0); LYMPH # 4.9 (1.2-3.4); MEAN CELL VOLUME 95.2 fl (80.0-105.0); MEAN CORPUSCULAR HEMOGLOBIN 30.8 pg (25.0-35.0); MEAN CORPUSCULAR HGB CONC 32.4 g/dl (31.0-37.0); MEAN PLATELET VOLUME 9.5 fl (7.0-11.0); MONO # 0.4 (0.1-0.6); MONO % 4.4 % (1.0-6.0); RBC 2.89 10^6/uL (3.5-6.1); RED CELL DISTRIBUTION WIDTH 14.6 % (11.5-14.5); WHITE BLOOD COUNT 8.4 10^3/ul (4.5-11.0)
[2017-08-09 06:45] LABS: ALB/GLOB RATIO 1.4 (1.1-1.8); ALBUMIN 2.9 g/dL (3.0-4.8); ALT/SGPT 20 U/L (7-56); AST/SGOT 14 U/L (14-36); BLOOD UREA NITROGEN 25 mg/dL (7-21); CALCIUM 8.6 mg/dL (8.4-10.5); GFR AFRICAN-AMERICAN > 60; GFR NON-AFRICAN AMERICAN > 60
[2017-08-09] MEDS: Potassium Chloride 20 mEq ER Tab PO SCH (08:13)
[2017-08-09] MEDS: Metoprolol Succinate 50 mg XL Tab PO SCH (08:13)
[2017-08-09] MEDS: Verapamil 120 mg ER Tab PO SCH (11:25)
[2017-08-09] MEDS: Lidocaine 5% Patch TD SCH (11:26)
--- NOTE | 2017-08-09 16:36 | PN ---
DATE: 08/09/2017 CARDIOLOGY FOLLOWUP SUBJECTIVE: The patient complained of diffuse body aches. PHYSICAL EXAMINATION: VITAL SIGNS: Blood pressure 145/88, heart rate in the 90s. NECK: Negative JVD. LUNGS: Without rales. HEART: S1, S2. EXTREMITIES: Without edema. LABORATORY DATA: Hemoglobin is 8.9. Chemistries: BUN and creatinine 25 and 0.7. IMPRESSION: The patient remains hemodynamically stable. Blood pressure is stable. The patient is on medications for chronic pain. Rambo Thomson MD
[2017-08-10] MEDS: Morphine 2 mg/2 mL syringe IVP PRN ×4 (05:11→22:22)
[2017-08-10] MEDS: Metoprolol Succinate 50 mg XL Tab PO SCH (08:55)
[2017-08-10] MEDS: Potassium Chloride 20 mEq ER Tab PO SCH (08:55)
[2017-08-10] MEDS: Verapamil 120 mg ER Tab PO SCH (09:23)
[2017-08-10] MEDS: Lidocaine 5% Patch TD SCH (09:23)
--- NOTE | 2017-08-10 13:59 | CP.PCM.PN ---
Subjective - Date & Time of Evaluation Date of Evaluation: 08/10/17 Time of Evaluation: 13:30 - Subjective Subjective: NAD, denies chest pain, no SOB Objective - Vital Signs/Intake and Output Vital Signs (last 24 hours): Temp Pulse Resp BP Pulse Ox 97.5 F L 98 H 18 136/87 99 08/10/17 10:18 08/10/17 10:18 08/10/17 10:18 08/10/17 10:18 08/10/17 10:18 Intake and Output: 08/10/17 08/10/17 06:59 18:59 Intake Total 200 Output Total 200 Balance 0 - Medications Medications: Current Medications Albuterol/Ipratropium (Duoneb 3 Mg/0.5 Mg (3 Ml) Ud) 3 ml IH Q4H PRN PRN Reason: Shortness of Breath Azithromycin (Zithromax) 500 mg PO DAILY [facility] PRN Reason: Protocol Last Admin: 08/10/17 09:23 Dose: 500 mg Famotidine (Pepcid) 20 mg PO 1000,2200 [facility] Last Admin: 08/10/17 09:23 Dose: 20 mg Isosorbide Mononitrate (Imdur Er) 30 mg PO DAILY [facility] Last Admin: 08/10/17 09:23 Dose: 30 mg Lidocaine (Lidoderm) 1 ea TD DAILY [facility] Last Admin: 08/10/17 09:23 Dose: 1 ea Metoprolol Succinate (Toprol Xl) 50 mg PO BRK [facility] Last Admin: 08/10/17 08:55 Dose: 50 mg Morphine Sulfate (Morphine) 2 mg IVP Q4H PRN PRN Reason: Pain, moderate (4-7) Last Admin: 08/10/17 09:41 Dose: 2 mg Potassium Chloride (K-Dur 20 Meq Er Tab) 20 meq PO BRK [facility] Last Admin: 08/10/17 08:55 Dose: 20 meq Prednisone (Prednisone Tab) 40 mg PO DAILY [facility] Last Admin: 08/10/17 09:23 Dose: 40 mg Verapamil HCl (Calan Sr Tab) 120 mg PO DAILY [facility] Last Admin: 08/10/17 09:23 Dose: 120 mg - Labs Labs: 08/09/17 05:30 08/09/17 05:30 PT 13.7 SECONDS (9.4-12.5) H 08/06/17 04:28 INR 1.20 (0.93-1.08) H 08/06/17 04:28 APTT 24.6 Seconds (25.1-36.5) L 08/06/17 04:28 - Respiratory Exam Respiratory Exam: Clear to Ausculation Bilateral, NORMAL BREATHING PATTERN - Cardiovascular Exam Cardiovascular Exam: REGULAR RHYTHM - GI/Abdominal Exam GI & Abdominal Exam: Soft, Normal Bowel Sounds - Extremities Exam Extremities Exam: Normal Inspection - Neurological Exam Neurological Exam: Alert, Awake - Skin Skin Exam: Dry, Warm Assessment and Plan (1) COPD exacerbation Status: Chronic (2) Chest pain Status: Acute (3) Intractable back pain Status: Chronic (4) CHF (congestive heart failure) Status: Chronic (5) Chronic lymphocytic leukemia Status: Chronic (6) Degenerative joint disease (DJD) of lumbar spine Status: Chronic - Assessment and Plan (Free Text) Plan: await TCU SHAISTA nelson for DC planning
[2017-08-11] MEDS: Morphine 2 mg/2 mL syringe IVP PRN ×4 (02:31→17:35)
[2017-08-11] MEDS: Potassium Chloride 20 mEq ER Tab PO SCH (08:33)
[2017-08-11] MEDS: Metoprolol Succinate 50 mg XL Tab PO SCH (08:36)
[2017-08-11] MEDS: Lidocaine 5% Patch TD SCH (10:08)
[2017-08-11] MEDS: Verapamil 120 mg ER Tab PO SCH (10:08)
--- NOTE | 2017-08-11 10:53 | CP.PCM.PN ---
Subjective - Date & Time of Evaluation Date of Evaluation: 08/11/17 Time of Evaluation: 10:30 - Subjective Subjective: c/o pain "all over", no chest pain, no SOB Objective - Vital Signs/Intake and Output Vital Signs (last 24 hours): Temp Pulse Resp BP Pulse Ox 98.2 F 84 20 170/95 H 95 08/11/17 06:00 08/11/17 10:08 08/11/17 06:00 08/11/17 10:08 08/11/17 06:00 Intake and Output: 08/11/17 08/11/17 06:59 18:59 Intake Total 360 120 Balance 360 120 - Medications Medications: Current Medications Albuterol/Ipratropium (Duoneb 3 Mg/0.5 Mg (3 Ml) Ud) 3 ml IH Q4H PRN PRN Reason: Shortness of Breath Azithromycin (Zithromax) 500 mg PO DAILY [facility] PRN Reason: Protocol Last Admin: 08/11/17 10:08 Dose: 500 mg Famotidine (Pepcid) 20 mg PO 1000,2200 [facility] Last Admin: 08/11/17 10:08 Dose: 20 mg Isosorbide Mononitrate (Imdur Er) 30 mg PO DAILY [facility] Last Admin: 08/11/17 10:08 Dose: 30 mg Lidocaine (Lidoderm) 1 ea TD DAILY [facility] Last Admin: 08/11/17 10:08 Dose: 1 ea Metoprolol Succinate (Toprol Xl) 50 mg PO BRK [facility] Last Admin: 08/11/17 08:36 Dose: 50 mg Morphine Sulfate (Morphine) 2 mg IVP Q4H PRN PRN Reason: Pain, moderate (4-7) Last Admin: 08/11/17 10:37 Dose: 2 mg Potassium Chloride (K-Dur 20 Meq Er Tab) 20 meq PO BRK [facility] Last Admin: 08/11/17 08:33 Dose: Not Given Prednisone (Prednisone Tab) 40 mg PO DAILY [facility] Last Admin: 08/11/17 10:08 Dose: 40 mg Verapamil HCl (Calan Sr Tab) 120 mg PO DAILY [facility] Last Admin: 08/11/17 10:08 Dose: 120 mg - Labs Labs: 08/09/17 05:30 08/09/17 05:30 PT 13.7 SECONDS (9.4-12.5) H 08/06/17 04:28 INR 1.20 (0.93-1.08) H 08/06/17 04:28 APTT 24.6 Seconds (25.1-36.5) L 08/06/17 04:28 - Respiratory Exam Respiratory Exam: Rhonchi - Cardiovascular Exam Cardiovascular Exam: REGULAR RHYTHM, Murmur - GI/Abdominal Exam GI & Abdominal Exam: Soft, Normal Bowel Sounds - Back Exam Back Exam: NORMAL INSPECTION - Neurological Exam Neurological Exam: Alert, Awake - Skin Skin Exam: Dry, Warm Assessment and Plan (1) COPD exacerbation Status: Chronic (2) Chest pain Status: Acute (3) Intractable back pain Status: Chronic (4) CHF (congestive heart failure) Status: Chronic (5) Chronic lymphocytic leukemia Status: Chronic (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
[2017-08-11] MEDS: Morphine 4 mg/ml ISec IVP PRN (22:46)
[2017-08-12] MEDS: Morphine 4 mg/ml ISec IVP PRN ×2 (03:05→06:51)
[2017-08-12 08:09] VITALS: RESP 20
[2017-08-12] MEDS: Metoprolol Succinate 50 mg XL Tab PO SCH (08:26)
[2017-08-12] MEDS: Potassium Chloride 20 mEq ER Tab PO SCH (08:37)
--- NOTE | 2017-08-12 08:46 | CP.PCM.PN ---
Subjective - Date & Time of Evaluation Date of Evaluation: 08/12/17 Time of Evaluation: 08:30 - Subjective Subjective: denies chest pain, no SOB, c/o cough productive whitish sputum, no hemoptysis Objective - Vital Signs/Intake and Output Vital Signs (last 24 hours): Temp Pulse Resp BP Pulse Ox 97.9 F 78 20 159/88 H 96 08/12/17 06:00 08/12/17 06:00 08/12/17 06:00 08/12/17 08:26 08/12/17 06:00 Intake and Output: 08/12/17 08/12/17 06:59 18:59 Intake Total 240 Balance 240 - Medications Medications: Current Medications Albuterol/Ipratropium (Duoneb 3 Mg/0.5 Mg (3 Ml) Ud) 3 ml IH Q4H PRN PRN Reason: Shortness of Breath Azithromycin (Zithromax) 500 mg PO DAILY [facility] PRN Reason: Protocol Last Admin: 08/11/17 10:08 Dose: 500 mg Famotidine (Pepcid) 20 mg PO 1000,2200 [facility] Last Admin: 08/11/17 10:08 Dose: 20 mg Isosorbide Mononitrate (Imdur Er) 30 mg PO DAILY [facility] Last Admin: 08/11/17 10:08 Dose: 30 mg Lidocaine (Lidoderm) 1 ea TD DAILY [facility] Last Admin: 08/11/17 10:08 Dose: 1 ea Losartan Potassium (Cozaar) 25 mg PO DAILY [facility] Metoprolol Succinate (Toprol Xl) 50 mg PO BRK [facility] Last Admin: 08/12/17 08:26 Dose: 50 mg Morphine Sulfate (Morphine) 2 mg IVP Q4H PRN PRN Reason: Pain, moderate (4-7) Last Admin: 08/12/17 06:51 Dose: 2 mg Potassium Chloride (K-Dur 20 Meq Er Tab) 20 meq PO BRK [facility] Last Admin: 08/12/17 08:37 Dose: 20 meq Prednisone (Prednisone Tab) 40 mg PO DAILY [facility] Last Admin: 08/11/17 10:08 Dose: 40 mg Verapamil HCl (Calan Sr Tab) 120 mg PO DAILY [facility] Last Admin: 08/11/17 10:08 Dose: 120 mg - Labs Labs: 08/09/17 05:30 08/09/17 05:30 PT 13.7 SECONDS (9.4-12.5) H 08/06/17 04:28 INR 1.20 (0.93-1.08) H 08/06/17 04:28 APTT 24.6 Seconds (25.1-36.5) L 08/06/17 04:28 - Respiratory Exam Respiratory Exam: Rhonchi - Cardiovascular Exam Cardiovascular Exam: REGULAR RHYTHM - GI/Abdominal Exam GI & Abdominal Exam: Soft, Normal Bowel Sounds - Extremities Exam Extremities Exam: Normal Inspection - Neurological Exam Neurological Exam: Abnormal Gait, Alert, Awake - Skin Skin Exam: Dry, Warm Assessment and Plan (1) COPD exacerbation Status: Chronic (2) Chest pain Status: Acute (3) Intractable back pain Status: Chronic (4) CHF (congestive heart failure) Status: Chronic (5) Chronic lymphocytic leukemia Status: Chronic (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
[2017-08-12] MEDS: Verapamil 120 mg ER Tab PO SCH (09:13)
[2017-08-12] MEDS: Lidocaine 5% Patch TD SCH (09:29)
[2017-08-12 09:42] LABS: ALB/GLOB RATIO 1.4 (1.1-1.8); ALBUMIN 3.1 g/dL (3.0-4.8); ALT/SGPT 20 U/L (7-56); AST/SGOT 13 U/L (14-36); BASO # 0.01 K/mm3 (0.0-2.0); BASO % 0.1 % (0.0-3.0); BLOOD UREA NITROGEN 25 mg/dL (7-21); CALCIUM 8.9 mg/dL (8.4-10.5); GFR AFRICAN-AMERICAN > 60; GFR NON-AFRICAN AMERICAN > 60; GRAN # 3.51 (1.4-6.5); GRAN % 34.5 % (50.0-68.0); HEMOGLOBIN 9.4 g/dL (12.0-16.0); LYMPH # 6.2 (1.2-3.4); LYMPH % 61.1 % (22.0-35.0); MEAN CELL VOLUME 94.8 fl (80.0-105.0); MEAN CORPUSCULAR HEMOGLOBIN 30.8 pg (25.0-35.0); MEAN CORPUSCULAR HGB CONC 32.5 g/dl (31.0-37.0); MEAN PLATELET VOLUME 9.9 fl (7.0-11.0); MONO # 0.4 (0.1-0.6); MONO % 4.3 % (1.0-6.0); RBC 3.05 10^6/uL (3.5-6.1); RED CELL DISTRIBUTION WIDTH 14.5 % (11.5-14.5); WHITE BLOOD COUNT 10.2 10^3/ul (4.5-11.0)
[2017-08-12] MEDS: Morphine 2 mg/2 mL syringe IVP PRN ×3 (10:59→22:23)
--- NOTE | 2017-08-12 11:30 | RAD ---
HISTORY: cough COMPARISON: 08/06/2017 TECHNIQUE: Chest PA and lateral FINDINGS: LUNGS: No active pulmonary disease. PLEURA: No significant pleural effusion identified. No pneumothorax apparent. CARDIOVASCULAR: Normal. OSSEOUS STRUCTURES: No significant abnormalities. VISUALIZED UPPER ABDOMEN: Normal. OTHER FINDINGS: None. IMPRESSION: No active disease.
[2017-08-13] MEDS: Morphine 2 mg/2 mL syringe IVP PRN ×3 (07:37→16:35)
[2017-08-13] MEDS: Potassium Chloride 20 mEq ER Tab PO SCH (08:19)
[2017-08-13] MEDS: Metoprolol Succinate 50 mg XL Tab PO SCH (08:19)
--- NOTE | 2017-08-13 13:09 | DS ---
HOSPITAL COURSE: The patient is an 81-year-old female admitted through the Emergency Department on 08/06/2017 with shortness of breath. The patient's EKG and serial enzymes were negative for acute coronary artery syndrome. The patient was seen in consultation by Dr. Rambo Thomson, Cardiology and no further workup or cardiac intervention was indicated. The patient received inhaled nebulizer treatments and IV steroids, which were tapered. She received Zithromax 500 mg daily orally with resolution of her symptoms. The patient had some gait dysfunction and was advised to go to subacute rehab for further physical therapy, but has refused and wants to go home. She will be just discharged to home today in stable condition. PHYSICAL EXAMINATION: VITAL SIGNS: Blood pressure 160/92, pulse 78, temperature 97.9, respiratory rate 20. LUNGS: Clear. HEART: Regular rate and rhythm. ABDOMEN: Soft, nontender. Bowel sounds are normoactive. EXTREMITIES: Without cyanosis, clubbing, or edema. NEUROLOGIC: The patient is awake and oriented x3 without focal sensory or motor deficits. There is some gait dysfunction. SKIN: Warm and dry. DATA: Chest x-ray on 08/12/2017 showed no active disease. IMPRESSION: 1. Exacerbation of chronic obstructive pulmonary disease. 2. Coronary artery disease. 3. Congestive heart failure. 4. Chronic lymphocytic leukemia. 5. Degenerative joint disease with chronic pain and opiate dependence and gait dysfunction. PLAN: The patient will be discharged to home on the following medications: Imdur 30 mg daily, Lasix 40 mg daily, Demerol 50 mg every 6 hours, Pepcid 20 mg twice daily, Plavix 75 mg daily, Toprol-XL 50 mg daily, losartan 25 mg daily, Calan SR 120 mg daily. The patient will be maintained on a heart-healthy diet. ACTIVITIES: Ad libitum. She will be followed up as an outpatient within the next 1 to 2 weeks. ABRIL Kenney MD
[2017-08-13] MEDS: Verapamil 120 mg ER Tab PO SCH (13:39)
[2017-08-13] MEDS: Lidocaine 5% Patch TD SCH (13:39)
[2017-08-13 15:11] VITALS: BP 138/77; PULSE 92; TEMP 98; O2SAT 97
== END 2017-08-13 19:13 | disposition home health service (06) | DRG 191 ==
LOC: ED 02:39 → ERH 06:51 → 2RNO 15:19 → OBSVTOIN 08-07 09:49 → 5RNO 08-10 01:09
PROVIDERS: ADMIT Internal Medicine; ATTEND Internal Medicine
DX: J44.1 Chronic obstructive pulmonary disease with (acute) exacerbation (principal); I50.42 Chronic combined systolic (congestive) and diastolic (congestive) heart failure; C91.10 Chronic lymphocytic leukemia of B-cell type not having achieved remission; F11.20 Opioid dependence, uncomplicated; I11.0 Hypertensive heart disease with heart failure; M51.36 Other intervertebral disc degeneration, lumbar region; M19.90 Unspecified osteoarthritis, unspecified site; I25.10 Atherosclerotic heart disease of native coronary artery without angina pectoris; G89.29 Other chronic pain; D64.9 Anemia, unspecified; Z95.5 Presence of coronary angioplasty implant and graft

== ENCOUNTER 2017-08-25 03:43 | Inpatient (IN) | payer MEDICARE ==
[2017-08-25] MEDS ORDERED: Albuterol-Ipratrop 3 mg / 0.5 (3 ml) UD IH STA (03:57)
--- NOTE | 2017-08-25 04:00 | ED PDOC ---
Arrival/HPI - General Chief Complaint: Shortness Of Breath Time Seen by Provider: 08/25/17 03:52 Historian: Patient - Critical Care Critical Care Minutes: 30 minutes (positive troponin) - History of Present Illness Narrative History of Present Illness (Text): 08/25/17 03:57 81 year old female whose past medical history includes, COPD, CHF, 3 Cardiac Stents, CLL, Pancytopenia, who presents to the emergency department complaining of chest pain and shortness of breath since last night. Patient notes she took aspirin and breathing treatment at home with minimal relief. Patient denies any fever, chills, nausea, vomiting, diarrhea, back pain, neck pain, headache, dizziness, or any other complaints. Time/Duration: 4-6 hours Symptom Onset: Gradual Symptom Course: Unchanged Activities at Onset: Light Context: Home Past Medical History - Provider Review Nursing Documentation Reviewed: Yes - Infectious Disease Hx of Infectious Diseases: None - Tetanus Immunization Tetanus Immunization: Unknown - Reproductive Menopause: Yes - Cardiac Hx Cardiac Disorders: Yes Hx Congestive Heart Failure: Yes Hx Hypertension: Yes Other/Comment: [place] - Pulmonary Hx Asthma: Yes Hx Chronic Obstructive Pulmonary Disease (COPD): Yes - Neurological Hx Neurological Disorder: No - HEENT Hx Cataracts: Yes - Renal Hx Renal Disorder: No - Endocrine/Metabolic Hx Endocrine Disorders: No - Hematological/Oncological Hx Anemia: Yes Hx Lymphoma: Yes Other/Comment: Pancytopenia, lymphoma - Integumentary Hx Dermatological Disorder: Yes Other/Comment: stage 1 round red wound 1cm to left buttocks, buttocks reddened , r heel dry brown wound 2.5cm x 0.3cm c/o sharp pain, soft mass r upper back - Musculoskeletal/Rheumatological Hx Arthritis: Yes Hx Falls: Yes - Gastrointestinal Hx Gastrointestinal Disorders: Yes Other/Comment: Colon Resection - Genitourinary/Gynecological Hx Genitourinary Disorders: No Hx Reproductive Disorders: (hx hyst) - Psychiatric Hx Psychophysiologic Disorder: No Hx Substance Use: No - Surgical History Hx Cholecystectomy: Yes Hx Coronary Stent: Yes (x3) Other/Comment: port rt upper chest wall - Anesthesia Hx Anesthesia: Yes Hx Anesthesia Reactions: No Hx Malignant Hyperthermia: No - Suicidal Assessment Feels Threatened In Home Enviroment: No Family/Social History - Physician Review Nursing Documentation Reviewed: Yes Family/Social History: Unknown Family HX Smoking Status: Never Smoked Hx Alcohol Use: No Hx Substance Use: No Substance used: demerol PO Q4H Hx Substance Use Treatment: No Allergies/Home Meds Allergies/Adverse Reactions: Allergies Sulfa (Sulfonamide Antibiotics) Allergy (Intermediate, Verified 08/25/17 03:54) RASH Home Medications: Home Meds Medication Instructions Recorded Confirmed Lidocaine 5% [Lidoderm] 1 patch TP DAILY 05/23/15 08/06/17 Albuterol HFA [Ventolin HFA 90 1 puff INH DAILY PRN 04/02/17 08/06/17 mcg/actuation (8 g)] Meperidine HCl [Demerol] 50 mg PO TID PRN 04/02/17 08/06/17 Review of Systems - Physician Review All systems were reviewed & negative as marked: Yes - Review of Systems Constitutional: Normal Eyes: Normal ENT: Normal Respiratory: SOB. absent: Cough Cardiovascular: Chest Pain Gastrointestinal: Normal. absent: Abdominal Pain, Diarrhea, Nausea, Vomiting Genitourinary Female: Normal. absent: Dysuria, Frequency Musculoskeletal: Normal. absent: Back Pain, Neck Pain Skin: Normal. absent: Rash Neurological: Normal. absent: Headache, Dizziness Endocrine: Normal Hemo/Lymphatic: Normal Psychiatric: Normal Physical Exam Vital Signs Temp Pulse Resp BP Pulse Ox 08/25/17 05:39 99 H 19 147/74 99 08/25/17 05:25 89 20 149/93 H 100 08/25/17 04:17 22 100 08/25/17 04:14 184/98 H 08/25/17 04:01 98.0 F 100 H 19 184/98 H 99 - Systems Exam Head: Present: Atraumatic, Normocephalic Pupils: Present: PERRL Extroacular Muscles: Present: EOMI Conjunctiva: Present: Normal Mouth: Present: Moist Mucous Membranes Neck: Present: Normal Range of Motion Respiratory/Chest: Present: Wheezes (bilaterally), Decreased Breath Sounds. No : Respiratory Distress, Accessory Muscle Use Cardiovascular: Present: Regular Rate and Rhythm, Normal S1, S2. No: Murmurs Abdomen: No: Tenderness, Distention, Peritoneal Signs Back: Present: Normal Inspection Upper Extremity: Present: Normal Inspection. No: Cyanosis, Edema Lower Extremity: Present: Edema (Trace lower edema) Neurological: Present: GCS=15, CN II-XII Intact, Speech Normal Skin: Present: Warm, Dry, Normal Color. No: Rashes Psychiatric: Present: Alert, Oriented x 3, Normal Insight, Normal Concentration Medical Decision Making ED Course and Treatment: 08/25/17 04:02 Impression: 81 year old female presents to the emergency department complaining of chest pain and shortness of breath since last night. Differential Diagnosis included but are not limited to: COPD vs. CHF vs. ACS Plan: -- VBG -- Labs -- Magnesium -- Chest X-ray -- Duoneb -- Ecptrin -- Lasix -- SolU-MEDROL -- Blood Culture -- Reassess and disposition Progress Notes: EKG reviewed, shows Sinus Tachycardia at 110 bpm. Q waves at lead 3. No ST elevations. 08/25/17 05:13 Current EKG shows no changes from previous EKG on 08/06/17. 08/25/17 05:40 Chest X-ray reviewed, shows negative results. 08/25/17 05:55 Labs were reviewed. Troponin noted to be elevated along with BNP. Paitent received ASA, Lasix and Nitro. Chest pain improved. 08/25/17 06:[address] Armaan Hicks and he will accept to her service. He agreed to Lovenox now. Pending call back from Dr. Thomson, Cardiology. 08/25/17 06:[address] Bryant who is covering for Dr. Thomson who agrees with current medications and admission to Telemetry. - Critical Care Critical Care Minutes: 30 minutes - Lab Interpretations Lab Results: 08/25/17 04:20 08/25/17 04:20 Lab Results 08/25/17 04:20: Sodium 140, Chloride 103, Potassium 3.6, Carbon Dioxide 29, Anion Gap 11, BUN 16, Creatinine 0.6 L, Est GFR ( Amer) > 60, Est GFR ( Non-Af Amer) > 60, Random Glucose 114 H, Calcium 8.3 L, Magnesium 1.5 L, Total Bilirubin 0.7, AST 11 L, ALT 21, Alkaline Phosphatase 57, Lactate Dehydrogenase 636, Total Creatine Kinase < 20 L, Troponin I 0.56 H* D, NT-Pro-B Natriuret Pep 5910 H, Total Protein 4.9 L, Albumin 2.9 L, Globulin 2.1, Albumin/Globulin Ratio 1.4 08/25/17 04:20: pO2 50, VBG pH 7.45 H, VBG pCO2 48.0, VBG HCO3 33.4 H, VBG Total CO2 34.9 H, VBG O2 Sat (Calc) 87.8 H, VBG Base Excess 8.1 H, VBG Potassium 3.5 L, Sodium 137.0, Chloride 105.0, Glucose 127 H, Lactate 0.5 L, FiO2 21.0, Venous Blood Potassium 3.5 L 08/25/17 04:20: PT 13.8 H, INR 1.21 H, APTT 22.6 L 08/25/17 04:20: WBC 6.1 D, RBC 2.66 L, Hgb 8.1 L, Hct 24.9 L, MCV 93.6, MCH 30.5, MCHC 32.5, RDW 15.2 H, Plt Count 148, MPV 9.0, Gran % 21.2 L, Lymph % ( Auto) 73.0 H, [place] % (Auto) 5.4, Eos % (Auto) 0.2 L, Baso % (Auto) 0.2, Gran # 1.30 L, Lymph # (Auto) 4.5 H, [place] # (Auto) 0.3, Eos # (Auto) 0.0, Baso # (Auto ) 0.01, Neutrophils % (Manual) Pending, Lymphocytes % (Manual) Pending, Monocytes % (Manual) Pending - RAD Interpretation Radiology Orders: 08/25/17 03:58 CHEST PORTABLE [RAD] Stat - Medication Orders Current Medication Orders: Discontinued Medications Albuterol/Ipratropium (Duoneb 3 Mg/0.5 Mg (3 Ml) Ud) 3 ml IH STAT STA Stop: 08/25/17 03:58 Last Admin: 08/25/17 04:14 Dose: 3 ml Aspirin (Ecotrin) 162 mg PO STAT STA Stop: 08/25/17 03:58 Last Admin: 08/25/17 04:14 Dose: 162 mg Enoxaparin Sodium (Lovenox) 56 mg SC STAT STA PRN Reason: Protocol Stop: 08/25/17 06:07 Furosemide (Lasix) 40 mg IVP STAT STA Stop: 08/25/17 03:58 Last Admin: 08/25/17 04:14 Dose: 40 mg MAR Blood Pressure Document 08/25/17 04:14 IT (Rec: 08/25/17 04:15 IT [id number]) Blood Pressure Blood Pressure (100/60-150/90) 184/98 IVP Administration Document 08/25/17 04:14 IT (Rec: 08/25/17 04:15 IT [id number]) Charges for Administration # of IVP Administrations 1 Methylprednisolone (Solu-Medrol) 125 mg IVP STAT STA Stop: 08/25/17 03:58 Last Admin: 08/25/17 04:14 Dose: 125 mg IVP Administration Document 08/25/17 04:14 IT (Rec: 08/25/17 04:14 IT [id number]) Charges for Administration # of IVP Administrations 1 Nitroglycerin (Nitro-Bid 2% Oint) 1 ea TOP STAT STA Stop: 08/25/17 05:32 Last Admin: 08/25/17 05:38 Dose: 1 ea - Scribe Statement The provider has reviewed the documentation as recorded by the Scribcheng Tate All medical record entries made by the Scribcheng were at my direction and personally dictated by me. I have reviewed the chart and agree that the record accurately reflects my personal performance of the history, physical exam, medical decision making, and the department course for this patient. I have also personally directed, reviewed, and agree with the discharge instructions and disposition. Disposition/Present on Arrival - Present on Arrival Any Indicators Present on Arrival: No History of DVT/PE: No History of Uncontrolled Diabetes: No Urinary Catheter: No History of Decub. Ulcer: No History Surgical Site Infection Following: None - Disposition Have Diagnosis and Disposition been Completed?: Yes Diagnosis: CHF (congestive heart failure), COPD (chronic obstructive pulmonary disease), NSTEMI (non-ST elevated myocardial infarction) Disposition Time: 06:18 Patient Plan: Admission Condition: FAIR
[2017-08-25 04:38] LABS: VENOUS BLOOD GAS BASE EXCESS 8.1 mmol/L (0.0-2.0); VENOUS BLOOD GAS PO2 50 mm/Hg (30-55); VENOUS BLOOD PH 7.45 (7.32-7.43)
[2017-08-25 04:54] LABS: ALB/GLOB RATIO 1.4 (1.1-1.8); ALBUMIN 2.9 g/dL (3.0-4.8); ALT/SGPT 21 U/L (7-56); AST/SGOT 11 U/L (14-36); BLOOD UREA NITROGEN 16 mg/dL (7-21); CALCIUM 8.3 mg/dL (8.4-10.5); GFR AFRICAN-AMERICAN > 60; GFR NON-AFRICAN AMERICAN > 60
[2017-08-25 05:06] LABS: B-TYPE NATRIURETIC PEPTIDE 5910 pg/mL (0-450)
[2017-08-25] MEDS ORDERED: Nitroglycerin 2% Ointment Foilpak UD TOP STA (05:31)
[2017-08-25 05:38] LABS: BASO # 0.01 K/mm3 (0.0-2.0); BASO % 0.2 % (0.0-3.0); EOS % 0.2 % (1.5-5.0); GRAN % 21.2 % (50.0-68.0); HEMOGLOBIN 8.1 g/dL (12.0-16.0); LYMPH # 4.5 (1.2-3.4); MEAN CELL VOLUME 93.6 fl (80.0-105.0); MEAN CORPUSCULAR HEMOGLOBIN 30.5 pg (25.0-35.0); MEAN CORPUSCULAR HGB CONC 32.5 g/dl (31.0-37.0); MONO # 0.3 (0.1-0.6); MONO % 5.4 % (1.0-6.0); PLATELET COUNT 148 10^3/uL (120.0-450.0); RBC 2.66 10^6/uL (3.5-6.1); RED CELL DISTRIBUTION WIDTH 15.2 % (11.5-14.5); TROPONIN I 0.56 ng/mL; WHITE BLOOD COUNT 6.1 10^3/ul (4.5-11.0)
[2017-08-25 05:45] LABS: INR 1.21 (0.93-1.08); PARTIAL THROMBOPLASTIN TIME 22.6 Seconds (25.1-36.5); PROTHROMBIN TIME 13.8 SECONDS (9.4-12.5)
[2017-08-25] MEDS ORDERED: Enoxaparin 60 mg Syringe SC STA (06:06)
[2017-08-25] MEDS ORDERED: Albuterol-Ipratrop 3 mg / 0.5 (3 ml) UD IH PRN (06:44)
[2017-08-25 07:24] LABS: NEUTROPHIL 25 % (50.0-70.0)
[2017-08-25 07:25] LABS: ANISOCYTOSIS 1+; EOSINOPHIL 1 % (0.0-3.0); LYMPHOCYTE 68 % (22.0-35.0); MONOCYTE 6 % (1.0-6.0); PLATELET ESTIMATE NORMAL (NORMAL)
[2017-08-25] MEDS ORDERED: Magnesium Sulfate 2 GM in Sodium Chloride 0.9% 100 ML IVPB ONE (07:59)
--- NOTE | 2017-08-25 09:30 | RAD ---
HISTORY: Shortness of breath. Rule out pneumonia COMPARISON: Comparison made with prior study 08/12/2017 comparison also made with CTA chest dated 07/20/2016 FINDINGS: No change right IJ MediPort tip in the SVC. LUNGS: No active pulmonary disease. PLEURA: No significant pleural effusion identified, no pneumothorax apparent. CARDIOVASCULAR: Heart size unchanged. OSSEOUS STRUCTURES: Degenerative osteoarthritis right shoulder girdle again noted minor multilevel degenerative spondylosis of the thoracic spine VISUALIZED UPPER ABDOMEN: Normal. OTHER FINDINGS: None. IMPRESSION: No active disease.
--- NOTE | 2017-08-25 09:57 | CARD ---
APPROVED REPORT EKG Measurement Heart [id number] <Conclusion> Sinus tachycardia APC NSSTW changes Prolonged QTc
[2017-08-25] MEDS ORDERED: Oxycodone/Acetaminophen 2.5/325 mg Tab PO ONE ×2 (12:09→13:44)
[2017-08-25] MEDS ORDERED: Iohexol 350 MG/100 ML VIAL ONE (13:30)
[2017-08-25 13:38] VITALS: BMI 23.8
--- NOTE | 2017-08-25 14:40 | CON ---
DATE: CARDIOLOGY CONSULT REASON FOR CONSULTATION: Chest pain. HISTORY OF PRESENT ILLNESS: The patient is an 81-year-old white female, who has history of chronic lymphocytic leukemia; history of coronary artery disease, status post LAD stenting with a known 90% stenosis in the LAD within the stent documented in the cardiac catheterization in 10/2015 and the patient was offered at that time heart ablation or open heart surgery in [facility]; however, the patient declined. The patient is also known to have moderate valvular aortic stenosis on recent echocardiography study in 06/2017. She presented because of sharp chest and back pain associated with shortness of breath. The patient denies any diaphoresis. SOCIAL HISTORY: The patient is a nonsmoker. She lives with her sister. MEDICATIONS: Albuterol inhaler every 3 hours p.r.n., Lipitor 40 mg once a day, Zofran 40 mg intravenously every 4 hours p.r.n. REVIEW OF SYSTEMS: The patient denies any dizziness. She complains of nausea and at times vomiting. PAST MEDICAL HISTORY: Coronary artery disease, depression, chronic lymphocytic leukemia, pancytopenia, aortic stenosis, pulmonary hypertension. PHYSICAL EXAMINATION: GENERAL: The patient is an elderly female, who does not appear to be in any acute distress. VITAL SIGNS: Blood pressure 122/71, heart rate 104, temperature 98.5, respirations 22. HEENT: Pale conjunctivae. CHEST: Diminished breath sounds over the bases. HEART: S1 and S2 regular. ABDOMEN: Soft. EXTREMITIES: No edema. LABORATORY DATA: Hemoglobin and hematocrit 8.1 and 24.9. White count and platelet count are within normal limit. INR is 1.21, PTT 22.6. SMA-7 is within normal limit except for glucose of 114 and creatinine 0.6, troponin 0.56, magnesium is 1.5. Chest x-ray revealed borderline cardiomegaly with widened mediastinum. EKG revealed sinus tachycardia with APCs, heart rate 110. ASSESSMENT: 1. Chest and back pain. Rule out pulmonary infarction versus aortic dissection. 2. History of coronary artery disease with known 90% in-stent stenosis of the left anterior descending. Consider [id number] myocardial infarction. 3. Chronic lymphocytic leukemia. 4. Moderate aortic stenosis. 5. Mild pulmonary hypertension. 6. Hypomagnesemia. RECOMMENDATIONS: The patient did received magnesium sulfate 2 g intravenous infusion earlier and continue current Lipitor at 40 mg once a day, Zofran 4 mg intravenously every 4 hours p.r.n., one dose of Percocet will be administered now and the patient is scheduled for a stat CT angio of the chest. Following that, if dissection is ruled out, the patient will be started on for anticoagulation as well as antiplatelet therapy. Bao Merino MD
[2017-08-25] MEDS ORDERED: Morphine 4 mg/ml ISec IVP ONE (15:28)
--- NOTE | 2017-08-25 16:44 | CT ---
PROCEDURE: CT Chest with contrast (Pulmonary Angiogram) HISTORY: Rule out PE/ Dissection COMPARISON: Comparison made with prior study 07/20/2016 TECHNIQUE: Axial computed tomography images were obtained of the chest in the pulmonary arterial phase of enhancement. Coronal and sagittal reformatted images were created and reviewed. Intravenous contrast dose: 100 cc Omnipaque 350 Radiation dose: Total exam DLP = 300.45 mGy-cm. This CT exam was performed using one or more of the following dose reduction techniques: Automated exposure control, adjustment of the mA and/or kV according to patient size, and/or use of iterative reconstruction technique. FINDINGS: PULMONARY ARTERIES: Median visualized the pulmonary trunk, right and left main, lobar, segmental and possible subsegmental branches of the pulmonary arteries are well opacified with no definitive filling defects seen to suggest acute central pulmonary embolus. Pulmonary trunk measures approximately 3.3 cm. AORTA: The ascending thoracic aorta measures approximately 3.3 cm and descending thoracic aorta measures approximately 2.45 cm. Three-vessel arch. No evidence of thoracic aortic dissection. LUNGS: There is a rounded opacity seen in the anteromedial aspect right middle lobe, another in the anterior inferior aspect left upper lobe could represent round atelectasis or infiltrate new since prior exam. In addition, there is another new elliptical shaped opacity in the left lung apex that extends to the posterior superior on pleural surface near the apex also new since prior study probably representing atelectasis or infiltrate. Note however that the inferior margin of this apical lesion somewhat lobulated in contour. Recommend follow-up CT scan at interval to assess resolution and exclude the possibility of a neoplasm. Multiple small somewhat nodular though translucent opacities seen throughout the left upper lobe and to a lesser degree right upper lobe could represent developing infiltrates. Scattered nodular opacities are also seen in the left lower lobe as well. Findings could represent developing multifocal pneumonia PLEURAL SPACES: Unremarkable. No effusion or pneumothorax. HEART: Heart size is within range of normal . There is mild left ventricular hypertrophy. No significant pericardial effusion. LYMPH NODES: Multiple mediastinal lymph nodes are present, the largest in the right lower paratracheal region near the rhonda measures approximately 8.3 cm. No significant sub carinal adenopathy. The the there is a small hiatal hernia with wall thickening of the distal esophagus likely due to protrusion of gastric mucosa. Possibility of esophagitis or other intrinsic/invasive wall lesion not excluded. BONES, CHEST WALL: Multilevel degenerative spondylosis of the thoracic spine with bridging anterolateral osteophyte formation. OTHER FINDINGS: Spleen is enlarged with multiple small calcifications consistent with calcified granulomata and prior exposure to a granulomatous disease process. Questionable small low-attenuation focus right lobe liver. (see axial image number [id number]). IMPRESSION: No evidence of acute central pulmonary embolus. New rounded/elliptical shaped opacity seen in the middle lobe, left lung apex in the lower lobe that are new since prior study. These foci could represent areas of rounded atelectasis and or infiltrate. Note that the inferior margin of the left apical lesion on that exhibits a somewhat lobular contour ; the possibility of a neoplasm this location cannot be excluded. Followup interval recommended to assess resolution. Multiple small nodular opacities scattered throughout the left upper and lower lobe and to a lesser degree right upper lobe possibly representing developing multifocal pneumonia. . Splenomegaly. See above discussion for additional details and findings
[2017-08-25] MEDS: Metoprolol Succinate 50 mg XL Tab PO SCH (17:12)
[2017-08-25] MEDS: Magnesium Oxide 400 mg Tab UD PO SCH (17:21)
[2017-08-25] MEDS: Potassium Chloride 20 mEq ER Tab PO SCH (17:22)
[2017-08-25] MEDS: Enoxaparin 60 mg Syringe SC SCH (18:20)
--- NOTE | 2017-08-25 19:22 | HP ---
HISTORY OF PRESENT ILLNESS: The patient is an 81-year-old female, transferred to the emergency department from [facility] where she was undergoing subacute rehabilitation for increasing shortness of breath over the past 1-2 days with some mild chest discomfort, which was nonradiating. The patient denies nausea and vomiting. There is no diaphoresis. No cough. No fever. No chills. No hemoptysis. PAST MEDICAL HISTORY: Includes coronary artery disease, status post stent placement x3; COPD; chronic lymphocytic leukemia with anemia; degenerative joint disease with chronic pain and opiate dependence. PAST SURGICAL HISTORY: Includes appendectomy, cholecystectomy and hysterectomy. CURRENT MEDICATIONS: Include Imdur 30 mg daily, potassium chloride 20 mEq daily, Lasix 40 mg daily, Demerol 50 mg four times daily, Pepcid 20 mg twice daily, Plavix 75 mg daily and Toprol-XL 50 mg daily. ALLERGIES: THE PATIENT REPORTS AN ALLERGY TO SULFA. SOCIAL HISTORY: The patient has no history of tobacco or alcohol use. She was previously living alone independent with ADLs and IADLs. REVIEW OF SYSTEMS: The patient denies any abdominal pain. There is no melena. No bright red blood per rectum. No jaundice. No rash. No dysuria. No hematuria. PHYSICAL EXAMINATION: GENERAL: The patient is a well-developed, mildly cachectic female, in no acute distress. VITAL SIGNS: Blood pressure 122/71, pulse 104, temperature 98.5, respiratory rate 22. HEENT: Head is normocephalic, atraumatic. Pupils equal, round, reactive to light. Extraocular movements intact. NECK: Supple. No thyromegaly. No carotid bruit. No adenopathy. LUNGS: Show a few bibasilar rales. There is a Port-A-Cath in the right chest wall. HEART: Regular rate and rhythm with a grade II/ systolic murmur. No JVD. ABDOMEN: Soft, nontender. Bowel sounds are normoactive. EXTREMITIES: Without cyanosis, clubbing or edema. NEUROLOGIC: The patient is awake and oriented x3 without focal sensory or motor deficits. SKIN: Warm and dry. LABORATORY DATA: WBC 6.1, hemoglobin 8.1, hematocrit 24.9. Sodium 140, potassium 3.6, chloride 103, CO2 of 29, BUN 16, creatinine 0.6, glucose 114, magnesium 1.5. Troponin is elevated at 0.56. BNP is elevated at 5910. Chest x-ray shows no active disease. IMPRESSION: 1. Congestive heart failure. 2. Coronary artery disease, status post stent placement x3. Elevated troponin level. Rule out [id number] myocardial infarction. 3. Chronic obstructive pulmonary disease. 4. Chronic lymphocytic leukemia with anemia. 5. Degenerative joint disease with chronic pain and opiate dependence. PLAN: The patient is admitted to the telemetry unit. She has received IV Lasix in the emergency department as well as nebulizer treatment with improvement of her symptoms. We will obtain Cardiology consultation with Dr. Rambo Thomson. Heart-healthy diet. Physical therapy evaluation and treatment. The patient is presently scheduled for CT angio of the chest. Ming Hicks JD/
[2017-08-25] MEDS: Morphine 4 mg/ml ISec IM PRN (20:01)
[2017-08-26] MEDS: Morphine 4 mg/ml ISec IM PRN ×2 (00:49→07:08)
[2017-08-26] MEDS: Enoxaparin 60 mg Syringe SC SCH ×2 (06:30→17:32)
[2017-08-26] MEDS ORDERED: Morphine 4 mg/ml ISec IV PRN (08:34)
--- NOTE | 2017-08-26 08:40 | CP.PCM.PN ---
Subjective - Date & Time of Evaluation Date of Evaluation: 08/26/17 Time of Evaluation: 08:30 - Subjective Subjective: c/o "pain all over", no SOB, no chest pain Objective - Vital Signs/Intake and Output Vital Signs (last 24 hours): Temp Pulse Resp BP Pulse Ox 97.7 F 111 H 20 120/86 96 08/26/17 06:00 08/26/17 06:00 08/26/17 06:00 08/26/17 06:00 08/26/17 06:00 Intake and Output: 08/26/17 08/26/17 06:59 18:59 Intake Total 220 Output Total 1100 Balance -880 - Medications Medications: Current Medications Acetaminophen (Tylenol 325mg Tab) 650 mg PO Q4H PRN PRN Reason: Fever >100.5 F Albuterol/Ipratropium (Duoneb 3 Mg/0.5 Mg (3 Ml) Ud) 3 ml IH Q3H PRN PRN Reason: Shortness of Breath Atorvastatin Calcium (Lipitor) 40 mg PO DIN [facility] Last Admin: 08/25/17 17:01 Dose: Not Given Clopidogrel Bisulfate (Plavix) 75 mg PO DAILY [facility] Last Admin: 08/25/17 17:22 Dose: 75 mg Enoxaparin Sodium (Lovenox) 50 mg SC Q12H [facility] PRN Reason: Protocol Last Admin: 08/26/17 06:30 Dose: 50 mg Furosemide (Lasix) 40 mg PO DAILY [facility] Last Admin: 08/25/17 17:21 Dose: 40 mg Isosorbide Mononitrate (Imdur Er) 30 mg PO DAILY [facility] Last Admin: 08/25/17 17:21 Dose: 30 mg Magnesium Oxide (Mag-Ox) 400 mg PO DAILY [facility] Last Admin: 08/25/17 17:21 Dose: 400 mg Metoprolol Succinate (Toprol Xl) 50 mg PO BRK [facility] Last Admin: 08/25/17 17:12 Dose: Not Given Morphine Sulfate (Morphine) 2 mg IV Q4H PRN PRN Reason: Pain, moderate (4-7) Ondansetron HCl (Zofran Inj) 4 mg IVP Q4H PRN PRN Reason: Nausea/Vomiting Potassium Chloride (K-Dur 20 Meq Er Tab) 20 meq PO BRK [facility] Last Admin: 08/25/17 17:22 Dose: 20 meq - Labs Labs: PT 13.8 SECONDS (9.4-12.5) H 08/25/17 04:20 INR 1.21 (0.93-1.08) H 08/25/17 04:20 APTT 22.6 Seconds (25.1-36.5) L 08/25/17 04:20 - Respiratory Exam Respiratory Exam: Rales - Cardiovascular Exam Cardiovascular Exam: REGULAR RHYTHM, Murmur - GI/Abdominal Exam GI & Abdominal Exam: Soft, Normal Bowel Sounds - Extremities Exam Extremities Exam: Normal Inspection - Neurological Exam Neurological Exam: Alert, Awake - Skin Skin Exam: Dry, Warm Assessment and Plan (1) NSTEMI (non-ST elevated myocardial infarction) Status: Acute (2) CHF (congestive heart failure) Status: Chronic (3) COPD (chronic obstructive pulmonary disease) Status: Chronic (4) Chronic lymphocytic leukemia Status: Chronic (5) Degenerative joint disease (DJD) of lumbar spine Status: Chronic - Assessment and Plan (Free Text) Plan: repeat troponoin, cardiology follow-up
[2017-08-26 09:38] LABS: TROPONIN I 0.51 ng/mL
[2017-08-26] MEDS: Magnesium Oxide 400 mg Tab UD PO SCH (09:50)
[2017-08-26] MEDS: Metoprolol Succinate 50 mg XL Tab PO SCH (09:51)
[2017-08-26] MEDS: Potassium Chloride 20 mEq ER Tab PO SCH (09:51)
--- NOTE | 2017-08-26 16:15 | PN ---
DATE: 08/26/2017 CARDIOLOGY FOLLOWUP SUBJECTIVE: The patient presents with another non-STEMI. PHYSICAL EXAMINATION: VITAL SIGNS: Blood pressure is 122/62, the heart rate is in the 90s. NECK: Negative JVD. LUNGS: Without rales. HEART: Reveals S1 and S2. EXTREMITIES: Without edema. LABORATORY DATA: Troponins of 0.56. BUN and creatinine are unremarkable. Hemoglobin is 8.1. IMPRESSION: 1. Non-ST elevation myocardial infarction. 2. No evidence for pulmonary embolism, no dissection. 3. History of coronary artery disease. 4. Moderate aortic stenosis. 5. History of chronic lymphocytic leukemia. 6. Anemia. PLAN: Given these findings, the patient continues to present with multiple admissions for non-STEMIs. The patient has not allowed us to bring her to another institution for Rotablator of the LAD. We will repeat catheterization instead of assuming that her multiple acute coronary syndromes are due to her LAD lesion, we will rule out other critical lesions. Rambo Thomson MD
[2017-08-26] MEDS: Morphine 2 mg/ml ISec IVP PRN (17:33)
[2017-08-27] MEDS: Morphine 2 mg/ml ISec IVP PRN ×4 (00:42→13:37)
[2017-08-27] MEDS: Enoxaparin 60 mg Syringe SC SCH ×2 (05:16→17:42)
[2017-08-27] MEDS: Metoprolol Succinate 50 mg XL Tab PO SCH (09:20)
[2017-08-27] MEDS: Potassium Chloride 20 mEq ER Tab PO SCH (09:20)
[2017-08-27] MEDS: Magnesium Oxide 400 mg Tab UD PO SCH (09:20)
--- NOTE | 2017-08-27 09:30 | CP.PCM.PN ---
Subjective - Date & Time of Evaluation Date of Evaluation: 08/27/17 Time of Evaluation: 09:00 - Subjective Subjective: resting comfortably, no chest pain, no SOB, no cough Objective - Vital Signs/Intake and Output Vital Signs (last 24 hours): Temp Pulse Resp BP Pulse Ox 99.3 F 98 H 19 141/83 95 08/27/17 05:57 08/27/17 09:20 08/27/17 05:57 08/27/17 09:20 08/27/17 05:57 Intake and Output: 08/27/17 08/27/17 06:59 18:59 Intake Total 0 Output Total 600 Balance -600 - Medications Medications: Current Medications Acetaminophen (Tylenol 325mg Tab) 650 mg PO Q4H PRN PRN Reason: Fever >100.5 F Albuterol/Ipratropium (Duoneb 3 Mg/0.5 Mg (3 Ml) Ud) 3 ml IH Q3H PRN PRN Reason: Shortness of Breath Atorvastatin Calcium (Lipitor) 40 mg PO DIN [facility] Last Admin: 08/26/17 17:32 Dose: 40 mg Clopidogrel Bisulfate (Plavix) 75 mg PO DAILY [facility] Last Admin: 08/27/17 09:21 Dose: 75 mg Enoxaparin Sodium (Lovenox) 50 mg SC Q12H [facility] PRN Reason: Protocol Last Admin: 08/27/17 05:16 Dose: 50 mg Furosemide (Lasix) 40 mg PO DAILY [facility] Last Admin: 08/27/17 09:20 Dose: 40 mg Isosorbide Mononitrate (Imdur Er) 30 mg PO DAILY [facility] Last Admin: 08/27/17 09:20 Dose: 30 mg Magnesium Oxide (Mag-Ox) 400 mg PO DAILY [facility] Last Admin: 08/27/17 09:20 Dose: 400 mg Metoprolol Succinate (Toprol Xl) 50 mg PO BRK [facility] Last Admin: 08/27/17 09:20 Dose: 50 mg Morphine Sulfate (Morphine) 2 mg IVP Q4H PRN PRN Reason: Pain, moderate (4-7) Last Admin: 08/27/17 09:21 Dose: 2 mg Ondansetron HCl (Zofran Inj) 4 mg IVP Q4H PRN PRN Reason: Nausea/Vomiting Potassium Chloride (K-Dur 20 Meq Er Tab) 20 meq PO BRK [facility] Last Admin: 08/27/17 09:20 Dose: 20 meq - Labs Labs: PT 13.8 SECONDS (9.4-12.5) H 08/25/17 04:20 INR 1.21 (0.93-1.08) H 08/25/17 04:20 APTT 22.6 Seconds (25.1-36.5) L 08/25/17 04:20 - Respiratory Exam Respiratory Exam: Rales - Cardiovascular Exam Cardiovascular Exam: REGULAR RHYTHM, Murmur - GI/Abdominal Exam GI & Abdominal Exam: Soft, Normal Bowel Sounds - Extremities Exam Extremities Exam: Normal Inspection - Neurological Exam Neurological Exam: Alert, Awake - Skin Skin Exam: Dry, Warm Assessment and Plan (1) NSTEMI (non-ST elevated myocardial infarction) Status: Acute (2) CHF (congestive heart failure) Status: Chronic (3) COPD (chronic obstructive pulmonary disease) Status: Chronic (4) Chronic lymphocytic leukemia Status: Chronic (5) Degenerative joint disease (DJD) of lumbar spine Status: Chronic - Assessment and Plan (Free Text) Plan: for cardiac cath today, check labs, Hb/Hct
[2017-08-27 10:19] LABS: EOS % 0.2 % (1.5-5.0); GRAN # 0.48 (1.4-6.5); GRAN % 10.5 % (50.0-68.0); HEMOGLOBIN 7.8 g/dL (12.0-16.0); LYMPH # 3.7 (1.2-3.4); LYMPH % 80.9 % (22.0-35.0); MEAN CELL VOLUME 93.3 fl (80.0-105.0); MEAN CORPUSCULAR HEMOGLOBIN 30.6 pg (25.0-35.0); MEAN CORPUSCULAR HGB CONC 32.8 g/dl (31.0-37.0); MEAN PLATELET VOLUME 8.7 fl (7.0-11.0); MONO # 0.4 (0.1-0.6); MONO % 8.4 % (1.0-6.0); RBC 2.55 10^6/uL (3.5-6.1); RED CELL DISTRIBUTION WIDTH 15.2 % (11.5-14.5); WHITE BLOOD COUNT 4.6 10^3/ul (4.5-11.0)
[2017-08-27 10:34] LABS: ALB/GLOB RATIO 1.4 (1.1-1.8); ALBUMIN 2.9 g/dL (3.0-4.8); ALT/SGPT 19 U/L (7-56); AST/SGOT 11 U/L (14-36); BLOOD UREA NITROGEN 19 mg/dL (7-21); CALCIUM 8.4 mg/dL (8.4-10.5); GFR AFRICAN-AMERICAN > 60; GFR NON-AFRICAN AMERICAN > 60
[2017-08-27] MEDS ORDERED: Lidocaine 2% Inj (20ml) ONE (10:46)
[2017-08-27] MEDS ORDERED: Phenylephrine 10 mg/ml Inj ONE (10:47)
[2017-08-27] MEDS ORDERED: Midazolam 2 MG/2 ML VIAL ONE (10:47)
[2017-08-27] MEDS ORDERED: Iodixanol 320 MG/ML 100 ML BOTTLE IV ONE (10:48)
[2017-08-27] MEDS ORDERED: Nitroglycerin 50mg in D5W 0 MG/0 ML BOTTLE IV ONE (10:48)
[2017-08-27] MEDS ORDERED: Iohexol 350mgl/ml 50 ML ONE (10:48)
[2017-08-27] MEDS ORDERED: Heparin 0 ML IV ONE (10:48)
[2017-08-27] MEDS ORDERED: Iodixanol 320 MG/ML 200 ML BOTTLE IV ONE (10:48)
--- NOTE | 2017-08-27 13:31 | PN ---
DATE: 08/27/2017 CARDIOLOGY FOLLOWUP SUBJECTIVE: The patient was brought down to the labor economics teacher in attempt for cardiac catheterization. After placing the patient on the table, the patient complains of diffuse body aches including chest, back and legs and was unable despite efforts to lie still. The patient unable to lie in the supine position of any period of time. PHYSICAL EXAMINATION: VITAL SIGNS: Blood pressure 141/83, heart rates in the 90s. NECK: Negative JVD. LUNGS: Without rales. HEART: S1, S2. EXTREMITIES: Without edema. LABORATORY DATA: Hemoglobin 7.8, pre-transfusion. Troponins of 0.15. IMPRESSION: 1. Status post [id number] myocardial infarction. 2. Coronary artery disease. 3. Marked anemia. 4. Diffuse body aches in which she has a large orthopedic component to it. Given these findings, I have canceled the cardiac catheterization. The patient is unable to stay still for us to perform the procedure safely. We will continue the patient on medical therapy. I agree with packed red blood cells. Rambo Thomson MD
[2017-08-28] MEDS: Morphine 2 mg/ml ISec IVP PRN ×4 (03:14→20:18)
[2017-08-28] MEDS: Enoxaparin 60 mg Syringe SC SCH ×2 (07:44→17:18)
[2017-08-28] MEDS: Metoprolol Succinate 50 mg XL Tab PO SCH (08:14)
[2017-08-28] MEDS: Potassium Chloride 20 mEq ER Tab PO SCH (08:16)
[2017-08-28] MEDS: Magnesium Oxide 400 mg Tab UD PO SCH (09:09)
--- NOTE | 2017-08-28 09:49 | PN ---
DATE: 08/28/2017 CARDIOLOGY FOLLOWUP SUBJECTIVE: The patient is complaining of diffuse body aches. PHYSICAL EXAMINATION: VITAL SIGNS: Blood pressure is 118/69, the heart rates in the 70s. NECK: Negative JVD. LUNGS: Decreased breath sounds. HEART: Reveals S1, S2. EXTREMITIES: Without edema. LABORATORY DATA: Laboratories were not drawn today. IMPRESSION: 1. Anemia. 2. Total body aches with diffuse pain. 3. Uxe-VU-mjypkrywq myocardial infarction. 4. Coronary artery disease. 5. Weakness. PLAN: Given these findings, the patient is unable to undergo cardiac catheterization. Medical therapy is the only option. We will continue pain management. Rambo Thomson MD
[2017-08-28 11:31] LABS: BASO # 0.01 K/mm3 (0.0-2.0); BASO % 0.2 % (0.0-3.0); EOS % 0.4 % (1.5-5.0); GRAN # 0.44 (1.4-6.5); GRAN % 9.6 % (50.0-68.0); HEMOGLOBIN 9.6 g/dL (12.0-16.0); LYMPH # 3.7 (1.2-3.4); LYMPH % 80.9 % (22.0-35.0); MEAN CORPUSCULAR HEMOGLOBIN 29.5 pg (25.0-35.0); MEAN PLATELET VOLUME 9.3 fl (7.0-11.0); MONO # 0.4 (0.1-0.6); MONO % 8.9 % (1.0-6.0); PLATELET COUNT 107 10^3/uL (120.0-450.0); RBC 3.25 10^6/uL (3.5-6.1); RED CELL DISTRIBUTION WIDTH 16.1 % (11.5-14.5); WHITE BLOOD COUNT 4.6 10^3/ul (4.5-11.0)
[2017-08-28 11:32] LABS: MEAN CELL VOLUME 89.5 fl (80.0-105.0)
[2017-08-28 11:41] LABS: IRON 16 ug/dL (45-180)
[2017-08-28 11:46] LABS: ALB/GLOB RATIO 1.4 (1.1-1.8); ALT/SGPT 21 U/L (7-56); AST/SGOT 13 U/L (14-36); BLOOD UREA NITROGEN 31 mg/dL (7-21); CALCIUM 8.4 mg/dL (8.4-10.5); GFR AFRICAN-AMERICAN > 60; GFR NON-AFRICAN AMERICAN > 60
[2017-08-28 11:50] LABS: % IRON SATURATION 7 % (20-55); TOTAL IRON BINDING CAPACITY 218 ug/dL (265-497)
[2017-08-28 11:54] LABS: BAND 1 % (0-2); EOSINOPHIL 1 % (0.0-3.0); LYMPHOCYTE 80 % (22.0-35.0); MONOCYTE 7 % (1.0-6.0); NEUTROPHIL 11 % (50.0-70.0); PLATELET ESTIMATE LOW (NORMAL)
--- NOTE | 2017-08-28 14:51 | CP.PCM.PN ---
Subjective - Date & Time of Evaluation Date of Evaluation: 08/28/17 Time of Evaluation: 14:30 - Subjective Subjective: c/o cough, non-productive, denies chest pain, no SOB, c/o pain "all-over", somewhat confused today Objective - Vital Signs/Intake and Output Vital Signs (last 24 hours): Temp Pulse Resp BP Pulse Ox 99.7 F H 95 H 20 126/81 96 08/28/17 11:53 08/28/17 11:53 08/28/17 11:53 08/28/17 11:53 08/28/17 06:00 Intake and Output: 08/28/17 08/28/17 06:59 18:59 Intake Total 685 Balance 685 - Medications Medications: Current Medications Acetaminophen (Tylenol 325mg Tab) 650 mg PO Q4H PRN PRN Reason: Fever >100.5 F Albuterol/Ipratropium (Duoneb 3 Mg/0.5 Mg (3 Ml) Ud) 3 ml IH Q3H PRN PRN Reason: Shortness of Breath Atorvastatin Calcium (Lipitor) 40 mg PO DIN [facility] Last Admin: 08/27/17 17:41 Dose: Not Given Clopidogrel Bisulfate (Plavix) 75 mg PO DAILY [facility] Last Admin: 08/28/17 09:09 Dose: 75 mg Enoxaparin Sodium (Lovenox) 50 mg SC Q12H [facility] PRN Reason: Protocol Last Admin: 08/28/17 07:44 Dose: Not Given Furosemide (Lasix) 40 mg PO DAILY [facility] Last Admin: 08/28/17 09:09 Dose: 40 mg Guaifenesin (Robitussin) 100 mg PO Q4H PRN PRN Reason: Cough Isosorbide Mononitrate (Imdur Er) 30 mg PO DAILY [facility] Last Admin: 08/28/17 09:10 Dose: 30 mg Magnesium Oxide (Mag-Ox) 400 mg PO DAILY [facility] Last Admin: 08/28/17 09:09 Dose: 400 mg Metoprolol Succinate (Toprol Xl) 50 mg PO BRK [facility] Last Admin: 08/28/17 08:14 Dose: 50 mg Morphine Sulfate (Morphine) 2 mg IVP Q4H PRN PRN Reason: Pain, moderate (4-7) Last Admin: 08/28/17 07:46 Dose: 2 mg Ondansetron HCl (Zofran Inj) 4 mg IVP Q4H PRN PRN Reason: Nausea/Vomiting Last Admin: 08/27/17 09:29 Dose: 4 mg Potassium Chloride (K-Dur 20 Meq Er Tab) 20 meq PO BRK [facility] Last Admin: 08/28/17 08:16 Dose: 20 meq - Labs Labs: 08/28/17 11:28 08/28/17 11:28 PT 13.8 SECONDS (9.4-12.5) H 08/25/17 04:20 INR 1.21 (0.93-1.08) H 08/25/17 04:20 APTT 22.6 Seconds (25.1-36.5) L 08/25/17 04:20 - Respiratory Exam Respiratory Exam: Rales, NORMAL BREATHING PATTERN - Cardiovascular Exam Cardiovascular Exam: REGULAR RHYTHM - GI/Abdominal Exam GI & Abdominal Exam: Soft, Normal Bowel Sounds - Extremities Exam Extremities Exam: Normal Inspection - Neurological Exam Neurological Exam: Altered, Awake - Skin Skin Exam: Dry, Warm Assessment and Plan (1) NSTEMI (non-ST elevated myocardial infarction) Status: Acute (2) CHF (congestive heart failure) Status: Chronic (3) COPD (chronic obstructive pulmonary disease) Status: Chronic (4) Chronic lymphocytic leukemia Status: Chronic (5) Degenerative joint disease (DJD) of lumbar spine Status: Chronic - Assessment and Plan (Free Text) Plan: blood cultures on admit pos. for enterococcus, no clinical evidence of sepsis, but will repeat BC's, check CXR, robitussin for coughcardiac cath cancelled, low grade fever s/p transfx 2u PRBC's, will monitor Hb/Hct, physical therapy and SW for discharge planning, pt. refusing to return to [facility]
[2017-08-28 17:58] LABS: FOLATE 7.9 ng/mL
[2017-08-28] MEDS: guaiFENesin 100 mg/5 ml Syrup UD PO PRN (22:18)
[2017-08-29] MEDS: Morphine 2 mg/ml ISec IVP PRN ×5 (00:55→20:57)
[2017-08-29] MEDS: guaiFENesin 100 mg/5 ml Syrup UD PO PRN (04:07)
[2017-08-29] MEDS: Enoxaparin 60 mg Syringe SC SCH ×2 (05:21→17:26)
[2017-08-29] MEDS: Metoprolol Succinate 50 mg XL Tab PO SCH (08:26)
[2017-08-29] MEDS: Potassium Chloride 20 mEq ER Tab PO SCH (08:26)
--- NOTE | 2017-08-29 09:50 | RAD ---
HISTORY: cough COMPARISON: No prior. FINDINGS: LUNGS: The overall bilateral interstitial and bronchovascular markings appear slightly increased yet similar in appearance no interval pathology appreciated. The right basal opacity is less conspicuous on this exam. Please note the prior CT angio chest PE study 08/25/2017 referencing multiple pulmonary findings for which follow-up evaluation has been recommended. PLEURA: No significant pleural effusion identified, no pneumothorax apparent. CARDIOVASCULAR: Probable top-normal heart size. Right IJ MediPort tip in the SVC. OSSEOUS STRUCTURES: Bilateral shoulder arthrosis. Generalized osteopenia. Diffuse thoracic spondylosis. VISUALIZED UPPER ABDOMEN: Normal. OTHER FINDINGS: None. IMPRESSION: No interval progressive consolidation or interval pleural effusion are thickening noted. Although the interstitial and bronchovascular markings appear diffusely and slightly increased in conspicuity compared to normalcy, no interval pathology appreciated. An element of chronic interstitial lung disease is a consideration.
[2017-08-29] MEDS: Magnesium Oxide 400 mg Tab UD PO SCH (10:36)
--- NOTE | 2017-08-29 11:51 | PN ---
DATE: 08/29/2017 CARDIOLOGY FOLLOWUP SUBJECTIVE: The patient's pain is under control today. She is feeling better. PHYSICAL EXAMINATION: VITAL SIGNS: Blood pressure is 135/75, the heart rates in the 80s. NECK: Negative JVD. LUNGS: Decreased breath sounds. HEART: Reveals a II/ systolic ejection murmur. EXTREMITIES: Without edema. LABORATORY DATA: Hemoglobin is 9.6. Chemistries: BUN and creatinine are 31 and 0.9. IMPRESSION: 1. Diffuse body aches, which is better controlled. 2. Anemia, which is much improved. 3. Recent [id number]-bhizkhjgf myocardial infarction. 4. Coronary artery disease. 5. Anemia. PLAN: Given these findings, the patient's [id number] myocardial infarction will be treated medically. The patient is unable to remain still for cardiac catheterization. We will continue medical therapy. We will discontinue telemetry today. Rambo Thomson MD
--- NOTE | 2017-08-29 13:53 | CP.PCM.PN ---
Subjective - Date & Time of Evaluation Date of Evaluation: 08/29/17 Time of Evaluation: 13:30 - Subjective Subjective: resting comfortable, NAD, decreased cough, denies chest pain, no SOB Objective - Vital Signs/Intake and Output Vital Signs (last 24 hours): Temp Pulse Resp BP Pulse Ox 98.4 F 84 20 124/65 97 08/29/17 12:00 08/29/17 12:00 08/29/17 12:00 08/29/17 12:00 08/29/17 06:00 Intake and Output: 08/29/17 08/29/17 06:59 18:59 Intake Total 360 Balance 360 - Medications Medications: Current Medications Acetaminophen (Tylenol 325mg Tab) 650 mg PO Q4H PRN PRN Reason: Fever >100.5 F Albuterol/Ipratropium (Duoneb 3 Mg/0.5 Mg (3 Ml) Ud) 3 ml IH Q3H PRN PRN Reason: Shortness of Breath Atorvastatin Calcium (Lipitor) 40 mg PO DIN [facility] Last Admin: 08/28/17 16:35 Dose: 40 mg Clopidogrel Bisulfate (Plavix) 75 mg PO DAILY [facility] Last Admin: 08/29/17 10:36 Dose: 75 mg Enoxaparin Sodium (Lovenox) 50 mg SC Q12H [facility] PRN Reason: Protocol Last Admin: 08/29/17 05:21 Dose: 50 mg Furosemide (Lasix) 40 mg PO DAILY [facility] Last Admin: 08/29/17 10:36 Dose: 40 mg Guaifenesin (Robitussin) 100 mg PO Q4H PRN PRN Reason: Cough Last Admin: 08/29/17 04:07 Dose: 100 mg Isosorbide Mononitrate (Imdur Er) 30 mg PO DAILY [facility] Last Admin: 08/29/17 10:36 Dose: 30 mg Magnesium Oxide (Mag-Ox) 400 mg PO DAILY [facility] Last Admin: 08/29/17 10:36 Dose: 400 mg Metoprolol Succinate (Toprol Xl) 50 mg PO BRK [facility] Last Admin: 08/29/17 08:26 Dose: 50 mg Morphine Sulfate (Morphine) 2 mg IVP Q4H PRN PRN Reason: Pain, moderate (4-7) Last Admin: 08/29/17 12:43 Dose: 2 mg Ondansetron HCl (Zofran Inj) 4 mg IVP Q4H PRN PRN Reason: Nausea/Vomiting Last Admin: 08/27/17 09:29 Dose: 4 mg Potassium Chloride (K-Dur 20 Meq Er Tab) 20 meq PO BRK [facility] Last Admin: 08/29/17 08:26 Dose: 20 meq - Labs Labs: 08/28/17 11:28 08/28/17 11:28 PT 13.8 SECONDS (9.4-12.5) H 08/25/17 04:20 INR 1.21 (0.93-1.08) H 08/25/17 04:20 APTT 22.6 Seconds (25.1-36.5) L 08/25/17 04:20 - Respiratory Exam Respiratory Exam: Rales - Cardiovascular Exam Cardiovascular Exam: REGULAR RHYTHM, Murmur - GI/Abdominal Exam GI & Abdominal Exam: Soft, Normal Bowel Sounds - Extremities Exam Extremities Exam: Normal Inspection - Neurological Exam Neurological Exam: Alert, Awake - Skin Skin Exam: Dry, Warm Assessment and Plan (1) NSTEMI (non-ST elevated myocardial infarction) Status: Acute (2) CHF (congestive heart failure) Status: Chronic (3) COPD (chronic obstructive pulmonary disease) Status: Chronic (4) Chronic lymphocytic leukemia Status: Chronic (5) Degenerative joint disease (DJD) of lumbar spine Status: Chronic - Assessment and Plan (Free Text) Plan: PT eval & tx, TCU eval, CXR with interstitial chronic changes, repeat BC's pending
--- NOTE | 2017-08-30 00:54 | CON ---
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 Patient has been in and out of the hospitals, mostly [facility], for the last several months. We had, in the past, treated her with Rituxan, but she was never able to get to the office because she is in the hospital or she is in the rehab, etc. So I made arrangements for her to start the Imbruvica pill 140 mg one tab p.o. once a day, and I had her come to my office last week and from my office, we called the specialty pharmacies etc. to arrange delivery of the pills. In the meantime, patient is now being readmitted to the hospital, very weak, found to have a hemoglobin of 8.1 with about 75% lymphocytes in the white cells. She received 2 units of packed cells, went up to 9.6, but she remained quite weak. She has many other medical problems including the heart failure etc. PHYSICAL EXAMINATION: SKIN: No petechiae. No bruises. HEENT: Anicteric. NODES: Nonpalpable in axillary, cervical, supraclavicular, or inguinal regions. LUNGS: At present, clear. She is able to lie flat in bed, but she is pretty weak. HEART: S1 and S2. ABDOMEN: Shows no liver, no spleen, no tenderness, no rebound, no ascites. EXTREMITIES: Shows trace edema. CENTRAL NERVOUS SYSTEM: Plantars are downward going bilaterally. Patient is aware of who I am and we were able to talk. I am not sure what happened with the Imbruvica. I think, at this point, while she is in the hospital, she can be transfused packed cells as needed. The ferritin is quite high. The iron saturation because the MCV is about 89. So I am going to hold off on iron pills for her, and as an outpatient, I will see if I can arrange for the Imbruvica. In the mean time, I will be out of town until Saturday; but for now, she is here mostly for the CHF. Yamil MD Kevin
[2017-08-30] MEDS: Morphine 2 mg/ml ISec IVP PRN ×4 (03:53→17:26)
[2017-08-30] MEDS: guaiFENesin 100 mg/5 ml Syrup UD PO PRN (03:53)
[2017-08-30] MEDS: Enoxaparin 60 mg Syringe SC SCH ×2 (06:17→17:27)
[2017-08-30 08:06] LABS: BASO # 0.01 K/mm3 (0.0-2.0); BASO % 0.1 % (0.0-3.0); EOS # 0.1 (0.0-0.7); EOS % 0.7 % (1.5-5.0); GRAN # 1.37 (1.4-6.5); GRAN % 20.6 % (50.0-68.0); HEMOGLOBIN 9.7 g/dL (12.0-16.0); LYMPH # 4.8 (1.2-3.4); LYMPH % 71.3 % (22.0-35.0); MEAN CELL VOLUME 89.8 fl (80.0-105.0); MEAN CORPUSCULAR HEMOGLOBIN 29.2 pg (25.0-35.0); MEAN CORPUSCULAR HGB CONC 32.6 g/dl (31.0-37.0); MEAN PLATELET VOLUME 9.7 fl (7.0-11.0); MONO # 0.5 (0.1-0.6); MONO % 7.3 % (1.0-6.0); RBC 3.32 10^6/uL (3.5-6.1); RED CELL DISTRIBUTION WIDTH 15.2 % (11.5-14.5); WHITE BLOOD COUNT 6.7 10^3/ul (4.5-11.0)
[2017-08-30 08:13] LABS: ALB/GLOB RATIO 1.3 (1.1-1.8); ALT/SGPT 19 U/L (7-56); AST/SGOT 14 U/L (14-36); BLOOD UREA NITROGEN 25 mg/dL (7-21); CALCIUM 8.7 mg/dL (8.4-10.5); GFR AFRICAN-AMERICAN > 60; GFR NON-AFRICAN AMERICAN > 60
[2017-08-30] MEDS: Metoprolol Succinate 50 mg XL Tab PO SCH (08:44)
[2017-08-30] MEDS: Potassium Chloride 20 mEq ER Tab PO SCH (08:44)
[2017-08-30] MEDS: Magnesium Oxide 400 mg Tab UD PO SCH (10:15)
--- NOTE | 2017-08-30 15:02 | PN ---
DATE: 08/30/2017 CARDIOLOGY FOLLOWUP SUBJECTIVE: The patient is resting comfortably. PHYSICAL EXAMINATION: VITAL SIGNS: Blood pressure varies from 120-130 systolic. NECK: Negative JVD. LUNGS: Without rales. HEART: S1 and S2. EXTREMITIES: Without edema. LABORATORY DATA: Hemoglobin is remaining stable at 9.7. BUN and creatinine are unchanged. IMPRESSION: 1. Status post [id number] myocardial infarction. 2. History of coronary artery disease. 3. Marked anemia, which is now stable. 4. Hypercholesterolemia. 5. Diffuse body aches. 6. Unable to tolerate cardiac catheterization. PLAN: Given these findings, we will continue medical therapy. Her cardiac status is stable as long as her hemoglobin remains at a reasonable level. Rambo Thomson MD
--- NOTE | 2017-08-30 15:42 | CP.PCM.PN ---
Subjective - Date & Time of Evaluation Date of Evaluation: 08/30/17 Time of Evaluation: 15:30 - Subjective Subjective: resting comfortably, NAD, denies chest pain, no SOB, somewhat confused Objective - Vital Signs/Intake and Output Vital Signs (last 24 hours): Temp Pulse Resp BP Pulse Ox 97.2 F L 97 H 20 120/75 96 08/30/17 06:00 08/30/17 08:44 08/30/17 06:00 08/30/17 10:15 08/30/17 06:00 - Medications Medications: Current Medications Acetaminophen (Tylenol 325mg Tab) 650 mg PO Q4H PRN PRN Reason: Fever >100.5 F Albuterol/Ipratropium (Duoneb 3 Mg/0.5 Mg (3 Ml) Ud) 3 ml IH Q3H PRN PRN Reason: Shortness of Breath Atorvastatin Calcium (Lipitor) 40 mg PO DIN [facility] Last Admin: 08/29/17 17:26 Dose: 40 mg Clopidogrel Bisulfate (Plavix) 75 mg PO DAILY [facility] Last Admin: 08/30/17 10:15 Dose: 75 mg Enoxaparin Sodium (Lovenox) 50 mg SC Q12H [facility] PRN Reason: Protocol Last Admin: 08/30/17 06:17 Dose: 50 mg Furosemide (Lasix) 40 mg PO DAILY [facility] Last Admin: 08/30/17 10:15 Dose: 40 mg Guaifenesin (Robitussin) 100 mg PO Q4H PRN PRN Reason: Cough Last Admin: 08/30/17 03:53 Dose: 100 mg Isosorbide Mononitrate (Imdur Er) 30 mg PO DAILY [facility] Last Admin: 08/30/17 10:15 Dose: 30 mg Magnesium Oxide (Mag-Ox) 400 mg PO DAILY [facility] Last Admin: 08/30/17 10:15 Dose: 400 mg Metoprolol Succinate (Toprol Xl) 50 mg PO BRK [facility] Last Admin: 08/30/17 08:44 Dose: 50 mg Morphine Sulfate (Morphine) 2 mg IVP Q4H PRN PRN Reason: Pain, moderate (4-7) Last Admin: 08/30/17 12:34 Dose: 2 mg Ondansetron HCl (Zofran Inj) 4 mg IVP Q4H PRN PRN Reason: Nausea/Vomiting Last Admin: 08/27/17 09:29 Dose: 4 mg Potassium Chloride (K-Dur 20 Meq Er Tab) 20 meq PO BRK [facility] Last Admin: 08/30/17 08:44 Dose: 20 meq - Labs Labs: 08/30/17 07:45 08/30/17 07:45 PT 13.8 SECONDS (9.4-12.5) H 08/25/17 04:20 INR 1.21 (0.93-1.08) H 08/25/17 04:20 APTT 22.6 Seconds (25.1-36.5) L 08/25/17 04:20 - Respiratory Exam Respiratory Exam: Clear to Ausculation Bilateral - Cardiovascular Exam Cardiovascular Exam: REGULAR RHYTHM, Murmur - GI/Abdominal Exam GI & Abdominal Exam: Soft, Normal Bowel Sounds - Extremities Exam Extremities Exam: Normal Inspection - Neurological Exam Neurological Exam: Altered, Awake - Skin Skin Exam: Dry, Warm Assessment and Plan (1) NSTEMI (non-ST elevated myocardial infarction) Status: Acute (2) CHF (congestive heart failure) Status: Chronic (3) COPD (chronic obstructive pulmonary disease) Status: Chronic (4) Chronic lymphocytic leukemia Status: 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 supervision, SW for DC planning, will probably need NH placement , out of MATTHEW days per SW
[2017-08-30] MEDS: Morphine 4 mg/ml ISec IVP PRN (22:34)
[2017-08-31] MEDS: Morphine 4 mg/ml ISec IVP PRN ×3 (05:04→16:02)
[2017-08-31] MEDS: Enoxaparin 60 mg Syringe SC SCH ×2 (07:33→18:16)
[2017-08-31] MEDS: Potassium Chloride 20 mEq ER Tab PO SCH (10:22)
[2017-08-31] MEDS: Metoprolol Succinate 50 mg XL Tab PO SCH (10:22)
[2017-08-31] MEDS: Magnesium Oxide 400 mg Tab UD PO SCH (10:22)
[2017-08-31] MEDS: Nystatin 100,000 Units/gm Topical Pow(15 gm) TOP SCH (18:16)
[2017-09-01] MEDS: Morphine 4 mg/ml ISec IVP PRN ×4 (00:30→17:44)
[2017-09-01] MEDS: guaiFENesin 100 mg/5 ml Syrup UD PO PRN ×2 (01:20→10:40)
[2017-09-01] MEDS: Enoxaparin 60 mg Syringe SC SCH ×2 (05:19→17:45)
[2017-09-01] MEDS: Potassium Chloride 20 mEq ER Tab PO SCH (10:36)
[2017-09-01] MEDS: Magnesium Oxide 400 mg Tab UD PO SCH (10:40)
[2017-09-01] MEDS: Metoprolol Succinate 50 mg XL Tab PO SCH (10:40)
[2017-09-01] MEDS: Nystatin 100,000 Units/gm Topical Pow(15 gm) TOP SCH ×2 (10:41→17:46)
[2017-09-01] MEDS: Promethazine/Cod 6.25mg-10mg/5ml Syr UD PO PRN (13:45)
[2017-09-02] MEDS: Morphine 4 mg/ml ISec IVP PRN ×4 (00:15→21:15)
[2017-09-02] MEDS: Promethazine/Cod 6.25mg-10mg/5ml Syr UD PO PRN (00:15)
[2017-09-02] MEDS: Enoxaparin 60 mg Syringe SC SCH ×2 (05:54→18:16)
[2017-09-02] MEDS: Potassium Chloride 20 mEq ER Tab PO SCH (08:49)
[2017-09-02] MEDS: Metoprolol Succinate 50 mg XL Tab PO SCH (08:49)
[2017-09-02] MEDS: Magnesium Oxide 400 mg Tab UD PO SCH (09:15)
--- NOTE | 2017-09-02 09:52 | CP.PCM.PN ---
Subjective - Date & Time of Evaluation Date of Evaluation: 09/02/17 Time of Evaluation: 09:40 - Subjective Subjective: c/o generalized pain, weakness, denies chest pain, no SOB, cough decreased Objective - Vital Signs/Intake and Output Vital Signs (last 24 hours): Temp Pulse Resp BP Pulse Ox 97.6 F 77 18 133/67 99 09/02/17 06:00 09/02/17 08:49 09/02/17 06:00 09/02/17 09:15 09/02/17 06:00 Intake and Output: 09/02/17 09/02/17 06:59 18:59 Intake Total 480 Balance 480 - Medications Medications: Current Medications Acetaminophen (Tylenol 325mg Tab) 650 mg PO Q4H PRN PRN Reason: Fever >100.5 F Albuterol/Ipratropium (Duoneb 3 Mg/0.5 Mg (3 Ml) Ud) 3 ml IH Q3H PRN PRN Reason: Shortness of Breath Atorvastatin Calcium (Lipitor) 40 mg PO DIN [facility] Last Admin: 09/01/17 17:45 Dose: 40 mg Clopidogrel Bisulfate (Plavix) 75 mg PO DAILY [facility] Last Admin: 09/02/17 09:15 Dose: 75 mg Enoxaparin Sodium (Lovenox) 50 mg SC Q12H [facility] PRN Reason: Protocol Last Admin: 09/02/17 05:54 Dose: 50 mg Furosemide (Lasix) 40 mg PO DAILY [facility] Last Admin: 09/02/17 09:15 Dose: 40 mg Guaifenesin (Robitussin) 100 mg PO Q4H PRN PRN Reason: Cough Last Admin: 09/01/17 10:40 Dose: 100 mg Isosorbide Mononitrate (Imdur Er) 30 mg PO DAILY [facility] Last Admin: 09/02/17 09:15 Dose: 30 mg Magnesium Oxide (Mag-Ox) 400 mg PO DAILY [facility] Last Admin: 09/02/17 09:15 Dose: 400 mg Metoprolol Succinate (Toprol Xl) 50 mg PO BRK [facility] Last Admin: 09/02/17 08:49 Dose: 50 mg Morphine Sulfate (Morphine) 2 mg IVP Q4H PRN PRN Reason: Pain, moderate (4-7) Last Admin: 09/02/17 05:53 Dose: 2 mg Nystatin (Nystop Topical Powder) 0 gm TOP BID [facility] Last Admin: 09/01/17 17:46 Dose: 1 applic Ondansetron HCl (Zofran Inj) 4 mg IVP Q4H PRN PRN Reason: Nausea/Vomiting Last Admin: 08/27/17 09:29 Dose: 4 mg Potassium Chloride (K-Dur 20 Meq Er Tab) 20 meq PO BRK [facility] Last Admin: 09/02/17 08:49 Dose: 20 meq Promethazine HCl/Codeine (Phenergan/Codeine Oral Syrup) 5 ml PO Q6H PRN PRN Reason: Cough and congestion Last Admin: 09/02/17 00:15 Dose: 5 ml - Labs Labs: 08/30/17 07:45 08/30/17 07:45 PT 13.8 SECONDS (9.4-12.5) H 08/25/17 04:20 INR 1.21 (0.93-1.08) H 08/25/17 04:20 APTT 22.6 Seconds (25.1-36.5) L 08/25/17 04:20 - Respiratory Exam Respiratory Exam: Rales - Cardiovascular Exam Cardiovascular Exam: REGULAR RHYTHM - GI/Abdominal Exam GI & Abdominal Exam: Soft, Normal Bowel Sounds - Neurological Exam Neurological Exam: Awake - Skin Skin Exam: Dry, Warm Assessment and Plan (1) NSTEMI (non-ST elevated myocardial infarction) Status: Acute (2) CHF (congestive heart failure) Status: Chronic (3) COPD (chronic obstructive pulmonary disease) Status: Chronic (4) Chronic lymphocytic leukemia Status: Chronic (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
[2017-09-02] MEDS: Nystatin 100,000 Units/gm Topical Pow(15 gm) TOP SCH ×2 (11:00→18:00)
--- NOTE | 2017-09-02 11:04 | PN ---
DATE: 09/02/2017 CARDIOLOGY FOLLOWUP SUBJECTIVE: The patient is in bed without distress. OBJECTIVE: VITAL SIGNS: Blood pressure 133/67, heart rate in the 70s. NECK: Negative JVD. LUNGS: Without rales. HEART: Reveal S1, S2. EXTREMITIES: Without edema. DATA: Hemoglobin has not been tested. BUN and creatinine unremarkable. IMPRESSION: 1. Stable angina. 2. Status post non-ST elevation myocardial infarction. 3. Marked anemia. 4. Diffuse body aches. 5. Coronary artery disease. Given these findings, we will obtain a CBC today to check her to check her hemoglobin. Rambo Thomson MD
[2017-09-02 11:58] LABS: BASO # 0.02 K/mm3 (0.0-2.0); BASO % 0.1 % (0.0-3.0); EOS # 0.1 (0.0-0.7); EOS % 0.6 % (1.5-5.0); GRAN # 6.69 (1.4-6.5); GRAN % 46.2 % (50.0-68.0); HEMOGLOBIN 9.4 g/dL (12.0-16.0); LYMPH # 6.9 (1.2-3.4); LYMPH % 47.9 % (22.0-35.0); MEAN CELL VOLUME 90.6 fl (80.0-105.0); MEAN CORPUSCULAR HEMOGLOBIN 29.5 pg (25.0-35.0); MEAN CORPUSCULAR HGB CONC 32.5 g/dl (31.0-37.0); MEAN PLATELET VOLUME 10.1 fl (7.0-11.0); MONO # 0.8 (0.1-0.6); MONO % 5.2 % (1.0-6.0); RBC 3.19 10^6/uL (3.5-6.1); RED CELL DISTRIBUTION WIDTH 15.1 % (11.5-14.5); WHITE BLOOD COUNT 14.5 10^3/ul (4.5-11.0)
[2017-09-02 12:44] LABS: BLOOD UREA NITROGEN 38 mg/dL (7-21); GFR AFRICAN-AMERICAN > 60; GFR NON-AFRICAN AMERICAN 53
[2017-09-02 12:45] LABS: ALB/GLOB RATIO 1.2 (1.1-1.8); ALBUMIN 2.8 g/dL (3.0-4.8); ALT/SGPT 22 U/L (7-56); AST/SGOT 10 U/L (14-36); CALCIUM 8.5 mg/dL (8.4-10.5)
[2017-09-03] MEDS: Morphine 4 mg/ml ISec IVP PRN ×5 (01:39→21:23)
[2017-09-03] MEDS: Metoprolol Succinate 50 mg XL Tab PO SCH (07:29)
[2017-09-03] MEDS: Potassium Chloride 20 mEq ER Tab PO SCH (07:30)
--- NOTE | 2017-09-03 09:42 | CP.PCM.PN ---
Subjective - Date & Time of Evaluation Date of Evaluation: 09/03/17 Time of Evaluation: 09:30 - Subjective Subjective: somewhat confused this am, non-productive cough, denies chest pain, no SOB Objective - Vital Signs/Intake and Output Vital Signs (last 24 hours): Temp Pulse Resp BP Pulse Ox 77.8 F L 76 18 147/75 100 09/03/17 08:41 09/03/17 08:41 09/03/17 08:41 09/03/17 08:41 09/03/17 08:41 Intake and Output: 09/03/17 09/03/17 06:59 18:59 Intake Total 480 Output Total 200 Balance 280 - Medications Medications: Current Medications Acetaminophen (Tylenol 325mg Tab) 650 mg PO Q4H PRN PRN Reason: Fever >100.5 F Albuterol/Ipratropium (Duoneb 3 Mg/0.5 Mg (3 Ml) Ud) 3 ml IH Q3H PRN PRN Reason: Shortness of Breath Atorvastatin Calcium (Lipitor) 40 mg PO DIN [facility] Last Admin: 09/02/17 17:59 Dose: 40 mg Clopidogrel Bisulfate (Plavix) 75 mg PO DAILY [facility] Last Admin: 09/02/17 09:15 Dose: 75 mg Furosemide (Lasix) 40 mg PO DAILY [facility] Last Admin: 09/02/17 09:15 Dose: 40 mg Guaifenesin (Robitussin) 100 mg PO Q4H PRN PRN Reason: Cough Last Admin: 09/01/17 10:40 Dose: 100 mg Isosorbide Mononitrate (Imdur Er) 30 mg PO DAILY [facility] Last Admin: 09/02/17 09:15 Dose: 30 mg Magnesium Oxide (Mag-Ox) 400 mg PO DAILY [facility] Last Admin: 09/02/17 09:15 Dose: 400 mg Metoprolol Succinate (Toprol Xl) 50 mg PO BRK [facility] Last Admin: 09/03/17 07:29 Dose: 50 mg Morphine Sulfate (Morphine) 1 mg IVP Q4H PRN PRN Reason: Pain, moderate (4-7) Nystatin (Nystop Topical Powder) 0 gm TOP BID [facility] Last Admin: 09/02/17 18:00 Dose: 1 applic Ondansetron HCl (Zofran Inj) 4 mg IVP Q4H PRN PRN Reason: Nausea/Vomiting Last Admin: 08/27/17 09:29 Dose: 4 mg Potassium Chloride (K-Dur 20 Meq Er Tab) 20 meq PO BRK [facility] Last Admin: 09/03/17 07:30 Dose: 20 meq Promethazine HCl/Codeine (Phenergan/Codeine Oral Syrup) 5 ml PO Q6H PRN PRN Reason: Cough and congestion Last Admin: 09/02/17 00:15 Dose: 5 ml - Labs Labs: 09/02/17 11:20 09/02/17 11:20 PT 13.8 SECONDS (9.4-12.5) H 08/25/17 04:20 INR 1.21 (0.93-1.08) H 08/25/17 04:20 APTT 22.6 Seconds (25.1-36.5) L 08/25/17 04:20 - Respiratory Exam Respiratory Exam: Rales - Cardiovascular Exam Cardiovascular Exam: REGULAR RHYTHM, Murmur - GI/Abdominal Exam GI & Abdominal Exam: Soft, Normal Bowel Sounds - Extremities Exam Extremities Exam: Normal Inspection - Neurological Exam Neurological Exam: Altered, Awake - Skin Skin Exam: Dry, Warm Assessment and Plan (1) NSTEMI (non-ST elevated myocardial infarction) Status: Acute (2) CHF (congestive heart failure) Status: Chronic (3) COPD (chronic obstructive pulmonary disease) Status: Chronic (4) Chronic lymphocytic leukemia Status: Chronic (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
[2017-09-03] MEDS: Magnesium Oxide 400 mg Tab UD PO SCH (09:47)
[2017-09-03] MEDS: Promethazine/Cod 6.25mg-10mg/5ml Syr UD PO PRN (10:18)
[2017-09-03] MEDS: Nystatin 100,000 Units/gm Topical Pow(15 gm) TOP SCH ×2 (11:00→19:01)
--- NOTE | 2017-09-03 13:25 | RAD ---
HISTORY: cough COMPARISON: 08/29/2017 FINDINGS: LUNGS: Bilateral interstitial lung marking prominence - probable top-normal bronchovascular markings. There is interval vague rounded opacities in the left perihilar and left upper lobes vol changes compared the prior study. Interval patchy infiltrates here are a consideration. Other interval nodular opacities neoplastic related are not excluded. Port-A-Cath in place noted. PLEURA: No significant pleural effusion identified, no pneumothorax apparent. CARDIOVASCULAR: Normal heart size.Right IJ MediPort tip in the SVC. Atherosclerotic vascular calcifications present. . OSSEOUS STRUCTURES: Thoracic spondylosis similar bilateral shoulder arthrosis VISUALIZED UPPER ABDOMEN: Normal. OTHER FINDINGS: None. IMPRESSION: Interval multiple vague ended opacities left perihilar and left upper lobe interval patchy infiltrates/an inflammatory/infectious consideration. Interval nodular neoplastic opacities another. Follow-up and clinical correlation needed
--- NOTE | 2017-09-03 16:36 | PN ---
DATE: 09/03/2017 CARDIOLOGY FOLLOWUP SUBJECTIVE: The patient is without chest pain and without distress. PHYSICAL EXAMINATION: VITAL SIGNS: Stable. NECK: Negative JVD. LUNGS: Without rales. HEART: Reveals S1, S2. EXTREMITIES: Without edema. LABORATORY DATA: Hemoglobin yesterday was stable. IMPRESSION: 1. Status post marked anemia. 2. Non-ST elevation myocardial infarction, which is stable. 3. Coronary artery disease. 4. Chronic obstructive pulmonary disease. 5. History of chronic lymphocytic leukemia. PLAN: Given these findings, there are no plans for cardiac catheterization. 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 Rambo Thomson MD
[2017-09-03 20:39] LABS: URINE BILIRUBIN NEGATIVE (NEGATIVE); URINE BLOOD NEGATIVE (NEGATIVE); URINE GLUCOSE (UA) NEGATIVE (NEGATIVE); URINE LEUKOCYTE ESTERASE SMALL Leu/uL (NEGATIVE); URINE PROTEIN TRACE mg/dL (<30 mg/dL)
[2017-09-03 20:42] LABS: URINE APPEARANCE SL CLOUDY (CLEAR); URINE COLOR YELLOW (YELLOW)
[2017-09-03 21:28] LABS: URINE BACTERIA FEW (NEG); URINE EPITHELIAL CELLS 0 - 2 /hpf (0-5); URINE RBC 0 - 2 /hpf (0-2)
[2017-09-04] MEDS: Morphine 4 mg/ml ISec IVP PRN ×4 (04:57→22:06)
[2017-09-04 08:13] LABS: BASO # 0.01 K/mm3 (0.0-2.0); BASO % 0.1 % (0.0-3.0); EOS # 0.1 (0.0-0.7); EOS % 0.4 % (1.5-5.0); GRAN # 7.98 (1.4-6.5); GRAN % 49.8 % (50.0-68.0); HEMOGLOBIN 9.2 g/dL (12.0-16.0); LYMPH # 7.3 (1.2-3.4); LYMPH % 45.5 % (22.0-35.0); MEAN CELL VOLUME 90.1 fl (80.0-105.0); MEAN CORPUSCULAR HEMOGLOBIN 29.5 pg (25.0-35.0); MEAN CORPUSCULAR HGB CONC 32.7 g/dl (31.0-37.0); MEAN PLATELET VOLUME 10.1 fl (7.0-11.0); MONO # 0.7 (0.1-0.6); MONO % 4.2 % (1.0-6.0); RBC 3.12 10^6/uL (3.5-6.1); RED CELL DISTRIBUTION WIDTH 15.1 % (11.5-14.5)
[2017-09-04 08:19] LABS: ALB/GLOB RATIO 1.3 (1.1-1.8); ALBUMIN 2.9 g/dL (3.0-4.8); CALCIUM 8.7 mg/dL (8.4-10.5)
[2017-09-04] MEDS: Magnesium Oxide 400 mg Tab UD PO SCH (09:41)
[2017-09-04] MEDS: Potassium Chloride 20 mEq ER Tab PO SCH (09:41)
[2017-09-04] MEDS: Metoprolol Succinate 50 mg XL Tab PO SCH (09:41)
[2017-09-04] MEDS: Promethazine/Cod 6.25mg-10mg/5ml Syr UD PO PRN ×2 (09:42→20:27)
[2017-09-04] MEDS: Nystatin 100,000 Units/gm Topical Pow(15 gm) TOP SCH ×2 (09:42→17:14)
--- NOTE | 2017-09-04 09:47 | CP.PCM.PN ---
Subjective - Date & Time of Evaluation Date of Evaluation: 09/04/17 Time of Evaluation: 09:30 - Subjective Subjective: c/o cough, productive of yellow sputum, no hemoptysis, denies chest pain, no SOB , refusing PT, less confused today Objective - Vital Signs/Intake and Output Vital Signs (last 24 hours): Temp Pulse Resp BP Pulse Ox 98.2 F 90 18 106/76 98 09/04/17 08:04 09/04/17 08:04 09/04/17 08:04 09/04/17 08:04 09/04/17 08:04 Intake and Output: 09/04/17 09/04/17 06:59 18:59 Intake Total 120 Output Total 100 Balance 20 - Medications Medications: Current Medications Acetaminophen (Tylenol 325mg Tab) 650 mg PO Q4H PRN PRN Reason: Fever >100.5 F Albuterol/Ipratropium (Duoneb 3 Mg/0.5 Mg (3 Ml) Ud) 3 ml IH Q3H PRN PRN Reason: Shortness of Breath Atorvastatin Calcium (Lipitor) 40 mg PO DIN [facility] Last Admin: 09/03/17 17:22 Dose: 40 mg Azithromycin (Zithromax) 500 mg PO DAILY [facility] PRN Reason: Protocol Clopidogrel Bisulfate (Plavix) 75 mg PO DAILY [facility] Last Admin: 09/03/17 09:47 Dose: 75 mg Furosemide (Lasix) 40 mg PO DAILY [facility] Last Admin: 09/03/17 09:47 Dose: 40 mg Guaifenesin (Robitussin) 100 mg PO Q4H PRN PRN Reason: Cough Last Admin: 09/01/17 10:40 Dose: 100 mg Isosorbide Mononitrate (Imdur Er) 30 mg PO DAILY [facility] Last Admin: 09/03/17 09:47 Dose: 30 mg Magnesium Oxide (Mag-Ox) 400 mg PO DAILY [facility] Last Admin: 09/03/17 09:47 Dose: 400 mg Metoprolol Succinate (Toprol Xl) 50 mg PO BRK [facility] Last Admin: 09/03/17 07:29 Dose: 50 mg Morphine Sulfate (Morphine) 1 mg IVP Q4H PRN PRN Reason: Pain, moderate (4-7) Last Admin: 09/04/17 04:57 Dose: 1 mg Nystatin (Nystop Topical Powder) 0 gm TOP BID [facility] Last Admin: 09/03/17 19:01 Dose: 1 applic Ondansetron HCl (Zofran Inj) 4 mg IVP Q4H PRN PRN Reason: Nausea/Vomiting Last Admin: 08/27/17 09:29 Dose: 4 mg Potassium Chloride (K-Dur 20 Meq Er Tab) 20 meq PO BRK [facility] Last Admin: 09/03/17 07:30 Dose: 20 meq Promethazine HCl/Codeine (Phenergan/Codeine Oral Syrup) 5 ml PO Q6H PRN PRN Reason: Cough and congestion Last Admin: 09/03/17 10:18 Dose: 5 ml - Labs Labs: 09/04/17 08:00 09/04/17 08:00 PT 13.8 SECONDS (9.4-12.5) H 08/25/17 04:20 INR 1.21 (0.93-1.08) H 08/25/17 04:20 APTT 22.6 Seconds (25.1-36.5) L 08/25/17 04:20 - Respiratory Exam Respiratory Exam: Rales - Cardiovascular Exam Cardiovascular Exam: REGULAR RHYTHM, Murmur - GI/Abdominal Exam GI & Abdominal Exam: Soft, Normal Bowel Sounds - Extremities Exam Extremities Exam: Normal Inspection - Neurological Exam Neurological Exam: Alert, Awake Assessment and Plan (1) NSTEMI (non-ST elevated myocardial infarction) Status: Acute (2) CHF (congestive heart failure) Status: Chronic (3) COPD (chronic obstructive pulmonary disease) Status: Chronic (4) Chronic lymphocytic leukemia Status: Chronic (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
[2017-09-05] MEDS: Morphine 4 mg/ml ISec IVP PRN ×4 (02:21→16:37)
[2017-09-05 07:37] LABS: HEMOGLOBIN 9.2 g/dL (12.0-16.0); MEAN CELL VOLUME 89.5 fl (80.0-105.0); MEAN CORPUSCULAR HEMOGLOBIN 29.4 pg (25.0-35.0); MEAN CORPUSCULAR HGB CONC 32.9 g/dl (31.0-37.0); MEAN PLATELET VOLUME 10.2 fl (7.0-11.0); RBC 3.13 10^6/uL (3.5-6.1); RED CELL DISTRIBUTION WIDTH 15.1 % (11.5-14.5); WHITE BLOOD COUNT 18.3 10^3/ul (4.5-11.0)
[2017-09-05 08:09] LABS: CALCIUM 8.5 mg/dL (8.4-10.5)
[2017-09-05] MEDS: Magnesium Oxide 400 mg Tab UD PO SCH (10:51)
[2017-09-05] MEDS: Metoprolol Succinate 50 mg XL Tab PO SCH (10:51)
[2017-09-05] MEDS: Promethazine/Cod 6.25mg-10mg/5ml Syr UD PO PRN ×2 (10:52→11:43)
[2017-09-05] MEDS: Potassium Chloride 20 mEq ER Tab PO SCH (10:52)
[2017-09-05] MEDS: Nystatin 100,000 Units/gm Topical Pow(15 gm) TOP SCH (10:53)
[2017-09-05 15:40] VITALS: BP 102/69; PULSE 87; RESP 18; TEMP 98.4; O2SAT 97
--- NOTE | 2017-09-06 08:36 | PQF CHF ---
This form is a permanent part of the medical record Dr. Hicks, Secondary dx of CHF = please specify the type and acuity of heart failure. See below the physician's response for the choices. Thank you. Clarification of your documentation is requested to better reflect the severity of illness and intensity of treatment of your patient. Indicators present [x] Diagnosis of CHF and/or history of CHF [x] BNP > 200 [] Imaging Finding of Pulmonary Edema /Pleural Effusions [] Fluid/Volume Overload [] Pitting edema [] Ejection Fraction < 40% (Indicative of Systolic Heart Failure) [] Ejection Fraction > 40% (Indicative of Diastolic Heart Failure) [] Dyspnea / Orthopenea / Paroxysmal Nocturnal Dyspnea [] Other: Location in the medical record that reflects the above clinical findings: [] progress notes documentation by Dr. Hicks Treatment Provided: [] PHYSICIAN'S RESPONSE Based on your medical judgment of the clinical indicators outlined above, are you treating this patient for a known or suspected: [] Acute CHF [] Systolic [] Diastolic [] Combined [] Chronic CHF [] Systolic [] Diastolic [] Combined [x] Acute on Chronic CHF []Systolic [x] Diastolic [] Combined [] CHF due hypertension [] Acute systolic []Chronic systolic [] Acute/ chronic systolic [] Other, please indicate: [] [] If Unable to Determine, please check the box, sign and date. Present On Admission (POA) Indicator: [x] Present at the time of admission [] Not present at the time of admission [] Clinically Undetermined In responding to this query, please exercise your independent professional judgment. The fact that a question is asked does not imply that any particular answer is desired or expected. Thank you for your clarification on this documentation. 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
== END 2017-09-05 18:38 | disposition home health service (06) | DRG 280 ==
LOC: ED 03:43 → ERH 05:53 → 2RSO 08:47 → 5RSO 08-29 13:15
PROVIDERS: ADMIT Internal Medicine; ATTEND Internal Medicine
PROC: 30233N1 Transfusion of Nonautologous Red Blood Cells into Peripheral Vein, Percutaneous Approach (ICD-10-PCS; principal; 2017-08-27)
DX: I21.4 Non-ST elevation (NSTEMI) myocardial infarction (principal); I50.33 Acute on chronic diastolic (congestive) heart failure; C91.10 Chronic lymphocytic leukemia of B-cell type not having achieved remission; F11.20 Opioid dependence, uncomplicated; I11.0 Hypertensive heart disease with heart failure; D63.0 Anemia in neoplastic disease; I25.118 Atherosclerotic heart disease of native coronary artery with other forms of angina pectoris; J44.9 Chronic obstructive pulmonary disease, unspecified; M51.36 Other intervertebral disc degeneration, lumbar region; I35.0 Nonrheumatic aortic (valve) stenosis; I27.20 Pulmonary hypertension, unspecified; E83.42 Hypomagnesemia; E78.00 Pure hypercholesterolemia, unspecified; G89.29 Other chronic pain; R53.1 Weakness; D72.829 Elevated white blood cell count, unspecified; Z95.5 Presence of coronary angioplasty implant and graft